=== PATIENT | male | born 1955 | race Caucasian/White ===

== ENCOUNTER 2016-12-18 14:04 | Emergency (ER) | payer BC, OTHER ==
--- NOTE | 2016-12-18 14:49 | PDOC ---
History of Present Illness <Helder Jiménez - Last Filed: 12/18/16 17:50> - General History Source: Patient, Family, Old Records Exam Limitations: No Limitations - History of Present Illness Initial Comments: 12/18/16 19:09 The patient is a 61 year old male, with a significant past medical history of anemia, diabetes, coronary artery disease s/p 17 cardiac stents, ascites and liver cirrhosis, who presents to the emergency department with a laceration to the occiput s/p a mechanical slip and fall on ice approximately an hour prior to presentation. The patient states that he did hit his head but he denies LOC, he states that he remembers all events before, during and after the fall. The patient reports a mild headache but denies any blurry vision, double vision, vision changes, numbness/tingling/weakness, dizziness, nausea, vomiting, neck pain or back pain. The patient denies shortness of breath, palpitations or chest pain. Family is at the bedside. Not on a/c. Allergies: None reported. Past Surgical History: Appendectomy, Stents x 17, Laminectomy (2011) Social History: Former smoker (quit in 2008). Denies alcohol or drug use. PCP: Dr. Landry Machado GI: Dr. Salazar Pritchett Retail Supervisor: Dr. Dario Mireles <Tonie Noonan - Last Filed: 12/18/16 19:11> - General Stated Complaint: fall Time Seen by Provider: 12/18/16 14:16 Past History - Past Medical History Anemia: Yes Asthma: No Cancer: No Cardiac Disorders: Yes (CAD, 17 STENTS IN MY HEART) CVA: No COPD: No CHF: No Dementia: No Diabetes: Yes (IDDM) Dialysis: (Kidney problems) GI Disorders: No Disorders: No HTN: No Hypercholesterolemia: No Kidney Stones: No Liver Disease: Yes (CIRRHOSIS) Suicide Attempt (Hx): No Seizures: No Thyroid Disease: No - Surgical History Abdominal Surgery: No Appendectomy: Yes Cardiac Surgery: Yes (STENTS X 17) Cholecystectomy: No Lung Surgery: No Neurologic Surgery: Yes (LAMINECTOMY 2011) Orthopedic Surgery: No - Immunization History Td Vaccination: Yes TDAP Vaccination: Yes - Psycho/Social/Smoking Cessation Hx Anxiety: No Suicidal Ideation: No Smoking Status: No Smoking History: Never smoked Have you smoked in the past 12 months: No Number of Cigarettes Smoked Daily: 0 If you are a former smoker, when did you quit?: 2008 Hx Alcohol Use: No Drug/Substance Use Hx: No Substance Use Type: None Hx Substance Use Treatment: No <TinoHelder - Last Filed: 12/18/16 17:50> <SaranTonie - Last Filed: 12/18/16 19:11> - Past Medical History Allergies/Adverse Reactions: Allergies Allergy/AdvReac Type Severity Reaction Status Date / Time No Known Drug Allergies Allergy Verified 12/18/16 15:18 Home Medications: Ambulatory Orders Esomeprazole Mag Trihydrate [Nexium] 40 mg PO DAILY #0 capsule. 01/22/12 Rifaximin [Xifaxan -] 550 mg PO BID #0 tablet 07/21/13 Allopurinol [Zyloprim -] 100 mg PO BID 08/17/14 Insulin Glargine,Hum.rec.anlog [Lantus (10mL VIAL) -] 30 units SQ HS 08/17/14 Lactulose 30 mg PO TID 08/18/14 Furosemide [Lasix -] 80 mg PO DAILY 01/30/15 Oxycodone HCl [Roxicodone] 60 mg PO QID PRN 01/30/15 Spironolactone [Aldactone] 50 mg PO DAILY 01/30/15 Atenolol [Tenormin -] 25 mg PO DAILY 10/29/15 Insulin Aspart [Novolog] 30 unit SQ AM 10/30/15 Review of Systems - Review of Systems Able to Perform ROS?: Yes Comments:: 12/18/16 19:09 CONSTITUTIONAL: No reported: Fever, Chills, Diaphoresis, Generalized Weakness, Malaise, Loss of Appetite HEENT: No reported: Rhinorrhea, Nasal Congestion, Throat Pain, Throat Swelling, Difficulty Swallowing, Mouth Swelling, Ear Pain, Eye Pain, Visual Changes CARDIOVASCULAR: No reported: Chest Pain, Syncope, Palpitations, Irregular Heart Rate, Lightheadedness, Peripheral Edema RESPIRATORY: No reported: Cough, Shortness of Breath, SOB with Exertion, Orthopnea, Wheezing , Stridor, Hemoptysis GASTROINTESTINAL: No reported: Abdominal pain, Abdominal Distension, Nausea, Vomiting, Diarrhea, Constipation, Melena, Hematochezia GENITOURINARY: No reported: Dysuria, Frequency, Urgency, Hesitancy, Flank Pain, Genital Pain MUSCULOSKELETAL: No reported: Myalgia, Arthralgia, Joint Swelling, Back pain, Neck Pain SKIN: Reported: +Laceration to Occiput No reported: Rash, Itching, Pallor HEMATOLOGIC/IMMUNOLOGIC: No reported: Easy Bleeding, Easy Bruising, Lymphadenopathy, Frequent infections ENDOCRINE: No reported: Unexplained Weight Gain, Unexplained Weight Loss, Heat Intolerance , Cold Intolerance NEUROLOGIC: Reported: +Headache No reported: Focal Weakness, Paresthesias, Vertigo, Lightheadedness, Unsteady Gait, Seizure, Mental Status Changes, Incontinence PSYCHIATRIC: No reported: Anxiety, Depression <Tonie Noonan - Last Filed: 12/18/16 19:11> *Physical Exam - Physical Exam Comments: 12/18/16 19:10 GENERAL: The patient is awake, alert, and fully oriented, Nontoxic - in no acute distress. HEAD: Normocephalic, 4cm laceration to occiput, no step offs, crepitus, no active bleeding. EYES: Pupils 4mm and symmetrically reactive extraocular movements intact, jaundiced sclera. ENT: Normal voice, moist mucous membranes. NECK: Normal range of motion, supple. LUNGS: Breath sounds equal, clear to auscultation bilaterally. No wheezes, no rhonchi, no rales. HEART: Regular rate and rhythm, normal S1 and S2 without murmur, rub or gallop. ABDOMEN: Ventral hernia, distended abdomen without tenderness, +fluid wave. EXTREMITIES: Normal range of motion, no edema. No clubbing or cyanosis. No cords, erythema, or tenderness. NEUROLOGICAL: No facial asymmetry, normal speech, moving all 4 extremities spontaneously and symmetrically. PSYCH: Normal mood, normal affect. SKIN: Warm, dry, normal turgor. BACK: No tenderness in the cervical/thoracic/lumbar region. <Tonie Noonan - Last Filed: 12/18/16 19:11> Procedures - Consent Consent obtained: Verbal - Laceration/Wound Repair Posterior Head Wound Length: 2.6 to 5.0 cm Wound Explored: clean Wound's Depth, Shape: linear, stellate Anesthesia: 1% Lidocaine w/ Epi Amount of Anesthetic (ccs): 6 Wound Debrided: minimal Wound Repaired With: Verna Number of Sutures: 6 Layer Closure: No <Tino,Heledr - Last Filed: 12/18/16 17:50> Heart Score/ECG Review - ECG Impressions Comment:: 12/18/16 16:58 Twelve-lead EKG was performed and reviewed by me. There is normal sinus rhythm with a normal rate. Rate of 66 abnormal r wave progression <Sergio Jiménezan - Last Filed: 12/18/16 17:50> ED Treatment Course - LABORATORY CBC & Chemistry Diagram: 12/18/16 15:10 12/18/16 15:10 <Helder Jiménez - Last Filed: 12/18/16 17:50> - LABORATORY CBC & Chemistry Diagram: 12/18/16 15:10 12/18/16 15:10 <Tonie Noonan - Last Filed: 12/18/16 19:11> Medical Decision Making - Medical Decision Making 12/18/16 14:51 61y M hx of liver cirhosis cb ascites, cad s/p 17 stents, dm, presents s/p slip and fall - pt recalls slipping on ice and landed on his head, endorses mild headache but dneis any n/v vision changes, neck pain, back pain, cp, palpitations. mechanical fall - will obtain ct head to r/o bleed/fx will need closure with verna will update tetnaus ekg, labs due to pts comorbidities A portion of this note was documented by scribe services under my direction. I have reviewed the details of the note, within reason, and agree with the documentation with the following case summary and management plan written by me 12/18/16 17:00 The patient's labs were reviewed CT of the patient's head and C-spine are negative for acute changes We'll close the patient's laceration with verna and anticipate discharge with primary care fu 12/18/16 17:40 laceration repaired with 6 verna basictracin applied return precautions were dicusscused including signs of infection return on 10 days for staple removal I discussed the physical exam findings, ancillary test results and final diagnoses with the patient. I answered all of the patient's questions. The patient was satisfied with the care received and felt comfortable with the discharge plan and treatment plan. The patient will call their primary care physician within 24 hours to arrange follow-up and will return to the Emergency Department with any new, persistent or worsening symptoms. <Helder Jiménez - Last Filed: 12/18/16 17:50> - Medical Decision Making 12/18/16 17:15 EXAM: CT/ HEAD CT WITHOUT CONTRAST Reviewed By: Dr. Roel Azul IMPRESSION: No CT evidence of acute intracranial pathology. Left parietal scalp hematoma. EXAM: CT/CERVICAL SPINE CT W/O CONTRAST Reviewed By: Dr. Roel Azul IMPRESSION: No fracture is seen. 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 <Tonie Noonan - Last Filed: 12/18/16 19:11> *DC/Admit/Observation/Transfer - Discharge Dispostion Admit: No <Helder Jiménez - Last Filed: 12/18/16 17:50> - Attestations Scribe Attestion: 12/18/16 15:09 Documentation prepared by Tonie Noonan, acting as medical assisting program director for Helder Jiménez MD. <Tonie Noonan - Last Filed: 12/18/16 19:11> Diagnosis at time of Disposition: Head injury Qualifiers: Encounter type: initial encounter Qualified Code(s): S09.90XA - Unspecified injury of head, initial encounter Occipital scalp laceration Qualifiers: Encounter type: initial encounter Qualified Code(s): S01.01XA - Laceration without foreign body of scalp, initial encounter - Discharge Dispostion Disposition: HOME Condition at time of disposition: Improved - Referrals Referrals: Landry Machado MD [Staff Physician] - - Patient Instructions Printed Discharge Instructions: DI for Closed Head Injury Additional Instructions: Return to the emergency department immediately with ANY new, persistent or worsening symptoms including any redness, bleeding, purulent discharge, swelling or other concerns. Keep the area clean and dry for 48 hours. Afterwards he may clean gently with soap and water. Apply bacitracin twice a day. Keep the area away from the sun for the next 9 months, please use sunscreen and wear a hat if you need to be in the sun to improve appearance of the scar. Return in 10 days for staple removal. You MUST call and follow up with your doctor tomorrow for further evaluation of your symptoms. Results were discussed with you. Please make sure your doctor reviews the results of your emergency evaluation. Print Language: MOROCCAN
[2016-12-18] MEDS ORDERED: DIPHTH,PERTUSS(ACELL),TET VAC 0.5 ML VIAL IM ONE (14:50)
[2016-12-18] MEDS ORDERED: ACETAMINOPHEN 325 MG TABLET (FP) PO ONE (14:50)
[2016-12-18 15:18] VITALS: BMI 25.8
[2016-12-18 15:25] LABS: BASOPHIL 0.7 % (0-2.0); EOSINOPHIL 2.8 % (0-4.5); MCH 26.1 pg (25.7-33.7); MCHC 32.6 g/dl (32.0-35.9); MEAN CELL VOLUME 80.3 fl (80-96); MEAN PLT VOLUME 10.9 fl (7.5-11.1); NEUTROPHILS 75.5 % (42.8-82.8); PLATELET COUNT 110 K/MM3 (134-434); RDW 17.2 % (11.9-15.9); WHITE BLOOD COUNT 6.1 K/mm3 (4.0-10.0)
[2016-12-18 15:42] LABS: INR 1.35 (0.82-1.09); PROTHROMBIN TIME (PATIENT) 14.9 SEC (9.98-11.88)
[2016-12-18 15:44] LABS: ALBUMIN 3.3 g/dl (3.4-5.0); BILIRUBIN,TOTAL 0.8 mg/dL (0.2-1.0); CREATININE 3.1 mg/dL (0.7-1.3); TOT PROT 7.1 g/dl (6.4-8.2)
[2016-12-18] MEDS ORDERED: morphine CARPU-JECT 4 MG/1 ML DISP.SYRIN IVPUSH ONE (16:59)
[2016-12-18] MEDS ORDERED: morphine CARPU-JECT 2 MG/1 ML DISP.SYRIN IVPUSH ONE (16:59)
[2016-12-18] MEDS ORDERED: morphine CARPU-JECT 4 MG/1 ML DISP.SYRIN ONE (17:01)
[2016-12-18] MEDS ORDERED: LIDOCAINE 1%/EPI 1:100000 (50 ML MULTI DOSE VIAL) ONE (17:22)
[2016-12-18 19:30] VITALS: BP 140/85; PULSE 65; TEMP 97.9
--- NOTE | 2016-12-19 17:05 | EKG ---
Test Reason : Blood Pressure : / mmHG Vent. Rate : 066 BPM Atrial Rate : 066 BPM P-R Int : 140 ms QRS Dur : 072 ms QT Int : 382 ms P-R-T Axes : 072 -13 040 degrees QTc Int : 400 ms NORMAL SINUS RHYTHM LOW VOLTAGE QRS CANNOT RULE OUT SEPTAL INFARCT (CITED ON OR BEFORE 30-JAN-2015) ABNORMAL ECG WHEN COMPARED WITH ECG OF 19-JUL-2016 00:55, SINUS RHYTHM HAS REPLACED ATRIAL FIBRILLATION VENT. RATE HAS DECREASED BY 67 BPM T WAVE VARIATION Confirmed by DONNA REGALADO MD ([id number]) on 12/19/2016 5:04:48 PM Referred By: Confirmed By:DONNA REGALADO MD
== END 2016-12-18 18:30 | disposition home or self-care (01) ==
LOC: JER 14:04
PROC: 3E033NZ Introduction of Analgesics, Hypnotics, Sedatives into Peripheral Vein, Percutaneous Approach (ICD-10-PCS; principal; 2016-12-18)
PROC: 3E0234Z Introduction of Serum, Toxoid and Vaccine into Muscle, Percutaneous Approach (ICD-10-PCS; 2016-12-18)
PROC: 0HQ0XZZ Repair Scalp Skin, External Approach (ICD-10-PCS; 2016-12-18)
DX: S01.01XA Laceration without foreign body of scalp, initial encounter (principal); W00.2XXA Other fall from one level to another due to ice and snow, initial encounter; Y93.89 Activity, other specified; Y92.414 Local residential or business street as the place of occurrence of the external cause; I25.10 Atherosclerotic heart disease of native coronary artery without angina pectoris; Z95.5 Presence of coronary angioplasty implant and graft; E11.9 Type 2 diabetes mellitus without complications; Z79.84 Long term (current) use of oral hypoglycemic drugs; D64.9 Anemia, unspecified; K74.60 Unspecified cirrhosis of liver
CPT/HCPCS: 36415; 70450-TC; 72125-TC; 80053; 85025; 85610; 93005; 93010; 99283-25

== ENCOUNTER 2016-12-28 16:22 | Emergency (ER) | payer BC, OTHER ==
[2016-12-28 16:26] VITALS: BP 130/63; PULSE 67; TEMP 97.9; BMI 25.8
--- NOTE | 2016-12-28 17:25 | PDOC ---
Suture Removal/Wound Check HPI - History of Present Illness Chief Complaint: Suture/Staple Removal(Here) Stated Complaint: [place] removal Time Seen by Provider: 12/28/16 17:20 History Source: Yes: Patient Exam Limitations: Yes: No Limitations [facility] Date of Last ED visit: 12/18/16 - Previous ED Treatment Type of procedure performed on last visit: Yes: Laceration Repair (scalp reapir with marlon) Tetanus Immunization: Yes: Up to Date Past History - Past Medical History Allergies/Adverse Reactions: Allergies No Known Drug Allergies Allergy (Verified 12/28/16 16:26) Home Medications: Ambulatory Orders Esomeprazole Mag Trihydrate [Nexium] 40 mg PO DAILY #0 capsule. 01/22/12 Rifaximin [Xifaxan -] 550 mg PO BID #0 tablet 07/21/13 Allopurinol [Zyloprim -] 100 mg PO BID 08/17/14 Insulin Glargine,Hum.rec.anlog [Lantus (10mL VIAL) -] 30 units SQ HS 08/17/14 Lactulose 30 mg PO TID 08/18/14 Furosemide [Lasix -] 80 mg PO DAILY 01/30/15 Oxycodone HCl [Roxicodone] 60 mg PO QID PRN 01/30/15 Spironolactone [Aldactone] 50 mg PO DAILY 01/30/15 Atenolol [Tenormin -] 25 mg PO DAILY 10/29/15 Insulin Aspart [Novolog] 30 unit SQ AM 10/30/15 Surgical History: Yes: Cardiac Stent, Noncontributory - Social History Smoking History: No Smoking Status: Never smoked Number of Ciarettes Per Day: 0 Alcohol Use: none Drug Use: none Suture Removal/Wound Check PE - Physical Exam Laceration/Wound Check Symptoms: reports: None Comments: 12/28/16 17:25 scalp laceration healed well with 5 marlon wound clean dry intact *Review of Systems - Review of Systems Able to Perform ROS?: Yes Constitutional: No: Symptoms Reported Procedures - Additional Procedures Progress: 12/28/16 17:27 marlon removed x5 without difficulty Medical Decision Making - Medical Decision Making 12/28/16 17:27 cc: staple removal from scalp healed well placed on 12/18/16 no headache or dizzyness *DC/Admit/Observation/Transfer Diagnosis at time of Disposition: Removal of marlon - Discharge Dispostion Disposition: HOME Condition at time of disposition: Good - Referrals Referrals: Landry Machado MD [Primary Care Provider] - - Patient Instructions Additional Instructions: you may wash hair as per normal routine any concerns please follow with your medical doctor
== END 2016-12-28 17:30 | disposition home or self-care (01) ==
LOC: JERFT 16:22
DX: Z48.02 Encounter for removal of sutures (principal)
CPT/HCPCS: 99281-25

== ENCOUNTER 2017-06-13 14:38 | Emergency (ER) | payer BC, OTHER ==
[2017-06-13 14:48] VITALS: BP 113/63; PULSE 75; TEMP 98.2; BMI 25.2
--- NOTE | 2017-06-13 15:37 | PDOC ---
History of Present Illness - General Chief Complaint: Injury Stated Complaint: FALL Time Seen by Provider: 06/13/17 15:31 History Source: Patient - History of Present Illness Occurred: reports: just prior to arrival Pain Location: reports: head Method of Injury: Yes: fall Past History - Past Medical History Allergies/Adverse Reactions: Allergies Allergy/AdvReac Type Severity Reaction Status Date / Time No Known Drug Allergies Allergy Verified 06/13/17 14:48 Home Medications: Ambulatory Orders Esomeprazole Mag Trihydrate [Nexium] 40 mg PO DAILY #0 capsule. 01/22/12 Rifaximin [Xifaxan -] 550 mg PO BID #0 tablet 07/21/13 Allopurinol [Zyloprim -] 100 mg PO BID 08/17/14 Insulin Glargine,Hum.rec.anlog [Lantus (10mL VIAL) -] 30 units SQ HS 08/17/14 Lactulose 30 mg PO TID 08/18/14 Furosemide [Lasix -] 80 mg PO DAILY 01/30/15 Oxycodone HCl [Roxicodone] 60 mg PO QID PRN 01/30/15 Spironolactone [Aldactone] 50 mg PO DAILY 01/30/15 Atenolol [Tenormin -] 25 mg PO DAILY 10/29/15 Insulin Aspart [Novolog] 30 unit SQ AM 10/30/15 Anemia: Yes Asthma: No Cancer: No Cardiac Disorders: Yes (CAD, 17 STENTS IN MY HEART) CVA: No COPD: No CHF: No Dementia: No Diabetes: Yes (IDDM) Dialysis: (Kidney problems) GI Disorders: No Disorders: No HTN: No Hypercholesterolemia: No Kidney Stones: No Liver Disease: Yes (CIRRHOSIS) Suicide Attempt (Hx): No Seizures: No Thyroid Disease: No - Surgical History Abdominal Surgery: No Appendectomy: Yes Cardiac Surgery: Yes (STENTS X 17) Cholecystectomy: No Lung Surgery: No Neurologic Surgery: Yes (LAMINECTOMY 2012, L HIP X 2.) Orthopedic Surgery: No - Immunization History Td Vaccination: Yes TDAP Vaccination: Yes - Psycho/Social/Smoking Cessation Hx Anxiety: No Suicidal Ideation: No Smoking Status: No Smoking History: Never smoked Have you smoked in the past 12 months: No Number of Cigarettes Smoked Daily: 0 If you are a former smoker, when did you quit?: 2008 Hx Alcohol Use: No Drug/Substance Use Hx: No Substance Use Type: None Hx Substance Use Treatment: No Review of Systems - Review of Systems Constitutional: No: Chills, Fever Respiratory: No: Cough, Shortness of Breath Cardiac (ROS): No: Chest Pain, Lightheadedness, Palpitations, Syncope ABD/GI: No: Nausea, Vomiting Neurological: No: Headache, Dizziness *Physical Exam - Vital Signs Last Vital Signs Temp Pulse Resp BP Pulse Ox 98.2 F 75 20 113/63 100 06/13/17 14:44 06/13/17 14:44 06/13/17 14:44 06/13/17 14:44 06/13/17 14:44 - Physical Exam General Appearance: Yes: Appropriately Dressed. No: Apparent Distress HEENT: positive: Normal Voice, Other (~4 cm linear lac to occipital scalp, bleeding controlled) Neck: positive: Supple. negative: Tender, Decreased range of motion Respiratory/Chest: positive: Lungs Clear, Normal Breath Sounds. negative: Respiratory Distress Cardiovascular: positive: Regular Rate, S1, S2 Gastrointestinal/Abdominal: positive: Soft, Other (ascites (chronic 2/2 cirrhosis)). negative: Tender Extremity: positive: Normal Inspection. negative: Tender Integumentary: positive: Dry, Warm Neurologic: positive: Fully Oriented, Alert, Normal Mood/Affect Procedures - Laceration/Wound Repair Head Wound Length: 5.0 to 7.5 cm Wound Explored: clean Wound's Depth, Shape: into muscle, linear Irrigated w/ Saline: Yes Betadine Prep: Yes Wound Repaired With: [place] (12) Sterile Dressing Applied: Yes ED Treatment Course - RADIOLOGY Radiology Studies Ordered: Category Date Time Status HEAD CT WITHOUT CONTRAST [CT] Stat CT Scan 06/13/17 15:35 Ordered Medical Decision Making - Medical Decision Making 06/13/17 15:35 Dr Su is a 61 yo M, history of cirrhosis secondary to fatty liver as per patient, diabetes, L hip repair, here with head injury status post fall. Patient reports that he uses a walker to ambulate and that while walking unassisted to the bathroom at home today, left leg gave out on him, which it has done in the past several times, causing him to fall backwards hitting back of his head. Pt denies LOC, headache, dizziness, visual changes, nausea, vomiting. Not on any blood thinners. No back/neck/extremity pain. No chest pain or dizziness prior to fall See exam Head injury s/p mechanical fall No LOC, [place], dizziness, n/v Not on blood thinners Well kalyan and stable w/ scalp lac -tetanus UTD -lac repair -CT head 06/13/17 15:52 06/13/17 15:55 06/13/17 16:55 CTH neg. Scalp lac repaired w/ 12 marlon. To return for wound check as needed 06/13/17 16:57 *DC/Admit/Observation/Transfer Diagnosis at time of Disposition: Scalp laceration Qualifiers: Encounter type: initial encounter Qualified Code(s): S01.01XA - Laceration without foreign body of scalp, initial encounter - Discharge Dispostion Disposition: HOME Condition at time of disposition: Good - Referrals Referrals: Landry Machado MD [Primary Care Provider] - - Patient Instructions Printed Discharge Instructions: DI for Closed Head Injury, DI for Laceration Repair Additional Instructions: Keep dressing in place for at least 24 hours after which one can be opened to air. You can gently cleaned wound with mild soap and water after 24 hours to prevent crusting over the suture knots. You can also apply an antibiotic ointment twice a day until sutures are removed. Return for redness, discharge or fever Sutures are removed in 7-14 days
== END 2017-06-13 17:10 | disposition home or self-care (01) ==
LOC: JER 14:38
PROC: 0HQ0XZZ Repair Scalp Skin, External Approach (ICD-10-PCS; principal; 2017-06-13)
DX: S01.01XA Laceration without foreign body of scalp, initial encounter (principal); W18.39XA Other fall on same level, initial encounter; Y93.01 Activity, walking, marching and hiking; Y92.012 Bathroom of single-family (private) house as the place of occurrence of the external cause; Y99.8 Other external cause status; R26.89 Other abnormalities of gait and mobility; Z99.89 Dependence on other enabling machines and devices; D64.9 Anemia, unspecified; I25.10 Atherosclerotic heart disease of native coronary artery without angina pectoris; Z95.5 Presence of coronary angioplasty implant and graft; E11.9 Type 2 diabetes mellitus without complications; Z79.4 Long term (current) use of insulin
CPT/HCPCS: 70450-TC; 99282-25

== ENCOUNTER 2017-12-29 18:05 | Emergency (ER) | payer BC, OTHER ==
[2017-12-29 18:10] VITALS: BP 141/68; PULSE 56; TEMP 97; BMI 22.4
--- NOTE | 2017-12-29 18:27 | PDOC ---
Attending Attestation - HPI HPI: 12/29/17 20:22 CC: Head Laceration HPI: The patient is a 61 year old male, with a significant past medical history of cirrhosis secondary to fatty liver as per patient, and diabetes, who presents to the emergency department s/p mechanical fall with, laceration to the head. As per patient he ambulates with a walker, however, he was walking without assistance to the bathroom last night when his left leg gave out and he fell. The patient reports falling backwards. The patients laceration reports active bleeding overnight. He denies any recent fevers, chills, headache or dizziness. He denies any recent nausea, vomit, diarrhea or constipation. He denies any recent chest pain or shortness of breath. He denies any recent dysuria, frequency, urgency or hematuria. Allergies: NKA Past surgical history: Cardiac stents, Left hip repair, Back surgery Social History: Former smoker (1 pack per day for more than 20 years). Denies EtOH use and recreational drug use. Primary Care Physician: Dr. Ken Su - Physicial Exam PE: 12/29/17 20:33 Vitals: Triage vital signs reviewed General Appearance: No acute distress, well nourished, well developed Head: + 3 cm laceration to the occiput. Eyes: Pupils equal reactive round, extraocular movement intact Neck: Supple; No nuchal rigidity Chest Wall: Nontender Cardiac: Regular rate and rhythm, no murmurs, no rubs, no gallops Lungs: Clear to auscultation bilateral, good air movement bilaterally Abdomen: Soft, nondistended, normal bowel sounds, nontender to palpation Genitourinary: Rectal: Exam deferred Extremities: Full range of motion to all extremities, no cyanosis, clubbing, or edema Skin: Warm and dry, no rashes or lesions, no rash, no petechiae Neuro: AOX3; Cranial Nerves 2-12 grossly intact, Strength intact to all extremities, Sensation intact to all extremities Psych: Normal mood, normal affect <Trang Guzman - Last Filed: 12/29/17 20:33> - Resident Resident Name: Cedrick Apodaca - ED Attending Attestation I have performed the following: I have examined & evaluated the patient, The case was reviewed & discussed with the resident, I agree w/resident's findings & plan, Exceptions are as noted - Medical Decision Making 12/29/17 23:17 Mechanical slip and fall. Patient with 3 cm head laceration Repaired by resident with good approximation after thorough irrigation Findings, need for follow-up and strict return instructions discussed with patient and family. <Kan Huffman - Last Filed: 12/29/17 23:17> Attestations - Attestations 12/29/17 20:22 Documentation prepared by Trang Guzman, acting as medical collections representative for Kan Huffman MD. <Trang Guzman - Last Filed: 12/29/17 20:33>
--- NOTE | 2017-12-29 18:27 | PDOC ---
History of Present Illness - General Chief Complaint: Injury Stated Complaint: FALL/INJURY Time Seen by Provider: 12/29/17 18:27 History Source: Patient Exam Limitations: No Limitations - History of Present Illness Initial Comments: 12/29/17 18:49 Dr Su is a 61 yo M, history of cirrhosis secondary to fatty liver as per patient, diabetes, L hip repair, here with head injury status post fall. Patient reports that he uses a walker to ambulate and that while walking unassisted to the bathroom at home last night 3 am , left leg gave out on him, which it has done in the past several times, causing him to fall backwards hitting back of his head. Pt denies LOC, headache, dizziness, visual changes, nausea, vomiting. he is using aspirine 81 mg po daily . No back/neck/ extremity pain. No chest pain or dizziness prior to fall pt continue to bleed over night that prompt the to bring him to ED. pmhx : Dm , cirrhosis, heart stent X 17 PSH: cardiac stents, left hip repair, back surgery Allergies: NKDA social: former smoker , 1ppd for more than 20 years, denies alcohol and drugs abuse. Physical exam: Vital Signs Period Temp Pulse Resp BP Sys/Grant Pulse Ox Last 24 Hr 97 F 56 18 141/68 99 General: thin in NAD Head: occipital laceration 3 X0.5 cm , with surround erythema Neck: supple FROM Lungs: CTA B/L Heart: RRR, NO MRG Abdomen: soft ND.NT , + BS Neuro: no fcal deficit, normal speech , Ext: +2 LE edema, + DP pulse Skin: warm and dry Psych: appropriate moodand effect A/P Head injury s/p mechanical fall No LOC, [place], dizziness, n/v Well kalyan and stable w/ scalp lac -tetanus was received 7 years ago -lac repair -CT head _ EKG 12/29/17 19:07 12/29/17 20:[address] with no intra cranial acute pathology , no fracture, there is scalp hematoma . will do marlon for the open wound and he can follow up as out patient. 12/29/17 21:08 wound was cleaned and irrigated with clean water and 4 marlon were placed . pt is hypodermically stable and ready to dc home Past History - Past Medical History Allergies/Adverse Reactions: Allergies Allergy/AdvReac Type Severity Reaction Status Date / Time No Known Drug Allergies Allergy Verified 12/29/17 18:10 Home Medications: Ambulatory Orders Esomeprazole Mag Trihydrate [Nexium] 40 mg PO DAILY #0 capsule. 01/22/12 Rifaximin [Xifaxan -] 550 mg PO BID #0 tablet 07/21/13 Allopurinol [Zyloprim -] 100 mg PO BID 08/17/14 Insulin Glargine,Hum.rec.anlog [Lantus (10mL VIAL) -] 30 units SQ HS 08/17/14 Lactulose 30 mg PO TID 08/18/14 Furosemide [Lasix -] 80 mg PO DAILY 01/30/15 Oxycodone HCl [Roxicodone] 60 mg PO QID PRN 01/30/15 Spironolactone [Aldactone] 50 mg PO DAILY 01/30/15 Atenolol [Tenormin -] 25 mg PO DAILY 10/29/15 Insulin Aspart [Novolog] 30 unit SQ AM 10/30/15 Anemia: Yes Asthma: No Cancer: No Cardiac Disorders: Yes (CAD, 17 STENTS IN MY HEART) CVA: No COPD: No CHF: No Dementia: No Diabetes: Yes (IDDM) Dialysis: (Kidney problems) GI Disorders: No Disorders: No HTN: No Hypercholesterolemia: No Kidney Stones: No Liver Disease: Yes (CIRRHOSIS) Seizures: No Thyroid Disease: No - Surgical History Abdominal Surgery: No Appendectomy: Yes Cardiac Surgery: Yes (STENTS X 17) Cholecystectomy: No Lung Surgery: No Neurologic Surgery: Yes (LAMINECTOMY 2012, L HIP X 2.) Orthopedic Surgery: No - Immunization History Td Vaccination: Yes TDAP Vaccination: Yes - Suicide/Smoking/Psychosocial Hx Smoking Status: No Smoking History: Never smoked Have you smoked in the past 12 months: No Number of Cigarettes Smoked Daily: 0 If you are a former smoker, when did you quit?: 2008 Hx Alcohol Use: No Drug/Substance Use Hx: No Substance Use Type: None Hx Substance Use Treatment: No *Physical Exam - Vital Signs Last Vital Signs Temp Pulse Resp BP Pulse Ox 97 F L 56 L 18 141/68 99 12/29/17 18:08 12/29/17 18:08 12/29/17 18:08 12/29/17 18:08 12/29/17 18:08 *DC/Admit/Observation/Transfer Diagnosis at time of Disposition: Laceration of head, Fall - Discharge Dispostion Disposition: HOME Admit: No - Referrals Referrals: Landry Machado MD [Primary Care Provider] - - Patient Instructions Printed Discharge Instructions: DI for Closed Head Injury Additional Instructions: you presented to the emergency room due to head laceration after you fell down last night . Head CT came back negative scalp laceration was cleaned and irrigated and 4 marlon were placed and covered with pacitracine and gauze you will be send home please change on wound twice daily and apply Pacitracin over the counter Please follow up after 10 days to remove the marlon Please keep the wound clean and dry. - Post Discharge Activity
== END 2017-12-29 21:39 | disposition home or self-care (01) ==
LOC: JER 18:05
PROC: 0HQ0XZZ Repair Scalp Skin, External Approach (ICD-10-PCS; principal; 2017-12-29)
DX: S01.01XA Laceration without foreign body of scalp, initial encounter (principal); W01.198A Fall on same level from slipping, tripping and stumbling with subsequent striking against other object, initial encounter; Z91.81 History of falling; Y93.89 Activity, other specified; Y92.012 Bathroom of single-family (private) house as the place of occurrence of the external cause; Y99.8 Other external cause status; E11.9 Type 2 diabetes mellitus without complications; Z79.4 Long term (current) use of insulin; Z95.5 Presence of coronary angioplasty implant and graft; K76.0 Fatty (change of) liver, not elsewhere classified; Z79.82 Long term (current) use of aspirin; Z87.891 Personal history of nicotine dependence; R26.89 Other abnormalities of gait and mobility; Z99.89 Dependence on other enabling machines and devices
CPT/HCPCS: 70450-TC; 73502-TC-LT-FY; 73502-TC-RT; 99283-25

== ENCOUNTER 2018-01-08 17:33 | Emergency (ER) | payer BC, OTHER ==
[2018-01-08 17:45] VITALS: BP 117/64; PULSE 60; TEMP 98.4; BMI 21.4
--- NOTE | 2018-01-08 17:45 | PDOC ---
Rapid Medical Evaluation Chief Complaint: Suture/Staple Removal(Here) Time Seen by Provider: 01/08/18 17:42 Medical Evaluation: Allergies Allergy/AdvReac Type Severity Reaction Status Date / Time No Known Drug Allergies Allergy Verified 12/29/17 18:10 01/08/18 17:42 I have performed a brief in-person evaluation of this patient. The patient presents with a chief complaint of: staple removal Pertinent physical exam findings: marlon L parietal scalp I have ordered the following: nothing The patient will proceed to the ED for further evaluation. Discharge Disposition - Diagnosis Removal of staple - Referrals - Patient Instructions - Post Discharge Activity
--- NOTE | 2018-01-08 18:44 | PDOC ---
Suture Removal/Wound Check HPI - History of Present Illness Chief Complaint: Suture/Staple Removal(Here) Stated Complaint: suture Time Seen by Provider: 01/08/18 17:42 History Source: Yes: Patient Exam Limitations: Yes: No Limitations Treated at: [facility] Date of Last ED visit: 12/19/16 - Previous ED Treatment Type of procedure performed on last visit: Yes: Laceration Repair Tetanus Immunization: Yes: Up to Date Antibiotics Prescribed: No Past History - Past Medical History Allergies/Adverse Reactions: Allergies Allergy/AdvReac Type Severity Reaction Status Date / Time No Known Drug Allergies Allergy Verified 01/08/18 17:45 Home Medications: Ambulatory Orders Esomeprazole Mag Trihydrate [Nexium] 40 mg PO DAILY #0 capsule. 01/22/12 Rifaximin [Xifaxan -] 550 mg PO BID #0 tablet 07/21/13 Allopurinol [Zyloprim -] 100 mg PO BID 08/17/14 Insulin Glargine,Hum.rec.anlog [Lantus (10mL VIAL) -] 30 units SQ HS 08/17/14 Lactulose 30 mg PO TID 08/18/14 Furosemide [Lasix -] 80 mg PO DAILY 01/30/15 Oxycodone HCl [Roxicodone] 60 mg PO QID PRN 01/30/15 Spironolactone [Aldactone] 50 mg PO DAILY 01/30/15 Atenolol [Tenormin -] 25 mg PO DAILY 10/29/15 Insulin Aspart [Novolog] 30 unit SQ AM 10/30/15 Anemia: Yes Asthma: No Cancer: No Cardiac Disorders: Yes (CAD, 17 STENTS IN MY HEART) CVA: No COPD: No CHF: No DVT: No Dementia: No Diabetes: Yes (IDDM) Dialysis: (Kidney problems) GI Disorders: No Disorders: No HTN: No Hypercholesterolemia: No Kidney Stones: No Liver Disease: Yes (CIRRHOSIS) Seizures: No Thyroid Disease: No - Surgical History Abdominal Surgery: No Appendectomy: Yes Cardiac Surgery: Yes (STENTS X 17) Cholecystectomy: No Lung Surgery: No Neurologic Surgery: Yes (LAMINECTOMY 2012, L HIP X 2.) Orthopedic Surgery: No - Immunization History Td Vaccination: Yes TDAP Vaccination: Yes - Suicide/Smoking/Psychosocial Hx Smoking Status: No Smoking History: Never smoked Have you smoked in the past 12 months: No Number of Cigarettes Smoked Daily: 0 If you are a former smoker, when did you quit?: 2008 Information on smoking cessation initiated: No Hx Alcohol Use: No Drug/Substance Use Hx: No Substance Use Type: None Hx Substance Use Treatment: No Suture Removal/Wound Check PE - Physical Exam Laceration/Wound Check Symptoms: reports: None Current Severity Level: None Maximum Severity Level: None Pain Localization: None *Review of Systems - Review of Systems Constitutional: No: Symptoms Reported Integumentary: No: Symptoms Reported Neurological: No: Symptoms reported Hematologic/Lymphatic: No: Symptoms Reported All Other Systems: Reviewed and Negative Medical Decision Making - Medical Decision Making 01/08/18 18:46 5 marlon removed from posterior scalp without difficulty, there is no erythema edema secondary signs of infection, no bleeding. *DC/Admit/Observation/Transfer Diagnosis at time of Disposition: Removal of staple - Discharge Dispostion Disposition: HOME Condition at time of disposition: Stable Admit: No - Referrals - Patient Instructions Additional Instructions: No Rubbing or scratching area, if any bleeding apply pressure and return to ER. 5 marlon removed without difficulty. - Post Discharge Activity
== END 2018-01-08 18:48 | disposition home or self-care (01) ==
LOC: JERFT 17:33
DX: Z48.02 Encounter for removal of sutures (principal)
CPT/HCPCS: 99281-25

== ENCOUNTER 2018-05-08 22:47 | Emergency (ER) | payer BC, OTHER ==
[2018-05-08 23:05] VITALS: BP 114/61; PULSE 61; TEMP 97.8; BMI 18.7
--- NOTE | 2018-05-09 01:10 | PDOC ---
History of Present Illness - General Chief Complaint: Laceration Stated Complaint: FALL/INJURY Time Seen by Provider: 05/09/18 00:55 - History of Present Illness Initial Comments: 05/09/18 01:11 Patient is a 61 year old male with a PMH of Cirrhosis 2/2 to fatty liver, and IDDM who presents to our ED tonight s/p mechanical fall w/abrasion to his head. Patient states he was walking via walker in the bathroom when he slipped on some water and fell backwards hitting his head. Denies LOC and was immediately ambulatory. Denies any pre fall shortness of breath, lightheadedness, palpitations. Last tetanus shot seven years previous. He denies any recent fevers, chills, headache or dizziness. He denies any recent nausea, vomit, diarrhea or constipation. He denies any recent dysuria, frequency, urgency or hematuria. NKDA Surgical: cardiac stent, L hip repair, unknown back surgery Social: former smoker (1 ppd > 20 years), denies other toxic habits PMD: Dr. Ken Su M.D. Past History - Past Medical History Allergies/Adverse Reactions: Allergies Allergy/AdvReac Type Severity Reaction Status Date / Time No Known Drug Allergies Allergy Verified 05/08/18 23:02 Home Medications: Ambulatory Orders Esomeprazole Mag Trihydrate [Nexium] 40 mg PO DAILY #0 capsule. 01/22/12 Rifaximin [Xifaxan -] 550 mg PO BID #0 tablet 07/21/13 Allopurinol [Zyloprim -] 100 mg PO BID 08/17/14 Insulin Glargine,Hum.rec.anlog [Lantus (10mL VIAL) -] 30 units SQ HS 08/17/14 Lactulose 30 mg PO TID 08/18/14 Furosemide [Lasix -] 80 mg PO DAILY 01/30/15 Oxycodone HCl [Roxicodone] 60 mg PO QID PRN 01/30/15 Spironolactone [Aldactone] 50 mg PO DAILY 01/30/15 Atenolol [Tenormin -] 25 mg PO DAILY 10/29/15 Insulin Aspart [Novolog] 30 unit SQ AM 10/30/15 Cephalexin Monohydrate [Keflex -] 500 mg PO BID #10 capsule 05/09/18 Anemia: Yes Asthma: No Cancer: No Cardiac Disorders: Yes (CAD, 17 STENTS IN MY HEART) CVA: No COPD: No CHF: No DVT: No Dementia: No Diabetes: Yes (IDDM) Dialysis: (Kidney problems) GI Disorders: No Disorders: No HTN: No Hypercholesterolemia: No Kidney Stones: No Liver Disease: Yes (CIRRHOSIS (born w/fatty liver)) Seizures: No Thyroid Disease: No - Surgical History Abdominal Surgery: No Appendectomy: Yes Cardiac Surgery: Yes (STENTS X 17) Cholecystectomy: No Lung Surgery: No Neurologic Surgery: Yes (LAMINECTOMY 2012, L HIP X 2.) Orthopedic Surgery: No - Immunization History Td Vaccination: Yes TDAP Vaccination: Yes - Suicide/Smoking/Psychosocial Hx Smoking Status: No Smoking History: Never smoked Have you smoked in the past 12 months: No Number of Cigarettes Smoked Daily: 0 If you are a former smoker, when did you quit?: 2008 Information on smoking cessation initiated: No Hx Alcohol Use: No Drug/Substance Use Hx: No Substance Use Type: None Hx Substance Use Treatment: No Review of Systems - Review of Systems Constitutional: No: Chills, Fever HEENTM: No: Blurred Vision, Double Vision Respiratory: No: Shortness of Breath Cardiac (ROS): No: Chest Pain ABD/GI: No: Constipated, Diarrhea, Nausea, Vomiting *Physical Exam - Vital Signs Last Vital Signs Temp Pulse Resp BP Pulse Ox 97.8 F 61 20 114/61 100 05/08/18 23:02 05/08/18 23:02 05/08/18 23:02 05/08/18 23:02 05/08/18 23:02 - Physical Exam General Appearance: Yes: Nourished, Thin HEENT: positive: EOMI, JOSE, Other (R lower occipital abrasion; no hematoma, no laceration) Neck: positive: Trachea midline, Supple Respiratory/Chest: positive: Lungs Clear, Normal Breath Sounds Cardiovascular: positive: Regular Rate. negative: Edema, JVD Gastrointestinal/Abdominal: positive: Normal Bowel Sounds, Soft Extremity: positive: Normal Capillary Refill, Normal Inspection Integumentary: positive: Normal Color, Dry, Warm Neurologic: positive: Fully Oriented, Alert Medical Decision Making - Medical Decision Making 05/09/18 01:26 62 year old male presents s/p mechanical fall. Neurologically intact, no C- spine or L/T/S tenderness. Minor abrasion to R occiput. Tetanus UTD 05/09/18 01:[address] negative for acute bleed. Will give Keflex prophylaxis and discharge home with return precautions. I discussed the physical exam findings, ancillary test results and final diagnoses with the patient. I answered all of the patient's questions. The patient was satisfied with the care received and felt comfortable with the discharge plan and treatment plan. The patient will return to the Emergency Department with any new, persistent or worsening symptoms. *DC/Admit/Observation/Transfer Diagnosis at time of Disposition: Fall - Discharge Dispostion Disposition: HOME Decision to Admit order: No - Prescriptions Prescriptions: Cephalexin Monohydrate [Keflex -] 500 mg PO BID #10 capsule - Referrals Referrals: Salazar Pritchett MD [Primary Care Provider] - - Patient Instructions Printed Discharge Instructions: How to Prevent Falls Additional Instructions: A prescription has been called to your pharmacy. Please complete the entire antibiotic course. Return to the Emergency Department for any new/worsening/concerning symptoms. - Post Discharge Activity
--- NOTE | 2018-05-09 01:11 | PDOC ---
Attending Attestation - HPI HPI: 05/09/18 01:17 The patient is a 62 year old male, with a significant past medical history of cirrhosis secondary to fatty liver, and diabetes, who presents to the emergency department with, He denies any recent fevers, chills, headache or dizziness. He denies any recent nausea, vomit, diarrhea or constipation. He denies any recent chest pain or shortness of breath. He denies any recent dysuria, frequency, urgency or hematuria. Allergies: NKA Past surgical history: Cardiac stents, Left hip repair, Back surgery Social History: Former smoker (1 pack per day for more than 20 years). Denies EtOH use and recreational drug use. Primary Care Physician: Dr. Ken Su <Trang Guzman - Last Filed: 05/09/18 01:17> - Resident Resident Name: Sophie Mccoy - ED Attending Attestation I have performed the following: I have examined & evaluated the patient, The case was reviewed & discussed with the resident, I agree w/resident's findings & plan, Exceptions are as noted - Physicial Exam PE: 05/09/18 19:27 *Physical Exam General Appearance: Yes: Appropriately Dressed. No: Apparent Distress, Intoxicated HEENT: positive: EOMI, JOSE, Normal ENT Inspection, Normal Voice, TMs Normal, Pharynx Normal. negative: Pale Conjunctivae, Photophobia, Scleral Icterus (R), Scleral Icterus (L) Neck: positive: Trachea midline, Normal Thyroid, Supple. negative: Tender, Rigid, Carotid bruit, Stridor, Lymphadenopathy (R), Lymphadenopathy (L), Thyromegaly Respiratory/Chest: positive: Lungs Clear, Normal Breath Sounds. negative: Chest Tender, Respiratory Distress, Accessory Muscle Use, Labored Respiration, RES, Crackles, Rales, Rhonchi, Stridor, Wheezing, Dullness Cardiovascular: positive: Regular Rhythm, Regular Rate, S1, S2. negative: Edema , JVD, Murmur, Bradycardia, Tachycardia Vascular Pulses: Dorsalis-Pedis (R): 2+, Doralis-Pedis (L): 2+ Gastrointestinal/Abdominal: positive: Normal Bowel Sounds, Flat, Soft. negative : Tender, Organomegaly, Pulsatile Mass, Increased Bowel Sounds, Decreased BS, Distended, Guarding, Rebound, Hernia, Hepatomegaly, Spleenomegaly Lymphatic: negative: Adenopathy, Tenderness Musculoskeletal: positive: Normal Inspection. negative: CVA Tenderness, Decreased Range of Motion Extremity: positive: Normal Capillary Refill, Normal Inspection, Normal Range of Motion, Pelvis Stable. negative: Tender, Pedal Edema, Swelling, Erythema Integumentary: positive: Normal Color, Dry, Warm. negative: Cyanotic, Erythema , Jaundice, Rash Neurologic: positive: dispatch associate II-XII NML intact, Fully Oriented, Alert, Normal Mood/ Affect, Motor Strength 5/5. negative: EOM Palsy, Facial Droop, Sensory Deficit - Medical Decision Making 05/09/18 19:27 Pt was treated and released <Deepak Stringer - Last Filed: 05/09/18 19:28> Attestations - Attestations 05/09/18 01:18 Documentation prepared by Trang Guzman, acting as medical anthropologist for Deepak Stringer DO. <Trang Guzman - Last Filed: 05/09/18 01:17>
[2018-05-09] MEDS ORDERED: CEPHALEXIN MONOHYDRATE 500 MG CAPSULE (UD) PO ONE (01:31)
== END 2018-05-09 01:42 | disposition home or self-care (01) ==
LOC: JER 22:47
DX: S00.91XA Abrasion of unspecified part of head, initial encounter (principal); W18.39XA Other fall on same level, initial encounter; Y93.89 Activity, other specified; Y92.9 Unspecified place or not applicable; Z95.5 Presence of coronary angioplasty implant and graft; E11.9 Type 2 diabetes mellitus without complications; K74.60 Unspecified cirrhosis of liver; K76.0 Fatty (change of) liver, not elsewhere classified; I25.10 Atherosclerotic heart disease of native coronary artery without angina pectoris
CPT/HCPCS: 70450-TC; 99284-25

== ENCOUNTER 2018-05-15 20:03 | Inpatient (IN) | payer BC, OTHER ==
--- NOTE | 2018-05-15 20:19 | PDOC ---
Rapid Medical Evaluation Chief Complaint: Weakness Time Seen by Provider: 05/15/18 20:13 Medical Evaluation: Allergies Allergy/AdvReac Type Severity Reaction Status Date / Time No Known Drug Allergies Allergy Verified 05/08/18 23:02 05/15/18 20:15 c/o weakness and poor Po intake. send by GI Dr. morley for admission. PMD: Dr. Morley Patient alert sleepy, ecchymosis to face. A; failure to thrive P: labs patient to the ER for further management of care. Discharge Disposition - Diagnosis Failure to thrive in adult - Referrals - Patient Instructions - Post Discharge Activity
[2018-05-15 20:20] VITALS: BMI 16.7
[2018-05-15 21:36] LABS: RBC 3.17 M/mm3 (4.00-5.60); RDW 19.9 % (11.9-15.9)
[2018-05-15 21:41] LABS: URINE APPEARANCE CLEAR; URINE BILIRUBIN NEGATIVE (<2.0 mg/dL); URINE COLOR YELLOW; URINE GLUCOSE (UA) 3+ (NEGATIVE); URINE KETONE NEGATIVE (NEGATIVE); URINE LEUK ESTERASE NEGATIVE (NEGATIVE); URINE NITRITE NEGATIVE (NEGATIVE); URINE PROTEIN NEGATIVE (NEGATIVE); URINE UROBILINOGEN NEGATIVE mg/dL (0.2-1.0)
[2018-05-15 21:50] LABS: HEMATOCRIT 25.5 % (35.4-49); HEMOGLOBIN 8.3 GM/dL (11.7-16.9); LYMPH % 4.3 % (8-40); MCH 26.3 pg (25.7-33.7); MCHC 32.7 g/dl (32.0-35.9); MEAN CELL VOLUME 80.5 fl (80-96); MEAN PLT VOLUME 11.6 fl (7.5-11.1); MONO % 14.7 % (3.8-10.2); NEUT % 79.9 % (42.8-82.8); WHITE BLOOD COUNT 4.2 K/mm3 (4.0-10.0)
[2018-05-15 21:51] LABS: BASO % 0.8 % (0-2.0); EOS % 0.3 % (0-4.5)
[2018-05-15 22:02] LABS: ALBUMIN 3.1 g/dl (3.4-5.0); ALK PHOS 174 U/L (45-117); ANION GAP 15 (8-16); BILIRUBIN,TOTAL 1.3 mg/dL (0.2-1.0); BLOOD UREA NITROGEN 82 mg/dL (7-18); CALCIUM 8.4 mg/dL (8.5-10.1); CHLORIDE 91 mmol/L (98-107); CO2 22 mmol/L (21-32); CREATININE 4.1 mg/dL (0.7-1.3); LIPASE 79 U/L (73-393); POTASSIUM 4.6 mmol/L (3.5-5.1); SGOT/AST 30 U/L (15-37); SGPT/ALT 21 U/L (12-78); SODIUM 128 mmol/L (136-145); TOT PROT 6.8 g/dl (6.4-8.2)
[2018-05-15 22:08] LABS: GLUCOSE,RANDOM 520 mg/dL (74-106)
[2018-05-15 22:11] LABS: PLATELET COUNT 103 K/MM3 (134-434); PLATELET ESTIMATE DECREASED
[2018-05-15] MEDS ORDERED: morphine CARPU-JECT 4 MG/1 ML DISP.SYRIN IVPUSH ONE (22:46)
--- NOTE | 2018-05-15 23:41 | PDOC ---
History of Present Illness - General Chief Complaint: Weakness Stated Complaint: PCP SENT/PAIN Time Seen by Provider: 05/15/18 20:13 History Source: Patient, Family - History of Present Illness Initial Comments: 05/15/18 23:37 "I want to go home" Pt is a 62yo M with PMH of cirrhosis 2/2 steatohepatitis, Afib, HTN, CT s/p stent (17) placement sent to ED by PCP Dr. Pritchett to be admitted to hospital for further care. When I talked to pt, he said nothing was wrong and that he wants to go home, but he does admit to decreased appetite. Pt stated he only takes atenolol for Afib. I read the note provided by Dr. Pritchett stating that the patient has been noncompliant with outpatient care, and that his condition is worsening. Liver transplant requests turned down due to patient's cardiac and renal comorbidities. Hbg was 11.5 early March. PCP: Dr. Pritchett PMH: nonalcoholic steatohepatitis with cirrhosis, DM, diabetic renal insufficiency, Afib, CAD s/p 17 stent placement, hepatic encephalopathy obstructive uropathy? PSH: stent Meds: atenolol, xanax 0.25, omperazole 40, flomax 0.4, lantus 20u, novolog, lactulose, xifaxan, Procrit Allergies: nkda Social: denies Past History - Past Medical History Allergies/Adverse Reactions: Allergies Allergy/AdvReac Type Severity Reaction Status Date / Time No Known Drug Allergies Allergy Verified 05/08/18 23:02 Home Medications: Ambulatory Orders Esomeprazole Mag Trihydrate [Nexium] 40 mg PO DAILY #0 capsule. 01/22/12 Rifaximin [Xifaxan -] 550 mg PO BID #0 tablet 07/21/13 Insulin Glargine,Hum.rec.anlog [Lantus (10mL VIAL) -] 30 units SQ BID 08/17/14 Lactulose 30 mg PO TID 08/18/14 Furosemide [Lasix -] 80 mg PO DAILY 01/30/15 Oxycodone HCl [Roxicodone] 30 mg PO QID PRN 01/30/15 Spironolactone [Aldactone] 50 mg PO DAILY 01/30/15 Atenolol [Tenormin -] 50 mg PO DAILY 10/29/15 Insulin Aspart [Novolog] 30 unit SQ BID 10/30/15 Alprazolam 2 mg PO TID 05/16/18 Cyanocobalamin Vit B-12 Inj. [Redisol] 1,000 mcg IJ WEEKLY 05/16/18 Epoetin Miguel [Procrit] 1 ml IJ WEEKLY 05/16/18 Midodrine HCl 2.5 mg PO TID 05/16/18 Mirtazapine [Remeron -] 15 mg PO HS 05/16/18 Tamsulosin HCl [Flomax] 0.4 mg PO DAILY 05/16/18 Anemia: Yes Asthma: No Cancer: No Cardiac Disorders: Yes (CAD, 17 STENTS IN MY HEART) CVA: No COPD: No CHF: No DVT: No Dementia: No Diabetes: Yes (IDDM) Dialysis: (Kidney problems) GI Disorders: No Disorders: No HTN: No Hypercholesterolemia: No Kidney Stones: No Liver Disease: Yes (CIRRHOSIS (born w/fatty liver)) Seizures: No Thyroid Disease: No - Surgical History Abdominal Surgery: No Appendectomy: Yes Cardiac Surgery: Yes (STENTS X 17) Cholecystectomy: No Lung Surgery: No Neurologic Surgery: Yes (LAMINECTOMY 2012, L HIP X 2.) Orthopedic Surgery: No - Immunization History Td Vaccination: Yes TDAP Vaccination: Yes - Suicide/Smoking/Psychosocial Hx Smoking Status: No Smoking History: Smoker current status UNK Have you smoked in the past 12 months: No Number of Cigarettes Smoked Daily: 0 If you are a former smoker, when did you quit?: 2008 Information on smoking cessation initiated: No Hx Alcohol Use: No Drug/Substance Use Hx: No Substance Use Type: None Hx Substance Use Treatment: No Review of Systems - Review of Systems Constitutional: Yes: Loss of Appetite. No: Chills, Fever HEENTM: No: Recent change in vision, Double Vision Respiratory: No: Cough, Shortness of Breath Cardiac (ROS): No: Chest Pain, Lightheadedness, Syncope ABD/GI: No: Constipated, Diarrhea, Nausea, Vomiting : No: Burning, Dysuria, Incontinence, Pain Musculoskeletal: No: Back Pain, Joint Pain, Muscle Pain, Muscle Weakness Integumentary: Yes: Bruising Neurological: No: Headache, Numbness, Paresthesia *Physical Exam - Vital Signs Last Vital Signs Temp Pulse Resp BP Pulse Ox 98.7 F 67 22 116/62 100 05/15/18 22:54 05/15/18 22:54 05/15/18 22:54 05/15/18 22:54 05/15/18 22:54 - Physical Exam Comments: 06/03/18 17:46 Pt was adamant about not being evaluated. Kept saying nothing was wrong and that he wanted to go home. General Appearance: Yes: Apparent Distress, Cachetic HEENT: positive: EOMI, JOSE, Pharynx Normal Neck: positive: Trachea midline, Supple. negative: Carotid bruit, Lymphadenopathy (R), Lymphadenopathy (L) Respiratory/Chest: positive: Lungs Clear, Normal Breath Sounds. negative: Rales , Rhonchi, Stridor, Wheezing Cardiovascular: positive: Regular Rhythm, Regular Rate, S1, S2. negative: Edema , JVD Vascular Pulses: Dorsalis-Pedis (R): 2+, Doralis-Pedis (L): 2+ Gastrointestinal/Abdominal: positive: Normal Bowel Sounds, Soft. negative: Distended, Guarding, Rebound, Tenderness Musculoskeletal: negative: CVA Tenderness Extremity: positive: Normal Capillary Refill Integumentary: positive: Normal Color, Dry, Warm, Bruising (Large [id number] bruise over L hip from previous fall) Neurologic: positive: sand conditioner machine II-XII NML intact, Fully Oriented, Alert, Motor Strength 5/5. negative: Normal Mood/Affect, Normal Response ED Treatment Course - LABORATORY CBC & Chemistry Diagram: 05/17/18 05:30 05/17/18 05:30 - ADDITIONAL ORDERS Additional order review: Laboratory Results 05/15/18 05/15/18 05/15/18 21:31 21:31 21:31 Sodium 128 L D Potassium 4.6 D Chloride 91 L D Carbon Dioxide 22 D Anion Gap 15 BUN 82 H Creatinine 4.1 H Creat Clearance w eGFR 14.86 Random Glucose 520 H* D Calcium 8.4 L Total Bilirubin 1.3 H AST 30 D ALT 21 D Alkaline Phosphatase 174 H Troponin I 4.62 H* D Total Protein 6.8 Albumin 3.1 L Total Amylase 32 Lipase 79 Urine Color Urine Appearance Urine pH Ur Specific Schwertner Urine Protein Urine Glucose (UA) Urine Ketones Urine Blood Urine Nitrite Urine Bilirubin Urine Urobilinogen Ur Leukocyte Esterase 05/15/18 21:31 Sodium Potassium Chloride Carbon Dioxide Anion Gap BUN Creatinine Creat Clearance w eGFR Random Glucose Calcium Total Bilirubin AST ALT Alkaline Phosphatase Troponin I Total Protein Albumin Total Amylase Lipase Urine Color Yellow Urine Appearance Clear Urine pH 7.0 Ur Specific Schwertner 1.009 Urine Protein Negative Urine Glucose (UA) 3+ H Urine Ketones Negative Urine Blood Negative Urine Nitrite Negative Urine Bilirubin Negative Urine Urobilinogen Negative Ur Leukocyte Esterase Negative 05/15/18 21:31 RBC 3.17 L MCV 80.5 MCHC 32.7 RDW 19.9 H MPV 11.6 H Neutrophils % 79.9 Lymphocytes % 4.3 L D Monocytes % 14.7 H Eosinophils % 0.3 D Basophils % 0.8 Medical Decision Making - Medical Decision Making 06/03/18 17:48 Pt is a 62yo M with PMH of cirrhosis 2/2 steatohepatitis, Afib, HTN, CT s/p stent (17) placement sent to ED by PCP Dr. Pritchett to be admitted to hospital for further care. Labs drawn. Pt will be admitted for further care. *DC/Admit/Observation/Transfer Diagnosis at time of Disposition: Failure to thrive in adult - Discharge Dispostion Disposition: AGAINST MEDICAL ADVICE - Referrals - Patient Instructions - Post Discharge Activity
[2018-05-15] MEDS ORDERED: LORazepam 2 MG/ML SDV VIAL ONE (23:44)
[2018-05-16 01:05] LABS: INR 1.46 (0.83-1.09); PROTHROMBIN TIME (PATIENT) 16.5 SEC (9.7-13.0)
--- NOTE | 2018-05-16 01:24 | PDOC ---
Attending Attestation - Resident Resident Name: Jessy De La Cruz - ED Attending Attestation I have performed the following: I have examined & evaluated the patient, The case was reviewed & discussed with the resident, I agree w/resident's findings & plan, Exceptions are as noted - HPI HPI: 05/16/18 01:15 The patient is a 62 year old male accompanied with his , with a past medical history of CAD s/p 17 stents, IDDM, nonalcoholic steatohepatitis c/b cirrhosis and hepatic encephalopathy (not transplant candidate due to CV disease ), CKD (baseline in 3-3.5 range), paroxysmal atrial fibrillation, appendectomy, and L hip fracture s/p repair twice who presents to the emergency department for evaluation of generalized weakness. The patient reports a 2 day history of generalized weakness w/ decrease in appetite. He denies all other symptoms of CP , SOB, lightheadedness, focal weakness or numbness, headache, abd pain, F/C, N/V /D, LE edema. Pt states there is "100% nothing wrong" and demands to be discharged home. Pt's provides most of history. States pt has had multiple falls due to weakness, and requires assistance in all ADLs including walking to bathroom. She also reports the patient has lost a significant amount of weight over the last year. As per , the patient has not been at baseline and has been confused for 2 weeks. Pt was sent by his GI doctor (Dr. Pritchett) for admission due to recent decompensation. - Physicial Exam PE: 05/16/18 01:24 GENERAL: Awake, alert, chronically ill appearing, cachectic. HEAD: +L periorbital ecchymosis EYES: PERRLA, EOMI, +scleral icterus ENT: Hearing grossly normal, nares patent, oropharynx clear without exudates. Moist mucosa LUNGS: Breath sounds equal, clear to auscultation bilaterally. No wheezes, and no crackles HEART: Regular rate and rhythm, normal S1 and S2, no murmurs, rubs or gallops ABDOMEN: +distension with prominent blood vessels, +dullness to percussion. No abd ttp, no rebound or guarding EXTREMITIES: Multiple bruises and superficial abrasions in various stages of healing. L hip with significant edema and large circumferential hematoma. COmpartments are soft. BACK: No midline spinal tenderness in cervical/thoracic/lumbar region NEUROLOGICAL: Normal speech, cranial nerves intact, 4/5 strength in all 4 extremities, normal sensation to light touch in all 4 extremities, normal cerebellar exam, gait deferred. SKIN: superficial abrasions to L thorax, R arm, L elbow, L hip - Medical Decision Making 05/16/18 02:00 62yo M with MMP including ESLD c/p encephalopathy, CAD, IDDM, CKD presents to the ED with generalized weakness. Pt very resistant to care at this time requiring multiple providers to explain to pt the importance of IV placement, lab draws, CT scans etc. Due to his lack of cooperation, despite family at bedside to assist, there were many delays in his work up. Pt was given IM ativan for sedation to obtain CT scans. Work up thus far remarkable for: -Trop 4.6 -> 4.2. EKG non ischemic. Discussed with Dr. Laureano, likely demand and lack of clearance due to CKD. He recommends ASA only due to bleeding risk from trauma. CTH negative for bleeding, baby ASA ordered. -Creatinine up to 4 from baseline 3-3.5 -Normal AG hyperglycemia to 500s -CT facial bones and C-spine reveal nasal fractures and minimally displaced C4 spinous process fracture. Pt has global weakness 4/5 strength (which states his baseline for him) and normal sensation. Pt refusing to wear c- collar. Pt aware of risk of not wearing c-collar including paralysis, further spinal injury and still continues to refuse c-collar. No NSG senior applications developer, case discussed with neuro senior applications developer Dr. Martinez, recommends considering transfer for NSG eval but he defers to Dr. Asif who patient has seen in the past. Pt refusing transfer at this time. Dr. Asif called, awaiting call back. -CTH negative -CT pelvis with large hematoma to L hip, prosthesis appears intact Case discussed with Dr. Pritchett who agrees with management, and recommends admission to hospitalist. At this point, CXR and input from Dr. Asif are pending. Pt signed out to overnight attending for further management and dispo
[2018-05-16] MEDS ORDERED: ASPIRIN COATED 81 MG TABLET.EC PO ONE (03:29)
--- NOTE | 2018-05-16 04:56 | PN ---
Teaching Attending Note Name of Resident: Edison Nieves ATTENDING PHYSICIAN STATEMENT I saw and evaluated the patient. I reviewed the resident's note and discussed the case with the resident. I agree with the resident's findings and plan as documented. SUBJECTIVE: Patient is a 62 year old man accompanied with his , with a past medical history of CAD s/p ?17 stents, insulin-treated DM, nonalcoholic steatohepatitis , cirrhosis and hepatic encephalopathy (not transplant candidate due to CV disease), CKD (baseline in 3-3.5 range), paroxysmal atrial fibrillation, appendectomy, and L hip fracture s/p repair twice who presents to the ER for evaluation of generalized weakness. The patient reports a 2 day history of generalized weakness with decrease in appetite. Patient states there is "nothing wrong" and wants to be discharged home. His provided most of the history and says that he has had multiple falls due to weakness, and requires assistance in all ADLs including walking to bathroom. She also reports the patient has lost a significant amount of weight over the last year. As per , the patient has not been at baseline and has been confused for 2 weeks. Family was asked to take him to the ER for "failure to thrive" and refusal of treatment at home. OBJECTIVE: Alert and in no acute distress. Cachectic and ill-looking Vital Signs Period Temp Pulse Resp BP Sys/Grant Pulse Ox Last 24 Hr 98 F-98.7 F 56-74 16-22 103-116/51-75 98-100 HEENT: Jaundice, left periorbital ecchymosis; no eye redness or discharge, PERRLA, EOMI. Normocephalic, atraumatic. External ears are normal and hearing is grossly intact. No nasal discharge. Neck: Supple, nontender. No palpable adenopathy or thyromegaly. No JVD Chest: Good effort. Clear to auscultation and percussion. Heart: Regular. No S3, rub or murmur Abdomen: Prominent abdominal veins; distended, soft, nontender and no HSM. No rebound or guarding. Normoactive bowel sounds. Ext: Peripheral pulses intact. No leg edema. Skin: Warm and dry. Multiple ecchymosis and bruises on chest and limbs; left hip edema and hematoma Neuro: Alert. Oriented x3. CN 2-12 grossly intact. Sensation grossly intact in all four extremities and DTR are symmetric. Current Medications Generic Name Dose Route Start Last Admin Trade Name Renardq PRN Reason Stop Dose Admin Heparin Sodium (Porcine) 5,000 unit 05/16/18 10:00 Heparin - SQ BID WIL Home Medications Medication Instructions Recorded Esomeprazole Mag Trihydrate 40 mg PO DAILY #0 capsule. 01/22/12 [Nexium] Rifaximin [Xifaxan -] 550 mg PO BID #0 tablet 07/21/13 Allopurinol [Zyloprim -] 100 mg PO BID 08/17/14 Insulin Glargine,Hum.rec.anlog 30 units SQ HS 08/17/14 [Lantus (10mL VIAL) -] Lactulose 30 mg PO TID 08/18/14 Furosemide [Lasix -] 80 mg PO DAILY 01/30/15 Oxycodone HCl [Roxicodone] 60 mg PO QID PRN 01/30/15 Spironolactone [Aldactone] 50 mg PO DAILY 01/30/15 Atenolol [Tenormin -] 25 mg PO DAILY 10/29/15 Insulin Aspart [Novolog] 30 unit SQ AM 10/30/15 Cephalexin Monohydrate [Keflex -] 500 mg PO BID #10 capsule 05/09/18 Abnormal Lab Results 05/15/18 05/15/18 05/15/18 21:31 21:31 21:31 RBC 3.17 L Hgb 8.3 L Hct 25.5 L D RDW 19.9 H Plt Count 103 L MPV 11.6 H Lymphocytes % 4.3 L D Monocytes % 14.7 H PT with INR INR Sodium 128 L D Chloride 91 L D BUN 82 H Creatinine 4.1 H Random Glucose 520 H* D Calcium 8.4 L Total Bilirubin 1.3 H Alkaline Phosphatase 174 H Ammonia Troponin I Albumin 3.1 L Urine Glucose (UA) 3+ H 05/15/18 05/16/18 05/16/18 21:31 00:30 00:30 RBC Hgb Hct RDW Plt Count MPV Lymphocytes % Monocytes % PT with INR 16.50 H INR 1.46 H Sodium Chloride BUN Creatinine Random Glucose Calcium Total Bilirubin Alkaline Phosphatase Ammonia 35.1 H Troponin I 4.62 H* D Albumin Urine Glucose (UA) 05/16/18 05/16/18 05/16/18 00:30 04:42 04:42 RBC Hgb Hct RDW Plt Count MPV Lymphocytes % Monocytes % PT with INR INR Sodium Chloride BUN Creatinine Random Glucose 533 H* Calcium Total Bilirubin Alkaline Phosphatase Ammonia Troponin I 4.23 H* 3.23 H* Albumin Urine Glucose (UA) ASSESSMENT AND PLAN: 1. Failure to thrive - Patient has multiple comorbid issues including advanced liver disease with encephalopathy, CAD, DM, CKD, weakness with frequent falls and refusal of care. Most important is the need to consult psychiatry and determine whether he has competence to refuse care. Subsequent plan of care ( SNF placement vs Palliative care vs DC to Home) will depend on whether he is competent. In the meantime, though elevated troponin is likely due to CKD and demand ischemia, we will admit to telemetry and rule out ACS. EKG shows nonspecific ST-T wave changes. Get ECHO, and consult cardiology, neurology and nephrology. Continue rifaximin and lactulose if he accepts the treatment. Head CT is negative, but CT of facial bones and C-spine reveal nasal fractures and minimally displaced C4 spinous process fracture and Pelvic CT shows large left hip hematoma with a prosthesis that appears intact. Severe anemia reflect effect of liver disease, CKD and blood loss. Low platelets likely due to liver disease. Fall precautions will be implemented. Encourage him to wear the cervical collar. 2. DM - For now, we will hold the home diabetes drugs and implement sliding scale insulin regimen. Provide comprehensive diabetes care with patient teaching and counseling about the importance of euglycemia, eye care and foot care. 3. DVT prophylaxis - Heparin 5000u sq tid. (monitor platelets daily) 4. Advance directives - Full code
[2018-05-16] MEDS ORDERED: ASPIRIN 81 MG CHEWABLE TABLETS ONE (05:21)
[2018-05-16] MEDS ORDERED: ASPIRIN 81 MG CHEWABLE TABLETS PO ONE (05:34)
[2018-05-16] MEDS ORDERED: INSULIN REGULAR HUMAN 100 UNITS/ML *VIAL IVPUSH ONE (05:36)
[2018-05-16] MEDS ORDERED: INSULIN REGULAR HUMAN 100 UNITS/ML *VIAL SQ ONE (05:40)
--- NOTE | 2018-05-16 05:48 | HP ---
CHIEF COMPLAINT: sent by PCP, failure to thrive PCP: Dr. Pritchett HISTORY OF PRESENT ILLNESS: 62 yo male with PMH cirrhosis secondary to NALD, A-fib, HTN, ID s/p stents X 17 , anemia, IDDM, noncompliant with all outpatient therapy, sent to ED by PCP for better medical management of all of his chronic issues. Pt awake and alert, refusing to speak with me, refusing to be examined by me. Per ED makes medical decisions and wants him to be admitted, though I cannot find documentation of this. Pt states he does not want any treatment and wants to be discharged. ER course was notable for: (1) H/H 8.3/25, Plt 103, Na 128, BUN/Cr 82/4.1, Gluc 520 (2) CT scans noted: hematoma L hip, C4 fracture spinous process (3) Recent Travel: none PAST MEDICAL HISTORY: As above PAST SURGICAL HISTORY: Laminectomy Left Hip Social History: Smoking: none Alcohol: none Drugs: none Family History: Allergies No Known Drug Allergies Allergy (Verified 05/08/18 23:02) HOME MEDICATIONS: Home Medications Medication Instructions Recorded Esomeprazole Mag Trihydrate 40 mg PO DAILY #0 capsule. 01/22/12 [Nexium] Rifaximin [Xifaxan -] 550 mg PO BID #0 tablet 07/21/13 Allopurinol [Zyloprim -] 100 mg PO BID 08/17/14 Insulin Glargine,Hum.rec.anlog 30 units SQ HS 08/17/14 [Lantus (10mL VIAL) -] Lactulose 30 mg PO TID 08/18/14 Furosemide [Lasix -] 80 mg PO DAILY 01/30/15 Oxycodone HCl [Roxicodone] 60 mg PO QID PRN 01/30/15 Spironolactone [Aldactone] 50 mg PO DAILY 01/30/15 Atenolol [Tenormin -] 25 mg PO DAILY 10/29/15 Insulin Aspart [Novolog] 30 unit SQ AM 10/30/15 Cephalexin Monohydrate [Keflex -] 500 mg PO BID #10 capsule 05/09/18 REVIEW OF SYSTEMS Refuses, Denies all symptoms PHYSICAL EXAMINATION Vital Signs - 24 hr 05/15/18 05/15/18 05/15/18 20:16 21:36 22:54 Temperature 98.2 F 98.7 F Pulse Rate 74 Pulse Rate [ 67 Apical] Respiratory 16 22 Rate Blood Pressure 103/51 Blood Pressure 116/62 [Right Arm] O2 Sat by Pulse 100 98 100 Oximetry (%) 05/16/18 05/16/18 03:00 05:37 Temperature 98 F 98 F Pulse Rate Pulse Rate [ 68 56 L Apical] Respiratory 16 16 Rate Blood Pressure Blood Pressure 113/75 113/60 [Right Arm] O2 Sat by Pulse 100 100 Oximetry (%) Exam limited due to pt refusal Pt alert and oriented, cachectic, in soft collar, yelling that he wants to be discharged Diffuse bruising noted including around left eye and on arms Abdomen appears concave, pt does not seem acutely fluid overloaded on inspection Christian catheter in place draining urine well Laboratory Results - last 24 hr 05/15/18 05/15/18 05/15/18 21:31 21:31 21:31 WBC 4.2 RBC 3.17 L Hgb 8.3 L Hct 25.5 L D MCV 80.5 MCH 26.3 MCHC 32.7 RDW 19.9 H Plt Count 103 L MPV 11.6 H Absolute Neuts (auto) 3.3 Neutrophils % 79.9 Lymphocytes % 4.3 L D Monocytes % 14.7 H Eosinophils % 0.3 D Basophils % 0.8 Nucleated RBC % 0 Platelet Estimate Decreased Platelet Comment No clumping noted PT with INR INR Sodium 128 L D Potassium 4.6 D Chloride 91 L D Carbon Dioxide 22 D Anion Gap 15 BUN 82 H Creatinine 4.1 H Creat Clearance w eGFR 14.86 Random Glucose 520 H* D Calcium 8.4 L Total Bilirubin 1.3 H AST 30 D ALT 21 D Alkaline Phosphatase 174 H Ammonia Creatine Kinase Troponin I Total Protein 6.8 Albumin 3.1 L Total Amylase Lipase 79 Urine Color Yellow Urine Appearance Clear Urine pH 7.0 Ur Specific [place] 1.009 Urine Protein Negative Urine Glucose (UA) 3+ H Urine Ketones Negative Urine Blood Negative Urine Nitrite Negative Urine Bilirubin Negative Urine Urobilinogen Negative Ur Leukocyte Esterase Negative 05/15/18 05/15/18 05/16/18 21:31 21:31 00:30 WBC RBC Hgb Hct MCV MCH MCHC RDW Plt Count MPV Absolute Neuts (auto) Neutrophils % Lymphocytes % Monocytes % Eosinophils % Basophils % Nucleated RBC % Platelet Estimate Platelet Comment PT with INR 16.50 H INR 1.46 H Sodium Potassium Chloride Carbon Dioxide Anion Gap BUN Creatinine Creat Clearance w eGFR Random Glucose Calcium Total Bilirubin AST ALT Alkaline Phosphatase Ammonia Creatine Kinase Troponin I 4.62 H* D Total Protein Albumin Total Amylase 32 Lipase Urine Color Urine Appearance Urine pH Ur Specific [place] Urine Protein Urine Glucose (UA) Urine Ketones Urine Blood Urine Nitrite Urine Bilirubin Urine Urobilinogen Ur Leukocyte Esterase 05/16/18 05/16/18 05/16/18 00:30 00:30 00:34 WBC RBC Hgb Hct MCV MCH MCHC RDW Plt Count MPV Absolute Neuts (auto) Neutrophils % Lymphocytes % Monocytes % Eosinophils % Basophils % Nucleated RBC % Platelet Estimate Platelet Comment PT with INR INR Sodium Potassium Chloride Carbon Dioxide Anion Gap BUN Creatinine Creat Clearance w eGFR Random Glucose Calcium Total Bilirubin AST ALT Alkaline Phosphatase Ammonia 35.1 H Creatine Kinase 106 Troponin I 4.23 H* Total Protein Albumin Total Amylase Lipase Urine Color Urine Appearance Urine pH Ur Specific [place] Urine Protein Urine Glucose (UA) Urine Ketones Urine Blood Urine Nitrite Urine Bilirubin Urine Urobilinogen Ur Leukocyte Esterase 05/16/18 05/16/18 04:42 04:42 WBC RBC Hgb Hct MCV MCH MCHC RDW Plt Count MPV Absolute Neuts (auto) Neutrophils % Lymphocytes % Monocytes % Eosinophils % Basophils % Nucleated RBC % Platelet Estimate Platelet Comment PT with INR INR Sodium Potassium Chloride Carbon Dioxide Anion Gap BUN Creatinine Creat Clearance w eGFR Random Glucose 533 H* Calcium Total Bilirubin AST ALT Alkaline Phosphatase Ammonia Creatine Kinase Troponin I 3.23 H* Total Protein Albumin Total Amylase Lipase Urine Color Urine Appearance Urine pH Ur Specific [place] Urine Protein Urine Glucose (UA) Urine Ketones Urine Blood Urine Nitrite Urine Bilirubin Urine Urobilinogen Ur Leukocyte Esterase ASSESSMENT/PLAN: 62 yo male with PMH cirrhosis secondary to NALD, A-fib, HTN, ID s/p stents X 17 , anemia, IDDM, noncompliant with all outpatient therapy, was sent to ED by Primary for failure to thrive and outpatient noncompliance, noted new troponin elevation. Rule out ACS -Trop 4.62 -> 3.23, trending down -ECG noted, no significant changes from prior in 2017 -Cardiology consulted -Telemetry ESRD refuses dialysis per PCP -BUN/Cr 82/4.1 -Renal consult ordered Cirrhosis secondary to steatohepatitis -Pt has been evaluated for liver transplant multiple times but has been denied due to other comorbidities, pt not a candidate IDDM -Glucose 520, anion gap only 15, not concerned for DKA at this time -BGM's ACHS -Insulin Sliding Scale ACHS Patient Refusal -Pt alert and oriented - apparently -Psych consult to determine pt decision making ability C4 fracture -ED discussed with Neurology and ordered consult -Pt in soft collar right now DVT Prophylaxis -Heparin 5000 units SQ BID FEN -no fluids -Na 128 (corrected 134) -Diabetic diet Disposition Telemetry Visit type - Emergency Visit Emergency Visit: Yes Care time: The patient presented to the Emergency Department on the above date and was hospitalized for further evaluation of their emergent condition. - New Patient This patient is new to me today: Yes Date on this admission: 05/16/18 - Critical Care Critical Care patient: No Hospitalist Screening - Colonoscopy Questionnaire Colonoscopy Questionnaire: Colonoscopy Questionnaire - Patient: 50 - 75 years old and never had a screening colonoscopy: Unknown History of colon or rectal polyps, or CA: Unknown History of IBD, Crohn's disease or UC: Unknown History of abdominal radiation therapy as a child: Unknown - Relative: 1 with colon or rectal CA, or polyps at age 60 or younger: Unknown Colon or rectal CA diagnosed at age 45 or younger: Unknown Multiple relatives with colon or rectal CA: Unknown - Outcome: Screening Result: Negative Screen
[2018-05-16] MEDS ORDERED: INSULIN (NOVOLOG) ASPART 100 UNITS/ML 10ML VIAL ONE (07:16)
[2018-05-16] MEDS: INSULIN SLIDING SCALE (NOVOLOG) 1 VIAL SQ SCH ×4 (07:20→21:44)
[2018-05-16 07:21] LABS: BASO % 1.3 % (0-2.0); EOS % 0.8 % (0-4.5); HEMATOCRIT 24.9 % (35.4-49); HEMOGLOBIN 8.3 GM/dL (11.7-16.9); LYMPH % 7.3 % (8-40); MCH 26.5 pg (25.7-33.7); MCHC 33.4 g/dl (32.0-35.9); MEAN CELL VOLUME 79.4 fl (80-96); MEAN PLT VOLUME 11.3 fl (7.5-11.1); MONO % 16.7 % (3.8-10.2); NEUT % 73.9 % (42.8-82.8); PLATELET COUNT 94 K/MM3 (134-434); RBC 3.13 M/mm3 (4.00-5.60); RDW 19.3 % (11.9-15.9)
[2018-05-16 07:55] LABS: ANION GAP 12 (8-16); BLOOD UREA NITROGEN 77 mg/dL (7-18); CALCIUM 8.1 mg/dL (8.5-10.1); CHLORIDE 93 mmol/L (98-107); CO2 25 mmol/L (21-32); CREATININE 3.9 mg/dL (0.7-1.3); MAGNESIUM 2.8 mg/dL (1.8-2.4); PHOSPHOROUS 4.1 mg/dL (2.5-4.9); POTASSIUM 4.1 mmol/L (3.5-5.1); SGOT/AST 28 U/L (15-37); SGPT/ALT 21 U/L (12-78); SODIUM 130 mmol/L (136-145)
[2018-05-16 07:56] LABS: ALK PHOS 178 U/L (45-117); BILIRUBIN,TOTAL 1.1 mg/dL (0.2-1.0); TOT PROT 6.5 g/dl (6.4-8.2)
[2018-05-16 08:13] LABS: GLUCOSE,RANDOM 460 mg/dL (74-106)
[2018-05-16] MEDS ORDERED: ASPIRIN 81 MG CHEWABLE TABLETS PO SCH (10:00)
--- NOTE | 2018-05-16 10:00 | EKG ---
Test Reason : Blood Pressure : / mmHG Vent. Rate : 060 BPM Atrial Rate : 060 BPM P-R Int : 140 ms QRS Dur : 092 ms QT Int : 454 ms P-R-T Axes : 069 046 043 degrees QTc Int : 454 ms NORMAL SINUS RHYTHM LOW VOLTAGE QRS CANNOT RULE OUT INFERIOR INFARCT , AGE UNDETERMINED CANNOT RULE OUT ANTEROSEPTAL INFARCT (CITED ON OR BEFORE 30-JAN-2015) ABNORMAL ECG WHEN COMPARED WITH ECG OF 18-DEC-2016 16:25, QUESTIONABLE CHANGE IN QRS AXIS INVERTED T WAVES HAVE REPLACED NONSPECIFIC T WAVE ABNORMALITY IN ANTERIOR LEADS NONSPECIFIC T WAVE ABNORMALITY, IMPROVED IN LATERAL LEADS QT HAS LENGTHENED Confirmed by REBEKAH SCHAFER, GILA ([id number]) on 05/16/2018 9:59:56 AM Referred By: Confirmed By:GILA WELCH MD
[2018-05-16] MEDS: HEPARIN NA (PORCINE) 5,000 UNITS/ML 1ML VIAL SQ SCH ×2 (10:56→21:44)
[2018-05-16] MEDS ORDERED: PT OWN MED DRAWER 7, Y5N ONE (11:02)
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
[2018-05-16] MEDS ORDERED: oxyCODONE HCL 5 MG TABLET PO ONE ×2 (13:24→21:30)
[2018-05-16 15:01] LABS: ANISOCYTOSIS 2+; MACROCYTOSIS 0; PLATELET ESTIMATE DECREASED
--- NOTE | 2018-05-16 15:03 | PN ---
Physical Exam: SUBJECTIVE: Patient is a 62 y/o male with a history of NALD, HTN, MD sxp 17 stents, anemia, and DM who presents because his PCP felt his chronic issues needed to be managed. Patient is refusing treatment and does not want to be in the hospital. Patients is insisting treatment. OBJECTIVE: Vital Signs Temperature 98.2 F 05/16/18 08:17 Pulse Rate 73 05/16/18 12:21 Respiratory Rate 16 05/16/18 12:21 Blood Pressure 106/61 05/16/18 12:21 O2 Sat by Pulse Oximetry (%) 100 05/16/18 12:21 Physical Exam refused - patient in a cervical collar CBC, BMP 05/16/18 05:55 05/16/18 05:55 Active Medications Heparin Sodium (Porcine) (Heparin -) 5,000 unit SQ BID WIL Last Admin: 05/16/18 10:56 Dose: 5,000 unit Insulin Aspart (Novolog Vial Sliding Scale -) 1 vial SQ ACHS [facility]; Protocol Last Admin: 05/16/18 11:24 Dose: Not Given Oxycodone HCl (Roxicodone -) 5 mg PO ONCE ONE Stop: 05/16/18 13:25 Last Admin: 05/16/18 13:33 Dose: 5 mg ASSESSMENT/PLAN: Patient is a 62 y/o male with a history of NALD, HTN, MD sxp 17 stents, anemia, and DM who presents with a cervical fracture, hyponatremia, and ESRD. #Cervical fracture - Cervical Spine CT: C4 horizontally oriented fracture of spinous process, C5 -C6: posterior annular buldge with peripheral calcifications - Facial bone CT: no evidence of acute facial fractures - Head CT: no evidence acute intracranial hemorrhage, no ischemic changes - Pelvis CT: possible nondisplaced fracture in left transverse process of L4 - Thoracic Lumbar CT: nondisplaced fracture at junction of T5 - f/u Dr. Asif neuro - f/u Chepuru, psych - f/u Dr. Jolly, neurosugery #ESRD - BUN/Cr: 77/3.9 - around patients baseline - F/U Dr. To- patient refusing dialysis, hold lasix #DM - SS - restarted home insulin regime #CAD - f/u Dr. Tripathi - metorprolol every other day with his kidney function #Urinary retention - f/u Dr. Su #Hyponatremia - corrected value with hyperglycemia: 136 Dispo: Visit type - Emergency Visit Emergency Visit: No - New Patient This patient is new to me today: No - Critical Care Critical Care patient: No
[2018-05-16] MEDS ORDERED: ATENOLOL 25 MG TABLET (FP) PO SCH (15:30)
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
--- NOTE | 2018-05-16 16:40 | PN ---
Teaching Attending Note Name of Resident: Josy Marlow ATTENDING PHYSICIAN STATEMENT I saw and evaluated the patient. I reviewed the resident's note and discussed the case with the resident. I agree with the resident's findings and plan as documented. SUBJECTIVE: OBJECTIVE: Vital Signs Temperature 97.6 F 05/16/18 14:37 Pulse Rate 68 05/16/18 14:37 Respiratory Rate 18 05/16/18 14:37 Blood Pressure 105/58 05/16/18 14:37 O2 Sat by Pulse Oximetry (%) 100 05/16/18 12:21 CBCD WBC 4.0 K/mm3 (4.0-10.0) 05/16/18 05:55 RBC 3.13 M/mm3 (4.00-5.60) L 05/16/18 05:55 Hgb 8.3 GM/dL (11.7-16.9) L 05/16/18 05:55 Hct 24.9 % (35.4-49) L 05/16/18 05:55 MCV 79.4 fl (80-96) L 05/16/18 05:55 MCHC 33.4 g/dl (32.0-35.9) 05/16/18 05:55 RDW 19.3 % (11.9-15.9) H 05/16/18 05:55 Plt Count 94 K/MM3 (134-434) L 05/16/18 05:55 MPV 11.3 fl (7.5-11.1) H 05/16/18 05:55 CMP Sodium 130 mmol/L (136-145) L 05/16/18 05:55 Potassium 4.1 mmol/L (3.5-5.1) 05/16/18 05:55 Chloride 93 mmol/L (98-107) L 05/16/18 05:55 Carbon Dioxide 25 mmol/L (21-32) 05/16/18 05:55 Anion Gap 12 (8-16) 05/16/18 05:55 BUN 77 mg/dL (7-18) H 05/16/18 05:55 Creatinine 3.9 mg/dL (0.7-1.3) H 05/16/18 05:55 Creat Clearance w eGFR 15.74 (>60) 05/16/18 05:55 Random Glucose 460 mg/dL (74-106) H* 05/16/18 05:55 Calcium 8.1 mg/dL (8.5-10.1) L 05/16/18 05:55 Total Bilirubin 1.1 mg/dL (0.2-1.0) H 05/16/18 05:55 AST 28 U/L (15-37) 05/16/18 05:55 ALT 21 U/L (12-78) 05/16/18 05:55 Alkaline Phosphatase 178 U/L (45-117) H 05/16/18 05:55 Total Protein 6.5 g/dl (6.4-8.2) 05/16/18 05:55 Albumin 3.0 g/dl (3.4-5.0) L 05/16/18 05:55 CARDIAC ENZYMES Creatine Kinase 107 IU/L (39-308) 05/16/18 11:05 Troponin I 4.95 ng/ml (0.00-0.05) H* D 05/16/18 11:05 Current Medications Generic Name Dose Route Start Last Admin Trade Name Renardq PRN Reason Stop Dose Admin Atenolol 50 mg 05/16/18 15:30 Tenormin - PO Q2D [facility] Furosemide 80 mg 05/17/18 10:00 Lasix - PO DAILY [facility]IL Heparin Sodium (Porcine) 5,000 unit 05/16/18 10:00 05/16/18 10:56 Heparin - SQ 5,000 unit BID [facility] Administration Insulin Aspart 1 vial 05/16/18 07:00 05/16/18 11:24 Novolog Vial Sliding Scale - SQ Not Given ACHS [facility] Protocol Insulin Aspart 30 units 05/16/18 16:30 Novolog Vial SQ BIDAC [facility] Insulin Detemir 30 units 05/16/18 22:00 Levemir Vial SQ BID@0700,2200 [facility] Mirtazapine 15 mg 05/16/18 22:00 Remeron - PO HS [facility] Pantoprazole Sodium 40 mg 05/17/18 10:00 Protonix - PO DAILY [facility] Spironolactone 50 mg 05/17/18 10:00 Aldactone - PO DAILY [facility] Tamsulosin HCl 0.4 mg 05/17/18 08:30 Flomax - PO 0830 [facility] Home Medications Medication Instructions Recorded Esomeprazole Mag Trihydrate 40 mg PO DAILY #0 capsule. 04/23/12 [Nexium] Rifaximin [Xifaxan -] 550 mg PO BID #0 tablet 07/21/13 Insulin Glargine,Hum.rec.anlog 30 units SQ BID 08/17/14 [Lantus (10mL VIAL) -] Lactulose 30 mg PO TID 08/18/14 Furosemide [Lasix -] 80 mg PO DAILY 01/30/15 Oxycodone HCl [Roxicodone] 30 mg PO QID PRN 01/30/15 Spironolactone [Aldactone] 50 mg PO DAILY 01/30/15 Atenolol [Tenormin -] 50 mg PO DAILY 10/29/15 Insulin Aspart [Novolog] 30 unit SQ BID 10/30/15 Alprazolam 2 mg PO TID 05/16/18 Cyanocobalamin Vit B-12 Inj. 1,000 mcg IJ WEEKLY 05/16/18 [Redisol] Epoetin Miguel [Procrit] 1 ml IJ WEEKLY 05/16/18 Midodrine HCl 2.5 mg PO TID 05/16/18 Mirtazapine [Remeron -] 15 mg PO HS 05/16/18 Tamsulosin HCl [Flomax] 0.4 mg PO DAILY 05/16/18 PE: per resident's note ASSESSMENT AND PLAN: Patient is a 62 y/o male with a history of NALD, HTN, [place] sxp 17 stents, anemia, and DM who presents with a cervical fracture, hyponatremia, and ESRD. # Acute Hyperglycemia : on Sliding scale with coverage , q4h, on Levemir continue # PsuedoHyponatremia corrected value with hyperglycemia: 136 #C4 Cervical fracture on neck collar in ED. #ESRD with BUN/Cr: 77/3.9 . refusing HD # Acute Urinary retention , requesting Urology consult #DM SS q4h #CAD f/u Dr. Tripathi
--- NOTE | 2018-05-16 17:18 | PN ---
Progress Note (short form) - Note Progress Note: Pt seen by me in office yesterday and hospitalization advised -- not for the first time. Initially he refused but he was taken to ER by his later in the evening. I discussed his case with the ER attending at about 1:30 a.m. today. I also spoke with Dr Balbuena this afternoon about management of his renal failure. Currently the patient has very poor oral intake. He has no appreciable ascites. He insists he is going home; psychiatry has been asked to comment on his ability to make decisions for himself. Although he knows who I am, where he is, etc., he does not appreciate the gravity of his illness nor does he appreciate the attempts of his and family to help him. I have brought in another copy of my office note from yesterday that summarizes his pre-existing problems. He now has been recognized to have sustained a new spine fracture. Dr Balbuena and I have agreed that we will hold all diuretics for now. If he does not eat we can try for an UGI series to exclude ulcer or gastric cancer; I am not sure he will cooperate with the test. I feel that endoscopy, indeed any procedure requiring sedation, would be hazardous. Orders written for daily BMP, daily weights, nutritional consult.
[2018-05-16] MEDS: INSULIN (NOVOLOG) ASPART 100 UNITS/ML 10ML VIAL SQ SCH (18:23)
--- NOTE | 2018-05-16 18:26 | CON.PSY ---
Psychiatry Consult Chief Complaint: 62 yr old male with chronic debilitating medical problems brought to Er and admitted to Telemetry. Patient apparantly refusing care and wants christian go home. On remeron 15mg po hs. - Previous Psychiatric Treatment Outpatient: None Inpatient: None - Previous Substance Abuse Treatment Outpatient: None Inpatient: None - Reason for Previous Treatment Reason for Previous Treatment: Major Depression - Current Medications Current Medications: Active Medications Atenolol (Tenormin -) 50 mg PO Q2D [facility] Heparin Sodium (Porcine) (Heparin -) 5,000 unit SQ BID [facility] Last Admin: 05/16/18 10:56 Dose: 5,000 unit Insulin Aspart (Novolog Vial Sliding Scale -) 1 vial SQ ACHS [facility]; Protocol Last Admin: 05/16/18 11:24 Dose: Not Given Insulin Aspart (Novolog Vial) 30 units SQ BIDAC [facility] Insulin Detemir (Levemir Vial) 30 units SQ BID@0700,2200 [facility] Mirtazapine (Remeron -) 15 mg PO HS [facility]IL Pantoprazole Sodium (Protonix -) 40 mg PO DAILY [facility] Tamsulosin HCl (Flomax -) 0.4 mg PO 0830 [facility] - Allergies Allergies: Allergies Allergy/AdvReac Type Severity Reaction Status Date / Time No Known Drug Allergies Allergy Verified 05/08/18 23:02 - Current Living Status Usual Living Arrangement: With Spouse - Current Mental Status Evaluation Appearance: Disheveled Attitude: Uncooperative - Affect Affect: Constrictive Appropriateness: Appropriate to Content - Mood Mood: Irritable - Speech/Language Expressive: Coherent Receptive: Age Appropriate Comprehension of Spoken Words - Psychomotor Activity Psychomotor Activity: Slowed - Thought Process Thought Process: Intact - Thought Content Hallucinations: Absent Delusions: Absent - Self Perception Self Perception: No Impairment - Cognition Attention: Alert Orientation: Time Memory, Immediate Recall: Intact Memory, Short Term: 2/3 Memory, Remote with Promptin/3 - Concentration Serial Sevens Intact: No Simple Calculations Intact: No - Abstraction Proverb Interpretation: Intact Judgement: Minimally Impaired - Insight Insight: Impaired - Impulse Control Impulse Control: Minimally Impaired - Suicidal Ideation Suicidal Ideation: No - Homicidal Ideation Homicidal Ideation: No Assessment/Plan 1) Patient has the functional capacity to make decisions at this time.
[2018-05-16] MEDS: INSULIN (LEVEMIR) 100 UNITS/ML UNITS SQ SCH (21:45)
[2018-05-16] MEDS ORDERED: MIRTAZAPINE 15 MG TABLET (FP) PO SCH (22:00)
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
[2018-05-16 23:21] LABS: CHOLESTEROL 93 mg/dL (50-200); HDL CHOLESTEROL 40 mg/dL (40-60); TRIGLYCERIDES 58 mg/dL (35-160)
[2018-05-17] MEDS ORDERED: oxyCODONE HCL 5 MG TABLET PO ONE (04:22)
[2018-05-17] MEDS: INSULIN (LEVEMIR) 100 UNITS/ML UNITS SQ SCH (06:03)
[2018-05-17] MEDS: INSULIN SLIDING SCALE (NOVOLOG) 1 VIAL SQ SCH (06:04)
[2018-05-17] MEDS: INSULIN (NOVOLOG) ASPART 100 UNITS/ML 10ML VIAL SQ SCH (06:04)
[2018-05-17 06:32] LABS: HEMATOCRIT 28.9 % (35.4-49); HEMOGLOBIN 9.6 GM/dL (11.7-16.9); MCH 26.3 pg (25.7-33.7); MCHC 33.1 g/dl (32.0-35.9); MEAN CELL VOLUME 79.6 fl (80-96); PLATELET COUNT 114 K/MM3 (134-434); RBC 3.63 M/mm3 (4.00-5.60); RDW 19.7 % (11.9-15.9); WHITE BLOOD COUNT 7.3 K/mm3 (4.0-10.0)
[2018-05-17 06:57] LABS: ANION GAP 9 (8-16); BLOOD UREA NITROGEN 72 mg/dL (7-18); CALCIUM 8.5 mg/dL (8.5-10.1); CHLORIDE 100 mmol/L (98-107); CO2 26 mmol/L (21-32); CREATININE 3.4 mg/dL (0.7-1.3); GLUCOSE,RANDOM 65 mg/dL (74-106); POTASSIUM 4.4 mmol/L (3.5-5.1); SODIUM 135 mmol/L (136-145)
[2018-05-17] MEDS ORDERED: TAMSULOSIN HCL 0.4 MG CAP.ER.24H (FP) PO SCH (08:30)
[2018-05-17] MEDS ORDERED: PANTOPRAZOLE 40 MG TABLET (FP) PO SCH (10:00)
[2018-05-17] MEDS ORDERED: SPIRONOLACTONE 25 MG TABLET (FP) PO SCH (10:00)
[2018-05-17] MEDS ORDERED: FUROSEMIDE 40 MG TABLET (FP) PO SCH (10:00)
--- NOTE | 2018-05-17 11:12 | EKG ---
Test Reason : Blood Pressure : / mmHG Vent. Rate : 065 BPM Atrial Rate : 065 BPM P-R Int : 136 ms QRS Dur : 084 ms QT Int : 442 ms P-R-T Axes : 068 019 018 degrees QTc Int : 459 ms POOR DATA QUALITY, INTERPRETATION MAY BE ADVERSELY AFFECTED NORMAL SINUS RHYTHM LOW VOLTAGE QRS CANNOT RULE OUT ANTEROSEPTAL INFARCT (CITED ON OR BEFORE 30-JAN-2015) ABNORMAL ECG WHEN COMPARED WITH ECG OF 15-MAY-2018 22:33, MINIMAL CRITERIA FOR INFERIOR INFARCT ARE NO LONGER PRESENT ST NO LONGER DEPRESSED IN LATERAL LEADS T WAVE INVERSION LESS EVIDENT IN ANTERIOR LEADS Confirmed by MARYLU CANTU MD ([id number]) on 05/17/2018 11:11:50 AM Referred By: Confirmed By:MARYLU CANTU MD
[2018-05-17] MEDS: HEPARIN NA (PORCINE) 5,000 UNITS/ML 1ML VIAL SQ SCH (11:15)
--- NOTE | 2018-05-17 11:51 | ECHO ---
Name: KAYKAY NGUYỄN Exam:Adult Echocardiogram Study Date: 05/17/2018 10:10 AM Age: 62 yrs Reason For Study: elevated TNI Height: 68 in Weight: 110 lb BSA: 1.6 m2 MMode/2D Measurements & Calculations LVLd ap4: 6.4 cm SV(MOD-sp4): 55.0 ml EDV(MOD-sp4): 88.0 ml LVLs ap4: 5.1 cm ESV(MOD-sp4): 33.0 ml Doppler Measurements & Calculations MV E max petey: 53.3 cm/sec Ao V2 max: 105.2 cm/sec MV A max petey: 84.9 cm/sec Ao max P.4 mmHg MV E/A: 0.63 MV dec time: 0.19 sec LV V1 max P.1 mmHg MR max petey: 285.0 cm/sec LV V1 max: 88.4 cm/sec MR max P.5 mmHg Med Peak E' Petey: 6.3 cm/sec Med E/e': 8.4 Lat Peak E' Petey: 9.7 cm/sec Lat E/e': 5.5 Tech Comments due to patient's size, window for Plax and Sax were technically difficult. Procedure The study was technically difficult with many images being suboptimal in quality. Left Ventricle The septum appears moderately hypokinetic. Left ventricular systolic function is mildly reduced. Ejec tion Fraction = 45-50%. The transmitral spectral Doppler flow pattern is suggestive of impaired LV relaxat ion. Regional wall motion abnormalities cannot be excluded due to limited visualization. Right Ventricle The right ventricle is normal in size and function. Mitral Valve There is moderate mitral annular calcification. There is no mitral valve stenosis. There is mild mitr al regurgitation. Tricuspid Valve The tricuspid valve is not well visualized, but is grossly normal. Aortic Valve The aortic valve opens well. No hemodynamically significant valvular aortic stenosis. Pulmonic Valve The pulmonic valve is not well seen, but is grossly normal. Great Vessels The aortic root is normal size. Pericardium/Pleura There is no pericardial effusion. Interpretation Summary The study was technically difficult with many images being suboptimal in quality. Regional wall motion abnormalities cannot be excluded due to limited visualization. The septum appears moderately hypokinetic. Left ventricular systolic function is mildly reduced. Ejection Fraction = 45-50%. The right ventricle is normal in size and function. The transmitral spectral Doppler flow pattern is suggestive of impaired LV relaxation. There is moderate mitral annular calcification. There is mild mitral regurgitation. There is no pericardial effusion. MD Car Laureano 05/17/2018 11:50 AM
[2018-05-17] MEDS ORDERED: LACTULOSE 20 GM/30 ML UDC (FOR ORAL USE ONLY) PO SCH (14:00)
--- NOTE | 2018-05-17 14:20 | PN ---
Teaching Attending Note Name of Resident: Josy Marlow ATTENDING PHYSICIAN STATEMENT I saw and evaluated the patient. I reviewed the resident's note and discussed the case with the resident. I agree with the resident's findings and plan as documented. SUBJECTIVE: Patient is comfortable, with no acute distress. Patient wants to go home, Patient wants to sign AMA. OBJECTIVE: Vital Signs Temperature 98.3 F 05/17/18 06:00 Pulse Rate 68 05/17/18 10:00 Respiratory Rate 18 05/17/18 10:00 Blood Pressure 115/59 05/17/18 06:00 O2 Sat by Pulse Oximetry (%) 100 05/16/18 21:00 CBCD WBC 7.3 K/mm3 (4.0-10.0) 05/17/18 05:30 RBC 3.63 M/mm3 (4.00-5.60) L 05/17/18 05:30 Hgb 9.6 GM/dL (11.7-16.9) L 05/17/18 05:30 Hct 28.9 % (35.4-49) L D 05/17/18 05:30 MCV 79.6 fl (80-96) L 05/17/18 05:30 MCHC 33.1 g/dl (32.0-35.9) 05/17/18 05:30 RDW 19.7 % (11.9-15.9) H 05/17/18 05:30 Plt Count 114 K/MM3 (134-434) L D 05/17/18 05:30 MPV 11.0 fl (7.5-11.1) 05/17/18 05:30 CMP Sodium 135 mmol/L (136-145) L 05/17/18 05:30 Potassium 4.4 mmol/L (3.5-5.1) 05/17/18 05:30 Chloride 100 mmol/L (98-107) 05/17/18 05:30 Carbon Dioxide 26 mmol/L (21-32) 05/17/18 05:30 Anion Gap 9 (8-16) 05/17/18 05:30 BUN 72 mg/dL (7-18) H 05/17/18 05:30 Creatinine 3.4 mg/dL (0.7-1.3) H 05/17/18 05:30 Creat Clearance w eGFR 18.44 (>60) 05/17/18 05:30 Random Glucose 65 mg/dL (74-106) L D 05/17/18 05:30 Calcium 8.5 mg/dL (8.5-10.1) 05/17/18 05:30 Total Bilirubin 1.1 mg/dL (0.2-1.0) H 05/16/18 05:55 AST 28 U/L (15-37) 05/16/18 05:55 ALT 21 U/L (12-78) 05/16/18 05:55 Alkaline Phosphatase 178 U/L (45-117) H 05/16/18 05:55 Total Protein 6.5 g/dl (6.4-8.2) 05/16/18 05:55 Albumin 3.0 g/dl (3.4-5.0) L 05/16/18 05:55 CARDIAC ENZYMES Creatine Kinase 107 IU/L (39-308) 05/16/18 11:05 Troponin I 3.93 ng/ml (0.00-0.05) H* 05/16/18 17:00 Current Medications Generic Name Dose Route Start Last Admin Trade Name Freq PRN Reason Stop Dose Admin Atenolol 50 mg 05/16/18 15:30 05/16/18 18:23 Tenormin - PO 50 mg Q2D [facility] Administration Heparin Sodium (Porcine) 5,000 unit 05/16/18 10:00 05/17/18 11:15 Heparin - SQ Not Given BID [facility] Insulin Aspart 1 vial 05/16/18 07:00 05/17/18 06:04 Novolog Vial Sliding Scale - SQ Not Given ACHS [facility] Protocol Insulin Aspart 30 units 05/16/18 16:30 05/17/18 06:04 Novolog Vial SQ Not Given BIDAC [facility] Insulin Detemir 30 units 05/16/18 22:00 05/17/18 06:03 Levemir Vial SQ Not Given BID@0700,2200 [facility] Lactulose 20 gm 05/17/18 14:00 Cephulac (Oral Use) PO TID [facility] Mirtazapine 15 mg 05/16/18 22:00 05/16/18 21:46 Remeron - PO 15 mg HS [facility] Administration Pantoprazole Sodium 40 mg 05/17/18 10:00 05/17/18 11:16 Protonix - PO 40 mg DAILY [facility] Administration Rifaximin 550 mg 05/17/18 22:00 Xifaxan - PO BID [facility] Tamsulosin HCl 0.4 mg 05/17/18 08:30 05/17/18 11:15 Flomax - PO 0.4 mg 0830 [facility] Administration Home Medications Medication Instructions Recorded Esomeprazole Mag Trihydrate 40 mg PO DAILY #0 capsule. 01/22/12 [Nexium] Rifaximin [Xifaxan -] 550 mg PO BID #0 tablet 07/21/13 Insulin Glargine,Hum.rec.anlog 30 units SQ BID 08/17/14 [Lantus (10mL VIAL) -] Lactulose 30 mg PO TID 08/18/14 Furosemide [Lasix -] 80 mg PO DAILY 01/30/15 Oxycodone HCl [Roxicodone] 30 mg PO QID PRN 01/30/15 Spironolactone [Aldactone] 50 mg PO DAILY 01/30/15 Atenolol [Tenormin -] 50 mg PO DAILY 10/29/15 Insulin Aspart [Novolog] 30 unit SQ BID 10/30/15 Alprazolam 2 mg PO TID 05/16/18 Cyanocobalamin Vit B-12 Inj. 1,000 mcg IJ WEEKLY 05/16/18 [Redisol] Epoetin Miguel [Procrit] 1 ml IJ WEEKLY 05/16/18 Midodrine HCl 2.5 mg PO TID 05/16/18 Mirtazapine [Remeron -] 15 mg PO HS 05/16/18 Tamsulosin HCl [Flomax] 0.4 mg PO DAILY 05/16/18 PE: per resident's note ASSESSMENT AND PLAN: Patient is a 62 y/o male with a history of NALD, HTN, [place] sxp 17 stents, anemia, and DM who presents with a cervical fracture, hyponatremia, and ESRD. # Acute Lethargy : improving, patient is feeling better. # Acute Hyperglycemia improved : on Sliding scale with coverage , q4h, on Levemir continue #C4 Cervical fracture on neck collar , continue to wear #ESRD , not on HD stable at this point . with BUN/Cr: 77/3.9 -->72/3.4 today # Acute Urinary retention, requesting Urology consult #CAD f/u Dr. Tripathi Patient is competent seen by psych. ,patient has capacity to make his own decision.
[2018-05-17 14:45] VITALS: BP 112/77; PULSE 77; TEMP 98.1
--- NOTE | 2018-05-17 15:17 | PN ---
Progress Note, Physician History of Present Illness: Pt seen and examined at bedside. He is much more awake and alert than he was yesterday. He expressed that he wants to go home. - Current Medication List Current Medications: Active Medications Atenolol (Tenormin -) 50 mg PO Q2D [facility] Last Admin: 05/16/18 18:23 Dose: 50 mg Heparin Sodium (Porcine) (Heparin -) 5,000 unit SQ BID [facility] Last Admin: 05/17/18 11:15 Dose: Not Given Insulin Aspart (Novolog Vial Sliding Scale -) 1 vial SQ ACHS [facility]; Protocol Last Admin: 05/17/18 06:04 Dose: Not Given Insulin Aspart (Novolog Vial) 30 units SQ BIDAC [facility] Last Admin: 05/17/18 06:04 Dose: Not Given Insulin Detemir (Levemir Vial) 30 units SQ BID@0700,2200 [facility] Last Admin: 05/17/18 06:03 Dose: Not Given Lactulose (Cephulac (Oral Use)) 20 gm PO TID [facility] Mirtazapine (Remeron -) 15 mg PO HS [facility] Last Admin: 05/16/18 21:46 Dose: 15 mg Pantoprazole Sodium (Protonix -) 40 mg PO DAILY [facility] Last Admin: 05/17/18 11:16 Dose: 40 mg Rifaximin (Xifaxan -) 550 mg PO BID [facility] Tamsulosin HCl (Flomax -) 0.4 mg PO 0830 [facility] Last Admin: 05/17/18 11:15 Dose: 0.4 mg - Objective Vital Signs: Vital Signs Temperature 98.1 F 05/17/18 14:42 Pulse Rate 77 05/17/18 14:42 Respiratory Rate 18 05/17/18 14:42 Blood Pressure 112/77 05/17/18 14:42 O2 Sat by Pulse Oximetry (%) 100 05/16/18 21:00 Constitutional: Yes: Anxious Eyes: Yes: Conjunctiva Clear HENT: Yes: Atraumatic Cardiovascular: Yes: S1, S2 Respiratory: Yes: CTA Bilaterally Gastrointestinal: Yes: Soft Genitourinary: Yes: Christian Present Musculoskeletal: Yes: WNL Edema: Yes Edema: LLE: Trace, RLE: Trace Neurological: Yes: Oriented Psychiatric: Yes: Oriented, Agitated Labs: CBC, BMP 05/17/18 05:30 05/17/18 05:30 INR, PTT INR 1.46 (0.83-1.09) H 05/16/18 00:30 Problem List - Problems (1) Failure to thrive in adult Code(s): R62.7 - ADULT FAILURE TO THRIVE (2) CAD (coronary artery disease) Code(s): I25.10 - ATHSCL HEART DISEASE OF [place] CORONARY ARTERY W/O ANG PCTRS (3) CKD (chronic kidney disease) Code(s): N18.9 - CHRONIC KIDNEY DISEASE, UNSPECIFIED Qualifiers: Chronic kidney disease stage: unspecified stage Qualified Code(s): N18.9 - Chronic kidney disease, unspecified (4) Cirrhosis of liver Code(s): K74.60 - UNSPECIFIED CIRRHOSIS OF LIVER Qualifiers: Assessment/Plan Current Medications Generic Name Dose Route Start Last Admin Trade Name Freq PRN Reason Stop Dose Admin Atenolol 50 mg 05/16/18 15:30 05/16/18 18:23 Tenormin - PO 50 mg Q2D [facility] Administration Heparin Sodium (Porcine) 5,000 unit 05/16/18 10:00 05/17/18 11:15 Heparin - SQ Not Given BID [facility] Insulin Aspart 1 vial 05/16/18 07:00 05/17/18 06:04 Novolog Vial Sliding Scale - SQ Not Given ACHS [facility] Protocol Insulin Aspart 30 units 05/16/18 16:30 05/17/18 06:04 Novolog Vial SQ Not Given BIDAC [facility] Insulin Detemir 30 units 05/16/18 22:00 05/17/18 06:03 Levemir Vial SQ Not Given BID@0700,2200 [facility] Lactulose 20 gm 05/17/18 14:00 Cephulac (Oral Use) PO TID [facility] Mirtazapine 15 mg 05/16/18 22:00 05/16/18 21:46 Remeron - PO 15 mg HS [facility] Administration Pantoprazole Sodium 40 mg 05/17/18 10:00 05/17/18 11:16 Protonix - PO 40 mg DAILY [facility] Administration Rifaximin 550 mg 05/17/18 22:00 Xifaxan - PO BID [facility] Tamsulosin HCl 0.4 mg 05/17/18 08:30 05/17/18 11:15 Flomax - PO 0.4 mg 0830 [facility] Administration Impression 1. CKD 2. nstemi 3. DM 4. liver cirrhosis 5. ascites 6. pain med dependence 7. bph 8. change in mental status/confusion 9. failure to thrive 10. non-compliance Plan - volume status is improving - no indication for HD at this point - pt is making urine - will need to restart diuretic and monitor volume status - spoke to family at length about plan - pt wants to go home - will also need urology follow up - encourage PO intake - cardio eval for elevated troponins - will follow Dr Balbuena
--- NOTE | 2018-05-17 16:28 | DS ---
Physical Exam: SUBJECTIVE: Patient is a 62 y/o male with a history of NALD, HTN, HI sxp 17 stents, anemia, and DM who presents because his PCP felt his chronic issues needed to be managed. Patient is continuing to refuse treatment and states he wants to sign out AMA. OBJECTIVE: Vital Signs Temperature 98.1 F 05/17/18 14:42 Pulse Rate 77 05/17/18 14:42 Respiratory Rate 18 05/17/18 14:42 Blood Pressure 112/77 05/17/18 14:42 O2 Sat by Pulse Oximetry (%) 100 05/16/18 21:00 PHYSICAL EXAM Physical Exam refused - patient in a cervical collar LABS CBC, BMP 05/17/18 05:30 05/17/18 05:30 HOSPITAL COURSE: Date of Admission:05/16/18 Patient is a 62 y/o male with a history of NALD, HTN, HI sxp 17 stents, anemia, and DM who presents because his PCP felt his chronic issues needed to be managed. Since admission patient has denied every treatment and states he wants to go home. Patient has imaging done that showed : - Cervical Spine CT: C4 horizontally oriented fracture of spinous process, C5 -C6: posterior annular buldge with peripheral calcifications - Facial bone CT: no evidence of acute facial fractures - Head CT: no evidence acute intracranial hemorrhage, no ischemic changes - Pelvis CT: possible nondisplaced fracture in left transverse process of L4 - Thoracic Lumbar CT: nondisplaced fracture at junction of T5 For the fractures Neurology was consulted. Dr. Asif noted to continue lyrica and nicotine patch and to follow up with neurosurgery. Patient presented with increased BUN and Cr with a history of ESRD. Nephrology, Dr. Lynn wanted to proceed with HD but patient refused. Discussed at length need for hemodialysis to maintain kidney function but patient refused and states he understands the risk. Patients lasix held. Patient reported depression and with familys instance for patient to stay in the hospital psychiatry, Dr. Bass, evaluated patient and found that he has capacity to make his own decisions. Patients primary care physician Dr. Pritchett came to the hospital and discussed patients need to stay in the hospital. Patient continue to refuse treatment. It was explained to him that failure to treat his ESRD will lead to worsening kidney function, coma and possibly . Patient expressed understanding but insistence to leave. Patient left AMA. Date of Discharge: 05/17/18 Minutes to complete discharge: 45 Discharge Summary Reason For Visit: HEPATIC CIRRHOSIS;FAILURE TO THRIVE IN ADULT;HEPAT - Instructions Referrals: Salazar Pritchett MD [Primary Care Provider] - Disposition: AGAINST MEDICAL ADVICE - Home Medications Comprehensive Discharge Medication List: Ambulatory Orders Esomeprazole Mag Trihydrate [Nexium] 40 mg PO DAILY #0 capsule. 01/22/12 Rifaximin [Xifaxan -] 550 mg PO BID #0 tablet 07/21/13 Insulin Glargine,Hum.rec.anlog [Lantus (10mL VIAL) -] 30 units SQ BID 08/17/14 Lactulose 30 mg PO TID 08/18/14 Furosemide [Lasix -] 80 mg PO DAILY 01/30/15 Oxycodone HCl [Roxicodone] 30 mg PO QID PRN 01/30/15 Spironolactone [Aldactone] 50 mg PO DAILY 01/30/15 Atenolol [Tenormin -] 50 mg PO DAILY 10/29/15 Insulin Aspart [Novolog] 30 unit SQ BID 10/30/15 Alprazolam 2 mg PO TID 05/16/18 Cyanocobalamin Vit B-12 Inj. [Redisol] 1,000 mcg IJ WEEKLY 05/16/18 Epoetin Miguel [Procrit] 1 ml IJ WEEKLY 05/16/18 Midodrine HCl 2.5 mg PO TID 05/16/18 Mirtazapine [Remeron -] 15 mg PO HS 05/16/18 Tamsulosin HCl [Flomax] 0.4 mg PO DAILY 05/16/18 This patient is new to me today: No Emergency Visit: No Critical Care patient: No - Discharge Referral Referred to [facility] No
[2018-05-17] MEDS ORDERED: RIFAXIMIN 550 MG TABLET (UD) PO SCH (22:00)
[2018-05-18 06:06] LABS: SERUM IRON SATURATION 14 % (15-55); TOTAL IRON BINDING CAPACITY 239 ug/dL (250-450); UIBC 205 ug/dL (111-343)
== END 2018-05-17 15:43 | disposition left against medical advice (07) | DRG 640 ==
LOC: JER 20:03 → JERBED 05-16 05:34 → J4W 05-16 14:45
PROVIDERS: ADMIT Internal Medicine; ATTEND Internal Medicine
PROC: 0T9B70Z Drainage of Bladder with Drainage Device, Via Natural or Artificial Opening (ICD-10-PCS; principal; 2018-05-16)
DX: R62.7 Adult failure to thrive (principal); N18.6 End stage renal disease; S12.301A Unspecified nondisplaced fracture of fourth cervical vertebra, initial encounter for closed fracture; R64 Cachexia; Z68.1 Body mass index [BMI] 19.9 or less, adult; I12.0 Hypertensive chronic kidney disease with stage 5 chronic kidney disease or end stage renal disease; F11.20 Opioid dependence, uncomplicated; E87.1 Hypo-osmolality and hyponatremia; D62 Acute posthemorrhagic anemia; I24.8 Other forms of acute ischemic heart disease; R33.9 Retention of urine, unspecified; Z91.19 Patient's noncompliance with other medical treatment and regimen; M48.061 Spinal stenosis, lumbar region without neurogenic claudication; I48.0 Paroxysmal atrial fibrillation; M51.16 Intervertebral disc disorders with radiculopathy, lumbar region; E11.65 Type 2 diabetes mellitus with hyperglycemia; N40.1 Benign prostatic hyperplasia with lower urinary tract symptoms; R33.8 Other retention of urine; S02.2XXA Fracture of nasal bones, initial encounter for closed fracture; E11.22 Type 2 diabetes mellitus with diabetic chronic kidney disease; R29.6 Repeated falls; Z53.29 Procedure and treatment not carried out because of patient's decision for other reasons; D63.1 Anemia in chronic kidney disease; D63.8 Anemia in other chronic diseases classified elsewhere; I25.2 Old myocardial infarction; Z95.5 Presence of coronary angioplasty implant and graft; K74.60 Unspecified cirrhosis of liver; K75.81 Nonalcoholic steatohepatitis (NASH); Z79.4 Long term (current) use of insulin; Z87.891 Personal history of nicotine dependence; K74.69 Other cirrhosis of liver; Z96.642 Presence of left artificial hip joint; S50.312A Abrasion of left elbow, initial encounter; S70.212A Abrasion, left hip, initial encounter; S20.312A Abrasion of left front wall of thorax, initial encounter; S40.811A Abrasion of right upper arm, initial encounter; W01.0XXA Fall on same level from slipping, tripping and stumbling without subsequent striking against object, initial encounter; Z91.81 History of falling; Y92.018 Other place in single-family (private) house as the place of occurrence of the external cause; Y99.8 Other external cause status
CPT/HCPCS: 36415; 70450-TC; 70486-TC; 71045-TC-FY; 72125-TC; 72128-TC; 72192-TC; 80048; 80053; 80061; 81003; 82140; 82150; 82550; 82947; 82962; 83540; 83550; 83690; 83721; 83735; 83880; 84100; 84484; 85025; 85027; 85610; 85730; 93005; 93010; 93306-TC; 97116-GP; 97161-GP; 99285-25; J1644

== ENCOUNTER 2018-10-20 14:24 | Inpatient (IN) | payer BC, OTHER ==
--- NOTE | 2018-10-20 16:02 | PDOC ---
History of Present Illness - General Chief Complaint: Pain Stated Complaint: CT SCAN History Source: Patient Exam Limitations: No Limitations - History of Present Illness Initial Comments: 10/20/18 15:56 62 yo M with a hx of cirrhosis (fatty liver, dx 10 years ago), CAD s/p stents ( 17 total; last one 10 years ago), CKD, DM, and previous paracentesis drains ( last one 2 days ago; 5.5 Liters drained and given albumin) presents to the emergency department with abdominal pain with distension. Per the patient, this is the most distended his abdomen has been. He was sent in by his lamp inspector Dr. Pritchett to r/o SBO. He states his last BM was 4 days ago. He denies fever, chills, altered mental status, visual changes, FND, dysuria, and hematuria. He had nausea and vomiting episode here in the department x1 non- bloody with yellow involvement. Past History - Past Medical History Allergies/Adverse Reactions: Allergies Allergy/AdvReac Type Severity Reaction Status Date / Time No Known Drug Allergies Allergy Verified 10/20/18 14:34 Home Medications: Ambulatory Orders Esomeprazole Mag Trihydrate [Nexium] 40 mg PO DAILY #0 capsule. 01/22/12 Rifaximin [Xifaxan -] 550 mg PO BID #0 tablet 07/21/13 Insulin Glargine,Hum.rec.anlog [Lantus (10mL VIAL) -] 20 units SQ HS 08/17/14 Lactulose 30 mg PO TID 08/18/14 Oxycodone HCl [Roxicodone] 30 mg PO QID PRN 01/30/15 Spironolactone [Aldactone] 50 mg PO BID 01/30/15 Atenolol [Tenormin -] 50 mg PO DAILY PRN MDD 100 mg 10/29/15 Insulin Aspart [Novolog] 20 unit SQ BID PRN 10/30/15 Mirtazapine [Remeron -] 15 mg PO HS 05/16/18 Tamsulosin HCl [Flomax] 0.4 mg PO BID 05/16/18 Epoetin Miguel [Procrit] 20,000 unit IV WEEKLY 10/20/18 Anemia: Yes Asthma: No Cancer: No Cardiac Disorders: Yes (CAD, 17 STENTS IN MY HEART) CVA: No COPD: No CHF: No DVT: No Dementia: No Diabetes: Yes (IDDM) Dialysis: (Kidney problems) GI Disorders: No Disorders: No HTN: No Hypercholesterolemia: No Kidney Stones: No Liver Disease: Yes (CIRRHOSIS (born w/fatty liver)) Seizures: No Thyroid Disease: No - Surgical History Abdominal Surgery: No Appendectomy: Yes Cardiac Surgery: Yes (STENTS X 17) Cholecystectomy: No Lung Surgery: No Neurologic Surgery: Yes (LAMINECTOMY 2012, L HIP X 2.) Orthopedic Surgery: No - Immunization History Td Vaccination: Yes TDAP Vaccination: Yes - Suicide/Smoking/Psychosocial Hx Smoking Status: No Smoking History: Never smoked Have you smoked in the past 12 months: No Number of Cigarettes Smoked Daily: 0 If you are a former smoker, when did you quit?: 2008 Hx Alcohol Use: No Drug/Substance Use Hx: No Substance Use Type: None Hx Substance Use Treatment: No Review of Systems - Review of Systems Able to Perform ROS?: Yes Is the patient limited Spanish proficient: No Constitutional: Yes: Malaise, Weakness. No: Chills, Diaphoresis, Fever HEENTM: No: Eye Pain, Recent change in vision, Ear Pain, Nose Pain, Throat Pain , Mouth Pain Respiratory: Yes: Shortness of Breath. No: Cough, SOB with Exertion, Hemoptysis Cardiac (ROS): No: Chest Pain, Lightheadedness, Palpitations, Syncope, Chest Tightness ABD/GI: Yes: Abdominal Distended, Constipated, Nausea, Poor Appetite, Poor Fluid Intake, Vomiting. No: Diarrhea, Rectal Bleeding, Tarry Stools : No: Burning, Dysuria, Hematuria, Urgency Musculoskeletal: Yes: Back Pain, Joint Pain. No: Neck Pain Integumentary: No: Erythema, Flushing, Lesions, Lumps, Pruritus, Rash Neurological: No: Headache, Numbness, Tingling, Tremors, Ataxia, Dizziness Psychiatric: No: Change in Appetite Endocrine: No: Unexplained Weight Gain Hematologic/Lymphatic: No: Anemia *Physical Exam - Vital Signs Last Vital Signs Temp Pulse Resp BP Pulse Ox 97.9 F 86 18 155/76 100 10/20/18 14:30 10/20/18 14:30 10/20/18 14:30 10/20/18 14:30 10/20/18 14:30 - Physical Exam General Appearance: Yes: Nourished, Appropriately Dressed, Cachetic. No: Apparent Distress, Alcohol on Breath, Intoxicated HEENT: positive: EOMI, JOSE, Normal Voice, Symmetrical, Pharynx Normal, Scleral Icterus (R), Scleral Icterus (L), Hearing Grossly Normal. negative: Normal ENT Inspection, Pale Conjunctivae, Muffled/Hoarse voice, Pharyngeal Erythema, Tonsillar Exudate, Tonsillar Erythema, Nasal Congestion, Rhinorrhea, Sinus Tenderness, Excessive drooling Neck: positive: Trachea midline. negative: Tender, Lymphadenopathy (R), Lymphadenopathy (L), Tender lateral, Tender midline Respiratory/Chest: positive: Lungs Clear, Normal Breath Sounds. negative: Chest Tender, Respiratory Distress, Accessory Muscle Use, Paradoxal Breathing, Crackles, Rales, Rhonchi, Stridor, Wheezing, Hyperresonant Cardiovascular: positive: Regular Rhythm, Regular Rate, S1, S2. negative: Systolic Murmur Gastrointestinal/Abdominal: positive: Tender (diffusely tender with point of maximal tenderness in the suprapubic area. ), Organomegaly, Increased Bowel Sounds, Distended, Spleenomegaly. negative: Rebound Lymphatic: negative: Adenopathy Musculoskeletal: positive: Normal Inspection. negative: CVA Tenderness, Vertebral Tenderness Extremity: positive: Normal Capillary Refill, Normal Inspection, Normal Range of Motion. negative: Tender, Swelling, Calf Tenderness Integumentary: positive: Dry, Warm, Jaundice. negative: Clammy, Diaphoresis, Moist, Hives, Petechiae, Swelling, Ecchymosis, Bruising Neurologic: positive: resident intern II-XII NML intact, Fully Oriented, Alert, Normal Mood/ Affect, Normal Response, Motor Strength 5/5. negative: EOM Palsy, Facial Droop , Sensory Deficit Moderate Sedation - Procedure Monitoring Vital Signs: Procedure Monitoring Vital Signs Temperature 97.9 F 10/20/18 14:30 Pulse Rate 86 10/20/18 14:30 Respiratory Rate 18 10/20/18 14:30 Blood Pressure 155/76 10/20/18 14:30 O2 Sat by Pulse Oximetry (%) 100 10/20/18 14:30 Heart Score/ECG Review - ECG Intrepretation Comment:: ventricular rate is 82 bpm, AZ is 144 ms, QTc is 474 ms, QRS is 94 ms. Normal sinus rhythm without ST elevation or depression. old infarcts seen in aterosepatal leads. ED Treatment Course - LABORATORY CBC & Chemistry Diagram: 10/20/18 16:15 10/21/18 08:15 Medical Decision Making - Medical Decision Making 62 yo M with a hx of cirrhosis (fatty liver, dx 10 years ago), CAD s/p stents ( 17 total; last one 10 years ago), CKD, DM, and previous paracentesis drains ( last one 2 days ago; 5.5 Liters drained and given albumin) presents to the emergency department with abdominal pain with distension. Initial vitals: Initial Vital Signs Temp Pulse Resp BP Pulse Ox 97.9 F 86 18 155/76 100 10/20/18 14:30 10/20/18 14:30 10/20/18 14:30 10/20/18 14:30 10/20/18 14:30 Work up: SBO vs colitis vs ischemic colitis vs urinary obstruction post renal vs ascites vs SBP Laboratory Tests 10/20/18 10/20/18 10/20/18 16:15 16:15 16:15 WBC 7.7 RBC 4.26 Hgb 10.7 L Hct 32.8 L MCV 77.1 L MCH 25.0 L MCHC 32.5 RDW 18.5 H Plt Count 120 L MPV 10.6 Absolute Neuts (auto) 6.7 Neutrophils % 87.4 H Lymphocytes % 1.4 L D Monocytes % 10.9 H Eosinophils % 0.0 D Basophils % 0.3 Nucleated RBC % 0 PT with INR 16.60 H INR 1.40 H PTT (Actin FS) 43.6 H Sodium 122 L Potassium 4.6 Chloride 85 L Carbon Dioxide 22 Anion Gap 15 BUN 61 H Creatinine 4.2 H Creat Clearance w eGFR 14.45 Random Glucose 218 H Lactic Acid Calcium 8.1 L Total Bilirubin 1.3 H AST 22 ALT 13 Alkaline Phosphatase 139 H Ammonia Creatine Kinase 86 Troponin I < 0.02 B-Natriuretic Peptide 3268.0 H Total Protein 7.0 Albumin 3.2 L Lipase 140 Blood Type Antibody Screen 10/20/18 10/20/18 10/20/18 16:15 16:15 16:15 WBC RBC Hgb Hct MCV MCH MCHC RDW Plt Count MPV Absolute Neuts (auto) Neutrophils % Lymphocytes % Monocytes % Eosinophils % Basophils % Nucleated RBC % PT with INR INR PTT (Actin FS) Sodium Potassium Chloride Carbon Dioxide Anion Gap BUN Creatinine Creat Clearance w eGFR Random Glucose Lactic Acid 1.9 Calcium Total Bilirubin AST ALT Alkaline Phosphatase Ammonia 25.14 Creatine Kinase Troponin I B-Natriuretic Peptide Total Protein Albumin Lipase Blood Type O POSITIVE Antibody Screen Negative labs had derangements that were consistent with his previous except for hte following: hyponatremia, worsening creatinine. patient has positive bnp, but negative trop. no WBC elevation. negative lactic acid. patient's abdomen pelvis CT showed urinary bladder overdistension with bilateral mild hydronephriosis with an enlarged prostate. has colonic distension with a large amount of stool. Spoke to Dr. Pritchett the patient's lamp inspector who did the paracentesis 2 days prior to presentation. stated that he will admit the patient. patient was given 4 mg of morphine, 0.5 mg of dilaudid, 1 mg of dilaudid and then 5 hours after that another 1 mg of dilaudid for pain control (patient takes 30 mg of oxy every 4-6 hours at home but could not tolerate PO). A phelps was ordered to relieve the obstruction. Dispo: Admit *DC/Admit/Observation/Transfer Diagnosis at time of Disposition: Hyponatremia CKD (chronic kidney disease) Qualifiers: Chronic kidney disease stage: stage 3 (moderate) Qualified Code(s): N18.3 - Chronic kidney disease, stage 3 (moderate) Ascites Qualifiers: Ascites type: other type Qualified Code(s): R18.8 - Other ascites - Discharge Dispostion Disposition: HOME - Referrals - Patient Instructions - Post Discharge Activity
[2018-10-20] MEDS ORDERED: morphine CARPU-JECT 4 MG/1 ML DISP.SYRIN IVPUSH ONE (16:06)
[2018-10-20] MEDS ORDERED: ONDANSETRON 4 MG/2 ML VIAL IVPUSH ONE (16:06)
[2018-10-20] MEDS ORDERED: morphine SULFATE 4 MG/ML VIAL ONE (16:22)
[2018-10-20] MEDS ORDERED: ONDANSETRON 4 MG/2 ML VIAL ONE (16:22)
[2018-10-20 16:46] LABS: BASO % 0.3 % (0-2.0); HEMATOCRIT 32.8 % (35.4-49); HEMOGLOBIN 10.7 GM/dL (11.7-16.9); LYMPH % 1.4 % (8-40); MCHC 32.5 g/dl (32.0-35.9); MEAN CELL VOLUME 77.1 fl (80-96); MEAN PLT VOLUME 10.6 fl (7.5-11.1); MONO % 10.9 % (3.8-10.2); NEUT % 87.4 % (42.8-82.8); PLATELET COUNT 120 K/MM3 (134-434); RBC 4.26 M/mm3 (4.00-5.60); RDW 18.5 % (11.9-15.9); WHITE BLOOD COUNT 7.7 K/mm3 (4.0-10.0)
[2018-10-20] MEDS ORDERED: HYDROmorphone HCL CARPU-JECT 2 MG/1 ML DISP.SYRIN IVPUSH ONE ×3 (16:57→22:45)
[2018-10-20 16:59] LABS: INR 1.4 (0.83-1.09); PROTHROMBIN TIME (PATIENT) 16.6 SEC (9.7-13.0)
[2018-10-20 17:01] LABS: ACTIVATED PTT 43.6 SECONDS (25.2-36.5)
[2018-10-20] MEDS ORDERED: HYDROmorphone HCl 2 MG/ML VIAL ONE ×3 (17:11→22:55)
[2018-10-20 17:12] LABS: ALBUMIN 3.2 g/dl (3.4-5.0); ALK PHOS 139 U/L (45-117); ANION GAP 15 MMOL/L (8-16); BILIRUBIN,TOTAL 1.3 mg/dL (0.2-1); BLOOD UREA NITROGEN 61 mg/dL (7-18); CALCIUM 8.1 mg/dL (8.5-10.1); CHLORIDE 85 mmol/L (98-107); CO2 22 mmol/L (21-32); CREATININE 4.2 mg/dL (0.55-1.3); GLUCOSE,RANDOM 218 mg/dL (74-106); LIPASE 140 U/L (73-393); POTASSIUM 4.6 mmol/L (3.5-5.1); SGOT/AST 22 U/L (15-37); SGPT/ALT 13 U/L (13-61); SODIUM 122 mmol/L (136-145)
--- NOTE | 2018-10-20 18:59 | PDOC ---
Attending Attestation - Resident Resident Name: AniketKalen - ED Attending Attestation I have performed the following: I have examined & evaluated the patient, The case was reviewed & discussed with the resident, I agree w/resident's findings & plan, Exceptions are as noted - HPI HPI: 10/20/18 18:58 62-year-old male with a history of liver cirrhosis 10 years, presents with complaint of bowel movement 4 days and abdominal discomfort. He denies fever or chills or active vomiting - Physicial Exam PE: 10/20/18 18:58 62-year-old male with complaint of abdominal pain. Head normocephalic/atraumatic. Neck supple Lungs no crackles, no wheezing CVS regular rate and rhythm S1, S2 Abdomen + ascites Extremities minimal pedal edema Neuro alert and conversant. Skin warm and dry. Psych appropriate - Medical Decision Making 10/20/18 19:00 Past medical history liver cirrhosis, coronary artery disease with multiple stents, chronic kidney disease, cardiomegaly, last paracentesis was 2 days ago at [facility]. At that time and they removed 5.5 L and was given albumin. He was referred to the hospital for admission by Dr. Salazar Pritchett agronomy technician. He will be admitted to [facility]. Dr. Pritchett referred him to have imaging studies to rule out small bowel obstruction 10/20/18 19:05 stable vital signs normotensive,afebrile cr =4.3 and in reviewing his labs prior he has been in this range last year, chronic anemia ,negative trop IMP liver cirrhosis,ascites Dr Pritchett admitted pt to med/surg 10/21/18 02:29
[2018-10-20 19:13] LABS: URINE APPEARANCE CLEAR; URINE BILIRUBIN NEGATIVE (<2.0 mg/dL); URINE COLOR LTYELLOW; URINE GLUCOSE (UA) 1+ (NEGATIVE); URINE KETONE NEGATIVE (NEGATIVE); URINE LEUK ESTERASE NEGATIVE (NEGATIVE); URINE NITRITE NEGATIVE (NEGATIVE); URINE PROTEIN NEGATIVE (NEGATIVE); URINE UROBILINOGEN NEGATIVE mg/dL (0.2-1.0)
[2018-10-20] MEDS ORDERED: MINERAL OIL ENEMA 133 ML ENEMA PR ONE (19:18)
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
[2018-10-20] MEDS ORDERED: MIRTAZAPINE 15 MG TABLET (FP) PO SCH (22:00)
[2018-10-20] MEDS ORDERED: LACTULOSE 20 GM/30 ML UDC (FOR ORAL USE ONLY) ONE (22:30)
[2018-10-20] MEDS ORDERED: MIRTAZAPINE 15 MG TABLET (FP) ONE (22:30)
[2018-10-20] MEDS ORDERED: SPIRONOLACTONE 25 MG TABLET (FP) ONE (22:30)
[2018-10-20] MEDS: LACTULOSE 20 GM/30 ML UDC (FOR ORAL USE ONLY) PO SCH (22:41)
[2018-10-20] MEDS: SPIRONOLACTONE 25 MG TABLET (FP) PO SCH (22:41)
[2018-10-20] MEDS ORDERED: INSULIN REGULAR HUMAN 100 UNITS/ML *VIAL ONE (22:43)
[2018-10-20] MEDS: INSULIN SLIDING SCALE (NOVOLOG) 1 VIAL SQ SCH (22:45)
[2018-10-20] MEDS: RIFAXIMIN 550 MG TABLET (UD) PO SCH (23:01)
[2018-10-21 01:19] LABS: URINE APPEARANCE CLEAR; URINE BILIRUBIN NEGATIVE (<2.0 mg/dL); URINE COLOR LTYELLOW; URINE GLUCOSE (UA) 1+ (NEGATIVE); URINE KETONE NEGATIVE (NEGATIVE); URINE LEUK ESTERASE NEGATIVE (NEGATIVE); URINE NITRITE NEGATIVE (NEGATIVE); URINE PROTEIN NEGATIVE (NEGATIVE); URINE UROBILINOGEN NEGATIVE mg/dL (0.2-1.0)
[2018-10-21 02:23] VITALS: BMI 22.2
[2018-10-21] MEDS ORDERED: morphine SULFATE 4 MG/ML VIAL IVPUSH ONE (03:41)
[2018-10-21] MEDS ORDERED: HYDROmorphone HCl 2 MG/ML VIAL IVPUSH ONE (03:53)
[2018-10-21] MEDS: LACTULOSE 20 GM/30 ML UDC (FOR ORAL USE ONLY) PO SCH ×2 (06:07→14:14)
[2018-10-21] MEDS: INSULIN SLIDING SCALE (NOVOLOG) 1 VIAL SQ SCH ×2 (06:09→11:23)
--- NOTE | 2018-10-21 07:51 | PN ---
Progress Note (short form) - Note Progress Note: Pt had enema in ER last night without results. He remains distended. On exam now he is still distended but without signs of peritonitis. Dullness to percussion is preserved over the liver and spleen. Rectal exam: no fecal impaction,no stool in rectum. Will try SSE. With his ascites he is not a candidate for diverting colostomy. I have explained to the patient that he cannot receive any narcotics until after he has a bowel movement. He last had a colonoscopy about 7 years ago at [facility]. If the SSE does not produce results I could consider a gastrograffin enema to exclude a left colon obstructing tumor. I do not know,however, whether he would be able to tolerate the procedure. Problem List - Problems (1) Diabetes 1.5, managed as type 2 Code(s): E13.9 - OTHER SPECIFIED DIABETES MELLITUS WITHOUT COMPLICATIONS (2) Ascites Code(s): R18.8 - OTHER ASCITES Qualifiers: Ascites type: other type Qualified Code(s): R18.8 - Other ascites (3) Constipation Code(s): K59.00 - CONSTIPATION, UNSPECIFIED (4) Benign prostatic hyperplasia Code(s): N40.0 - BENIGN PROSTATIC HYPERPLASIA WITHOUT LOWER URINRY TRACT SYMP (5) Bladder outflow obstruction Code(s): N32.0 - BLADDER-NECK OBSTRUCTION (6) Anemia Code(s): D64.9 - ANEMIA, UNSPECIFIED Qualifiers: Anemia type: other cause Other causes of anemia: chronic disease, kidney Qualified Code(s): N18.9 - Chronic kidney disease, unspecified (7) Atrial fibrillation Code(s): I48.91 - UNSPECIFIED ATRIAL FIBRILLATION Qualifiers: Atrial fibrillation type: paroxysmal Qualified Code(s): I48.0 - Paroxysmal atrial fibrillation (8) CAD (coronary artery disease) Code(s): I25.10 - ATHSCL HEART DISEASE OF [place] CORONARY ARTERY W/O ANG PCTRS (9) CKD (chronic kidney disease) Code(s): N18.9 - CHRONIC KIDNEY DISEASE, UNSPECIFIED Qualifiers: Chronic kidney disease stage: unspecified stage Qualified Code(s): N18.9 - Chronic kidney disease, unspecified (10) Chronic pain with drug dependence Code(s): G89.29 - OTHER CHRONIC PAIN; F19.20 - OTHER PSYCHOACTIVE SUBSTANCE DEPENDENCE, UNCOMPLICATED (11) Cirrhosis of liver Code(s): K74.60 - UNSPECIFIED CIRRHOSIS OF LIVER Qualifiers: (12) Failure to thrive in adult Code(s): R62.7 - ADULT FAILURE TO THRIVE (13) H/O heart artery stent Code(s): Z95.5 - PRESENCE OF CORONARY ANGIOPLASTY IMPLANT AND GRAFT (14) Hepatic encephalopathy syndrome Code(s): K72.90 - HEPATIC FAILURE, UNSPECIFIED WITHOUT COMA (15) Hip fracture requiring operative repair Code(s): S72.009A - FRACTURE OF UNSP PART OF NECK OF UNSP FEMUR, INIT (16) Lumbar and sacral spondylarthritis Code(s): M48.9 - SPONDYLOPATHY, UNSPECIFIED (17) Paroxysmal A-fib Code(s): I48.0 - PAROXYSMAL ATRIAL FIBRILLATION (18) Weakness Code(s): R53.1 - WEAKNESS
[2018-10-21] MEDS ORDERED: TAMSULOSIN HCL 0.4 MG CAP PO SCH (08:30)
[2018-10-21 08:59] LABS: ANION GAP 11 MMOL/L (8-16); BLOOD UREA NITROGEN 64 mg/dL (7-18); CALCIUM 8.1 mg/dL (8.5-10.1); CHLORIDE 88 mmol/L (98-107); CO2 27 mmol/L (21-32); GLUCOSE,RANDOM 144 mg/dL (74-106); POTASSIUM 4.6 mmol/L (3.5-5.1); SODIUM 126 mmol/L (136-145)
[2018-10-21] MEDS: RIFAXIMIN 550 MG TABLET (UD) PO SCH (09:44)
[2018-10-21] MEDS: SPIRONOLACTONE 25 MG TABLET (FP) PO SCH (09:45)
[2018-10-21] MEDS ORDERED: Methylnaltrexone Bromide 12 MG/0.6 ML KIT SQ SCH (10:00)
[2018-10-21] MEDS ORDERED: ASPIRIN COATED 81 MG TABLET.EC PO SCH (10:00)
[2018-10-21] MEDS ORDERED: PT OWN MED DRAWER 7, Y5N ONE (10:16)
--- NOTE | 2018-10-21 12:08 | EKG ---
Test Reason : Blood Pressure : / mmHG Vent. Rate : 082 BPM Atrial Rate : 082 BPM P-R Int : 144 ms QRS Dur : 094 ms QT Int : 406 ms P-R-T Axes : 056 000 026 degrees QTc Int : 474 ms NORMAL SINUS RHYTHM INFERIOR INFARCT , AGE UNDETERMINED ANTEROSEPTAL INFARCT (CITED ON OR BEFORE 30-JAN-2015) ABNORMAL ECG WHEN COMPARED WITH ECG OF 16-MAY-2018 13:40, T WAVE VARIATION Confirmed by DONNA REGALADO MD ([id number]) on 10/21/2018 12:08:41 PM Referred By: Confirmed By:DONNA REGALADO MD
--- NOTE | 2018-10-21 12:15 | PN ---
Progress Note (short form) - Note Progress Note: GI NOte: Just had a very large BM and feels some relief. It occurred within 15- 20 minutes of receiving Relistor Abd: distended but not tense, BS are diminished, nontender Impression: Resolving narcotic induced fecal impaction Continue : Relistor
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
--- NOTE | 2018-10-21 15:23 | DS ---
Physical Examination Vital Signs: Vital Signs Temperature 98.6 F 10/21/18 09:42 Pulse Rate 79 10/21/18 09:42 Respiratory Rate 20 10/21/18 09:42 Blood Pressure 131/69 10/21/18 09:42 O2 Sat by Pulse Oximetry (%) 98 10/21/18 09:00 Labs: CBC, BMP 10/20/18 16:15 10/21/18 08:15 Discharge Summary Reason For Visit: ABDOMINAL DISTENSION,HYPONATREMIS, Current Active Problems Ascites (Acute) Benign prostatic hyperplasia (Acute) Bladder outflow obstruction (Acute) CKD (chronic kidney disease) (Acute) Chronic combined systolic and diastolic heart failure, NYHA class 1 (Acute) Constipation (Acute) Diabetes 1.5, managed as type 2 (Acute) Hyponatremia (Acute) Procedures: Principal: Christian catheter for urinary retention. Several enemas without result. Relistor 6 mg SC with copious evacuation. Hospital Course: Pt much improved after Relistor; pain resolved. - Instructions Diet, Activity, Other Instructions: To follow up tomorrow with Dr Pritchett. Referrals: Salazar Pritchett MD [Primary Care Provider] - - Home Medications Comprehensive Discharge Medication List: Ambulatory Orders Esomeprazole Mag Trihydrate [Nexium] 40 mg PO DAILY #0 capsule. 01/22/12 Rifaximin [Xifaxan -] 550 mg PO BID #0 tablet 07/21/13 Insulin Glargine,Hum.rec.anlog [Lantus (10mL VIAL) -] 20 units SQ HS 08/17/14 Lactulose 30 mg PO TID 08/18/14 Oxycodone HCl [Roxicodone] 30 mg PO QID PRN 01/30/15 Spironolactone [Aldactone] 50 mg PO BID 01/30/15 Atenolol [Tenormin -] 50 mg PO DAILY PRN MDD 100 mg 10/29/15 Insulin Aspart [Novolog] 20 unit SQ BID PRN 10/30/15 Mirtazapine [Remeron -] 15 mg PO HS 05/16/18 Tamsulosin HCl [Flomax] 0.4 mg PO BID 05/16/18 Epoetin Miguel [Procrit] 20,000 unit IV WEEKLY 10/20/18
[2018-10-21 15:33] VITALS: BP 135/75; PULSE 86; TEMP 97.6
[2018-10-22] MEDS ORDERED: Methylnaltrexone Bromide 12 MG/0.6 ML KIT SQ SCH (10:00)
== END 2018-10-21 17:00 | disposition home or self-care (01) | DRG 392 ==
LOC: JER 14:24 → JERBED 18:26 → J8W 23:17
PROVIDERS: ADMIT Internal Medicine Gastroenterology; ATTEND Internal Medicine Gastroenterology
DX: K59.00 Constipation, unspecified (principal); E87.1 Hypo-osmolality and hyponatremia; R18.8 Other ascites; I50.42 Chronic combined systolic (congestive) and diastolic (congestive) heart failure; F11.20 Opioid dependence, uncomplicated; R64 Cachexia; K74.60 Unspecified cirrhosis of liver; I48.0 Paroxysmal atrial fibrillation; N40.1 Benign prostatic hyperplasia with lower urinary tract symptoms; R33.9 Retention of urine, unspecified; I25.10 Atherosclerotic heart disease of native coronary artery without angina pectoris; Z98.61 Coronary angioplasty status; M54.9 Dorsalgia, unspecified; N18.3 Chronic kidney disease, stage 3 (moderate); K76.0 Fatty (change of) liver, not elsewhere classified; K21.9 Gastro-esophageal reflux disease without esophagitis; Z68.22 Body mass index [BMI] 22.0-22.9, adult; D63.1 Anemia in chronic kidney disease; N32.0 Bladder-neck obstruction
CPT/HCPCS: 36415; 74018-TC-FY; 74176-TC; 80048; 80053; 81003; 82140; 82550; 82962; 83605; 83690; 83880; 84484; 85025; 85610; 85730; 86850; 86900; 86901; 87086; 93005; 93010; 99285-25

== ENCOUNTER 2018-10-24 14:33 | Inpatient (IN) | payer BC, OTHER ==
--- NOTE | 2018-10-24 14:35 | PDOC ---
Attending Attestation - HPI HPI: 10/24/18 15:44 The patient is a 61 year old male, with a significant past medical history of ESRD, cirrhosis with advanced sarcopenia, ascites and intermittent encephalopathy, afib, NALD, hypertension, anemia, diabetes, CAD, and SC (s/p stenting x17), who presents to the emergency department in s/p seizure (no hx of seizures) in respiratory distress. As per EMS, they were called by and he was in respiratory distress, unresponsive, and urinated on himself. Patient was given 50 of Rocuronium and 20 of Etomidate then intubated in the field and given Versed. His blood glucose level was 215 in the field and a nitro-patch was placed on his left shoulder. While in the ER, patient has decreased breath sounds on the right and blood pressure was 145/88. As per patients , he has been altered since yesterday. As per Dr. Pritchett, the patient had a thoracentesis procedure done 2 days ago Allergies: NKA Past surgical history: cardiac stent x17, L hip repair, unknown back surgery Social History: Former smoker (1 ppd > 20 years) GI: Dr. Pritchett <Trang Guzman - Last Filed: 10/24/18 15:44> - Resident Resident Name: Hernandez Santo - ED Attending Attestation I have performed the following: I have examined & evaluated the patient, The case was reviewed & discussed with the resident, I agree w/resident's findings & plan, Exceptions are as noted - Physicial Exam PE: GENERAL: Unresponsive, intubated. +Jaundice. HEAD: No signs of trauma EYES: PERRLA, EOMI, sclera anicteric, conjunctiva clear ENT: Auricles normal inspection, hearing grossly normal, nares patent, oropharynx clear without exudates. Moist mucosa NECK: Normal ROM, supple, no lymphadenopathy, JVD, or masses LUNGS: Breath sounds equal, clear to auscultation bilaterally. No wheezes, and no crackles HEART: Regular rate and rhythm, normal S1 and S2, no murmurs, rubs or gallops ABDOMEN: Soft, distended +fluid wave, normoactive bowel sounds. No guarding, no rebound. No masses EXTREMITIES: Normal range of motion, no edema. No clubbing or cyanosis. No cords, erythema, or tenderness NEUROLOGICAL: Limited by unresponsive state. SKIN: Warm, Dry, normal turgor, no rashes or lesions noted. - Medical Decision Making Pt found unresponsive by family, noted to be altered and intermittently lethargic yesterday. Pt with history of cirrhosis. Found to have elevated ammonia, hyponatremia. D/w Dr. Pritchett, admitted to ICU. <Samina Rodriguez - Last Filed: 10/28/18 08:43> Attestations - Attestations 10/24/18 15:44 Documentation prepared by Trang Guzman, acting as biomedical field service engineer for Samina Rodriguez MD. <Trang Guzman - Last Filed: 10/24/18 15:44>
[2018-10-24 14:52] LABS: BASO % 0.2 % (0-2.0); EOS % 1.2 % (0-4.5); HEMATOCRIT 35.8 % (35.4-49); HEMOGLOBIN 11.7 GM/dL (11.7-16.9); LYMPH % 5.7 % (8-40); MCH 24.7 pg (25.7-33.7); MCHC 32.6 g/dl (32.0-35.9); MEAN CELL VOLUME 75.9 fl (80-96); MEAN PLT VOLUME 10.7 fl (7.5-11.1); MONO % 13.5 % (3.8-10.2); NEUT % 79.4 % (42.8-82.8); PLATELET COUNT 158 K/MM3 (134-434); RBC 4.72 M/mm3 (4.00-5.60); RDW 18.9 % (11.9-15.9); WHITE BLOOD COUNT 7.4 K/mm3 (4.0-10.0)
[2018-10-24] MEDS ORDERED: PROPOFOL 1,000,000 MCG/100 ML VIAL ONE (15:15)
--- NOTE | 2018-10-24 15:15 | PDOC ---
History of Present Illness - General Chief Complaint: Seizure Stated Complaint: resp distress Time Seen by Provider: 10/24/18 14:34 History Source: Patient Exam Limitations: No Limitations - History of Present Illness Initial Comments: 10/24/18 15:19 61 year old man with history of BORJAS - cirrhosis, ascites and intermittent encephalopathy, DM, preogressive renal insufficiency (baseline Cr 3.3), ASHD with multiple cardiac stents, pAfib, prior hip fractures requires walker for ambulation, anemia of chronic kidney disease, BPH who presents with two days of confusion, occasional lethargy and shaking and with a witnessed seizure at 1300 just prior to arrival. The patient was witnessed by who saw him shaking Per EMS patient with respiratory distress en route to the ED requiring intubation with 50 rocuronium and versed and 20 etomidate. nitro patch on L shoulder BGM 215 in field Past History - Past Medical History Allergies/Adverse Reactions: Allergies Allergy/AdvReac Type Severity Reaction Status Date / Time No Known Allergies Allergy Verified 10/24/18 14:51 Cardiac Disorders: Yes (17 cardiac stents) COPD: No CHF: No HTN: Yes Hypercholesterolemia: Yes Liver Disease: Yes (cirrhosis) - Suicide/Smoking/Psychosocial Hx Smoking History: Never smoked Have you smoked in the past 12 months: No Information on smoking cessation initiated: No Hx Alcohol Use: No Drug/Substance Use Hx: No *Physical Exam - Vital Signs Last Vital Signs Temp Pulse Resp BP Pulse Ox 89 16 165/91 100 10/24/18 14:33 10/24/18 14:33 10/24/18 14:33 10/24/18 14:33 - Physical Exam Comments: 10/24/18 16:02 GENERAL: lethargic, intubated, sedated HEAD: No signs of trauma, normocephalic, atraumatic EYES: dilated pupils sluggishly reactive to light, occasional rightward gaze preference, sclera anicteric, conjunctiva clear ENT: intubated NECK: supple, no lymphadenopathy LUNGS: CTAB, decrease breath sounds on the R side HEART: Regular rate and rhythm, normal S1 and S2, no murmurs, rubs or gallops, peripheral pulses normal and equal bilaterally. ABDOMEN: Soft, nontender, normoactive bowel sounds. No guarding, no rebound. No masses, distended with fluid wave appearance EXTREMITIES : Normal inspection, Normal range of motion, no edema. No clubbing or cyanosis. NEUROLOGICAL: intubated, sedated SKIN: Warm, Dry, normal turgor, no rashes or lesions noted Moderate Sedation - Procedure Monitoring Vital Signs: Procedure Monitoring Vital Signs Temperature Pulse Rate 89 10/24/18 14:33 Respiratory Rate 16 10/24/18 14:33 Blood Pressure 165/91 10/24/18 14:33 O2 Sat by Pulse Oximetry (%) 100 10/24/18 14:33 ED Treatment Course - LABORATORY CBC & Chemistry Diagram: 10/24/18 14:39 10/24/18 14:39 Medical Decision Making - Medical Decision Making 10/24/18 15:44 ED Course: r/o intracranial bleed vs mass vs electrolyte abnormality vs elevated ammonia vs sepsis of unclear source vs hypoglycemia cbc, cmp, head ct, cxr, ua, ucx, ammonia, ptt, pt/inr Per EMS patient with respiratory distress en route to the ED requiring intubation with rocuronium and versed and etomidate. Tube checked upon arrival, noted decreased R sided breath BP, HR and O2 stable - bp 145/88 bedside ECHO w/o effusion or dyskinesis bilateral lung sliding observed BGM 215 in field 10/24/18 15:54 Rectal temp 95.5F, ashley hugger cbc w/o leukocytosis cmp pending head ct: no mass lesions. no intracranial bleed cxr: w/o pleural effusion or ptx, ET tube above coryna, increased patchiness along hilum biltareally, no blunting of costophrenic angles, pending final read ekg: normal sinus rhythm HR 75, no interval abnormalities, narrow QRS, ST and T wave segments and morphology normal. pending ABG Unclear as to etiology behind new onset seizure Attending called PCP who reports concern over electrolyte derangement / ammonia levels. labwork: corrected Ca 8.6, Na 126, ammonia at [address] Dr. Pritchett PCP at bedside recommends lactulose 200 Q4H and slow rate for NS at 42ml/hr Patient admitted to medicine and ICU team for further workup and evaluation Discussed with ICU residents about patient history and workup. Case discussed with admitted internal medicine team. *DC/Admit/Observation/Transfer Diagnosis at time of Disposition: Seizure - Discharge Dispostion Decision to Admit order: Yes - Referrals - Patient Instructions - Post Discharge Activity
[2018-10-24] MEDS: PROPOFOL 1,000,000 MCG/100 ML VIAL IVPB SCH (15:30)
[2018-10-24 15:50] LABS: ALBUMIN 3.1 g/dl (3.4-5.0); ALK PHOS 141 U/L (45-117); ANION GAP 12 MMOL/L (8-16); BILIRUBIN,TOTAL 1.1 mg/dL (0.2-1); BLOOD UREA NITROGEN 71 mg/dL (7-18); CALCIUM 7.9 mg/dL (8.5-10.1); CHLORIDE 91 mmol/L (98-107); CO2 23 mmol/L (21-32); GLUCOSE,RANDOM 204 mg/dL (74-106); POTASSIUM 4.6 mmol/L (3.5-5.1); SGOT/AST 23 U/L (15-37); SGPT/ALT 13 U/L (13-61); SODIUM 126 mmol/L (136-145); TOT PROT 6.8 g/dl (6.4-8.2)
--- NOTE | 2018-10-24 16:20 | EKG ---
Test Reason : Blood Pressure : / mmHG Vent. Rate : 075 BPM Atrial Rate : 075 BPM P-R Int : 134 ms QRS Dur : 096 ms QT Int : 436 ms P-R-T Axes : 069 029 042 degrees QTc Int : 486 ms NORMAL SINUS RHYTHM LOW VOLTAGE QRS SEPTAL INFARCT , AGE UNDETERMINED ABNORMAL ECG NO PREVIOUS ECGS AVAILABLE Confirmed by REBEKAH SCHAFER, GILA ([id number]) on 10/24/2018 4:20:30 PM Referred By: Confirmed By:GILA WELCH MD
[2018-10-24 16:27] LABS: URINE APPEARANCE CLEAR; URINE BILIRUBIN NEGATIVE (<2.0 mg/dL); URINE COLOR LTYELLOW; URINE GLUCOSE (UA) 1+ (NEGATIVE); URINE KETONE NEGATIVE (NEGATIVE); URINE LEUK ESTERASE NEGATIVE (NEGATIVE); URINE NITRITE NEGATIVE (NEGATIVE); URINE PROTEIN NEGATIVE (NEGATIVE); URINE UROBILINOGEN NEGATIVE mg/dL (0.2-1.0)
[2018-10-24] MEDS ORDERED: SODIUM CHLORIDE 1,000 ML IV SCH ×3 (16:30→16:45)
[2018-10-24] MEDS ORDERED: LACTULOSE 20 GM/30 ML UDC (FOR ORAL USE ONLY) PO SCH (16:30)
[2018-10-24 16:39] LABS: INR 1.33 (0.83-1.09); PROTHROMBIN TIME (PATIENT) 15.7 SEC (9.7-13.0)
[2018-10-24] MEDS ORDERED: LACTULOSE 20 GM/30 ML UDC (FOR RECTAL USE ONLY) PR SCH ×2 (16:45→20:00)
--- NOTE | 2018-10-24 16:54 | PN ---
Progress Note (short form) - Note Progress Note: Pt seen by me in ER, case discussed with ER staff. In brief I believe his current problem is stage 4 hepatic encephalopathy. The cause for his worsening is not clear; he does not appear to be infected. His ammonia level is high. He is poorly responsive now but he was also given propofol to sedate him further than he already was. In reviewing the history of the last 24 hours with the patient's I do not think he had a seizure or an arrest. He was tremulous yesterday and unarousable this a.m., typical of worsening encephalopathy. To begin lactulose enemas with the intent of extubating the patient as soon as he appears more alert. The sodium level of 126 is actually higher than it was on Sunday when he was fully alert.
[2018-10-24] MEDS ORDERED: LACTULOSE 20 GM/30 ML UDC (FOR ORAL USE ONLY) ONE (16:57)
[2018-10-24] MEDS ORDERED: LACTULOSE 20 GM/30 ML UDC (FOR ORAL USE ONLY) PO ONE (17:20)
--- NOTE | 2018-10-24 18:53 | CONSULT ---
Consultation: REQUESTING PROVIDER: CONSULT REQUEST: We have been asked to medically evaluate this patient for Admission to ICU. HISTORY OF PRESENT ILLNESS: 62 y/o M with PMHx of BORJAS-cirrhosis with advanced sarcopenia, ascites and intermittent encephalopathy, DM with progressive renal insufficiency (usual creatinine has been about 3.3), ASHD with multiple cardiac stents, PAF, anemia of chronic kidney disease, BPH presents after being unarousable. Patient was recently discharged from [facility] on 10/21/18 for Narcotic induced fecal impaction. Patient was intubated and sedated for my interview, thus the HPI was provided by the at bedside. Since d/c, patient has had increasing confusion. Prior evening he was conversational with his family however this AM, patient became more and more lethargic and gasped for air multiple times. According to his , patient began to shake all extremities when she attempted to wake him at 13: 00. Additionally she noticed he had lost bladder control. At this time she called for EMS; Patient was intubated at the scene, BG was 215. Patient has been intubated in the past; the last of which was 2 years ago. denies any recents fevers, chills, chest pain, SOB. REVIEW OF SYSTEMS: Unable to obtain as patient was intubated and sedated PHYSICAL EXAMINATION Vital Signs - 24 hr 10/24/18 10/24/18 10/24/18 14:33 15:05 15:30 Temperature 95.5 F L Pulse Rate 89 Pulse Rate [ 72 67 Apical] Respiratory 16 24 H 16 Rate Blood Pressure 165/91 Blood Pressure 120/76 116/74 [Left Arm] O2 Sat by Pulse 100 100 100 Oximetry (%) 10/24/18 10/24/18 10/24/18 15:41 16:25 16:41 Temperature Pulse Rate 65 Pulse Rate [ 66 Apical] Respiratory 16 20 18 Rate Blood Pressure Blood Pressure 109/68 [Left Arm] O2 Sat by Pulse 100 100 100 Oximetry (%) 10/24/18 10/24/18 17:13 17:23 Temperature 97.0 F L Pulse Rate Pulse Rate [ 67 Apical] Respiratory 18 Rate Blood Pressure Blood Pressure 131/73 [Left Arm] O2 Sat by Pulse 100 Oximetry (%) GENERAL: Intubated and Sedated HEAD: NCAT EYES: Pupils sluggish, reactive EARS, NOSE, THROAT: Dry mucous membranes. NECK: Supple LUNGS: Mechanically ventilated, Diminished breath sounds HEART: RRR, S1 and S2 ABDOMEN: Soft, nontender, Distended, + bowel sounds LOWER EXTREMITIES: 2+ pulses, No peripheral edema NEUROLOGICAL: Sedated SKIN: Warm, dry, B/L Lateral hip chronic discoloration Laboratory Results - last 24 hr 10/24/18 10/24/18 10/24/18 14:39 14:39 14:39 WBC 7.4 RBC 4.72 Hgb 11.7 Hct 35.8 MCV 75.9 L MCH 24.7 L MCHC 32.6 RDW 18.9 H Plt Count 158 MPV 10.7 Absolute Neuts (auto) 5.8 Neutrophils % 79.4 Lymphocytes % 5.7 L Monocytes % 13.5 H Eosinophils % 1.2 Basophils % 0.2 Nucleated RBC % 0 PT with INR INR Sodium 126 L Potassium 4.6 Chloride 91 L Carbon Dioxide 23 Anion Gap 12 BUN 71 H Creatinine 4.0 H Creat Clearance w eGFR 15.34 Random Glucose 204 H Lactic Acid Calcium 7.9 L Total Bilirubin 1.1 H AST 23 ALT 13 Alkaline Phosphatase 141 H Ammonia Creatine Kinase 60 Troponin I < 0.02 Total Protein 6.8 Albumin 3.1 L TSH 2.02 Urine Color Urine Appearance Urine pH Ur Specific [place] Urine Protein Urine Glucose (UA) Urine Ketones Urine Blood Urine Nitrite Urine Bilirubin Urine Urobilinogen Ur Leukocyte Esterase Urine WBC (Auto) Urine RBC (Auto) Blood Type O POSITIVE Antibody Screen Negative 10/24/18 10/24/18 10/24/18 14:39 15:33 15:57 WBC RBC Hgb Hct MCV MCH MCHC RDW Plt Count MPV Absolute Neuts (auto) Neutrophils % Lymphocytes % Monocytes % Eosinophils % Basophils % Nucleated RBC % PT with INR INR Sodium Potassium Chloride Carbon Dioxide Anion Gap BUN Creatinine Creat Clearance w eGFR Random Glucose Lactic Acid 1.8 Calcium Total Bilirubin AST ALT Alkaline Phosphatase Ammonia 85.90 H Creatine Kinase Troponin I Total Protein Albumin TSH Urine Color Ltyellow Urine Appearance Clear Urine pH 8.0 Ur Specific [place] 1.010 Urine Protein Negative Urine Glucose (UA) 1+ H Urine Ketones Negative Urine Blood 1+ H Urine Nitrite Negative Urine Bilirubin Negative Urine Urobilinogen Negative Ur Leukocyte Esterase Negative Urine WBC (Auto) 1 Urine RBC (Auto) 7 Blood Type Antibody Screen 10/24/18 16:10 WBC RBC Hgb Hct MCV MCH MCHC RDW Plt Count MPV Absolute Neuts (auto) Neutrophils % Lymphocytes % Monocytes % Eosinophils % Basophils % Nucleated RBC % PT with INR 15.70 H INR 1.33 H Sodium Potassium Chloride Carbon Dioxide Anion Gap BUN Creatinine Creat Clearance w eGFR Random Glucose Lactic Acid Calcium Total Bilirubin AST ALT Alkaline Phosphatase Ammonia Creatine Kinase Troponin I Total Protein Albumin TSH Urine Color Urine Appearance Urine pH Ur Specific [place] Urine Protein Urine Glucose (UA) Urine Ketones Urine Blood Urine Nitrite Urine Bilirubin Urine Urobilinogen Ur Leukocyte Esterase Urine WBC (Auto) Urine RBC (Auto) Blood Type Antibody Screen Active Medications Chlorhexidine Gluconate (Hibiclens For Decolonization -) 1 applic TP HS WIL Propofol (Diprivan -) 1,000,000 mcg in 100 mls @ 1.796 mls/hr IVPB TITR WIL; Protocol Last Admin: 10/24/18 15:30 Dose: 5 mcg/kg/min, 1.796 mls/hr Sodium Chloride (Normal Saline -) 1,000 mls @ 42 mls/hr IV ASDIR WIL Last Admin: 10/24/18 17:00 Dose: 42 mls/hr Lactulose (Cephulac (Rectal Use)) 200 gm NC Q4H WIL Mupirocin (Bactroban Ointment (For Decolonization) -) 1 applic NS BID WIL Stop: 10/29/18 21:59 ASSESSMENT/PLAN: 62 y/o M with PMHx of BORJAS-cirrhosis with advanced sarcopenia, ascites and intermittent encephalopathy, DM with progressive renal insufficiency (usual creatinine has been about 3.3), ASHD with multiple cardiac stents, PAF, anemia of chronic kidney disease, BPH #Neuro Encephalopathy -Possibly Hepatic in nature VS Hyponatremia -Head CT: No mass lesion, gross acute infarct, or intracranial hemorrhage -Intubated and Sedated -Continue Propfol Drip -Keppra Seizure prophylaxis #Cardio Hx of ASHD with multiple cardiac stents Hx of PAF -Trop < 0.02 -Currently Maintaining MAP >65 off pressors -Hold home dose Atenolol, Spironolactone #Pulmonary -Currently Intubated; Vent Settings 400/14/100%/5+ #GI Elevated TBili, Alk Phos Hx of BORJAS-cirrhosis with advanced sarcopenia Hx of Ascites -GI (Dr. Pritchett) Consulted -Continue Lactulose -Keep NPO -IV Protonix 40 Daily -Recheck TBili, Alkphos. Will defer further management to GI #Renal Hyponatremia Hypochloremia Hx of Renal Insufficiency (usual creatinine has been about 3.3) Hx of BPH -Will correct Na Slowly, not more that 10 in 24 hours -Continue NS @ 42 mls/hr -Continue home dose Tamsulosin #Endocrine Hx of DM -BGMs ISS Q6H starting at midnight #ID -Afebrile, Without elevated WBC, No Lactic acidosis -No active source of infection, continue to monitor #FEN -NS @ 42 mls/hr -Hyponatremia, Hypochloremia -NPO #PPx DVT: SCDs GI: IV Protonix 40 Daily Dispo: We will continue to follow the patient. Thank you for this consultative opportunity. Visit type - Emergency Visit Emergency Visit: Yes ED Registration Date: 10/24/18 Care time: The patient presented to the Emergency Department on the above date and was hospitalized for further evaluation of their emergent condition. - New Patient This patient is new to me today: Yes Date on this admission: 10/24/18 - Critical Care Critical Care patient: Yes Total Critical Care Time (in minutes): 50 Critical Care Statement: The care of this patient involved high complexity decision making to prevent further life threatening deterioration of the patient 's condition and/or to evaluate & treat vital organ system(s) failure or risk of failure.
[2018-10-24] MEDS ORDERED: levETIRAcetam 500 MG/5 ML INJECTION VIAL IVPB ONE (20:00)
[2018-10-24] MEDS ORDERED: PT OWN MED DRAWER 7, Y5N ONE (20:51)
[2018-10-24] MEDS: LACTULOSE 10 GM/15 ML BULK BOTTLE RC SCH (22:08)
[2018-10-24] MEDS: CHLORHEXIDINE GLUCONATE 4% CLEANSER FOR DECOLONIZATION TP SCH (22:09)
[2018-10-24] MEDS: MUPIROCIN 2% TOPICAL OINTMENT FOR DECOLONIZATION NS SCH (22:09)
[2018-10-24 23:32] LABS: ANION GAP 11 MMOL/L (8-16); BLOOD UREA NITROGEN 73 mg/dL (7-18); CALCIUM 7.6 mg/dL (8.5-10.1); CHLORIDE 96 mmol/L (98-107); CO2 23 mmol/L (21-32); GLUCOSE,RANDOM 217 mg/dL (74-106); POTASSIUM 4.5 mmol/L (3.5-5.1); SODIUM 130 mmol/L (136-145)
[2018-10-24 23:36] LABS: URINE APPEARANCE CLEAR; URINE BILIRUBIN NEGATIVE (<2.0 mg/dL); URINE COLOR LTYELLOW; URINE GLUCOSE (UA) 1+ (NEGATIVE); URINE KETONE NEGATIVE (NEGATIVE); URINE LEUK ESTERASE 1+ (NEGATIVE); URINE NITRITE NEGATIVE (NEGATIVE); URINE PROTEIN NEGATIVE (NEGATIVE); URINE UROBILINOGEN NEGATIVE mg/dL (0.2-1.0)
[2018-10-24 23:47] LABS: EPI CELLS RARE /HPF (FEW); URINE BACTERIA FEW /hpf (NONE SEEN); URINE HYALINE CAST 1 /lpf; URINE MUCUS RARE
[2018-10-25 01:15] LABS: ANION GAP 11 MMOL/L (8-16); BLOOD UREA NITROGEN 70 mg/dL (7-18); CALCIUM 7.2 mg/dL (8.5-10.1); CHLORIDE 99 mmol/L (98-107); CO2 22 mmol/L (21-32); CREATININE 3.7 mg/dL (0.55-1.3); GLUCOSE,RANDOM 196 mg/dL (74-106); POTASSIUM 4.3 mmol/L (3.5-5.1); SODIUM 132 mmol/L (136-145)
[2018-10-25] MEDS: LACTULOSE 10 GM/15 ML BULK BOTTLE RC SCH ×3 (02:43→12:29)
[2018-10-25 05:09] LABS: ANION GAP 11 MMOL/L (8-16); BLOOD UREA NITROGEN 75 mg/dL (7-18); CALCIUM 7.7 mg/dL (8.5-10.1); CHLORIDE 96 mmol/L (98-107); CO2 23 mmol/L (21-32); CREATININE 3.8 mg/dL (0.55-1.3); GLUCOSE,RANDOM 196 mg/dL (74-106); POTASSIUM 4.6 mmol/L (3.5-5.1); SODIUM 130 mmol/L (136-145)
[2018-10-25 06:26] LABS: BASO % 0.1 % (0-2.0); EOS % 0.4 % (0-4.5); HEMATOCRIT 34.2 % (35.4-49); HEMOGLOBIN 11.3 GM/dL (11.7-16.9); LYMPH % 3.5 % (8-40); MCH 25.1 pg (25.7-33.7); MCHC 33.1 g/dl (32.0-35.9); MEAN CELL VOLUME 75.9 fl (80-96); MEAN PLT VOLUME 10.3 fl (7.5-11.1); MONO % 13.4 % (3.8-10.2); NEUT % 82.6 % (42.8-82.8); PLATELET COUNT 185 K/MM3 (134-434); RDW 18.7 % (11.9-15.9); WHITE BLOOD COUNT 16.4 K/mm3 (4.0-10.0)
[2018-10-25 07:18] LABS: ALK PHOS 139 U/L (45-117); ANION GAP 12 MMOL/L (8-16); BILIRUBIN,TOTAL 1.2 mg/dL (0.2-1); BLOOD UREA NITROGEN 73 mg/dL (7-18); CHLORIDE 95 mmol/L (98-107); CO2 22 mmol/L (21-32); GLUCOSE,RANDOM 203 mg/dL (74-106); MAGNESIUM 3.8 mg/dL (1.8-2.4); POTASSIUM 4.5 mmol/L (3.5-5.1); SGOT/AST 19 U/L (15-37); SGPT/ALT 14 U/L (13-61); SODIUM 129 mmol/L (136-145); TOT PROT 6.8 g/dl (6.4-8.2)
[2018-10-25 07:36] LABS: INR 1.67 (0.83-1.09); PROTHROMBIN TIME (PATIENT) 19.8 SEC (9.7-13.0)
--- NOTE | 2018-10-25 07:41 | PN ---
Progress Note (short form) - Note Progress Note: Pt remains intubated, unresponsive but he is on a propofol drip. WBC elevated today -- was normal on admission. Na improved, creatinine stable. Case d/w Dr Thompson - recommend stopping propofol, give him a chance to wake up. Also recommend repeat CXR and coverage for possible aspiration.
--- NOTE | 2018-10-25 08:54 | HP ---
Admitting History and Physical - Past Medical History Cardiovascular: Yes: AFIB, CAD, HTN, Hyperlipdemia Pulmonary: Yes: COPD Gastrointestinal: Yes: Ascites, Other (cirrhosis) Renal/: Yes: Renal Inusuff Endocrine: Yes: Diabetes Mellitus - Smoking History Smoking history: Never smoked Have you smoked in the past 12 months: No - Alcohol/Substance Use Hx Alcohol Use: No Home Medications - Allergies Allergies/Adverse Reactions: Allergies Allergy/AdvReac Type Severity Reaction Status Date / Time No Known Allergies Allergy Verified 10/24/18 14:51 Review of Systems - Review of Systems Constitutional: reports: Lethargy, Weakness Physical Examination Vital Signs: Vital Signs Temperature 98.4 F 10/25/18 06:00 Pulse Rate 71 10/25/18 08:00 Respiratory Rate 23 H 10/25/18 08:09 Blood Pressure 129/64 10/25/18 08:00 O2 Sat by Pulse Oximetry (%) 100 10/24/18 22:00 Cardiovascular: Yes: Murmur, S1, S2 Respiratory: Yes: Mechanically Ventilated Gastrointestinal: Yes: Normal Bowel Sounds, Soft Edema: No Neurological: Yes: Other (sedated) Labs: CBC, BMP 10/25/18 05:15 10/25/18 05:15 Problem List - Problems (1) Metabolic encephalopathy Assessment/Plan: -Possibly Hepatic in nature VS Hyponatremia -Head CT: No mass lesion, gross acute infarct, or intracranial hemorrhage -Intubated and Sedated -Continue Propfol Drip -Keppra Seizure prophylaxis -Lactulose Laboratory Tests 10/25/18 05:15 Ammonia 79.19 H Code(s): G93.41 - METABOLIC ENCEPHALOPATHY (2) Cirrhosis Assessment/Plan: Elevated TBili, Alk Phos Hx of Ascites -GI (Dr. Pritchett) input noted -Continue Lactulose -Keep NPO -IV Protonix 40 Daily Code(s): K74.60 - UNSPECIFIED CIRRHOSIS OF LIVER (3) Respiratory failure Assessment/Plan: Vent settings per pulm Code(s): J96.90 - RESPIRATORY FAILURE, UNSP, UNSP W HYPOXIA OR HYPERCAPNIA (4) CAD (coronary artery disease) Assessment/Plan: Hx multiple cardiac stents Hx of PAF -Trop < 0.02 -Currently Maintaining MAP >65 off pressors -Hold home dose Atenolol, Spironolactone Code(s): I25.10 - ATHSCL HEART DISEASE OF [place] CORONARY ARTERY W/O ANG PCTRS (5) Hyponatremia Assessment/Plan: a Hx of Renal Insufficiency (usual creatinine has been about 3.3) -Will correct Na Slowly, not more that 10 in 24 hours -Continue NS @ 42 mls/hr -Continue home dose Tamsulosin Code(s): E87.1 - HYPO-OSMOLALITY AND HYPONATREMIA (6) Leukocytosis Assessment/Plan: Iv abx id consult cultures Code(s): D72.829 - ELEVATED WHITE BLOOD CELL COUNT, UNSPECIFIED
[2018-10-25] MEDS ORDERED: AMPICILLIN NA/SULBACTAM NA 3 GM in SODIUM CHLORIDE 100 ML IVPB SCH (09:00)
[2018-10-25] MEDS ORDERED: PIPERACILLIN/TAZOB 2.25 GM 2.25 GM in DEXTROSE 5%-WATER - 50 ML IVPB SCH (10:00)
[2018-10-25] MEDS ORDERED: PIPERACILLIN/TAZOBACTAM 2.25 GM VIAL IVPB ONE (10:34)
[2018-10-25] MEDS ORDERED: DEXTROSE 5%-WATER - 50 ML IVPB ONE (10:34)
[2018-10-25] MEDS: MUPIROCIN 2% TOPICAL OINTMENT FOR DECOLONIZATION NS SCH ×2 (11:00→21:49)
[2018-10-25] MEDS: PANTOPRAZOLE SODIUM 40 MG VIAL IVPUSH SCH (11:00)
[2018-10-25 11:21] LABS: ANION GAP 12 MMOL/L (8-16); BLOOD UREA NITROGEN 71 mg/dL (7-18); CALCIUM 7.9 mg/dL (8.5-10.1); CHLORIDE 97 mmol/L (98-107); CO2 23 mmol/L (21-32); CREATININE 3.9 mg/dL (0.55-1.3); GLUCOSE,RANDOM 209 mg/dL (74-106); POTASSIUM 4.5 mmol/L (3.5-5.1); SODIUM 131 mmol/L (136-145)
[2018-10-25] MEDS: LACTULOSE 20 GM/30 ML UDC (FOR ORAL USE ONLY) GT SCH ×4 (12:35→23:45)
[2018-10-25] MEDS: RIFAXIMIN 550 MG TABLET (UD) PO SCH ×2 (12:36→21:48)
--- NOTE | 2018-10-25 12:57 | PN ---
Teaching Attending Note Name of Resident: Namita Thompson ATTENDING PHYSICIAN STATEMENT I saw and evaluated the patient. I reviewed the resident's note and discussed the case with the resident. I agree with the resident's findings and plan as documented. SUBJECTIVE: Patient seen and examined in the ICU. Remains intubated and sedated on propofol. No pressors. AC Mode of vent, 50% FiO2. CXR: No acute process noted Intake & Output 10/22/18 10/23/18 10/24/18 10/25/18 23:59 23:59 23:59 23:59 Intake Total 319 306.6 Output Total 300 Balance 19 306.6 Weight 134 lb 4.8 oz 134 lb Last Vital Signs Temp Pulse Resp BP Pulse Ox 98.6 F 80 12 118/65 100 10/25/18 10:00 10/25/18 12:00 10/25/18 12:00 10/25/18 12:00 10/25/18 09:00 Active Medications Chlorhexidine Gluconate (Hibiclens For Decolonization -) 1 applic TP HS COUNTS INCLUDE 234 BEDS AT THE [facility] Last Admin: 10/24/18 22:09 Dose: 1 applic Propofol (Diprivan -) 1,000,000 mcg in 100 mls @ 1.796 mls/hr IVPB TITR WIL; Protocol Last Titration: 10/25/18 09:00 Dose: 0 mcg/kg/min, 0 mls/hr Ceftriaxone Sodium 2 gm/ (Dextrose) 100 mls @ 100 mls/hr IVPB DAILY WIL; Protocol Lactulose (Cephulac (Oral Use)) 20 gm GT Q4H WIL Last Admin: 10/25/18 12:35 Dose: 20 gm Mupirocin (Bactroban Ointment (For Decolonization) -) 1 applic NS BID WIL Stop: 10/29/18 21:59 Last Admin: 10/25/18 11:00 Dose: 1 applic Pantoprazole Sodium (Protonix Iv) 40 mg IVPUSH DAILY COUNTS INCLUDE 234 BEDS AT THE [facility] Last Admin: 10/25/18 11:00 Dose: 40 mg Rifaximin (Xifaxan -) 550 mg PO BID COUNTS INCLUDE 234 BEDS AT THE [facility] Last Admin: 10/25/18 12:36 Dose: 550 mg GENERAL: Intubated and Sedated HEAD: NCAT EYES: Pupils sluggish but reactive EARS, NOSE, THROAT: Dry mucous membranes. NECK: Supple LUNGS: Mechanically ventilated, Diminished breath sounds HEART: RRR, S1 and S2 ABDOMEN: Soft, (+) ascites, Distended, + bowel sounds LOWER EXTREMITIES: 2+ pulses, No peripheral edema NEUROLOGICAL: Sedated SKIN: Warm, dry, B/L Lateral hip chronic discoloration Laboratory Results - last 24 hr 10/24/18 10/24/18 10/24/18 14:39 14:39 14:39 WBC 7.4 RBC 4.72 Hgb 11.7 Hct 35.8 MCV 75.9 L MCH 24.7 L MCHC 32.6 RDW 18.9 H Plt Count 158 MPV 10.7 Absolute Neuts (auto) 5.8 Neutrophils % 79.4 Lymphocytes % 5.7 L Monocytes % 13.5 H Eosinophils % 1.2 Basophils % 0.2 Nucleated RBC % 0 PT with INR INR Sodium 126 L Potassium 4.6 Chloride 91 L Carbon Dioxide 23 Anion Gap 12 BUN 71 H Creatinine 4.0 H Creat Clearance w eGFR 15.34 POC Glucometer Random Glucose 204 H Lactic Acid Calcium 7.9 L Magnesium Total Bilirubin 1.1 H AST 23 ALT 13 Alkaline Phosphatase 141 H Ammonia Creatine Kinase 60 Troponin I < 0.02 B-Natriuretic Peptide Total Protein 6.8 Albumin 3.1 L TSH 2.02 Urine Color Urine Appearance Urine pH Ur Specific [place] Urine Protein Urine Glucose (UA) Urine Ketones Urine Blood Urine Nitrite Urine Bilirubin Urine Urobilinogen Ur Leukocyte Esterase Urine WBC (Auto) Urine RBC (Auto) Ur Epithelial Cells Urine Bacteria Hyaline Casts Urine Mucus Ur Random Sodium Urine Creatinine Blood Type O POSITIVE Antibody Screen Negative 10/24/18 10/24/18 10/24/18 14:39 15:33 15:57 WBC RBC Hgb Hct MCV MCH MCHC RDW Plt Count MPV Absolute Neuts (auto) Neutrophils % Lymphocytes % Monocytes % Eosinophils % Basophils % Nucleated RBC % PT with INR INR Sodium Potassium Chloride Carbon Dioxide Anion Gap BUN Creatinine Creat Clearance w eGFR POC Glucometer Random Glucose Lactic Acid 1.8 Calcium Magnesium Total Bilirubin AST ALT Alkaline Phosphatase Ammonia 85.90 H Creatine Kinase Troponin I B-Natriuretic Peptide Total Protein Albumin TSH Urine Color Ltyellow Urine Appearance Clear Urine pH 8.0 Ur Specific [place] 1.010 Urine Protein Negative Urine Glucose (UA) 1+ H Urine Ketones Negative Urine Blood 1+ H Urine Nitrite Negative Urine Bilirubin Negative Urine Urobilinogen Negative Ur Leukocyte Esterase Negative Urine WBC (Auto) 1 Urine RBC (Auto) 7 Ur Epithelial Cells Urine Bacteria Hyaline Casts Urine Mucus Ur Random Sodium Urine Creatinine Blood Type Antibody Screen 10/24/18 10/24/18 10/24/18 16:10 16:45 18:15 WBC RBC Hgb Hct MCV MCH MCHC RDW Plt Count MPV Absolute Neuts (auto) Neutrophils % Lymphocytes % Monocytes % Eosinophils % Basophils % Nucleated RBC % PT with INR 15.70 H INR 1.33 H Sodium Potassium Chloride Carbon Dioxide Anion Gap BUN Creatinine Creat Clearance w eGFR POC Glucometer Random Glucose Lactic Acid Calcium Magnesium Total Bilirubin AST ALT Alkaline Phosphatase Ammonia Creatine Kinase 46 Troponin I 0.03 B-Natriuretic Peptide Total Protein Albumin TSH Urine Color Urine Appearance Urine pH Ur Specific [place] Urine Protein Urine Glucose (UA) Urine Ketones Urine Blood Urine Nitrite Urine Bilirubin Urine Urobilinogen Ur Leukocyte Esterase Urine WBC (Auto) Urine RBC (Auto) Ur Epithelial Cells Urine Bacteria Hyaline Casts Urine Mucus Ur Random Sodium Urine Creatinine Blood Type O POSITIVE Antibody Screen 10/24/18 10/24/18 10/24/18 21:00 21:00 21:00 WBC RBC Hgb Hct MCV MCH MCHC RDW Plt Count MPV Absolute Neuts (auto) Neutrophils % Lymphocytes % Monocytes % Eosinophils % Basophils % Nucleated RBC % PT with INR INR Sodium 130 L Potassium 4.5 Chloride 96 L Carbon Dioxide 23 Anion Gap 11 BUN 73 H Creatinine 4.0 H Creat Clearance w eGFR 15.29 POC Glucometer Random Glucose 217 H Lactic Acid 1.5 Calcium 7.6 L Magnesium Total Bilirubin AST ALT Alkaline Phosphatase Ammonia Creatine Kinase Troponin I B-Natriuretic Peptide 6732.8 H Total Protein Albumin TSH Urine Color Urine Appearance Urine pH Ur Specific [place] Urine Protein Urine Glucose (UA) Urine Ketones Urine Blood Urine Nitrite Urine Bilirubin Urine Urobilinogen Ur Leukocyte Esterase Urine WBC (Auto) Urine RBC (Auto) Ur Epithelial Cells Urine Bacteria Hyaline Casts Urine Mucus Ur Random Sodium Urine Creatinine Blood Type Antibody Screen 10/24/18 10/24/18 10/24/18 23:30 23:30 23:30 WBC RBC Hgb Hct MCV MCH MCHC RDW Plt Count MPV Absolute Neuts (auto) Neutrophils % Lymphocytes % Monocytes % Eosinophils % Basophils % Nucleated RBC % PT with INR INR Sodium Potassium Chloride Carbon Dioxide Anion Gap BUN Creatinine Creat Clearance w eGFR POC Glucometer Random Glucose Lactic Acid Calcium Magnesium Total Bilirubin AST ALT Alkaline Phosphatase Ammonia Creatine Kinase Troponin I B-Natriuretic Peptide Total Protein Albumin TSH Urine Color Ltyellow Urine Appearance Clear Urine pH 7.0 Ur Specific [place] 1.012 Urine Protein 40 H Negative Urine Glucose (UA) 1+ H Urine Ketones Negative Urine Blood 2+ H Urine Nitrite Negative Urine Bilirubin Negative Urine Urobilinogen Negative Ur Leukocyte Esterase 1+ H Urine WBC (Auto) 17 Urine RBC (Auto) 46 Ur Epithelial Cells Rare Urine Bacteria Few Hyaline Casts 1 Urine Mucus Rare Ur Random Sodium 53 Urine Creatinine 50.0 Blood Type Antibody Screen 10/25/18 10/25/18 10/25/18 00:30 03:50 05:15 WBC 16.4 H RBC 4.50 Hgb 11.3 L Hct 34.2 L MCV 75.9 L MCH 25.1 L MCHC 33.1 RDW 18.7 H Plt Count 185 MPV 10.3 Absolute Neuts (auto) 13.6 H Neutrophils % 82.6 Lymphocytes % 3.5 L D Monocytes % 13.4 H Eosinophils % 0.4 Basophils % 0.1 Nucleated RBC % 0 PT with INR INR Sodium 132 L 130 L Potassium 4.3 4.6 Chloride 99 96 L Carbon Dioxide 22 23 Anion Gap 11 11 BUN 70 H 75 H Creatinine 3.7 H 3.8 H Creat Clearance w eGFR 16.73 16.22 POC Glucometer Random Glucose 196 H 196 H Lactic Acid Calcium 7.2 L 7.7 L Magnesium Total Bilirubin AST ALT Alkaline Phosphatase Ammonia Creatine Kinase Troponin I B-Natriuretic Peptide Total Protein Albumin TSH Urine Color Urine Appearance Urine pH Ur Specific [place] Urine Protein Urine Glucose (UA) Urine Ketones Urine Blood Urine Nitrite Urine Bilirubin Urine Urobilinogen Ur Leukocyte Esterase Urine WBC (Auto) Urine RBC (Auto) Ur Epithelial Cells Urine Bacteria Hyaline Casts Urine Mucus Ur Random Sodium Urine Creatinine Blood Type Antibody Screen 10/25/18 10/25/18 10/25/18 05:15 05:15 05:49 WBC RBC Hgb Hct MCV MCH MCHC RDW Plt Count MPV Absolute Neuts (auto) Neutrophils % Lymphocytes % Monocytes % Eosinophils % Basophils % Nucleated RBC % PT with INR INR Sodium 129 L Potassium 4.5 Chloride 95 L Carbon Dioxide 22 Anion Gap 12 BUN 73 H Creatinine 4.0 H Creat Clearance w eGFR 15.29 POC Glucometer [id number] Random Glucose 203 H Lactic Acid Calcium 8.0 L Magnesium 3.8 H Total Bilirubin 1.2 H AST 19 ALT 14 Alkaline Phosphatase 139 H Ammonia 79.19 H Creatine Kinase 50 Troponin I 0.02 B-Natriuretic Peptide Total Protein 6.8 Albumin 3.0 L TSH Urine Color Urine Appearance Urine pH Ur Specific [place] Urine Protein Urine Glucose (UA) Urine Ketones Urine Blood Urine Nitrite Urine Bilirubin Urine Urobilinogen Ur Leukocyte Esterase Urine WBC (Auto) Urine RBC (Auto) Ur Epithelial Cells Urine Bacteria Hyaline Casts Urine Mucus Ur Random Sodium Urine Creatinine Blood Type Antibody Screen 10/25/18 10/25/18 06:40 10:40 WBC RBC Hgb Hct MCV MCH MCHC RDW Plt Count MPV Absolute Neuts (auto) Neutrophils % Lymphocytes % Monocytes % Eosinophils % Basophils % Nucleated RBC % PT with INR 19.80 H INR 1.67 H Sodium 131 L Potassium 4.5 Chloride 97 L Carbon Dioxide 23 Anion Gap 12 BUN 71 H Creatinine 3.9 H Creat Clearance w eGFR 15.74 POC Glucometer Random Glucose 209 H Lactic Acid Calcium 7.9 L Magnesium Total Bilirubin AST ALT Alkaline Phosphatase Ammonia Creatine Kinase Troponin I B-Natriuretic Peptide Total Protein Albumin TSH Urine Color Urine Appearance Urine pH Ur Specific [place] Urine Protein Urine Glucose (UA) Urine Ketones Urine Blood Urine Nitrite Urine Bilirubin Urine Urobilinogen Ur Leukocyte Esterase Urine WBC (Auto) Urine RBC (Auto) Ur Epithelial Cells Urine Bacteria Hyaline Casts Urine Mucus Ur Random Sodium Urine Creatinine Blood Type Antibody Screen ASSESSMENT/PLAN: Acute Respiratory Failure Known history of BORJAS Cirrhosis Ascites Suspected hepatic encephalopathy DM Acute on CKD ASHD History of multiple cardiac stents PAFib Anemia of chronic kidney disease BPH No clear evidence of aspiration on CXR Lactulose Wean sedation to assess mental status SBTs as mental status improves Empiric ABX Reed-cultures Follow labs Keppra Start Beta Kathrine PPI ID consult Renal consult Strict monitoring of I & O - Critical Care Critical Care patient: Yes Total Critical Care Time (in minutes): 40 Critical Care Statement: The care of this patient involved high complexity decision making to prevent further life threatening deterioration of the patient 's condition and/or to evaluate & treat vital organ system(s) failure or risk of failure. Dr Dominguez
[2018-10-25 13:08] LABS: ANION GAP 10 MMOL/L (8-16); BLOOD UREA NITROGEN 73 mg/dL (7-18); CHLORIDE 97 mmol/L (98-107); CO2 23 mmol/L (21-32); CREATININE 3.9 mg/dL (0.55-1.3); GLUCOSE,RANDOM 234 mg/dL (74-106); POTASSIUM 4.4 mmol/L (3.5-5.1); SODIUM 130 mmol/L (136-145)
[2018-10-25] MEDS: METOPROLOL TARTRATE 25 MG TABLET (FP) PO SCH ×2 (13:13→21:49)
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
--- NOTE | 2018-10-25 13:20 | PN ---
Physical Exam: SUBJECTIVE: Patient seen and examined this morning. No acute overnight events. Remains sedated and intubated. OBJECTIVE: Vital Signs Period Temp Pulse Resp BP Sys/Grant Pulse Ox Last 24 Hr 95.5 F-99.1 F 62-89 12-24 102-165/52-91 100-100 GENERAL: Intubated and Sedated HEAD: NCAT EYES: Pupils sluggish, reactive EARS, NOSE, THROAT: Dry mucous membranes. NECK: Supple LUNGS: Mechanically ventilated, Diminished breath sounds HEART: RRR, S1 and S2 ABDOMEN: Soft, nontender, Distended, + bowel sounds LOWER EXTREMITIES: 2+ pulses, No peripheral edema NEUROLOGICAL: Sedated SKIN: Warm, dry, B/L Lateral hip chronic discoloration Laboratory Results - last 24 hr 10/25/18 10/25/18 10/25/18 00:30 03:50 05:15 WBC 16.4 H RBC 4.50 Hgb 11.3 L Hct 34.2 L MCV 75.9 L MCH 25.1 L MCHC 33.1 RDW 18.7 H Plt Count 185 MPV 10.3 Absolute Neuts (auto) 13.6 H Neutrophils % 82.6 Lymphocytes % 3.5 L D Monocytes % 13.4 H Eosinophils % 0.4 Basophils % 0.1 Nucleated RBC % 0 PT with INR INR Sodium 132 L 130 L Potassium 4.3 4.6 Chloride 99 96 L Carbon Dioxide 22 23 Anion Gap 11 11 BUN 70 H 75 H Creatinine 3.7 H 3.8 H Creat Clearance w eGFR 16.73 16.22 POC Glucometer Random Glucose 196 H 196 H Lactic Acid Calcium 7.2 L 7.7 L Magnesium Total Bilirubin AST ALT Alkaline Phosphatase Ammonia Creatine Kinase Troponin I B-Natriuretic Peptide Total Protein Albumin TSH Urine Color Urine Appearance Urine pH Ur Specific [place] Urine Protein Urine Glucose (UA) Urine Ketones Urine Blood Urine Nitrite Urine Bilirubin Urine Urobilinogen Ur Leukocyte Esterase Urine WBC (Auto) Urine RBC (Auto) Ur Epithelial Cells Urine Bacteria Hyaline Casts Urine Mucus Ur Random Sodium Urine Creatinine Blood Type Antibody Screen 10/25/18 10/25/18 10/25/18 05:15 05:15 05:49 WBC RBC Hgb Hct MCV MCH MCHC RDW Plt Count MPV Absolute Neuts (auto) Neutrophils % Lymphocytes % Monocytes % Eosinophils % Basophils % Nucleated RBC % PT with INR INR Sodium 129 L Potassium 4.5 Chloride 95 L Carbon Dioxide 22 Anion Gap 12 BUN 73 H Creatinine 4.0 H Creat Clearance w eGFR 15.29 POC Glucometer [phone] Random Glucose 203 H Lactic Acid Calcium 8.0 L Magnesium 3.8 H Total Bilirubin 1.2 H AST 19 ALT 14 Alkaline Phosphatase 139 H Ammonia 79.19 H Creatine Kinase 50 Troponin I 0.02 B-Natriuretic Peptide Total Protein 6.8 Albumin 3.0 L TSH Urine Color Urine Appearance Urine pH Ur Specific [place] Urine Protein Urine Glucose (UA) Urine Ketones Urine Blood Urine Nitrite Urine Bilirubin Urine Urobilinogen Ur Leukocyte Esterase Urine WBC (Auto) Urine RBC (Auto) Ur Epithelial Cells Urine Bacteria Hyaline Casts Urine Mucus Ur Random Sodium Urine Creatinine Blood Type Antibody Screen 10/25/18 10/25/18 06:40 10:40 WBC RBC Hgb Hct MCV MCH MCHC RDW Plt Count MPV Absolute Neuts (auto) Neutrophils % Lymphocytes % Monocytes % Eosinophils % Basophils % Nucleated RBC % PT with INR 19.80 H INR 1.67 H Sodium 131 L Potassium 4.5 Chloride 97 L Carbon Dioxide 23 Anion Gap 12 BUN 71 H Creatinine 3.9 H Creat Clearance w eGFR 15.74 POC Glucometer Random Glucose 209 H Lactic Acid Calcium 7.9 L Magnesium Total Bilirubin AST ALT Alkaline Phosphatase Ammonia Creatine Kinase Troponin I B-Natriuretic Peptide Total Protein Albumin TSH Urine Color Urine Appearance Urine pH Ur Specific [place] Urine Protein Urine Glucose (UA) Urine Ketones Urine Blood Urine Nitrite Urine Bilirubin Urine Urobilinogen Ur Leukocyte Esterase Urine WBC (Auto) Urine RBC (Auto) Ur Epithelial Cells Urine Bacteria Hyaline Casts Urine Mucus Ur Random Sodium Urine Creatinine Blood Type Antibody Screen Active Medications Chlorhexidine Gluconate (Hibiclens For Decolonization -) 1 applic TP HS [facility] Last Admin: 10/24/18 22:09 Dose: 1 applic Propofol (Diprivan -) 1,000,000 mcg in 100 mls @ 1.796 mls/hr IVPB TITR [facility]; Protocol Last Titration: 10/25/18 09:00 Dose: 0 mcg/kg/min, 0 mls/hr Ceftriaxone Sodium 2 gm/ (Dextrose) 100 mls @ 100 mls/hr IVPB DAILY [facility]; Protocol Lactulose (Cephulac (Oral Use)) 20 gm GT Q4H [facility] Last Admin: 10/25/18 12:35 Dose: 20 gm Metoprolol Tartrate (Lopressor -) 25 mg PO BID [facility] Mupirocin (Bactroban Ointment (For Decolonization) -) 1 applic NS BID [facility] Stop: 10/29/18 21:59 Last Admin: 10/25/18 11:00 Dose: 1 applic Pantoprazole Sodium (Protonix Iv) 40 mg IVPUSH DAILY [facility] Last Admin: 10/25/18 11:00 Dose: 40 mg Rifaximin (Xifaxan -) 550 mg PO BID [facility] Last Admin: 10/25/18 12:36 Dose: 550 mg ASSESSMENT/PLAN: 62 y/o M with PMHx of BORJAS-cirrhosis with advanced sarcopenia, ascites and intermittent encephalopathy, DM with progressive renal insufficiency (usual creatinine has been about 3.3), ASHD with multiple cardiac stents, PAF, anemia of chronic kidney disease, BPH #Neuro Encephalopathy -Possibly Hepatic in nature VS Hyponatremia -Head CT: No mass lesion, gross acute infarct, or intracranial hemorrhage -Intubated and Sedated -Propfol Drip d/c'ed; Wean sedation to assess mental status -Keppra Seizure prophylaxis x 1 given in ED -Neurology (Dr. Velasco) consulted #Cardio Hx of ASHD with multiple cardiac stents Hx of PAF -Trop < 0.02 -Currently Maintaining MAP >65 off pressors -Hold home dose Atenolol, Spironolactone -Started Metoprolol Tartrate 25mg PO BID #Pulmonary Acute Respiratory Failure -Currently Intubated; Vent Settings 400/14/60%/5+ -CXR does not reveal an acute process #GI Elevated TBili, Alk Phos Hx of BORJAS-cirrhosis with advanced sarcopenia Hx of Ascites -GI (Dr. Pritchett) Consulted -Continue Lactulose -Keep NPO -IV Protonix 40 Daily -Recheck TBili, Alkphos. Will defer further management to GI -Ammonia improved; Recheck Q12H -Start Rifaximin 550 mg PO BID #Renal Hyponatremia Hypochloremia Hx of Renal Insufficiency (usual creatinine has been about 3.3) Hx of BPH -Will correct Na Slowly, not more that 10 in 24 hours -Continue NS @ 42 mls/hr -Continue home dose Tamsulosin -Nephrology (Dr. Balbuena) consulted #Endocrine Hx of DM -BGMs ISS Q6H starting at midnight #ID Leukocytosis -Suspect SBP -Leukocytosis this AM however Afebrile -Given 1 dose Zosyn this AM -Start ceftriaxone 2gm Daily -Blood and Urine Cx pending -ID (Dr. Armendariz) Consulted #FEN -NS @ 42 mls/hr -Hyponatremia, Hypochloremia -NPO #PPx DVT: SCDs GI: IV Protonix 40 Daily Dispo: We will continue to follow the patient. Thank you for this consultative opportunity. Visit type - Emergency Visit Emergency Visit: Yes ED Registration Date: 10/24/18 Care time: The patient presented to the Emergency Department on the above date and was hospitalized for further evaluation of their emergent condition. - New Patient This patient is new to me today: No - Critical Care Critical Care patient: Yes Total Critical Care Time (in minutes): 40 Critical Care Statement: The care of this patient involved high complexity decision making to prevent further life threatening deterioration of the patient 's condition and/or to evaluate & treat vital organ system(s) failure or risk of failure.
--- NOTE | 2018-10-25 14:13 | PN ---
Teaching Attending Note Name of Resident: Iraida Vazquez (Nephrology) ATTENDING PHYSICIAN STATEMENT I saw and evaluated the patient. I reviewed the resident's note and discussed the case with the resident. I agree with the resident's findings and plan as documented. Renal Pt is a 62 year old male with pmhx of CKD, liver cirrhosis, a-fib, htn, anemia, DM and CAD who presents with a seizure and dyspnea. He was intubated for airway production. I was called to evaluate him for elevated creatinine. He is in the ICU and is intubated. pmhx ckd liver cirrhosis afib family hx non contrib ros intubated nkda Current Medications Generic Name Dose Route Start Last Admin Trade Name Freq PRN Reason Stop Dose Admin Chlorhexidine Gluconate 1 applic 10/24/18 22:00 10/24/18 22:09 Hibiclens For Decolonization - TP 1 applic HS [facility] Administration Propofol 1,000,000 mcg in 100 mls @ 1.796 mls/hr 10/24/18 14:45 10/25/18 09: 00 Diprivan - IVPB 0 mcg/kg/min TITR [facility] 0 mls/hr Titration Protocol 5 MCG/KG/MIN Ceftriaxone Sodium 2 gm/ 100 mls @ 100 mls/hr 10/25/18 18:00 Dextrose IVPB DAILY [facility] Protocol Lactulose 20 gm 10/25/18 11:15 10/25/18 12:35 Cephulac (Oral Use) GT 20 gm Q4H [facility] Administration Metoprolol Tartrate 25 mg 10/25/18 13:00 10/25/18 13:13 Lopressor - PO 25 mg BID [facility] Administration Mupirocin 1 applic 10/24/18 22:00 10/25/18 11:00 Bactroban Ointment (For Decolonization) - NS 10/29/18 21:59 1 applic BID [facility] Administration Pantoprazole Sodium 40 mg 10/25/18 10:00 10/25/18 11:00 Protonix Iv IVPUSH 40 mg DAILY [facility] Administration Rifaximin 550 mg 10/25/18 11:30 10/25/18 12:36 Xifaxan - PO 550 mg BID [facility] Administration Laboratory Tests 10/24/18 10/25/18 10/25/18 23:30 05:15 05:15 WBC 16.4 H Hgb 11.3 L Sodium Potassium Creatinine 4.0 H Urine Protein Negative Urine Blood 2+ H 10/25/18 12:00 WBC Hgb Sodium 130 L Potassium 4.4 Creatinine 3.9 H Urine Protein Urine Blood Last Vital Signs Temp Pulse Resp BP Pulse Ox 98.6 F 80 20 118/65 100 10/25/18 10:00 10/25/18 12:00 10/25/18 12:00 10/25/18 12:00 10/25/18 09:00 cardio s1s2 tachy pulm vent sounds gi soft ext neg edema neuro lethargy Impression 1. CKD 2. nstemi 3. DM 4. liver cirrhosis 5. ascites 6. pain med dependence 7. bph 8. change in mental status/confusion 9. failure to thrive 10. non-compliance 11. resp failure requiring intubation 12. seizure Plan - cont to monitor renal function - pt did not want any HD therapy - avoid nephrotoxins - discussed with ICU team - discussed with family
[2018-10-25] MEDS: PROPOFOL 1,000,000 MCG/100 ML VIAL IVPB SCH ×2 (15:43→18:00)
--- NOTE | 2018-10-25 17:26 | PN ---
Progress Note (short form) - Note Progress Note: ID CONSULT DICTATED LEUKOCYTOSIS R/O SEPSIS RESP FAILURE R/O ASP PNEUMONIA ALTERED MENTAL STATUS CIRRHOSIS CKD DM AWAIT C/S SUCTIONED SPUTUM C/S VENTILATORY SUPPORT EMPIRIC CEFTRIAXONE F/U CXR CRITICAL CARE TIME 35MIN
--- NOTE | 2018-10-25 17:51 | CONSULT ---
Consult - text type - Consultation Consultation Note: NEUROLOGY CONSULTATION is greatly appreciated: Events reviewed and discussed with RN and Dr. Armendariz. This 62 yo man with multiple medical conditions incl DM, HTN, ASHD, S/P Stents and AFib is known to have end-stage alcoholic cirrhosis with waxing and waning hepatic encephalopathy. 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 Few days of worsening confusion. 3 days ago was ambulating with walker, feeding himself and was conversational. Yesterday had possible seizure < 5 mins with tongue biting and incontinence as described by family. Brought to ER. Neuroimaging not found. Given propofol until 9 AM today. Now off. Intubated. On Ceftriaxone Ammonia level = 90mg% No seizure activity noted by ICU staff. MO: Intubated. Lethargic. Shallow spontaneous respiration. Neck supple. Kernig's neg. No response to name. Follows no commands PE5mm RRLA. Full roving EOM's. No response to visual threat. Moves R > L (?) Semipurposeful mov'ts to pain (R>L). Brisk reflexes except AJ's. B?L Babinskis IMP: Severe, B/L cerebral dysfunction. Minor asymmetry may be present (R cerebral accentuation) but this is not obvious. Current status is c/w severe hepatic encephalopathy. My only concern is question of sudden deterioration prompting admission. SUGGEST: Continue lactulose and antibiotics. CT of head (C-) as soon as stable. R/O CVA. Observe off seizure meds at this time. Thank you very much, Crescencio Velasco MD
--- NOTE | 2018-10-25 18:16 | CONS ---
DATE OF CONSULTATION: DATE OF DICTATION: 10/25/2018 INFECTIOUS DISEASE CONSULTATION HISTORY OF PRESENT ILLNESS: The patient is a 62-year-old male with multiple medical problems evaluated for possible pneumonia. He has a history of cirrhosis with ascites and hepatic encephalopathy. The patient apparently had a new onset seizure at home. According to the notes, he had been having altered mental status over the past 1-2 days. There was a question about whether he had been overmedicated with opiate analgesics secondary to chronic hip pain. However, according to the notes, family member states he had been off opiates for a week. His family members noted him to be in respiratory distress, he became unresponsive. There was some witnessed seizure activity as well as urinary incontinence. EMS was called. He was intubated in the field. Patient was evaluated in the emergency room where he was noted to be hypotensive and hypothermic. He was admitted to the intensive care unit. At the present time he is intubated on the ventilator. He is on sedation. His course has now been complicated by elevated white blood cell count to 16.4. No reports of recent febrile illness or any ill contacts, no reports of recent respiratory tract illness, gastrointestinal illness, or urinary tract infection. PAST MEDICAL HISTORY: Positive for chronic kidney disease, history of cirrhosis secondary to BORJAS with ascites and history of hepatic encephalopathy. Past medical history also includes atrial fibrillation, hypertension, diabetes, coronary artery disease, myocardial infarction, BPH. PAST SURGICAL HISTORY: Status post hip fractures. ALLERGIES: No known allergies. MEDICATION: Ceftriaxone. Chlorhexidine, lactulose, Keppra, metoprolol, Protonix, propofol, Xifaxan. SOCIAL HISTORY: Lives at home with family members. Former smoker. SYSTEMS REVIEW: Neurologic: As per HPI. Cardiac: Negative for chest pain or palpitations. Respiratory: Status post respiratory failure. Gastrointestinal: Positive for advanced cirrhosis. Genitourinary: Chronic kidney disease. LABORATORY DATA: White count 16.4, 82 neutrophils, 3 lymphocytes, 13 monocytes. Hematocrit 34.2, platelet count 185. Urinalysis 17 white cells, total bilirubin 1.2, alkaline phosphatase 139, AST 19, ALT 14, BUN 72, creatinine 3.9. Blood and urine cultures are pending. Chest x-ray negative for acute infiltrate. PHYSICAL EXAMINATION: General: On exam, he is sedated on the ventilator. He appears chronically ill. Vital signs: Temperature 99.2, blood pressure 106/72, pulse 84 regular, respirations 14 per minute. HEENT: Sclerae anicteric. Patient is orally intubated. Cardiovascular: Heart sounds S1, S2. Lungs: Air entry bilaterally. Abdomen: Slightly distended. Soft, nontender. Extremities: Negative for edema. IMPRESSION: 1. Leukocytosis, rule out sepsis. 2. Respiratory failure. 3. Altered mental status rule out seizure versus metabolic encephalopathy. 4. Cirrhosis. 5. Chronic kidney disease. 6. Diabetes mellitus. Await culture results. Follow up chest x-ray. Continue ventilatory and hemodynamic support. Empiric antibiotic coverage for possible aspiration pneumonia in the setting of seizure and respiratory failure with ceftriaxone. Obtain suction sputum for C and S. Prognosis is guarded. Critical care time spent 35 minutes. MARYLU ALBERTO M.D. [id number]
[2018-10-25] MEDS ORDERED: DEXTROSE 5%-WATER 100 ML IVPB ONE (18:38)
[2018-10-25] MEDS: CEFTRIAXONE 2 GM in DEXTROSE 5%-WATER 100 ML IVPB SCH (18:44)
[2018-10-25] MEDS: CHLORHEXIDINE GLUCONATE 4% CLEANSER FOR DECOLONIZATION TP SCH (21:49)
[2018-10-26] MEDS: LACTULOSE 20 GM/30 ML UDC (FOR ORAL USE ONLY) GT SCH ×4 (03:05→21:33)
[2018-10-26 05:57] LABS: BASO % 0.1 % (0-2.0); HEMATOCRIT 33.7 % (35.4-49); LYMPH % 3.2 % (8-40); MCH 25.4 pg (25.7-33.7); MCHC 32.7 g/dl (32.0-35.9); MEAN CELL VOLUME 77.6 fl (80-96); MEAN PLT VOLUME 10.9 fl (7.5-11.1); NEUT % 84.7 % (42.8-82.8); PLATELET COUNT 172 K/MM3 (134-434); RBC 4.35 M/mm3 (4.00-5.60); RDW 18.7 % (11.9-15.9); WHITE BLOOD COUNT 14.7 K/mm3 (4.0-10.0)
[2018-10-26 06:45] LABS: ALBUMIN 2.5 g/dl (3.4-5.0); ALK PHOS 120 U/L (45-117); ANION GAP 12 MMOL/L (8-16); BILIRUBIN,TOTAL 0.9 mg/dL (0.2-1); BLOOD UREA NITROGEN 70 mg/dL (7-18); CHLORIDE 99 mmol/L (98-107); CO2 20 mmol/L (21-32); CREATININE 3.9 mg/dL (0.55-1.3); GLUCOSE,RANDOM 259 mg/dL (74-106); MAGNESIUM 3.9 mg/dL (1.8-2.4); PHOSPHOROUS 4.7 mg/dL (2.5-4.9); POTASSIUM 4.2 mmol/L (3.5-5.1); SGOT/AST 20 U/L (15-37); SGPT/ALT 13 U/L (13-61); SODIUM 131 mmol/L (136-145); TOT PROT 6.3 g/dl (6.4-8.2)
--- NOTE | 2018-10-26 07:39 | PN ---
Progress Note (short form) - Note Progress Note: Pt remains intubated but he follows commands appropriately. WBC down slightly. Abdomen soft. Electrolytes stable. Case d/w Dr Thompson -- to attempt extubation today, then begin diet this evening.
--- NOTE | 2018-10-26 08:12 | PN ---
Progress Note (short form) - Note Progress Note: PULM/CCM Pt Seen & Examined in the ICU. Intubated & sedated on the Vent. Active Medications Chlorhexidine Gluconate (Hibiclens For Decolonization -) 1 applic TP HS [facility] Last Admin: 10/25/18 21:49 Dose: 1 applic Propofol (Diprivan -) 1,000,000 mcg in 100 mls @ 1.796 mls/hr IVPB TITR WIL; Protocol Last Admin: 10/25/18 18:00 Dose: 5 mcg/kg/min, 1.796 mls/hr Ceftriaxone Sodium 2 gm/ (Dextrose) 100 mls @ 100 mls/hr IVPB DAILY [facility]; Protocol Last Admin: 10/26/18 10:34 Dose: 100 mls/hr Lactulose (Cephulac (Oral Use)) 20 gm GT BID [facility] Last Admin: 10/26/18 10:38 Dose: 20 gm Metoprolol Tartrate (Lopressor -) 25 mg PO BID [facility] Last Admin: 10/26/18 10:36 Dose: 25 mg Mupirocin (Bactroban Ointment (For Decolonization) -) 1 applic NS BID [facility] Stop: 10/29/18 21:59 Last Admin: 10/26/18 11:51 Dose: 1 applic Pantoprazole Sodium (Protonix Iv) 40 mg IVPUSH DAILY [facility] Last Admin: 10/26/18 10:35 Dose: 40 mg Rifaximin (Xifaxan -) 550 mg PO BID [facility] Last Admin: 10/26/18 10:36 Dose: 550 mg Vital Signs Period Temp Pulse Resp BP Sys/Grant Pulse Ox Last 24 Hr 98.9 F-100.2 F 68-122 14-29 86-131/56-80 100-100 Intake & Output 10/23/18 10/24/18 10/25/18 10/26/18 23:59 23:59 23:59 23:59 Intake Total 319 1053.2 112.6 Output Total 300 800 625 Balance 19 253.2 -512.4 Weight 60.917 kg 60.781 kg 60.895 kg GEN: Cachectic, chronically ill 62 y/o man intubated sedated on the Vent HEENT: Temporal wasting, PEERL, icteric, dry MMM PULM: CTAB CV: nml S1 S2, RR, unable to appreciate any G/M/R ABD: Soft, (+) ascites, Distended, + bowel sounds EXT: + Pulses, WWPX4, no edema, notice B/L Lateral hip chronic discoloration CBC, BMP 10/26/18 05:30 10/26/18 05:30 Hepatic Panel Total Bilirubin 0.9 mg/dL (0.2-1) 10/26/18 05:30 AST 20 U/L (15-37) 10/26/18 05:30 ALT 13 U/L (13-61) 10/26/18 05:30 Alkaline Phosphatase 120 U/L (45-117) H 10/26/18 05:30 Albumin 2.5 g/dl (3.4-5.0) L 10/26/18 05:30 ASSESS: Resolved Acute Respiratory Failure Known history of BORJAS Cirrhosis Ascites Suspected hepatic encephalopathy DM Acute on CKD ASHD History of multiple cardiac stents PAFib Anemia of chronic kidney disease BPH No clear evidence of aspiration on CXR PLAN: -D/c Sedation -Wake up & extubate -Lactulose -Rifax -F/u Reed-cultures -Empiric ABX -Trend NH4 -Cont Keppra -BB -PPI -Strict monitoring of I & O -cont to monitor renal function -avoid nephrotoxins -DVT ppx -GI ppx -D/c --> Med Surg DGL, ACNP-BC [facility] ICU PULM/CCM [id number]
[2018-10-26] MEDS ORDERED: DEXTROSE 5%-WATER 100 ML IVPB ONE (10:30)
[2018-10-26] MEDS: CEFTRIAXONE 2 GM in DEXTROSE 5%-WATER 100 ML IVPB SCH (10:34)
[2018-10-26] MEDS: PANTOPRAZOLE SODIUM 40 MG VIAL IVPUSH SCH (10:35)
[2018-10-26] MEDS: METOPROLOL TARTRATE 25 MG TABLET (FP) PO SCH ×3 (10:36→22:04)
[2018-10-26] MEDS: RIFAXIMIN 550 MG TABLET (UD) PO SCH ×2 (10:36→21:33)
[2018-10-26] MEDS: MUPIROCIN 2% TOPICAL OINTMENT FOR DECOLONIZATION NS SCH ×2 (11:51→21:34)
[2018-10-26] MEDS ORDERED: PT OWN MED DRAWER 7, Y5N ONE (12:19)
--- NOTE | 2018-10-26 12:56 | PN ---
Progress Note (short form) - Note Progress Note: RENAL Pt is awake and alert wants his oxygen to be reduced was extubated today Last Vital Signs Temp Pulse Resp BP Pulse Ox 99 F 118 H 21 H 107/80 100 10/26/18 12:00 10/26/18 12:00 10/26/18 12:00 10/26/18 12:00 10/26/18 09:30 lungs bilat air entry cvs tachycardic s1s2 abd soft ext no edema neuro a+ox3 CBC, BMP 10/26/18 05:30 10/26/18 05:30 Current Medications Generic Name Dose Route Start Last Admin Trade Name Freq PRN Reason Stop Dose Admin Chlorhexidine Gluconate 1 applic 10/24/18 22:00 10/25/18 21:49 Hibiclens For Decolonization - TP 1 applic HS [facility]IL Administration Propofol 1,000,000 mcg in 100 mls @ 1.796 mls/hr 10/24/18 14:45 10/25/18 18: 00 Diprivan - IVPB 5 mcg/kg/min TITR WIL 1.796 mls/hr Administration Protocol 5 MCG/KG/MIN Ceftriaxone Sodium 2 gm/ 100 mls @ 100 mls/hr 10/25/18 18:00 10/26/18 10:34 Dextrose IVPB 100 mls/hr DAILY [facility]IL Administration Protocol Lactulose 20 gm 10/26/18 10:00 10/26/18 10:38 Cephulac (Oral Use) GT 20 gm BID WIL Administration Metoprolol Tartrate 25 mg 10/25/18 13:00 10/26/18 10:36 Lopressor - PO 25 mg BID [facility]IL Administration Mupirocin 1 applic 10/24/18 22:00 10/26/18 11:51 Bactroban Ointment (For Decolonization) - NS 10/29/18 21:59 1 applic BID [facility]IL Administration Pantoprazole Sodium 40 mg 10/25/18 10:00 10/26/18 10:35 Protonix Iv IVPUSH 40 mg DAILY [facility] Administration Rifaximin 550 mg 10/25/18 11:30 10/26/18 10:36 Xifaxan - PO 550 mg BID [facility]IL Administration Impression 1. CKD 2. nstemi 3. DM 4. liver cirrhosis 5. ascites 6. pain med dependence 7. bph 8. change in mental status/confusion 9. failure to thrive 10. non-compliance 11. resp failure requiring intubation- now extubated 12. seizure Plan - cont to monitor renal function - pt did not want any HD therapy - avoid nephrotoxins -pt clearly not on propofol even though its on list MV
[2018-10-26] MEDS: INSULIN SLIDING SCALE (NOVOLOG) 1 VIAL SQ SCH ×2 (16:30→22:12)
[2018-10-26] MEDS ORDERED: ACETAMINOPHEN 1000 MG/100 ML VIAL (NON FORMULARY) IVPB STA (20:57)
[2018-10-26] MEDS: CHLORHEXIDINE GLUCONATE 4% CLEANSER FOR DECOLONIZATION TP SCH (21:33)
--- NOTE | 2018-10-26 21:42 | PN ---
Progress Note, Physician History of Present Illness: previous notes and events reviewed extubated today awake and alert wbc trending down - Current Medication List Current Medications: Active Medications Chlorhexidine Gluconate (Hibiclens For Decolonization -) 1 applic TP HS [facility] Last Admin: 10/26/18 21:33 Dose: 1 applic Ceftriaxone Sodium 2 gm/ (Dextrose) 100 mls @ 100 mls/hr IVPB DAILY [facility]; Protocol Last Admin: 10/26/18 10:34 Dose: 100 mls/hr Insulin Aspart (Novolog Vial Sliding Scale -) 1 vial SQ ACHS [facility]; Protocol Last Admin: 10/26/18 16:30 Dose: 4 units Lactulose (Cephulac (Oral Use)) 20 gm GT BID [facility] Last Admin: 10/26/18 21:33 Dose: 20 gm Metoprolol Tartrate (Lopressor -) 25 mg PO BID [facility] Last Admin: 10/26/18 21:33 Dose: 25 mg Mupirocin (Bactroban Ointment (For Decolonization) -) 1 applic NS BID [facility] Stop: 10/29/18 21:59 Last Admin: 10/26/18 21:34 Dose: 1 applic Pantoprazole Sodium (Protonix Iv) 40 mg IVPUSH DAILY [facility] Last Admin: 10/26/18 10:35 Dose: 40 mg Rifaximin (Xifaxan -) 550 mg PO BID [facility] Last Admin: 10/26/18 21:33 Dose: 550 mg - Objective Vital Signs: Vital Signs Temperature 98.1 F 10/26/18 20:00 Pulse Rate 70 10/26/18 20:00 Respiratory Rate 16 10/26/18 20:00 Blood Pressure 112/55 L 10/26/18 20:00 O2 Sat by Pulse Oximetry (%) 99 10/26/18 16:48 Constitutional: Yes: Mild Distress Eyes: Yes: Conjunctiva Clear Cardiovascular: Yes: Regular Rate and Rhythm Respiratory: Yes: CTA Bilaterally, On Venti-Mask Gastrointestinal: Yes: Normal Bowel Sounds, Soft Genitourinary: Yes: Christian Present Musculoskeletal: Yes: Muscle Weakness Extremities: Yes: WNL Edema: No Neurological: Yes: Alert, Oriented Psychiatric: Yes: Alert Labs: CBC, BMP 10/26/18 05:30 10/26/18 05:30 INR, PTT INR 1.67 (0.83-1.09) H 10/25/18 06:40 <Jeimy Carroll - Last Filed: 10/26/18 21:36> - Current Medication List Current Medications: Active Medications Chlorhexidine Gluconate (Hibiclens For Decolonization -) 1 applic TP HS [facility] Last Admin: 10/26/18 21:33 Dose: 1 applic Ceftriaxone Sodium 2 gm/ (Dextrose) 100 mls @ 100 mls/hr IVPB DAILY [facility]; Protocol Last Admin: 10/26/18 10:34 Dose: 100 mls/hr Insulin Aspart (Novolog Vial Sliding Scale -) 1 vial SQ ACHS [facility]; Protocol Last Admin: 10/27/18 06:29 Dose: Not Given Lactulose (Cephulac (Oral Use)) 20 gm GT BID [facility] Last Admin: 10/26/18 21:33 Dose: 20 gm Metoprolol Tartrate (Lopressor -) 25 mg PO BID [facility] Last Admin: 10/26/18 22:04 Dose: Not Given Mupirocin (Bactroban Ointment (For Decolonization) -) 1 applic NS BID [facility] Stop: 10/29/18 21:59 Last Admin: 10/26/18 21:34 Dose: 1 applic Pantoprazole Sodium (Protonix Iv) 40 mg IVPUSH DAILY [facility] Last Admin: 10/26/18 10:35 Dose: 40 mg Rifaximin (Xifaxan -) 550 mg PO BID [facility] Last Admin: 10/26/18 21:33 Dose: 550 mg - Objective Vital Signs: Vital Signs Temperature 97.9 F 10/27/18 06:00 Pulse Rate 58 L 10/27/18 08:00 Respiratory Rate 12 10/27/18 08:00 Blood Pressure 112/54 L 10/27/18 08:00 O2 Sat by Pulse Oximetry (%) 99 10/26/18 21:00 Labs: CBC, BMP 10/27/18 05:30 10/27/18 05:30 INR, PTT INR 1.67 (0.83-1.09) H 10/25/18 06:40 <Pollo Ball - Last Filed: 10/27/18 09:34> Problem List - Problems (1) Cirrhosis Code(s): K74.60 - UNSPECIFIED CIRRHOSIS OF LIVER (2) Hyponatremia Code(s): E87.1 - HYPO-OSMOLALITY AND HYPONATREMIA (3) Leukocytosis Code(s): D72.829 - ELEVATED WHITE BLOOD CELL COUNT, UNSPECIFIED (4) Metabolic encephalopathy Code(s): G93.41 - METABOLIC ENCEPHALOPATHY (5) Respiratory failure Code(s): J96.90 - RESPIRATORY FAILURE, UNSP, UNSP W HYPOXIA OR HYPERCAPNIA <Jeimy Carroll - Last Filed: 10/26/18 21:36> Assessment/Plan -current Na 131 -will cont to monitor -GI on board -cont lactulose -ammonia 37.43, will cont to monitor and trend -pantoprazole IV -cont IV ceftriaxone -WBC showing down trend, will cont to monitor -ID on board -BC neg <Jeimy Carroll - Last Filed: 10/26/18 21:36> PATIENT SEEN AND EXAMINED AND I AGREE WITH THE ABOVE NOTE <Pollo Ball - Last Filed: 10/27/18 09:34>
[2018-10-27 03:33] VITALS: BMI 21.6
[2018-10-27 05:48] LABS: HEMATOCRIT 29.8 % (35.4-49); HEMOGLOBIN 9.9 GM/dL (11.7-16.9); MCH 25.3 pg (25.7-33.7); MCHC 33.3 g/dl (32.0-35.9); MEAN PLT VOLUME 10.6 fl (7.5-11.1); PLATELET COUNT 163 K/MM3 (134-434); RBC 3.92 M/mm3 (4.00-5.60); RDW 18.7 % (11.9-15.9); WHITE BLOOD COUNT 11.2 K/mm3 (4.0-10.0)
[2018-10-27] MEDS: INSULIN SLIDING SCALE (NOVOLOG) 1 VIAL SQ SCH ×3 (06:29→17:54)
[2018-10-27 06:46] LABS: ALBUMIN 2.4 g/dl (3.4-5.0); ALK PHOS 109 U/L (45-117); ANION GAP 12 MMOL/L (8-16); BLOOD UREA NITROGEN 75 mg/dL (7-18); CALCIUM 8.1 mg/dL (8.5-10.1); CHLORIDE 101 mmol/L (98-107); CO2 21 mmol/L (21-32); GLUCOSE,RANDOM 147 mg/dL (74-106); POTASSIUM 3.8 mmol/L (3.5-5.1); SGOT/AST 15 U/L (15-37); SGPT/ALT 11 U/L (13-61); SODIUM 135 mmol/L (136-145); TOT PROT 5.7 g/dl (6.4-8.2)
[2018-10-27] MEDS ORDERED: DEXTROSE 5%-WATER 100 ML IVPB ONE (08:36)
[2018-10-27] MEDS: MUPIROCIN 2% TOPICAL OINTMENT FOR DECOLONIZATION NS SCH (09:45)
[2018-10-27] MEDS: LACTULOSE 20 GM/30 ML UDC (FOR ORAL USE ONLY) GT SCH (09:45)
[2018-10-27] MEDS: CEFTRIAXONE 2 GM in DEXTROSE 5%-WATER 100 ML IVPB SCH (09:45)
[2018-10-27] MEDS: METOPROLOL TARTRATE 25 MG TABLET (FP) PO SCH ×2 (09:45→22:11)
[2018-10-27] MEDS: PANTOPRAZOLE SODIUM 40 MG VIAL IVPUSH SCH (09:45)
[2018-10-27] MEDS: RIFAXIMIN 550 MG TABLET (UD) PO SCH ×2 (09:45→22:10)
[2018-10-27] MEDS: LACTULOSE 20 GM/30 ML UDC (FOR ORAL USE ONLY) PO SCH ×2 (09:55→22:10)
[2018-10-27] MEDS: PANTOPRAZOLE 20 MG TABLET (FP) PO SCH (09:55)
--- NOTE | 2018-10-27 10:04 | PN ---
Progress Note (short form) - Note Progress Note: Pt seen at bedside, case discussed with NYASIA De La Cruz. Today is alert, extubated, denies abdominal pain. Passing flatus by his report. Tolerating diet. Wants to get out of bed. Abdomen soft, nontender. Chest clear. WBC trending down. Blood cultures negative to date. Will transfer to floor and ask for PT evaluation as well as whatever VNS services can be arranged for him after discharge to help with general conditioning. D/C Christian catheter. OOB to chair with assistance.
--- NOTE | 2018-10-27 10:06 | PN ---
Progress Note (short form) - Note Progress Note: PULM/CCM Pt Seen & Examined in the ICU. Remains extubated. Lethargic but @ baseline a/p @ bedside. Active Medications Chlorhexidine Gluconate (Hibiclens For Decolonization -) 1 applic TP HS [facility] Last Admin: 10/26/18 21:33 Dose: 1 applic Ceftriaxone Sodium 2 gm/ (Dextrose) 100 mls @ 100 mls/hr IVPB DAILY [facility]; Protocol Last Admin: 10/27/18 09:45 Dose: 100 mls/hr Insulin Aspart (Novolog Vial Sliding Scale -) 1 vial SQ ACHS [facility]; Protocol Last Admin: 10/27/18 06:29 Dose: Not Given Lactulose (Cephulac (Oral Use)) 20 gm PO BID [facility] Last Admin: 10/27/18 09:55 Dose: 20 gm Metoprolol Tartrate (Lopressor -) 25 mg PO BID [facility] Last Admin: 10/27/18 09:45 Dose: 25 mg Mupirocin (Bactroban Ointment (For Decolonization) -) 1 applic NS BID [facility] Stop: 10/29/18 21:59 Last Admin: 10/27/18 09:45 Dose: 1 applic Pantoprazole Sodium (Protonix -) 20 mg PO DAILY [facility] Last Admin: 10/27/18 09:55 Dose: Not Given Rifaximin (Xifaxan -) 550 mg PO BID [facility] Last Admin: 10/27/18 09:45 Dose: 550 mg Vital Signs Period Temp Pulse Resp BP Sys/Grant Pulse Ox Last 24 Hr 97.9 F-99 F 58-118 12-21 72-113/43-80 99-100 Intake & Output 10/24/18 10/25/18 10/26/18 10/27/18 23:59 23:59 23:59 23:59 Intake Total 319 1053.2 362.6 50 Output Total 300 800 725 200 Balance 19 253.2 -362.4 -150 Weight 60.917 kg 60.781 kg 60.781 kg 59.557 kg CBC, BMP 10/27/18 05:30 10/27/18 05:30 Microbiology 10/25/18 00:30 Blood - Peripheral Venous Blood Culture - Preliminary NO GROWTH OBTAINED AFTER 48 HOURS, INCUBATION TO CONTINUE FOR 3 DAYS. 10/25/18 00:30 Blood - Peripheral Venous Blood Culture - Preliminary NO GROWTH OBTAINED AFTER 48 HOURS, INCUBATION TO CONTINUE FOR 3 DAYS. 10/24/18 15:57 Urine - Urine - Catheterized Urine Culture - Final NO GROWTH OBTAINED ASSESS: Resolved Acute Respiratory Failure Known history of BORJAS Cirrhosis Ascites Suspected hepatic encephalopathy DM Acute on CKD ASHD History of multiple cardiac stents PAFib Anemia of chronic kidney disease BPH No clear evidence of aspiration on CXR PLAN: -Lactulose -Rifax -F/u Reed-cultures -Finish Empiric ABX -Trend NH4 -Cont Keppra -BB -PPI -I's & O's -cont to monitor renal function -avoid nephrotoxins (Pt refuses HD) -DVT ppx -GI ppx -PT/OT -D/c --> Med Surg immediately DGL, ACNP-BC [facility] ICU PULM/CCM [id number] Critical Care Total Critical Care Time (in minutes): 38 Critical Care Statement: The care of this patient involved high complexity decision making to prevent further life threatening deterioration of the patient 's condition and/or to evaluate & treat vital organ system(s) failure or risk of failure.
--- NOTE | 2018-10-27 10:28 | PN ---
Progress Note (short form) - Note Progress Note: RENAL Pt is awake and alert no complaints Last Vital Signs Temp Pulse Resp BP Pulse Ox 97.9 F 58 L 12 112/54 L 99 10/27/18 06:00 10/27/18 08:00 10/27/18 08:00 10/27/18 08:00 10/26/18 21:00 lungs bilat air entry cvs tachycardic s1s2 abd soft ext no edema neuro a+ox3 CBC, BMP 10/27/18 05:30 10/27/18 05:30 Current Medications Generic Name Dose Route Start Last Admin Trade Name [place] PRN Reason Stop Dose Admin Chlorhexidine Gluconate 1 applic 10/24/18 22:00 10/26/18 21:33 Hibiclens For Decolonization - TP 1 applic HS [facility]IL Administration Ceftriaxone Sodium 2 gm/ 100 mls @ 100 mls/hr 10/25/18 18:00 10/27/18 09:45 Dextrose IVPB 100 mls/hr DAILY [facility] Administration Protocol Insulin Aspart 1 vial 10/26/18 22:00 10/27/18 06:29 Novolog Vial Sliding Scale - SQ Not Given ACHS [facility]IL Protocol Lactulose 20 gm 10/27/18 09:47 10/27/18 09:55 Cephulac (Oral Use) PO 20 gm BID [facility]IL Administration Metoprolol Tartrate 25 mg 10/25/18 13:00 10/27/18 09:45 Lopressor - PO 25 mg BID [facility]IL Administration Mupirocin 1 applic 10/24/18 22:00 10/27/18 09:45 Bactroban Ointment (For Decolonization) - NS 10/29/18 21:59 1 applic BID WIL Administration Pantoprazole Sodium 20 mg 10/27/18 10:00 10/27/18 09:55 Protonix - PO Not Given DAILY WIL Rifaximin 550 mg 10/25/18 11:30 10/27/18 09:45 Xifaxan - PO 550 mg BID WIL Administration Impression 1. CKD 2. nstemi 3. DM 4. liver cirrhosis 5. ascites 6. pain med dependence 7. bph 8. change in mental status/confusion 9. failure to thrive 10. non-compliance 11. resp failure requiring intubation- now extubated 12. seizure Plan appears to be doing well overall does not want hd MV
--- NOTE | 2018-10-27 20:31 | PN ---
Progress Note, Physician Chief Complaint: AWAKE ALERT EXTUBATED ON ROOM AIR EVENTS AND NOTES REVIEWED - Current Medication List Current Medications: Active Medications Chlorhexidine Gluconate (Hibiclens For Decolonization -) 1 applic TP HS [facility] Ceftriaxone Sodium 2 gm/ (Dextrose) 100 mls @ 100 mls/hr IVPB DAILY [facility]; Protocol Insulin Aspart (Novolog Vial Sliding Scale -) 1 vial SQ ACHS [facility]; Protocol Lactulose (Cephulac (Oral Use)) 20 gm PO BID [facility] Last Admin: 10/27/18 09:55 Dose: 20 gm Metoprolol Tartrate (Lopressor -) 25 mg PO BID [facility] Pantoprazole Sodium (Protonix -) 20 mg PO DAILY [facility] Last Admin: 10/27/18 09:55 Dose: Not Given Rifaximin (Xifaxan -) 550 mg PO BID [facility] - Objective Vital Signs: Vital Signs Temperature 97.9 F 10/27/18 06:00 Pulse Rate 67 10/27/18 16:00 Respiratory Rate 16 10/27/18 16:00 Blood Pressure 95/57 L 10/27/18 16:00 O2 Sat by Pulse Oximetry (%) 99 10/27/18 10:00 Constitutional: Yes: Mild Distress Eyes: Yes: WNL HENT: Yes: WNL Neck: Yes: WNL Cardiovascular: Yes: Regular Rate and Rhythm Respiratory: Yes: CTA Bilaterally Gastrointestinal: Yes: Soft, Distention Genitourinary: Yes: Other Musculoskeletal: Yes: Muscle Weakness Extremities: Yes: Other Edema: Yes Edema: LLE: Trace, RLE: Trace Integumentary: Yes: WNL Wound/Incision: Yes: Clean/Dry Neurological: Yes: Pre-Existing Deficit ...Motor Strength: LLE, RLE Psychiatric: Yes: WNL Labs: CBC, BMP 10/27/18 05:30 10/27/18 05:30 INR, PTT INR 1.67 (0.83-1.09) H 10/25/18 06:40 Problem List - Problems (1) CAD (coronary artery disease) Code(s): I25.10 - ATHSCL HEART DISEASE OF [place] CORONARY ARTERY W/O ANG PCTRS (2) Cirrhosis Code(s): K74.60 - UNSPECIFIED CIRRHOSIS OF LIVER (3) Hyponatremia Code(s): E87.1 - HYPO-OSMOLALITY AND HYPONATREMIA (4) Leukocytosis Code(s): D72.829 - ELEVATED WHITE BLOOD CELL COUNT, UNSPECIFIED (5) Metabolic encephalopathy Code(s): G93.41 - METABOLIC ENCEPHALOPATHY (6) Respiratory failure Code(s): J96.90 - RESPIRATORY FAILURE, UNSP, UNSP W HYPOXIA OR HYPERCAPNIA (7) Acute blood loss anemia Code(s): D62 - ACUTE POSTHEMORRHAGIC ANEMIA (8) Ascites controlled with medication Code(s): R18.8 - OTHER ASCITES (9) Atrial fibrillation Code(s): I48.91 - UNSPECIFIED ATRIAL FIBRILLATION Qualifiers: Atrial fibrillation type: paroxysmal Qualified Code(s): I48.0 - Paroxysmal atrial fibrillation (10) Benign essential hypertension Code(s): I10 - ESSENTIAL (PRIMARY) HYPERTENSION (11) Cirrhosis of liver Code(s): K74.60 - UNSPECIFIED CIRRHOSIS OF LIVER Qualifiers: Hepatic cirrhosis type: other cirrhosis Qualified Code(s): K74.69 - Other cirrhosis of liver (12) Diabetes 1.5, managed as type 2 Code(s): E13.9 - OTHER SPECIFIED DIABETES MELLITUS WITHOUT COMPLICATIONS Assessment/Plan EXTUBATED ON ROOM AIR ABX PER ID NEBS OOB TO CHAIR PT EVAL DVT PROPHYLAXIS MAY NEED SNF CHECL ELECTROLYTES AND REPLETE HYPONATREMIA RESOLVING
[2018-10-27] MEDS: CHLORHEXIDINE GLUCONATE 4% CLEANSER FOR DECOLONIZATION TP SCH (22:11)
[2018-10-28] MEDS: INSULIN SLIDING SCALE (NOVOLOG) 1 VIAL SQ SCH ×5 (06:49→21:21)
[2018-10-28 09:22] LABS: BASO % 0.5 % (0-2.0); EOS % 1.3 % (0-4.5); HEMATOCRIT 34.1 % (35.4-49); HEMOGLOBIN 11.1 GM/dL (11.7-16.9); LYMPH % 5.1 % (8-40); MCH 25.4 pg (25.7-33.7); MCHC 32.7 g/dl (32.0-35.9); MEAN CELL VOLUME 77.6 fl (80-96); MEAN PLT VOLUME 10.2 fl (7.5-11.1); MONO % 10.1 % (3.8-10.2); PLATELET COUNT 172 K/MM3 (134-434); RBC 4.39 M/mm3 (4.00-5.60); RDW 18.9 % (11.9-15.9); WHITE BLOOD COUNT 8.8 K/mm3 (4.0-10.0)
[2018-10-28] MEDS ORDERED: PT OWN MED DRAWER 7, Y5N ONE (09:23)
[2018-10-28] MEDS ORDERED: DEXTROSE 5%-WATER 100 ML IVPB ONE (09:23)
[2018-10-28] MEDS: CEFTRIAXONE 2 GM in DEXTROSE 5%-WATER 100 ML IVPB SCH (09:33)
[2018-10-28] MEDS: LACTULOSE 20 GM/30 ML UDC (FOR ORAL USE ONLY) PO SCH ×2 (09:33→21:21)
[2018-10-28] MEDS: METOPROLOL TARTRATE 25 MG TABLET (FP) PO SCH ×2 (09:33→21:21)
[2018-10-28] MEDS: RIFAXIMIN 550 MG TABLET (UD) PO SCH ×2 (09:34→21:21)
[2018-10-28] MEDS: PANTOPRAZOLE 20 MG TABLET (FP) PO SCH (09:34)
[2018-10-28 09:41] LABS: ALBUMIN 2.7 g/dl (3.4-5.0); ALK PHOS 210 U/L (45-117); ANION GAP 12 MMOL/L (8-16); BILIRUBIN,TOTAL 0.9 mg/dL (0.2-1); BLOOD UREA NITROGEN 81 mg/dL (7-18); CALCIUM 8.3 mg/dL (8.5-10.1); CHLORIDE 102 mmol/L (98-107); CO2 21 mmol/L (21-32); CREATININE 3.9 mg/dL (0.55-1.3); GLUCOSE,RANDOM 206 mg/dL (74-106); MAGNESIUM 3.6 mg/dL (1.8-2.4); POTASSIUM 4.7 mmol/L (3.5-5.1); SGOT/AST 42 U/L (15-37); SGPT/ALT 20 U/L (13-61); SODIUM 134 mmol/L (136-145); TOT PROT 6.4 g/dl (6.4-8.2)
--- NOTE | 2018-10-28 11:15 | PN ---
Teaching Attending Note Name of Resident: Namita Thompson ATTENDING PHYSICIAN STATEMENT I saw and evaluated the patient. I reviewed the resident's note and discussed the case with the resident. I agree with the resident's findings and plan as documented. SUBJECTIVE: Patient seen and examined in the ICU. Remains extubated. Awake and alert. No pressors. Some dry cough. Denies CP or SOB. Intake & Output 10/25/18 10/26/18 10/27/18 10/28/18 23:59 23:59 23:59 23:59 Intake Total 1053.2 362.6 330 240 Output Total 689 597 7315 700 Balance 253.2 -362.4 -1220 -460 Weight 134 lb 134 lb 131 lb 4.8 oz Last Vital Signs Temp Pulse Resp BP Pulse Ox 98.6 F 60 14 115/50 L 99 10/28/18 02:00 10/28/18 02:00 10/28/18 02:00 10/28/18 02:00 10/27/18 21:00 Active Medications Chlorhexidine Gluconate (Hibiclens For Decolonization -) 1 applic TP HS [facility] Last Admin: 10/27/18 22:11 Dose: 1 applic Ceftriaxone Sodium 2 gm/ (Dextrose) 100 mls @ 100 mls/hr IVPB DAILY [facility]; Protocol Last Admin: 10/28/18 09:33 Dose: 100 mls/hr Insulin Aspart (Novolog Vial Sliding Scale -) 1 vial SQ ACHS [facility]; Protocol Last Admin: 10/28/18 06:50 Dose: 2 units Lactulose (Cephulac (Oral Use)) 20 gm PO BID [facility] Last Admin: 10/28/18 09:33 Dose: 20 gm Metoprolol Tartrate (Lopressor -) 25 mg PO BID [facility] Last Admin: 10/28/18 09:33 Dose: 25 mg Pantoprazole Sodium (Protonix -) 20 mg PO DAILY [facility] Last Admin: 10/28/18 09:34 Dose: 20 mg Rifaximin (Xifaxan -) 550 mg PO BID [facility] Last Admin: 10/28/18 09:34 Dose: 550 mg GENERAL: Extubated, awake and alert HEAD: NCAT EYES: (-) Pallor EARS, NOSE, THROAT: Dry mucous membranes. NECK: Supple LUNGS: Mechanically ventilated, Diminished breath sounds HEART: RRR, S1 and S2 ABDOMEN: Soft, (+) ascites, slightly distended, + bowel sounds LOWER EXTREMITIES: 2+ pulses, No peripheral edema NEUROLOGICAL: Sedated SKIN: Warm, dry, B/L Lateral hip chronic discoloration Laboratory Results - last 24 hr 10/27/18 10/27/18 10/27/18 11:53 17:34 18:25 WBC RBC Hgb Hct MCV MCH MCHC RDW Plt Count MPV Absolute Neuts (auto) Neutrophils % Lymphocytes % Monocytes % Eosinophils % Basophils % Nucleated RBC % Sodium Potassium Chloride Carbon Dioxide Anion Gap BUN Creatinine Creat Clearance w eGFR POC Glucometer [id number] Random Glucose Calcium Phosphorus Magnesium Total Bilirubin AST ALT Alkaline Phosphatase Ammonia < 10.00 L Total Protein Albumin 10/28/18 10/28/18 10/28/18 08:30 08:30 08:30 WBC 8.8 RBC 4.39 Hgb 11.1 L Hct 34.1 L MCV 77.6 L MCH 25.4 L MCHC 32.7 RDW 18.9 H Plt Count 172 MPV 10.2 Absolute Neuts (auto) 7.3 Neutrophils % 83.0 H Lymphocytes % 5.1 L D Monocytes % 10.1 Eosinophils % 1.3 D Basophils % 0.5 D Nucleated RBC % 0 Sodium 134 L Potassium 4.7 Chloride 102 Carbon Dioxide 21 Anion Gap 12 BUN 81 H Creatinine 3.9 H Creat Clearance w eGFR 15.74 POC Glucometer Random Glucose 206 H Calcium 8.3 L Phosphorus 4.0 Magnesium 3.6 H Total Bilirubin 0.9 AST 42 H ALT 20 Alkaline Phosphatase 210 H Ammonia 10.82 L Total Protein 6.4 Albumin 2.7 L ASSESSMENT/PLAN: Acute Respiratory Failure Known history of BORJAS Cirrhosis Ascites Suspected hepatic encephalopathy DM Acute on CKD ASHD History of multiple cardiac stents PAFib Anemia of chronic kidney disease BPH No clear evidence of aspiration on CXR Lactulose O2 as needed Empiric ABX: D/W ID for possibility of D/C Brittany PPI Monitoring of I & O Floor Dr Dominguez
--- NOTE | 2018-10-28 11:45 | PN ---
Progress Note, Physician Chief Complaint: Acute Respiratory Failure Known history of BORJAS Cirrhosis Ascites Suspected hepatic encephalopathy DM Acute on CKD ASHD History of multiple cardiac stents PAFib Anemia of chronic kidney disease BPH - Current Medication List Current Medications: Active Medications Chlorhexidine Gluconate (Hibiclens For Decolonization -) 1 applic TP HS [facility] Last Admin: 10/27/18 22:11 Dose: 1 applic Ceftriaxone Sodium 2 gm/ (Dextrose) 100 mls @ 100 mls/hr IVPB DAILY [facility]; Protocol Last Admin: 10/28/18 09:33 Dose: 100 mls/hr Insulin Aspart (Novolog Vial Sliding Scale -) 1 vial SQ ACHS [facility]; Protocol Last Admin: 10/28/18 11:28 Dose: 8 units Lactulose (Cephulac (Oral Use)) 20 gm PO BID [facility] Last Admin: 10/28/18 09:33 Dose: 20 gm Metoprolol Tartrate (Lopressor -) 25 mg PO BID [facility] Last Admin: 10/28/18 09:33 Dose: 25 mg Pantoprazole Sodium (Protonix -) 20 mg PO DAILY [facility] Last Admin: 10/28/18 09:34 Dose: 20 mg Rifaximin (Xifaxan -) 550 mg PO BID [facility] Last Admin: 10/28/18 09:34 Dose: 550 mg - Objective Vital Signs: Vital Signs Temperature 98.6 F 10/28/18 02:00 Pulse Rate 60 10/28/18 02:00 Respiratory Rate 14 10/28/18 09:00 Blood Pressure 115/50 L 10/28/18 02:00 O2 Sat by Pulse Oximetry (%) 99 10/28/18 09:00 Labs: CBC, BMP 10/28/18 08:30 10/28/18 08:30 INR, PTT INR 1.67 (0.83-1.09) H 10/25/18 06:40
--- NOTE | 2018-10-28 14:31 | PN ---
Physical Exam: SUBJECTIVE: Patient seen and examined this morning. No acute overnight events. Extubated over the weekend. Patient seems motivated and excited to ambulated with PT. Denies any fevers, chills, chest pain, SOB, nausea, vomiting, diarrhea , constipation. OBJECTIVE: Vital Signs Period Temp Pulse Resp BP Sys/Grant Pulse Ox Last 24 Hr 98.6 F 60-67 14-16 84-115/45-57 99-99 GENERAL: A&Ox3, NAD HEAD: NCAT EYES: PERRL, EOMI EARS, NOSE, THROAT: Moist mucous membranes. NECK: Supple LUNGS: Diminished breath sounds at the bases, no wheezes, no crackles HEART: RRR, S1 and S2, No murmurs ABDOMEN: Soft, nontender, Distended, + bowel sounds EXTREMITIES: 2+ pulses, No peripheral edema NEUROLOGICAL: Cranial nerves II through XII grossly intact. Normal speech. SKIN: Warm, dry, B/L Lateral hip chronic discoloration Laboratory Results - last 24 hr 10/27/18 10/27/18 10/28/18 17:34 18:25 08:30 WBC 8.8 RBC 4.39 Hgb 11.1 L Hct 34.1 L MCV 77.6 L MCH 25.4 L MCHC 32.7 RDW 18.9 H Plt Count 172 MPV 10.2 Absolute Neuts (auto) 7.3 Neutrophils % 83.0 H Lymphocytes % 5.1 L D Monocytes % 10.1 Eosinophils % 1.3 D Basophils % 0.5 D Nucleated RBC % 0 Sodium Potassium Chloride Carbon Dioxide Anion Gap BUN Creatinine Creat Clearance w eGFR POC Glucometer [phone] Random Glucose Calcium Phosphorus Magnesium Total Bilirubin AST ALT Alkaline Phosphatase Ammonia < 10.00 L Total Protein Albumin 10/28/18 10/28/18 10/28/18 08:30 08:30 11:25 WBC RBC Hgb Hct MCV MCH MCHC RDW Plt Count MPV Absolute Neuts (auto) Neutrophils % Lymphocytes % Monocytes % Eosinophils % Basophils % Nucleated RBC % Sodium 134 L Potassium 4.7 Chloride 102 Carbon Dioxide 21 Anion Gap 12 BUN 81 H Creatinine 3.9 H Creat Clearance w eGFR 15.74 POC Glucometer [phone] Random Glucose 206 H Calcium 8.3 L Phosphorus 4.0 Magnesium 3.6 H Total Bilirubin 0.9 AST 42 H ALT 20 Alkaline Phosphatase 210 H Ammonia 10.82 L Total Protein 6.4 Albumin 2.7 L Microbiology 10/25/18 19:15 Sputum - Endotrachea Suction/Ventilator Gram Stain - Final 10/25/18 19:15 Sputum - Endotrachea Suction/Ventilator Sputum Culture - Final Escherichia Coli 10/25/18 00:30 Blood - Peripheral Venous Blood Culture - Preliminary NO GROWTH OBTAINED AFTER 72 HOURS, INCUBATION TO CONTINUE FOR 2 DAYS. 10/25/18 00:30 Blood - Peripheral Venous Blood Culture - Preliminary NO GROWTH OBTAINED AFTER 72 HOURS, INCUBATION TO CONTINUE FOR 2 DAYS. 10/24/18 15:57 Urine - Urine - Catheterized Urine Culture - Final NO GROWTH OBTAINED Active Medications Chlorhexidine Gluconate (Hibiclens For Decolonization -) 1 applic TP HS [facility] Last Admin: 10/27/18 22:11 Dose: 1 applic Ceftriaxone Sodium 2 gm/ (Dextrose) 100 mls @ 100 mls/hr IVPB DAILY [facility]; Protocol Last Admin: 10/28/18 09:33 Dose: 100 mls/hr Insulin Aspart (Novolog Vial Sliding Scale -) 1 vial SQ ACHS [facility]; Protocol Last Admin: 10/28/18 11:28 Dose: 8 units Lactulose (Cephulac (Oral Use)) 20 gm PO BID [facility] Last Admin: 10/28/18 09:33 Dose: 20 gm Metoprolol Tartrate (Lopressor -) 25 mg PO BID [facility] Last Admin: 10/28/18 09:33 Dose: 25 mg Pantoprazole Sodium (Protonix -) 20 mg PO DAILY [facility] Last Admin: 10/28/18 09:34 Dose: 20 mg Rifaximin (Xifaxan -) 550 mg PO BID [facility] Last Admin: 10/28/18 09:34 Dose: 550 mg ASSESSMENT/PLAN: 62 y/o M with PMHx of BORJAS-cirrhosis with advanced sarcopenia, ascites and intermittent encephalopathy, DM with progressive renal insufficiency (usual creatinine has been about 3.3), ASHD with multiple cardiac stents, PAF, anemia of chronic kidney disease, BPH #Neuro Encephalopathy -Possibly Hepatic in nature VS Hyponatremia -Head CT: No mass lesion, gross acute infarct, or intracranial hemorrhage -Extubated; Alert and Awake this AM -Keppra Seizure prophylaxis x 1 given in ED -Neurology (Dr. Velasco) consulted #Cardio Hx of ASHD with multiple cardiac stents Hx of PAF -Trop < 0.02 -Currently Maintaining MAP >65 off pressors -Hold home dose Atenolol, Spironolactone -Continue Metoprolol Tartrate 25mg PO BID #Pulmonary Acute Respiratory Failure -Tolerating Room Air -CXR does not reveal an acute process #GI Elevated TBili, Alk Phos, Resolved Hx of BORJAS-cirrhosis with advanced sarcopenia Hx of Ascites -GI (Dr. Pritchett) Consulted -Continue Lactulose, Rifaximin -Soft diet -IV Protonix 40 Daily -Ammonia resolved #Renal Hyponatremia Hypochloremia Hx of Renal Insufficiency (usual creatinine has been about 3.3) Hx of BPH -Continue home dose Tamsulosin -Nephrology (Dr. Balbuena) consulted #Endocrine Hx of DM -BGMs ISS Q6H starting at midnight #ID Leukocytosis -Suspect SBP -Leukocytosis however Afebrile -Given Zosyn x1; Continue ceftriaxone 2gm Daily for 7 day course -Blood and Urine Cx noted above -ID (Dr. Armendariz) Consulted #FEN -PO Fluids -Hyponatremia, Replete lytes PRN -Soft diet #PPx DVT: SCDs GI: IV Protonix 40 Daily Dispo: Transfer to Med-Surg Visit type - Emergency Visit Emergency Visit: Yes ED Registration Date: 10/24/18 Care time: The patient presented to the Emergency Department on the above date and was hospitalized for further evaluation of their emergent condition. - New Patient This patient is new to me today: No - Critical Care Critical Care patient: Yes Total Critical Care Time (in minutes): 40 Critical Care Statement: The care of this patient involved high complexity decision making to prevent further life threatening deterioration of the patient 's condition and/or to evaluate & treat vital organ system(s) failure or risk of failure.
--- NOTE | 2018-10-28 14:42 | PN ---
Progress Note, Physician History of Present Illness: Pt seen and examined at bedside. He is awake and alert. He is now extubated. - Current Medication List Current Medications: Active Medications Chlorhexidine Gluconate (Hibiclens For Decolonization -) 1 applic TP HS [facility] Last Admin: 10/27/18 22:11 Dose: 1 applic Ceftriaxone Sodium 2 gm/ (Dextrose) 100 mls @ 100 mls/hr IVPB DAILY [facility]; Protocol Last Admin: 10/28/18 09:33 Dose: 100 mls/hr Insulin Aspart (Novolog Vial Sliding Scale -) 1 vial SQ ACHS [facility]; Protocol Last Admin: 10/28/18 11:28 Dose: 8 units Lactulose (Cephulac (Oral Use)) 20 gm PO BID [facility] Last Admin: 10/28/18 09:33 Dose: 20 gm Metoprolol Tartrate (Lopressor -) 25 mg PO BID [facility] Last Admin: 10/28/18 09:33 Dose: 25 mg Pantoprazole Sodium (Protonix -) 20 mg PO DAILY [facility] Last Admin: 10/28/18 09:34 Dose: 20 mg Rifaximin (Xifaxan -) 550 mg PO BID [facility] Last Admin: 10/28/18 09:34 Dose: 550 mg - Objective Vital Signs: Vital Signs Temperature 98.6 F 10/28/18 02:00 Pulse Rate 60 10/28/18 02:00 Respiratory Rate 14 10/28/18 09:00 Blood Pressure 115/50 L 10/28/18 02:00 O2 Sat by Pulse Oximetry (%) 99 10/28/18 10:00 Constitutional: Yes: Calm Eyes: Yes: Conjunctiva Clear HENT: Yes: Atraumatic Neck: Yes: Supple Cardiovascular: Yes: S1, S2 Respiratory: Yes: On Nasal O2 Gastrointestinal: Yes: Ascites Genitourinary: Yes: WNL Edema: Yes Edema: LLE: Trace, RLE: Trace Neurological: Yes: Oriented Psychiatric: Yes: Oriented Labs: CBC, BMP 10/28/18 08:30 10/28/18 08:30 INR, PTT INR 1.67 (0.83-1.09) H 10/25/18 06:40 Problem List - Problems (1) CAD (coronary artery disease) Code(s): I25.10 - ATHSCL HEART DISEASE OF [place] CORONARY ARTERY W/O ANG PCTRS (2) Cirrhosis Code(s): K74.60 - UNSPECIFIED CIRRHOSIS OF LIVER (3) CKD (chronic kidney disease) Code(s): N18.9 - CHRONIC KIDNEY DISEASE, UNSPECIFIED Qualifiers: Chronic kidney disease stage: stage 3 (moderate) Qualified Code(s): N18.3 - Chronic kidney disease, stage 3 (moderate) Assessment/Plan Current Medications Generic Name Dose Route Start Last Admin Trade Name Freq PRN Reason Stop Dose Admin Chlorhexidine Gluconate 1 applic 10/27/18 22:00 10/27/18 22:11 Hibiclens For Decolonization - TP 1 applic HS [facility] Administration Ceftriaxone Sodium 2 gm/ 100 mls @ 100 mls/hr 10/28/18 10:00 10/28/18 09:33 Dextrose IVPB 100 mls/hr DAILY [facility] Administration Protocol Insulin Aspart 1 vial 10/27/18 22:00 10/28/18 11:28 Novolog Vial Sliding Scale - SQ 8 units ACHS [facility] Administration Protocol Lactulose 20 gm 10/27/18 09:47 10/28/18 09:33 Cephulac (Oral Use) PO 20 gm BID [facility] Administration Metoprolol Tartrate 25 mg 10/27/18 22:00 10/28/18 09:33 Lopressor - PO 25 mg BID [facility] Administration Pantoprazole Sodium 20 mg 10/27/18 10:00 10/28/18 09:34 Protonix - PO 20 mg DAILY [facility] Administration Rifaximin 550 mg 10/27/18 22:00 10/28/18 09:34 Xifaxan - PO 550 mg BID [facility] Administration Impression 1. CKD 2. nstemi 3. DM 4. liver cirrhosis 5. ascites 6. pain med dependence 7. bph 8. change in mental status/confusion 9. failure to thrive 10. non-compliance 11. resp failure requiring intubation 12. seizure Plan - renal function stable - pt extubated - avoid nephrotoxins - rest per medical team - gi follow up
--- NOTE | 2018-10-28 20:09 | PN ---
Progress Note (short form) - Note Progress Note: Pt remains awake, oriented, wants to leave unit (understandably). WBC down, creatinine 3.9. Ambulated with walker today. PT note appreciated. Suggest changing antibiotic to p.o. tomorrow; possible discharge Sunday.
[2018-10-28] MEDS: CHLORHEXIDINE GLUCONATE 4% CLEANSER FOR DECOLONIZATION TP SCH (21:22)
[2018-10-29] MEDS ORDERED: TAMSULOSIN HCL 0.4 MG CAP PO ONE (03:44)
[2018-10-29] MEDS: INSULIN SLIDING SCALE (NOVOLOG) 1 VIAL SQ SCH ×4 (06:06→22:29)
[2018-10-29 06:58] LABS: ALBUMIN 2.5 g/dl (3.4-5.0); ALK PHOS 184 U/L (45-117); ANION GAP 10 MMOL/L (8-16); BILIRUBIN,TOTAL 0.8 mg/dL (0.2-1); BLOOD UREA NITROGEN 78 mg/dL (7-18); CALCIUM 7.8 mg/dL (8.5-10.1); CHLORIDE 101 mmol/L (98-107); CO2 22 mmol/L (21-32); CREATININE 3.7 mg/dL (0.55-1.3); GLUCOSE,RANDOM 184 mg/dL (74-106); MAGNESIUM 3.4 mg/dL (1.8-2.4); PHOSPHOROUS 3.9 mg/dL (2.5-4.9); POTASSIUM 4.1 mmol/L (3.5-5.1); SGOT/AST 26 U/L (15-37); SGPT/ALT 17 U/L (13-61); SODIUM 134 mmol/L (136-145); TOT PROT 5.8 g/dl (6.4-8.2)
[2018-10-29] MEDS ORDERED: DEXTROSE 5%-WATER 100 ML IVPB ONE (08:30)
[2018-10-29] MEDS: LACTULOSE 20 GM/30 ML UDC (FOR ORAL USE ONLY) PO SCH ×2 (09:32→22:26)
[2018-10-29] MEDS: RIFAXIMIN 550 MG TABLET (UD) PO SCH ×2 (09:32→22:26)
[2018-10-29] MEDS: METOPROLOL TARTRATE 25 MG TABLET (FP) PO SCH ×2 (09:32→22:27)
[2018-10-29] MEDS: PANTOPRAZOLE 20 MG TABLET (FP) PO SCH (09:32)
--- NOTE | 2018-10-29 09:35 | PN ---
Progress Note, Physician - Current Medication List Current Medications: Active Medications Chlorhexidine Gluconate (Hibiclens For Decolonization -) 1 applic TP HS [facility] Last Admin: 10/28/18 21:22 Dose: 1 applic Ceftriaxone Sodium 2 gm/ (Dextrose) 100 mls @ 100 mls/hr IVPB DAILY [facility]; Protocol Last Admin: 10/28/18 09:33 Dose: 100 mls/hr Insulin Aspart (Novolog Vial Sliding Scale -) 1 vial SQ ACHS [facility]; Protocol Last Admin: 10/29/18 06:06 Dose: 4 units Lactulose (Cephulac (Oral Use)) 20 gm PO BID [facility] Last Admin: 10/29/18 09:32 Dose: 20 gm Metoprolol Tartrate (Lopressor -) 25 mg PO BID [facility] Last Admin: 10/29/18 09:32 Dose: 25 mg Mirtazapine (Remeron -) 15 mg PO HS [facility] Pantoprazole Sodium (Protonix -) 20 mg PO DAILY [facility] Last Admin: 10/29/18 09:32 Dose: 20 mg Pantoprazole Sodium (Protonix -) 40 mg PO DAILY [facility] Last Admin: 10/29/18 09:32 Dose: 40 mg Rifaximin (Xifaxan -) 550 mg PO BID [facility] Last Admin: 10/29/18 09:32 Dose: 550 mg Tamsulosin HCl (Flomax -) 0.4 mg PO BID [facility] - Objective Vital Signs: Vital Signs Temperature 98.7 F 10/29/18 06:00 Pulse Rate 67 10/29/18 08:00 Respiratory Rate 16 10/29/18 08:00 Blood Pressure 93/65 10/29/18 08:00 O2 Sat by Pulse Oximetry (%) 100 10/28/18 21:00 Cardiovascular: Yes: S1, S2 Respiratory: Yes: Regular, CTA Bilaterally Gastrointestinal: Yes: Normal Bowel Sounds, Soft, Ascites, Distention (less) Labs: CBC, BMP 10/29/18 05:15 INR, PTT INR 1.67 (0.83-1.09) H 10/25/18 06:40 Problem List - Problems (1) Metabolic encephalopathy Assessment/Plan: -due to hepatic encephalopathy -Head CT: No mass lesion, gross acute infarct, or intracranial hemorrhage -Lactulose and xifaxin Code(s): G93.41 - METABOLIC ENCEPHALOPATHY (2) Cirrhosis Assessment/Plan: -GI (Dr. Pritchett) input noted -Continue Lactulose -tolerating diet -Protonix 20 Daily Code(s): K74.60 - UNSPECIFIED CIRRHOSIS OF LIVER (3) Respiratory failure Assessment/Plan: extubated--doing well on RA Code(s): J96.90 - RESPIRATORY FAILURE, UNSP, UNSP W HYPOXIA OR HYPERCAPNIA (4) CAD (coronary artery disease) Assessment/Plan: Hx multiple cardiac stents Hx of PAF -Trop < 0.02 -Currently Maintaining MAP >65 off pressors -Hold home dose Atenolol, Spironolactone Code(s): I25.10 - ATHSCL HEART DISEASE OF [place] CORONARY ARTERY W/O ANG PCTRS (5) Hyponatremia Assessment/Plan: Stable Code(s): E87.1 - HYPO-OSMOLALITY AND HYPONATREMIA (6) Leukocytosis Assessment/Plan: Iv abx for one more day id consult nted cultures Microbiology 10/25/18 00:30 Blood - Peripheral Venous Blood Culture - Preliminary NO GROWTH OBTAINED AFTER 96 HOURS, INCUBATION TO CONTINUE FOR 1 DAYS. 10/25/18 00:30 Blood - Peripheral Venous Blood Culture - Preliminary NO GROWTH OBTAINED AFTER 96 HOURS, INCUBATION TO CONTINUE FOR 1 DAYS. 10/25/18 19:15 Sputum - Endotrachea Suction/Ventilator Gram Stain - Final 10/25/18 19:15 Sputum - Endotrachea Suction/Ventilator Sputum Culture - Final Escherichia Coli 10/24/18 15:57 Urine - Urine - Catheterized Urine Culture - Final NO GROWTH OBTAINED Code(s): D72.829 - ELEVATED WHITE BLOOD CELL COUNT, UNSPECIFIED
[2018-10-29] MEDS ORDERED: PANTOPRAZOLE 40 MG TABLET (FP) PO SCH (10:00)
[2018-10-29] MEDS ORDERED: TAMSULOSIN HCL 0.4 MG CAP PO SCH (10:00)
[2018-10-29] MEDS ORDERED: PATIENT'S OWN MEDICATION (NON-FORMULARY) (Spironolactone [Aldactone] 50 MG) PO SCH (10:00)
--- NOTE | 2018-10-29 11:26 | PN ---
Physical Exam: SUBJECTIVE: Patient seen and examined this morning. No acute overnight events. No new complaints. Continues to ambulate with PT. OBJECTIVE: Vital Signs Period Temp Pulse Resp BP Sys/Grant Pulse Ox Last 24 Hr 98.4 F-98.8 F 58-68 11-18 93-127/51-67 99-100 GENERAL: A&Ox3, NAD HEAD: NCAT EYES: PERRL, EOMI EARS, NOSE, THROAT: Moist mucous membranes NECK: Supple LUNGS: Diminished breath sounds at the bases, no wheezes, no crackles HEART: RRR, S1 and S2, No murmurs ABDOMEN: Soft, nontender, Distended, + bowel sounds EXTREMITIES: 2+ pulses, No peripheral edema NEUROLOGICAL: Cranial nerves II through XII grossly intact. Normal speech. SKIN: Warm, dry, B/L Lateral hip chronic discoloration Laboratory Results - last 24 hr 10/28/18 10/29/18 10/29/18 21:17 05:15 05:57 Sodium 134 L Potassium 4.1 Chloride 101 Carbon Dioxide 22 Anion Gap 10 BUN 78 H Creatinine 3.7 H Creat Clearance w eGFR 16.73 POC Glucometer 241.14866 216.79311 Random Glucose 184 H Hemoglobin A1c % Calcium 7.8 L Phosphorus 3.9 Magnesium 3.4 H Total Bilirubin 0.8 AST 26 ALT 17 Alkaline Phosphatase 184 H Total Protein 5.8 L Albumin 2.5 L Microbiology 10/25/18 00:30 Blood - Peripheral Venous Blood Culture - Preliminary NO GROWTH OBTAINED AFTER 96 HOURS, INCUBATION TO CONTINUE FOR 1 DAYS. 10/25/18 00:30 Blood - Peripheral Venous Blood Culture - Preliminary NO GROWTH OBTAINED AFTER 96 HOURS, INCUBATION TO CONTINUE FOR 1 DAYS. 10/25/18 19:15 Sputum - Endotrachea Suction/Ventilator Gram Stain - Final 10/25/18 19:15 Sputum - Endotrachea Suction/Ventilator Sputum Culture - Final Escherichia Coli 10/24/18 15:57 Urine - Urine - Catheterized Urine Culture - Final NO GROWTH OBTAINED Active Medications Chlorhexidine Gluconate (Hibiclens For Decolonization -) 1 applic TP HS [facility] Last Admin: 10/28/18 21:22 Dose: 1 applic Ceftriaxone Sodium 2 gm/ (Dextrose) 100 mls @ 100 mls/hr IVPB DAILY [facility]; Protocol Last Admin: 10/28/18 09:33 Dose: 100 mls/hr Insulin Aspart (Novolog Vial Sliding Scale -) 1 vial SQ ACHS [facility]; Protocol Last Admin: 10/29/18 06:06 Dose: 4 units Lactulose (Cephulac (Oral Use)) 20 gm PO BID [facility] Last Admin: 10/29/18 09:32 Dose: 20 gm Metoprolol Tartrate (Lopressor -) 25 mg PO BID [facility] Last Admin: 10/29/18 09:32 Dose: 25 mg Mirtazapine (Remeron -) 15 mg PO HS [facility] Pantoprazole Sodium (Protonix -) 20 mg PO DAILY [facility] Last Admin: 10/29/18 09:32 Dose: 20 mg Rifaximin (Xifaxan -) 550 mg PO BID [facility] Last Admin: 10/29/18 09:32 Dose: 550 mg Tamsulosin HCl (Flomax -) 0.4 mg PO BID [facility] ASSESSMENT/PLAN: 62 y/o M with PMHx of BORJAS-cirrhosis with advanced sarcopenia, ascites and intermittent encephalopathy, DM with progressive renal insufficiency (usual creatinine has been about 3.3), ASHD with multiple cardiac stents, PAF, anemia of chronic kidney disease, BPH #Neuro Encephalopathy -Likely Hepatic in nature -Head CT: No mass lesion, gross acute infarct, or intracranial hemorrhage -Extubated -Neurology (Dr. Velasco) consulted #Cardio Hx of ASHD with multiple cardiac stents Hx of PAF -Trop < 0.02 -Currently Maintaining MAP >65 off pressors -Hold home dose Atenolol, Spironolactone -Continue Metoprolol Tartrate 25mg PO BID #Pulmonary Acute Respiratory Failure -Extubated, Tolerating Room Air -CXR does not reveal an acute process #GI Elevated TBili, Alk Phos, Resolved Hx of BORJAS-cirrhosis with advanced sarcopenia Hx of Ascites -GI (Dr. Pritchett) Consulted -Continue Lactulose, Rifaximin -Soft diet -IV Protonix 20 Daily -Ammonia resolved #Renal Hyponatremia, Chronic Hypochloremia Hx of Renal Insufficiency (usual creatinine has been about 3.3) Hx of BPH -Continue home dose Tamsulosin -Nephrology (Dr. Balbuena) consulted #Endocrine Hx of DM -A1c 7.1 -BGMs ISS Q6H -Will consider starting a long acting agent if BG remains elevated #ID Leukocytosis -Suspect SBP -Leukocytosis however Afebrile -Given Zosyn x1; Continue ceftriaxone 2gm Daily for 7 day course, Switch to PO Today -Blood and Urine Cx noted above -ID (Dr. Armendariz) Consulted #FEN -PO Fluids -Hyponatremia, Replete lytes PRN -Soft diet #PPx DVT: SCDs GI: IV Protonix 40 Daily Dispo: Transfer to [facility]-Surg Visit type - Emergency Visit Emergency Visit: Yes ED Registration Date: 10/24/18 Care time: The patient presented to the Emergency Department on the above date and was hospitalized for further evaluation of their emergent condition. - New Patient This patient is new to me today: No - Critical Care Critical Care patient: Yes Total Critical Care Time (in minutes): 37 Critical Care Statement: The care of this patient involved high complexity decision making to prevent further life threatening deterioration of the patient 's condition and/or to evaluate & treat vital organ system(s) failure or risk of failure.
--- NOTE | 2018-10-29 11:30 | PN ---
Teaching Attending Note Name of Resident: Namita Thompson ATTENDING PHYSICIAN STATEMENT I saw and evaluated the patient. I reviewed the resident's note and discussed the case with the resident. I agree with the resident's findings and plan as documented. SUBJECTIVE: Patient seen and examined in the ICU. Awake and alert. No pressors. Some dry cough. Denies CP or SOB. Intake & Output 10/26/18 10/27/18 10/28/18 10/29/18 23:59 23:59 23:59 23:59 Intake Total 362.6 330 490 120 Output Total 725 1550 1000 575 Balance -362.4 -1220 -510 -455 Weight 134 lb 131 lb 4.8 oz Last Vital Signs Temp Pulse Resp BP Pulse Ox 98.6 F 69 16 100/53 L 100 10/29/18 10:00 10/29/18 10:00 10/29/18 10:00 10/29/18 10:00 10/29/18 09:00 Active Medications Chlorhexidine Gluconate (Hibiclens For Decolonization -) 1 applic TP HS [facility] Last Admin: 10/28/18 21:22 Dose: 1 applic Ceftriaxone Sodium 2 gm/ (Dextrose) 100 mls @ 100 mls/hr IVPB DAILY [facility]; Protocol Last Admin: 10/28/18 09:33 Dose: 100 mls/hr Insulin Aspart (Novolog Vial Sliding Scale -) 1 vial SQ ACHS [facility]; Protocol Last Admin: 10/29/18 06:06 Dose: 4 units Lactulose (Cephulac (Oral Use)) 20 gm PO BID [facility] Last Admin: 10/29/18 09:32 Dose: 20 gm Metoprolol Tartrate (Lopressor -) 25 mg PO BID [facility] Last Admin: 10/29/18 09:32 Dose: 25 mg Mirtazapine (Remeron -) 15 mg PO HS [facility] Pantoprazole Sodium (Protonix -) 20 mg PO DAILY [facility] Last Admin: 10/29/18 09:32 Dose: 20 mg Rifaximin (Xifaxan -) 550 mg PO BID [facility] Last Admin: 10/29/18 09:32 Dose: 550 mg Tamsulosin HCl (Flomax -) 0.4 mg PO BID [facility] GENERAL: awake and alert HEAD: NCAT EYES: (-) Pallor EARS, NOSE, THROAT: Dry mucous membranes. NECK: Supple LUNGS: Diminished breath sounds at the bases HEART: RRR, S1 and S2 ABDOMEN: Soft, (+) ascites, slightly distended, + bowel sounds LOWER EXTREMITIES: 2+ pulses, No peripheral edema NEUROLOGICAL: Sedated SKIN: Warm, dry, B/L Lateral hip chronic discoloration Laboratory Results - last 24 hr 10/28/18 10/28/18 10/28/18 05:30 11:25 16:07 Sodium Potassium Chloride Carbon Dioxide Anion Gap BUN Creatinine Creat Clearance w eGFR POC Glucometer 343.49696 303.88032 Random Glucose Hemoglobin A1c % 7.1 H Calcium Phosphorus Magnesium Total Bilirubin AST ALT Alkaline Phosphatase Total Protein Albumin 10/28/18 10/29/18 10/29/18 21:17 05:15 05:57 Sodium 134 L Potassium 4.1 Chloride 101 Carbon Dioxide 22 Anion Gap 10 BUN 78 H Creatinine 3.7 H Creat Clearance w eGFR 16.73 POC Glucometer 241.85538 216.31274 Random Glucose 184 H Hemoglobin A1c % Calcium 7.8 L Phosphorus 3.9 Magnesium 3.4 H Total Bilirubin 0.8 AST 26 ALT 17 Alkaline Phosphatase 184 H Total Protein 5.8 L Albumin 2.5 L ASSESSMENT/PLAN: Acute Respiratory Failure Known history of BORJAS Cirrhosis Ascites Suspected hepatic encephalopathy DM Acute on CKD ASHD History of multiple cardiac stents PAFib Anemia of chronic kidney disease BPH No clear evidence of aspiration on CXR Lactulose O2 as needed Empiric ABX: D/W ID for possibility of D/C Keolegariora PPI Floor Dr Dominguez
[2018-10-29] MEDS: CEFTRIAXONE 2 GM in DEXTROSE 5%-WATER 100 ML IVPB SCH (11:41)
[2018-10-29 11:56] LABS: EOS % 1.1 % (0-4.5); HEMATOCRIT 29.5 % (35.4-49); HEMOGLOBIN 9.6 GM/dL (11.7-16.9); LYMPH % 7.7 % (8-40); MCH 24.9 pg (25.7-33.7); MCHC 32.4 g/dl (32.0-35.9); MEAN CELL VOLUME 76.9 fl (80-96); MEAN PLT VOLUME 10.9 fl (7.5-11.1); MONO % 18.2 % (3.8-10.2); PLATELET COUNT 144 K/MM3 (134-434); RBC 3.83 M/mm3 (4.00-5.60); RDW 18.8 % (11.9-15.9); WHITE BLOOD COUNT 6.5 K/mm3 (4.0-10.0)
--- NOTE | 2018-10-29 12:37 | PN ---
Progress Note, Physician History of Present Illness: Pt seen and examined at bedside. He is awake and appears comfortable. - Current Medication List Current Medications: Active Medications Chlorhexidine Gluconate (Hibiclens For Decolonization -) 1 applic TP HS [facility] Last Admin: 10/28/18 21:22 Dose: 1 applic Ceftriaxone Sodium 2 gm/ (Dextrose) 100 mls @ 100 mls/hr IVPB DAILY [facility]; Protocol Last Admin: 10/29/18 11:41 Dose: Not Given Insulin Aspart (Novolog Vial Sliding Scale -) 1 vial SQ ACHS [facility]; Protocol Last Admin: 10/29/18 11:40 Dose: 6 units Lactulose (Cephulac (Oral Use)) 20 gm PO BID [facility] Last Admin: 10/29/18 09:32 Dose: 20 gm Metoprolol Tartrate (Lopressor -) 25 mg PO BID [facility] Last Admin: 10/29/18 09:32 Dose: 25 mg Mirtazapine (Remeron -) 15 mg PO [facility] Pantoprazole Sodium (Protonix -) 20 mg PO DAILY [facility] Last Admin: 10/29/18 09:32 Dose: 20 mg Rifaximin (Xifaxan -) 550 mg PO BID [facility] Last Admin: 10/29/18 09:32 Dose: 550 mg Tamsulosin HCl (Flomax -) 0.4 mg PO BID [facility] - Objective Vital Signs: Vital Signs Temperature 98.6 F 10/29/18 10:00 Pulse Rate 69 10/29/18 10:00 Respiratory Rate 16 10/29/18 10:00 Blood Pressure 100/53 L 10/29/18 10:00 O2 Sat by Pulse Oximetry (%) 100 10/29/18 09:00 Constitutional: Yes: Calm Eyes: Yes: Conjunctiva Clear HENT: Yes: Atraumatic Cardiovascular: Yes: S1, S2 Respiratory: Yes: CTA Bilaterally Gastrointestinal: Yes: Soft Genitourinary: Yes: WNL Musculoskeletal: Yes: WNL Edema: No Neurological: Yes: Oriented Psychiatric: Yes: Oriented Labs: CBC, BMP 10/29/18 05:15 10/29/18 05:15 INR, PTT INR 1.67 (0.83-1.09) H 10/25/18 06:40 Problem List - Problems (1) CAD (coronary artery disease) Code(s): I25.10 - ATHSCL HEART DISEASE OF [place] CORONARY ARTERY W/O ANG PCTRS (2) Cirrhosis Code(s): K74.60 - UNSPECIFIED CIRRHOSIS OF LIVER (3) CKD (chronic kidney disease) Code(s): N18.9 - CHRONIC KIDNEY DISEASE, UNSPECIFIED Qualifiers: Chronic kidney disease stage: stage 3 (moderate) Qualified Code(s): N18.3 - Chronic kidney disease, stage 3 (moderate) Assessment/Plan Current Medications Generic Name Dose Route Start Last Admin Trade Name Pavan PRN Reason Stop Dose Admin Chlorhexidine Gluconate 1 applic 10/27/18 22:00 10/28/18 21:22 Hibiclens For Decolonization - TP 1 applic HS [facility] Administration Ceftriaxone Sodium 2 gm/ 100 mls @ 100 mls/hr 10/28/18 10:00 10/29/18 11:41 Dextrose IVPB Not Given DAILY [facility] Protocol Insulin Aspart 1 vial 10/27/18 22:00 10/29/18 11:40 Novolog Vial Sliding Scale - SQ 6 units ACHS [facility] Administration Protocol Lactulose 20 gm 10/27/18 09:47 10/29/18 09:32 Cephulac (Oral Use) PO 20 gm BID [facility] Administration Metoprolol Tartrate 25 mg 10/27/18 22:00 10/29/18 09:32 Lopressor - PO 25 mg BID [facility] Administration Mirtazapine 15 mg 10/29/18 22:00 Remeron - PO HS [facility] Pantoprazole Sodium 20 mg 10/27/18 10:00 10/29/18 09:32 Protonix - PO 20 mg DAILY [facility] Administration Rifaximin 550 mg 10/27/18 22:00 10/29/18 09:32 Xifaxan - PO 550 mg BID [facility] Administration Tamsulosin HCl 0.4 mg 10/29/18 22:00 Flomax - PO BID [facility] Impression 1. CKD 2. hx nstemi 3. DM 4. liver cirrhosis 5. ascites 6. pain med dependence 7. bph 8. change in mental status/confusion 9. failure to thrive 10. non-compliance 11. resp failure requiring intubation 12. seizure Plan - avoid nephrotoxins - renal function is at baseline - monitor pulse ox - mental status is improved - gi follow up
[2018-10-29] MEDS ORDERED: oxyCODONE HCL 5 MG TABLET PO PRN (14:30)
[2018-10-29] MEDS ORDERED: FUROSEMIDE 40 MG TABLET (FP) PO ONE (14:50)
--- NOTE | 2018-10-29 15:23 | PN ---
Progress Note (short form) - Note Progress Note: clinically much improved alert no complaints ambulated with walker day #5 rocephin- refused antibiotics today- no iv access Vital Signs Period Temp Pulse Resp BP Sys/Grant Pulse Ox Last 24 Hr 98.2 F-98.8 F 58-84 11-17 93-131/52-70 99-100 cor-rrr lungs decreased bs at bases abd soft, +flluid, NT ext trace pretibial edema CBC, BMP 10/29/18 05:15 10/29/18 05:15 Microbiology 10/25/18 00:30 Blood - Peripheral Venous Blood Culture - Preliminary NO GROWTH OBTAINED AFTER 96 HOURS, INCUBATION TO CONTINUE FOR 1 DAYS. 10/25/18 00:30 Blood - Peripheral Venous Blood Culture - Preliminary NO GROWTH OBTAINED AFTER 96 HOURS, INCUBATION TO CONTINUE FOR 1 DAYS. 10/25/18 19:15 Sputum - Endotrachea Suction/Ventilator Gram Stain - Final 10/25/18 19:15 Sputum - Endotrachea Suction/Ventilator Sputum Culture - Final Escherichia Coli 10/24/18 15:57 Urine - Urine - Catheterized Urine Culture - Final NO GROWTH OBTAINED Current Medications Chlorhexidine Gluconate (Hibiclens For Decolonization -) 1 applic TP HS [facility] Last Admin: 10/28/18 21:22 Dose: 1 applic Ceftriaxone Sodium 2 gm/ (Dextrose) 100 mls @ 100 mls/hr IVPB DAILY [facility]; Protocol Last Admin: 10/29/18 11:41 Dose: Not Given Insulin Aspart (Novolog Vial Sliding Scale -) 1 vial SQ ACHS [facility]; Protocol Last Admin: 10/29/18 11:40 Dose: 6 units Lactulose (Cephulac (Oral Use)) 20 gm PO BID [facility] Last Admin: 10/29/18 09:32 Dose: 20 gm Metoprolol Tartrate (Lopressor -) 25 mg PO BID [facility] Last Admin: 10/29/18 09:32 Dose: 25 mg Mirtazapine (Remeron -) 15 mg PO HS [facility] Oxycodone HCl (Roxicodone -) 10 mg PO Q6H PRN PRN Reason: PAIN LEVEL 6-10 Pantoprazole Sodium (Protonix -) 20 mg PO DAILY [facility] Last Admin: 10/29/18 09:32 Dose: 20 mg Rifaximin (Xifaxan -) 550 mg PO BID [facility] Last Admin: 10/29/18 09:32 Dose: 550 mg Tamsulosin HCl (Flomax -) 0.4 mg PO BID [facility] a/p hepatic encephalopathy- improved liver cirrhosis respiratory failure resolved- extrbated 10/26 leukocytosis resolved CKD suggest switch to po keflex 250 bid for 3 days please call back if needed
[2018-10-29] MEDS ORDERED: PT OWN MED DRAWER 7, Y5N ONE (18:46)
--- NOTE | 2018-10-29 19:37 | PN ---
Progress Note (short form) - Note Progress Note: Pt awake, alert, has been ambulating with walker. WBC down. Creatinine down slightly. Sonogram results noted. Pt has had ascites for more than 5 years. It has generally been managed with spironolactone 50 mg bid and furosemide 80 mg intermittently. Would suggest discharge tomorrow if home care help can be arranged.
[2018-10-29] MEDS ORDERED: ACETAMINOPHEN 325 MG TABLET (FP) PO PRN ×2 (19:41→19:42)
[2018-10-29] MEDS ORDERED: MIRTAZAPINE 15 MG TABLET (FP) PO SCH (22:00)
--- NOTE | 2018-10-29 22:11 | PN ---
Progress Note (short form) - Note Progress Note: NEUROLOGY PROGRESS: Events reviewed, Pt examined. Ascitic abdomen Much more awake, alert. O x Joanne's. October 1998. Trump Still tremulous with Asterixis. No drift. Depressed LE reflexes. IMP: Non-focal exam Moderate, residual, Hepatic encephalopathy- much improved. SUGGEST: Continue lactulose, low-protein diet, surveillance for GI bleed. Thank you very much, Crescencio Velasco MD
[2018-10-29] MEDS: CEPHALEXIN MONOHYDRATE 250 MG CAPSULE (FP) PO SCH (22:26)
[2018-10-29] MEDS: TAMSULOSIN HCL 0.4 MG CAP PO SCH (22:27)
[2018-10-29] MEDS: CHLORHEXIDINE GLUCONATE 4% CLEANSER FOR DECOLONIZATION TP SCH (22:28)
[2018-10-30] MEDS ORDERED: INSULIN SLIDING SCALE (NOVOLOG) 1 VIAL SQ SCH (07:00)
[2018-10-30 08:10] LABS: ALBUMIN 2.7 g/dl (3.4-5.0); ALK PHOS 168 U/L (45-117); ANION GAP 12 MMOL/L (8-16); BILIRUBIN,TOTAL 1.2 mg/dL (0.2-1); BLOOD UREA NITROGEN 83 mg/dL (7-18); CALCIUM 8.1 mg/dL (8.5-10.1); CHLORIDE 101 mmol/L (98-107); CO2 21 mmol/L (21-32); CREATININE 3.9 mg/dL (0.55-1.3); GLUCOSE,RANDOM 196 mg/dL (74-106); MAGNESIUM 3.5 mg/dL (1.8-2.4); PHOSPHOROUS 4.5 mg/dL (2.5-4.9); POTASSIUM 4.2 mmol/L (3.5-5.1); SGOT/AST 24 U/L (15-37); SGPT/ALT 15 U/L (13-61); SODIUM 134 mmol/L (136-145); TOT PROT 6.4 g/dl (6.4-8.2)
[2018-10-30 08:20] LABS: BASO % 0.5 % (0-2.0); EOS % 0.6 % (0-4.5); HEMATOCRIT 32.6 % (35.4-49); HEMOGLOBIN 10.7 GM/dL (11.7-16.9); MCH 25.1 pg (25.7-33.7); MCHC 32.7 g/dl (32.0-35.9); MEAN CELL VOLUME 76.9 fl (80-96); MEAN PLT VOLUME 10.5 fl (7.5-11.1); MONO % 15.7 % (3.8-10.2); NEUT % 77.2 % (42.8-82.8); PLATELET COUNT 141 K/MM3 (134-434); RBC 4.24 M/mm3 (4.00-5.60); RDW 19.1 % (11.9-15.9); WHITE BLOOD COUNT 6.7 K/mm3 (4.0-10.0)
[2018-10-30] MEDS ORDERED: PT OWN MED DRAWER 7, Y5N ONE (09:03)
[2018-10-30] MEDS: TAMSULOSIN HCL 0.4 MG CAP PO SCH (09:05)
[2018-10-30] MEDS: CEPHALEXIN MONOHYDRATE 250 MG CAPSULE (FP) PO SCH (09:05)
[2018-10-30 09:26] VITALS: BP 129/69; PULSE 119; TEMP 97.5
[2018-10-30] MEDS ORDERED: PANTOPRAZOLE 20 MG TABLET (FP) PO SCH (10:00)
[2018-10-30] MEDS ORDERED: METOPROLOL TARTRATE 25 MG TABLET (FP) PO SCH (10:00)
[2018-10-30] MEDS ORDERED: LACTULOSE 20 GM/30 ML UDC (FOR ORAL USE ONLY) PO SCH (10:00)
[2018-10-30] MEDS ORDERED: RIFAXIMIN 550 MG TABLET (UD) PO SCH (10:00)
--- NOTE | 2018-10-30 14:45 | DS ---
Physical Examination Vital Signs: Vital Signs Temperature 97.5 F L 10/30/18 10:00 Pulse Rate 119 H 10/30/18 10:00 Respiratory Rate 20 10/30/18 10:00 Blood Pressure 129/69 10/30/18 10:00 O2 Sat by Pulse Oximetry (%) 100 10/30/18 09:00 Cardiovascular: Yes: S1, S2 Respiratory: Yes: Regular, CTA Bilaterally Gastrointestinal: Yes: Normal Bowel Sounds, Soft Labs: CBC, BMP 10/30/18 06:30 10/30/18 06:30 Discharge Summary Reason For Visit: SEIZURRE, HYPERAMMONEMIA Hospital Course: Problem List - Problems (1) Metabolic encephalopathy Assessment/Plan: -due to hepatic encephalopathy -Head CT: No mass lesion, gross acute infarct, or intracranial hemorrhage -Lactulose and xifaxin Code(s): G93.41 - METABOLIC ENCEPHALOPATHY (2) Cirrhosis Assessment/Plan: -GI (Dr. Pritchett) input noted -Continue Lactulose -tolerating diet -Protonix 20 Daily Code(s): K74.60 - UNSPECIFIED CIRRHOSIS OF LIVER (3) Respiratory failure Assessment/Plan: extubated--doing well on RA Code(s): J96.90 - RESPIRATORY FAILURE, UNSP, UNSP W HYPOXIA OR HYPERCAPNIA (4) CAD (coronary artery disease) Assessment/Plan: Hx multiple cardiac stents Hx of PAF -Trop < 0.02 -Currently Maintaining MAP >65 off pressors -Hold home dose Atenolol, Spironolactone Code(s): I25.10 - ATHSCL HEART DISEASE OF [place] CORONARY ARTERY W/O ANG PCTRS (5) Hyponatremia Assessment/Plan: Stable Code(s): E87.1 - HYPO-OSMOLALITY AND HYPONATREMIA (6) Leukocytosis Assessment/Plan: Iv abx TO PO id consult noted cultures Microbiology 10/25/18 00:30 Blood - Peripheral Venous Blood Culture - Preliminary NO GROWTH OBTAINED AFTER 96 HOURS, INCUBATION TO CONTINUE FOR 1 DAYS. 10/25/18 00:30 Blood - Peripheral Venous Blood Culture - Preliminary NO GROWTH OBTAINED AFTER 96 HOURS, INCUBATION TO CONTINUE FOR 1 DAYS. 10/25/18 19:15 Sputum - Endotrachea Suction/Ventilator Gram Stain - Final 10/25/18 19:15 Sputum - Endotrachea Suction/Ventilator Sputum Culture - Final Escherichia Coli 10/24/18 15:57 Urine - Urine - Catheterized Urine Culture - Final NO GROWTH OBTAINED Code(s): D72.829 - ELEVATED WHITE BLOOD CELL COUNT, UNSPECIFIED - Instructions Referrals: Pollo Ball MD [Staff Physician] - Salazar Pritchett MD [Primary Care Provider] - 1 Week Disposition: [facility]/HOME HEALTH CARE - Home Medications Comprehensive Discharge Medication List: Ambulatory Orders Esomeprazole Mag Trihydrate [Nexium] 40 mg PO DAILY #0 capsule. 01/22/12 Rifaximin [Xifaxan -] 550 mg PO BID #0 tablet 07/21/13 Insulin Glargine,Hum.rec.anlog [Lantus (10mL VIAL) -] 20 units SQ HS 08/17/14 Lactulose 30 mg PO TID 08/18/14 Oxycodone HCl [Roxicodone] 30 mg PO QID PRN 01/30/15 Spironolactone [Aldactone] 50 mg PO BID 01/30/15 Insulin Aspart [Novolog Flexpen] 20 unit SQ BID PRN 10/30/15 Mirtazapine [Remeron -] 15 mg PO HS 05/16/18 Tamsulosin HCl [Flomax] 0.4 mg PO BID 05/16/18 Epoetin Miguel [Procrit] 20,000 unit IV WEEKLY 10/20/18 Cephalexin Monohydrate [Keflex -] 250 mg PO BID #6 capsule 10/30/18 Metoprolol Tartrate [Lopressor -] 25 mg PO BID #60 tablet 10/30/18
== END 2018-10-30 10:12 | disposition home health service (06) | DRG 441 ==
LOC: JER 14:33 → MERGE 16:48 → JERBED 16:48 → EDBD 16:48 → JICU 18:41 → J5S 10-29 20:48
PROVIDERS: ADMIT Family Medicine; ATTEND Family Medicine
PROC: 5A1945Z Respiratory Ventilation, 24-96 Consecutive Hours (ICD-10-PCS; principal; 2018-10-24)
DX: K72.90 Hepatic failure, unspecified without coma (principal); N18.6 End stage renal disease; J96.00 Acute respiratory failure, unspecified whether with hypoxia or hypercapnia; K76.7 Hepatorenal syndrome; G93.41 Metabolic encephalopathy; E87.1 Hypo-osmolality and hyponatremia; R18.8 Other ascites; I12.0 Hypertensive chronic kidney disease with stage 5 chronic kidney disease or end stage renal disease; R64 Cachexia; E11.22 Type 2 diabetes mellitus with diabetic chronic kidney disease; K75.81 Nonalcoholic steatohepatitis (NASH); K74.60 Unspecified cirrhosis of liver; R56.9 Unspecified convulsions; M62.84 Sarcopenia; I48.0 Paroxysmal atrial fibrillation; D63.1 Anemia in chronic kidney disease; E87.8 Other disorders of electrolyte and fluid balance, not elsewhere classified; I25.10 Atherosclerotic heart disease of native coronary artery without angina pectoris; I25.2 Old myocardial infarction; Z95.5 Presence of coronary angioplasty implant and graft; Z87.891 Personal history of nicotine dependence; N40.0 Benign prostatic hyperplasia without lower urinary tract symptoms; D72.829 Elevated white blood cell count, unspecified; R62.7 Adult failure to thrive; Z68.21 Body mass index [BMI] 21.0-21.9, adult; Z91.14 Patient's other noncompliance with medication regimen
CPT/HCPCS: 36415; 70450-TC; 71045-TC-FY; 76700-TC; 80048; 80053; 81003; 81015; 82140; 82550; 82570; 82962; 83036; 83605; 83735; 83880; 84100; 84156; 84300; 84443; 84484; 85025; 85027; 85610; 86850; 86900; 86901; 87040; 87070; 87086; 87186; 87205; 93005; 93010; 94002; 97116-GP; 97162-GP; 99285-25; J0131; J7030

== ENCOUNTER 2019-02-19 12:00 | Inpatient (IN) | payer BC, OTHER ==
--- NOTE | 2019-02-19 12:11 | PDOC ---
Rapid Medical Evaluation Time Seen by Provider: 02/19/19 12:09 Medical Evaluation: Allergies Allergy/AdvReac Type Severity Reaction Status Date / Time No Known Drug Allergies Allergy Verified 10/20/18 14:34 02/19/19 12:11 I have performed a brief in-person evaluation of this patient. The patient presents with a chief complaint of: "bp is very low," also reports neck pain s/p fall on sunday "legs gave up on him", seen at [facility] hx of cirrhosis, ascites, hyponatremia, diabetes, HLD, afib, encephalopathy, hip sx PCP is Dr. Salazar Pritchett Pertinent physical exam findings: distended abdomen, jaundice, lethargic, hypotensive - 71/34, bradycardic I have ordered the following: ekg, labs, imaging The patient will proceed to the ED for further evaluation.
[2019-02-19] MEDS ORDERED: CALCIUM GLUCONATE 10% - 1,000 MG/10 ML VIAL ONE ×3 (12:44→13:12)
[2019-02-19] MEDS ORDERED: GlUCAGON HUMAN RECOMBINANT 1 MG/VIAL ONE ×2 (12:49→13:07)
[2019-02-19] MEDS ORDERED: ALBUTEROL SO4 0.083% IH SOL 2.5 MG/3 ML VIAL.NEB. NEB ONE ×3 (12:50→20:48)
[2019-02-19] MEDS ORDERED: ONDANSETRON 4 MG/2 ML VIAL ONE (13:00)
[2019-02-19 13:07] LABS: BASO % 0.5 % (0-2.0); HEMATOCRIT 32.6 % (35.4-49); LYMPH % 5.8 % (8-40); MCH 24.5 pg (25.7-33.7); MCHC 30.8 g/dl (32.0-35.9); MEAN CELL VOLUME 79.6 fl (80-96); MEAN PLT VOLUME 13.1 fl (7.5-11.1); MONO % 15.8 % (3.8-10.2); NEUT % 77.9 % (42.8-82.8); PLATELET COUNT 188 K/MM3 (134-434); RBC 4.09 M/mm3 (4.00-5.60); RDW 23.8 % (11.9-15.9); WHITE BLOOD COUNT 10.1 K/mm3 (4.0-10.0)
[2019-02-19] MEDS ORDERED: GlUCAGON HUMAN RECOMBINANT 1 MG/VIAL IVPUSH ONE ×2 (13:09→13:53)
[2019-02-19] MEDS ORDERED: GLUCAGON IVPUSH SCH ×3 (13:15→13:30)
[2019-02-19] MEDS ORDERED: SODIUM CHLORIDE IVPUSH SCH ×3 (13:15→13:30)
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
[2019-02-19] MEDS ORDERED: DOPAMINE 400 MG/D5W - 400,000 MCG/250 ML INFUS.BAG IVPB ONE (13:33)
[2019-02-19] MEDS ORDERED: SODIUM BICARBONATE 8.4% 50 MEQ/50 ML DISP.SYRIN IVPUSH ONE ×3 (13:52→23:31)
[2019-02-19] MEDS ORDERED: CALCIUM GLUCONATE 10% - 1,000 MG/10 ML VIAL IVPUSH ONE (13:52)
[2019-02-19] MEDS ORDERED: ONDANSETRON 4 MG/2 ML VIAL IVPUSH ONE (13:53)
[2019-02-19] MEDS: DOPAMINE HCL 400,000 MCG in SODIUM CHLORIDE 240 ML IV SCH (13:56)
[2019-02-19 13:58] LABS: INR 1.61 (0.83-1.09); PROTHROMBIN TIME (PATIENT) 19.1 SEC (9.7-13.0)
--- NOTE | 2019-02-19 14:05 | CONSULT ---
Consult Consult Specialty:: ICU Referred by:: Dr Maurice Reason for Consultation:: Bradycardia secondary to BB and Calcium channel paty overdose. 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 Patient woke up this morning with palpitations and noted an elevated HR up to 140s then took 50mg of atenol x3 without relief. He then took cardizem (which he takes as needed) x 3 then started to feel faint and dizzy,with last medication dose 8.30am. His blood pressure at home was non recordable then they came to the ED. In the ED, patient was bradycardic to 25, with EKG showing junctional bradycardia, Twave inversions v1-v4, Q waves v4-v6. Patient reported high potassium at his doctors-6.2 (spironolactone on home med list), and pending CMP levels was given albuterol nebs-0.083%, Calcium gluconate x 3, dopamine drip, atropine-0.4, glucagon x4, 500mls NS, zofran. Patient was hypotensive and could not receive lasix. Nephrology was contacted by ED and patient declined dialysis again, but a potassium binder was ordered. Cardiology was consulted by ED- Dr Mireles and he did not recommend the patient for transvenous pacing at this time. Patient will be monitored in ICU for bradycardia and hyperkalemia. 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 pain meds (dependence/tolerance for sure)) Musculoskeletal: Yes: Chronic low back pain, Other (failed left hip ORIF with chronic pain) Endocrine: Yes: Diabetes Mellitus Dermatology: Yes: Other (chronic brawny LE edema, venous insufficiency, left thigh heating blanket burn) Additional Medical History: Chronic opiate use - Past Surgical History Past Surgical History: Yes: Appendectomy, Joint Replacement, Stent, Colonoscopy , Upper Endoscopy - Alcohol/Substance Use Hx Alcohol Use: No History of Substance Use: reports: None - Smoking History Smoking history: Never smoked Have you smoked in the past 12 months: No Aproximately how many cigarettes per day: 0 If you are a former smoker, when did you quit?: 2008 - Social History Usual Living Arrangement: With Spouse ADL: Independent 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 01/22/12 Insulin Glargine,Hum.rec.anlog [Lantus (10mL VIAL) -] 20 units SQ HS 08/17/14 Lactulose 30 mg PO TID 08/18/14 Oxycodone HCl [Roxicodone] 30 mg PO QID PRN 01/30/15 Spironolactone [Aldactone] 50 mg PO BID 01/30/15 Insulin Aspart [Novolog Flexpen] 20 unit SQ BID PRN 10/30/15 Tamsulosin HCl [Flomax] 0.4 mg PO BID 05/16/18 Epoetin Miguel [Procrit] 20,000 unit IV WEEKLY 10/20/18 Aspirin [ASA -] 81 mg PO DAILY 02/19/19 Atenolol [Tenormin -] 50 mg PO DAILY 02/19/19 Diltiazem [Cardizem -] 50 mg PO PRN 02/19/19 Family Disease History - Family Disease History Family Disease History: Diabetes: Father, Mother ( 72 of [place]), Brother, Sister, Heart Disease: Father, Mother, Other: Father, Son (healthy), Daughter ( healthy) Physical Exam Vital Signs: Vital Signs Temperature 97 F L 02/19/19 12:13 Pulse Rate 26 L 02/19/19 12:13 Respiratory Rate 16 02/19/19 12:13 Blood Pressure 71/34 L 02/19/19 12:13 O2 Sat by Pulse Oximetry (%) 100 02/19/19 12:13 Constitutional: Yes: Cachectic, Other (somnolenmt but arousable) Eyes: Yes: Conjunctiva Clear, EOM Intact HENT: Yes: Atraumatic. No: Epistaxis Neck: Yes: Supple Cardiovascular: Yes: Bradycardia, S1, S2 Respiratory: Yes: CTA Bilaterally Gastrointestinal: Yes: Hypoactive Bowel Sounds. No: Tenderness ...Rectal Exam: Yes: Deferred Extremities: Yes: Other (pressure ulcers, bilateral heels) Edema: No Neurological: Yes: Alert (intermittent somnolence but arousable), Oriented, Lethargy, Paresthesia (B/L lower extremities). No: Facial Droop Labs: CBC, BMP 02/19/19 12:47 Assessment/Plan CBCD WBC 10.1 K/mm3 (4.0-10.0) H 02/19/19 12:47 RBC 4.09 M/mm3 (4.00-5.60) 02/19/19 12:47 Hgb 10.0 GM/dL (11.7-16.9) L 02/19/19 12:47 Hct 32.6 % (35.4-49) L 02/19/19 12:47 MCV 79.6 fl (80-96) L 02/19/19 12:47 MCHC 30.8 g/dl (32.0-35.9) L 02/19/19 12:47 RDW 23.8 % (11.9-15.9) H 02/19/19 12:47 Plt Count 188 K/MM3 (134-434) D 02/19/19 12:47 MPV 13.1 fl (7.5-11.1) H D 02/19/19 12:47 CMP Sodium 131 mmol/L (136-145) L 02/19/19 12:47 Potassium 6.9 mmol/L (3.5-5.1) H* 02/19/19 12:47 Chloride 106 mmol/L (98-107) 02/19/19 12:47 Carbon Dioxide 11 mmol/L (21-32) L 02/19/19 12:47 Anion Gap 14 MMOL/L (8-16) 02/19/19 12:47 BUN 81 mg/dL (7-18) H 02/19/19 12:47 Creatinine 4.1 mg/dL (0.55-1.3) H 02/19/19 12:47 Random Glucose 128 mg/dL (74-106) H 02/19/19 12:47 Calcium 8.6 mg/dL (8.5-10.1) 02/19/19 12:47 Total Bilirubin 1.8 mg/dL (0.2-1) H 02/19/19 12:47 AST 22 U/L (15-37) 02/19/19 12:47 ALT 17 U/L (13-61) 02/19/19 12:47 Alkaline Phosphatase 170 U/L (45-117) H 02/19/19 12:47 Total Protein 7.2 g/dl (6.4-8.2) 02/19/19 12:47 Albumin 2.9 g/dl (3.4-5.0) L 02/19/19 12:47 CARDIAC ENZYMES Creatine Kinase 66 U/L (26-308) 02/19/19 12:47 Troponin I 0.08 ng/ml (0.00-0.05) H 02/19/19 12:47 Ambulatory Orders Esomeprazole Mag Trihydrate [Nexium] 40 mg PO DAILY #0 capsule. 01/22/12 Insulin Glargine,Hum.rec.anlog [Lantus (10mL VIAL) -] 20 units SQ HS 08/17/14 Lactulose 30 mg PO TID 08/18/14 Oxycodone HCl [Roxicodone] 30 mg PO QID PRN 01/30/15 Spironolactone [Aldactone] 50 mg PO BID 01/30/15 Insulin Aspart [Novolog Flexpen] 20 unit SQ BID PRN 10/30/15 Tamsulosin HCl [Flomax] 0.4 mg PO BID 05/16/18 Epoetin Miguel [Procrit] 20,000 unit IV WEEKLY 10/20/18 Aspirin [ASA -] 81 mg PO DAILY 02/19/19 Atenolol [Tenormin -] 50 mg PO DAILY 02/19/19 Diltiazem [Cardizem -] 50 mg PO PRN 02/19/19 Current Medications Glucagon 5 mg/ Sodium Chloride 50 mls @ 12.33 mls/hr IVPUSH ASDIR WIL Last Admin: 02/19/19 13:52 Dose: 12.33 mls/hr Dopamine HCl 400,000 mcg/ (Sodium Chloride) 250 mls @ 4.62 mls/hr IV TITR WIL; Protocol Last Admin: 02/19/19 13:56 Dose: 5 mcg/kg/min, 11.56 mls/hr Sodium Zirconium Cyclosilicate (Lokelma) 10 gm PO DAILY WIL Assessment/Plan: 62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 Cardio: Acute bradycardia following Afib with RVR and likely drug overdose on atenolol and cardizem Pt with Diastolic HF- gentle hydration if needed CAD s/p 17 cardiac stents (last 10 years ago) Received albuterol nebs-0.083%, Calcium gluconate x 3, dopamine drip, atropine- 0.4, glucagon x4, 500mls NS, zofran in ED Received K binder -Lokelma Repeat cmp, Hold off iv pushes, kayexalate or lasix due to comorbid liver and kidney disease May receive IV NS 60mls/hr if not tolerating PO- D/W Dr Pritchett Pt completed iv glucan Continue dobutamine drip- may titrate as needed Hold atenolol and cardizem Cardiac monitoring ASA Pulm: Pt sating fine on room air No need for supplement oxygen at this time Continue to monitor Neuro: Pt with hx of intermittent encephalopathy Pt somnolent but arousable Per PCP Dr Pritchett- Pt recently started on lyrica, could be contributing to his mental status Pt able to protect his airway On chronic opiods at home, requesting pain meds Monitor GI: Non alcoholic cirrhosis On transplant list Recent ascitic tap by Dr Pritchett at [facility] Last week drained 3.5L No evidence of infection at this time Abdoment soft, non tender WBC elevated, monitor No ivf pushes, gentle hydration if needed Per Dr Pritchett- pt may have a diet Stop spironolactone Endocrine: Insulin dependent DM On Lantus 20U sq hs Novolog 20u bid ISS ACHS BGM ACHS Renal: TO on CKD Could be in setting of hypotension Cont dobutamine drip, iv fluid as needed Pt with hepatorenal syndrome type 2 Baseline Cr- around 3.5 per PCP On transplant list Recent ascitic fluid tap Pt refusing dialysis Follows Dr Balbuena Hyperkalemia- potassium binder given, NaHCo3, Ca gluconate Repeat EKG Albuterol nebs as needed FEN No fluid boluses Monitor K Q4H EKG Renal Diet PPx Heparin sq protonix Dispo: ICU Visit type - Emergency Visit Emergency Visit: Yes ED Registration Date: 02/19/19 Care time: The patient presented to the Emergency Department on the above date and was hospitalized for further evaluation of their emergent condition. - New Patient This patient is new to me today: Yes Date on this admission: 02/19/19 - Critical Care Critical Care patient: Yes Total Critical Care Time (in minutes): 40 Critical Care Statement: The care of this patient involved high complexity decision making to prevent further life threatening deterioration of the patient 's condition and/or to evaluate & treat vital organ system(s) failure or risk of failure.
[2019-02-19] MEDS ORDERED: ATROPINE SO4 0.4 MG/1 ML VIAL IVPUSH ONE (14:12)
[2019-02-19 14:13] LABS: CREATININE 4.1 mg/dL (0.55-1.3)
[2019-02-19 14:15] LABS: POTASSIUM 6.9 mmol/L (3.5-5.1)
[2019-02-19 14:18] LABS: ALBUMIN 2.9 g/dl (3.4-5.0); BILIRUBIN,TOTAL 1.8 mg/dL (0.2-1); CALCIUM 8.6 mg/dL (8.5-10.1); TOT PROT 7.2 g/dl (6.4-8.2)
[2019-02-19 14:19] LABS: ANISOCYTOSIS 1+; MACROCYTOSIS 0; OVALOCYTE 1+; PLATELET ESTIMATE NORMAL; TARGET CELLS 1+; TEAR DROP CELLS 1+
[2019-02-19] MEDS ORDERED: ALBUTEROL SO4 0.5 % INH SOLN 2.5 MG/0.5 ML VIAL.NEB. NEB ONE (14:34)
[2019-02-19] MEDS ORDERED: CALCIUM GLUCONATE 10% - 1,000 MG/10 ML VIAL IVPB ONE ×2 (14:35→19:59)
--- NOTE | 2019-02-19 14:58 | PDOC ---
Documentation entered by Annelise Mcpherson SCRIBE, acting as scribe for Destin Maurice MD. eDstin Maurice MD: This documentation has been prepared by the Ky graff Adrianna, SCRIBE, under my direction and personally reviewed by me in its entirety. I confirm that the documentation accurately reflects all work, treatment, procedures, and medical decision making performed by me. History of Present Illness - General Chief Complaint: Pain Stated Complaint: BILAT LEG PAIN Time Seen by Provider: 02/19/19 12:09 - History of Present Illness Initial Comments: The patient is a 63 year old male, with a significant PMH of liver cirrhosis, hepatic encephalopathy, ASHD, diastolic CHF, CAD, COPD, CRI, HI, DM, left hip fracture (s/p failed surgical repair), paroxysmal Afib, HLD, portal HTN, who presents for beta paty and calcium channel paty overdose. 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 He then became dizzy and weak, with a heart rate of 25. He presented with junctional bradycardia and a rhythm of 25 while in the ED. Patient notes his potassium was found to be elevated yesterday at 6.2, and denied dialysis. Allergies: NKA Past surgical history: Appendectomy, Joint Replacement, 17 stents, Colonoscopy, Upper Endoscopy, laminectomy Social history: No reported PCP: Dr. Pritchett 02/19/19 14:08 Past History - Past Medical History Allergies/Adverse Reactions: Allergies Allergy/AdvReac Type Severity Reaction Status Date / Time No Known Drug Allergies Allergy Verified 02/19/19 12:12 Home Medications: Ambulatory Orders Esomeprazole Mag Trihydrate [Nexium] 40 mg PO DAILY #0 capsule. 01/22/12 Insulin Glargine,Hum.rec.anlog [Lantus (10mL VIAL) -] 20 units SQ HS 08/17/14 Lactulose 30 mg PO TID 08/18/14 Oxycodone HCl [Roxicodone] 30 mg PO QID PRN 01/30/15 Spironolactone [Aldactone] 50 mg PO BID 01/30/15 Insulin Aspart [Novolog Flexpen] 20 unit SQ BID PRN 10/30/15 Tamsulosin HCl [Flomax] 0.4 mg PO BID 05/16/18 Epoetin Miguel [Procrit] 20,000 unit IV WEEKLY 10/20/18 Aspirin [ASA -] 81 mg PO DAILY 02/19/19 Atenolol [Tenormin -] 50 mg PO DAILY 02/19/19 Diltiazem [Cardizem -] 50 mg PO PRN 02/19/19 Anemia: No Asthma: No Cancer: No Cardiac Disorders: Yes (17 cardiac stents) CVA: No COPD: No CHF: No DVT: No Dementia: No Diabetes: Yes (IDDM) Dialysis: (Kidney problems) GI Disorders: No Disorders: No HTN: Yes Hypercholesterolemia: Yes Kidney Stones: No Liver Disease: Yes (cirrhosis) Seizures: No Thyroid Disease: No Other medical history: neck Fracture - Surgical History Abdominal Surgery: No Appendectomy: Yes Cardiac Surgery: (, stents x17) Cholecystectomy: No Lung Surgery: No Neurologic Surgery: Yes (LAMINECTOMY 2012, L HIP X 2.) Orthopedic Surgery: No - Immunization History Td Vaccination: Yes TDAP Vaccination: Yes - Suicide/Smoking/Psychosocial Hx Smoking Status: No Smoking History: Never smoked Have you smoked in the past 12 months: No Number of Cigarettes Smoked Daily: 0 If you are a former smoker, when did you quit?: 2008 Information on smoking cessation initiated: No Hx Alcohol Use: No Drug/Substance Use Hx: No Substance Use Type: None Hx Substance Use Treatment: No Review of Systems - Review of Systems Comments:: CONSTITUTIONAL: +Generalized weakness. No fever, no chills. EYES: No visual changes ENT: No ear pain, no sore throat CARDIOVASCULAR: +Palpitations. No chest pain RESPIRATORY: No cough, no SOB GI: No abdominal pain, no nausea, no vomiting, no constipation, no diarrhea GENITOURINARY: No dysuria, no frequency, no hematuria MUSKULOSKELETAL: No back pain, no joint pain, no myalgias SKIN: No rash NEURO: +Dizzy. No headache 02/19/19 14:10 *Physical Exam - Vital Signs Last Vital Signs Temp Pulse Resp BP Pulse Ox 97 F L 26 L 16 71/34 L 100 02/19/19 12:13 02/19/19 12:13 02/19/19 12:13 02/19/19 12:13 02/19/19 12:13 - Physical Exam Comments: 02/19/19 16:02 Patient is lethargic but arousable, follows commands, bradycardic and hypotensive EXAMINATION CONSTITUTIONAL: Frail appearing, lethargic but arousable HEAD: Normocephalic; atraumatic EYES: PERRL; EOM intact ENMT: External appears normal; mm-dry NECK: Supple; non-tender; no cervical lymphadenopathy CARD: Bradycardic, regular RESP: Normal chest excursion with respiration; breath sounds clear and equal bilaterally; no wheezes, rhonchi, or rales ABD: Soft, distended; non-tender; no palpable organomegaly, no palpable hernias EXT: Bilateral +3 pitting edema; hypopigmented lower extremities consistent with chronic venous stasis dermatitis; non-tender to palpation; distal pulses intact SKIN: Warm, dry, no rash NEURO: No focal neurological deficiencies. Heart Score/ECG Review - QRS Comment:: Low voltage 02/19/19 13:45 - ECG Impressions Normal ECG: No Comment:: Junctional bradycardia. Cannot rule out Anteroseptal infarct, age undetermined. 02/19/19 13:47 ED Treatment Course - LABORATORY CBC & Chemistry Diagram: 02/19/19 12:47 02/19/19 12:47 - ADDITIONAL ORDERS Additional order review: 02/19/19 12:47 RBC 4.09 MCV 79.6 L MCHC 30.8 L RDW 23.8 H MPV 13.1 H D Neutrophils % 77.9 Lymphocytes % 5.8 L Monocytes % 15.8 H Eosinophils % 0.0 D Basophils % 0.5 - RADIOLOGY Radiology Studies Ordered: Category Date Time Status CHEST X-RAY PORTABLE* [RAD] Stat Radiology 02/19/19 14:12 Ordered Radiograph Interpretation: EXAM#: TYPE/EXAM: RESULT: [id number] RAD/CHEST X-RAY PORTABLE* HISTORY PROVIDED: Bradycardia. IMPRESSION: No acute pathology. Reported By: Reji Shin MD 02/19/19 16:12 02/19/19 16:35 - Medications Given in the ED: ED Medications Discontinued Medications Generic Name Dose Route Start Last Admin Trade Name Freq PRN Reason Stop Dose Admin Albuterol Sulfate 3 amp 02/19/19 13:51 02/19/19 12:53 Ventolin 0.083% Nebulizer Soln - NEB 02/19/19 13:52 3 amp ONCE ONE Administration Albuterol Sulfate 1 amp 02/19/19 14:34 02/19/19 14:51 Ventolin 0.5% - NEB 02/19/19 14:35 1 amp ONCE ONE Administration Atropine Sulfate 0.4 mg 02/19/19 14:12 02/19/19 12:54 Atropine Injection - IVPUSH 02/19/19 14:13 0.4 mg ONCE ONE Administration Calcium Gluconate 2,000 mg 02/19/19 13:52 02/19/19 12:50 Calcium Gluconate 10% - IVPUSH 02/19/19 13:53 2,000 mg ONCE ONE Administration Calcium Gluconate 1,000 mg 02/19/19 14:35 02/19/19 14:51 Calcium Gluconate 10% - IVPB 02/19/19 14:36 1,000 mg ONCE ONE Administration Glucagon 4 mg 02/19/19 13:09 02/19/19 12:55 Glucagon - IVPUSH 02/19/19 13:10 4 mg ONCE ONE Administration Glucagon 4 mg 02/19/19 13:53 02/19/19 13:13 Glucagon - IVPUSH 02/19/19 13:54 4 mg ONCE ONE Administration Ondansetron HCl 4 mg 02/19/19 13:53 02/19/19 13:00 Zofran Injection IVPUSH 02/19/19 13:54 4 mg ONCE ONE Administration Sodium Bicarbonate 50 meq 02/19/19 13:52 02/19/19 12:45 Sodium Bicarbonate 8.4% - IVPUSH 02/19/19 13:53 50 meq ONCE ONE Administration - Additional Consults Time Called: 13:15 (spoke with Dr. Mireles concerning patient's care) Consult/PCP: Dr. Mireles Time Called: 13:56 (paged Dr. Pritchett's call service, pending call back) Consult/PCP: 14:50- spoke with Dr. Pritchett concerning patient's care, will be admitted Medical Decision Making - Critical Care Time Total Critical Care Time (minutes): 60 Critical Care Statement: The care of this patient involved high complexity decision making to prevent further life threatening deterioration of the patient 's condition and/or to evaluate & treat vital organ system(s) failure or risk of failure. - Medical Decision Making 02/19/19 16:06 Patient is a 63-year-old male with multiple comorbidities who presents with symptomatic bradycardia with a heart rate of 25, EKG revealing junctional bradycardia and associated hypotension. Differential diagnoses includes hyperkalemia versus beta paty overdose versus calcium channel paty overdose versus combination of all previously mentioned. Patient received in rapid succession 3 A of calcium gluconate, 1 amp of sodium bicarbonate, atropine -0.4 mg, albuterol MDI, normal saline-500 mL, as well as glucagon-4 mg IV 2 followed by a glucagon drip. Patient also was started on a dopamine drip. 02/19/19 16:08 After the initial administration of calcium gluconate, sodium bicarbonate and singular dose of glucagon, patient's heart rate increased from 25 to 35-40 but remained junctional bradycardia as per repeat EKG. Blood pressure improved to 75 systolic to 90/95 systolic. Patient's mental status is also improved. Dr. Cori fabian of cardiology was informed and agreed with the plan of care. Bedside echo was obtained (results are pending). Patient's potassium is also noted to be 6.[address] Balbuena of renal was consulted. Patient again refused dialysis (sees patient has refused dialysis on numerous occasions in the past). *DC/Admit/Observation/Transfer Diagnosis at time of Disposition: Junctional bradycardia, Hyperkalemia, Hypotension - Discharge Dispostion Condition at time of disposition: Guarded Decision to Admit order: Yes - Referrals - Patient Instructions - Post Discharge Activity
--- NOTE | 2019-02-19 15:23 | EKG ---
Test Reason : Blood Pressure : / mmHG Vent. Rate : 025 BPM Atrial Rate : 026 BPM P-R Int : 000 ms QRS Dur : 090 ms QT Int : 646 ms P-R-T Axes : 000 080 098 degrees QTc Int : 416 ms JUNCTIONAL BRADYCARDIA LOW VOLTAGE QRS CANNOT RULE OUT ANTEROSEPTAL INFARCT (CITED ON OR BEFORE 30-JAN-2015) ABNORMAL ECG WHEN COMPARED WITH ECG OF 20-OCT-2018 19:25, JUNCTIONAL RHYTHM HAS REPLACED SINUS RHYTHM VENT. RATE HAS DECREASED BY 57 BPM CRITERIA FOR INFERIOR INFARCT ARE NO LONGER PRESENT SERIAL CHANGES OF ANTEROSEPTAL INFARCT PRESENT Confirmed by VERNON SCHAFER, FELECIA ([id number]) on 02/19/2019 3:23:38 PM Referred By: Confirmed By:FELECIA UJNIOR MD
--- NOTE | 2019-02-19 15:23 | EKG ---
Test Reason : Blood Pressure : / mmHG Vent. Rate : 039 BPM Atrial Rate : 038 BPM P-R Int : 000 ms QRS Dur : 088 ms QT Int : 570 ms P-R-T Axes : 000 051 109 degrees QTc Int : 458 ms JUNCTIONAL BRADYCARDIA LOW VOLTAGE QRS CANNOT RULE OUT ANTEROSEPTAL INFARCT (CITED ON OR BEFORE 30-JAN-2015) T WAVE ABNORMALITY, CONSIDER LATERAL ISCHEMIA ABNORMAL ECG WHEN COMPARED WITH ECG OF 19-FEB-2019 12:18, VENT. RATE HAS INCREASED BY 14 BPM Confirmed by VERNON SCHAFER, FELECIA ([id number]) on 02/19/2019 3:23:26 PM Referred By: Confirmed By:FELECIA JUNIOR MD
--- NOTE | 2019-02-19 15:31 | PN ---
Teaching Attending Note Name of Resident: Iraida Vazquez ATTENDING PHYSICIAN STATEMENT I saw and evaluated the patient. I reviewed the resident's note and discussed the case with the resident. I agree with the resident's findings and plan as documented. SUBJECTIVE: Pt seen and examined in the ER. 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 Found to be bradycardic with junctional rhythm with rate in 20s. Takes atenolol at home as well as cardizem as needed. Found to be hyperkalemic to 6.9, treated medically in the ER. Takes spironolactone at home. Pt had refused HD consideration in the past. OBJECTIVE: Vital Signs Period Temp Pulse Resp BP Sys/Grant Pulse Ox Last 24 Hr 97 F 26-63 16-18 71-103/34-67 97-100 Intake & Output 02/16/19 02/17/19 02/18/19 02/19/19 23:59 23:59 23:59 23:59 Weight 61.689 kg Gen: lethargic but arousable Heart: bradycardic, regular Lung: decreased breath sounds at the bases Abd: softly distended, +ascites Ext: no edema CBC, BMP 02/19/19 12:47 02/19/19 12:47 Active Medications Glucagon 5 mg/ Sodium Chloride 50 mls @ 12.33 mls/hr IVPUSH ASDIR WIL Last Admin: 02/19/19 13:52 Dose: 12.33 mls/hr Dopamine HCl 400,000 mcg/ (Sodium Chloride) 250 mls @ 4.62 mls/hr IV TITR WIL; Protocol Last Admin: 02/19/19 13:56 Dose: 5 mcg/kg/min, 11.56 mls/hr Sodium Zirconium Cyclosilicate (Lokelma) 10 gm PO DAILY WIL ASSESSMENT AND PLAN: Symptomatic Bradycardia Hyperkalemia Metabolic Acidosis Suspect overmedication with beta paty and carizem CKD Liver Cirrhosis Paroxysmal Atrial Fibrillation CAD +Troponins likely Demand Ischemia - dopamine gtt started - hold all AV erma agents - continue medical treatment of hyperkalemia - monitor K q4h until improvement - check ABG - renal eval - continue discussion regarding dialysis - aspiration precautions - echocardiogram - trend cardiac enzymes - check CXR - IVF boluses as needed - ICU monitoring critical care time spent in reviewing chart, evaluating patient and formulating plan 35 min
[2019-02-19] MEDS: SODIUM ZIRCONIUM CYCLOSILICATE (LOKELMA) 5 GM PACKET PO SCH (15:48)
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
--- NOTE | 2019-02-19 16:30 | ECHO ---
Name: KAYKAY NGUYỄN Exam:Adult Echocardiogram Study Date: 02/19/2019 01:52 PM Age: 63 yrs Reason For Study: LVEF Height: 66 in Weight: 136 lb BSA: 1.7 m2 MMode/2D Measurements & Calculations IVSd: 0.76 cm Ao root diam: 2.6 cm LVIDd: 5.2 cm LA dimension: 4.6 cm LVIDs: 3.6 cm LVPWd: 0.78 cm EDV(Teich): 129.0 ml LVOT diam: 2.0 cm ESV(Teich): 53.2 ml Doppler Measurements & Calculations MV E max petey: 111.3 cm/sec Ao V2 max: 152.9 cm/sec MV A max petey: 28.5 cm/sec Ao max P.4 mmHg MV E/A: 3.9 Ao V2 mean: 111.7 cm/sec MV dec time: 0.31 sec Ao mean P.5 mmHg Ao V2 VTI: 38.9 cm SUN(I,D): 1.6 cm2 SUN(V,D): 1.6 cm2 LV V1 max P.6 mmHg MR max petey: 316.4 cm/sec LV V1 mean P.2 mmHg MR max P.5 mmHg LV V1 max: 80.8 cm/sec LV V1 mean: 50.9 cm/sec LV V1 VTI: 20.1 cm SV(LVOT): 60.6 ml TR max petey: 214.0 cm/sec TR max P.4 mmHg Med Peak E' Petey: 9.2 cm/sec Med E/e': 12.1 Lat Peak E' Petey: 9.0 cm/sec Lat E/e': 12.4 Procedure A two-dimensional transthoracic echocardiogram with color flow and Doppler was performed. Left Ventricle The left ventricular size, thickness and function are normal. The left ventricular ejection fraction is normal. The left ventricular wall motion is normal. Right Ventricle The right ventricle is normal in size and function. Atria The left atrium is moderately dilated. The right atrium is mild to moderately dilated. Mitral Valve There is mild mitral valve thickening. There is no mitral valve stenosis. There is moderate mitral regurgitation. Tricuspid Valve There is mild to moderate tricuspid valve thickening. No significant tricuspid stenosis. There is mod erate tricuspid regurgitation. Right ventricular systolic pressure is normal. Aortic Valve The aortic valve is trileaflet. There is mild aortic valve thickening. There is mild aortic sclerosis .;. No hemodynamically significant valvular aortic stenosis. No aortic regurgitation is present. Pulmonic Valve The pulmonic valve is not well visualized. Great Vessels The aortic root is normal size. Pericardium/Pleura There is no pericardial effusion. Interpretation Summary The left ventricular size, thickness and function are normal The left ventricular ejection fraction is normal. The left ventricular wall motion is normal. The right atrium is mild to moderately dilated. The left atrium is moderately dilated. There is moderate mitral regurgitation. There is moderate tricuspid regurgitation. Right ventricular systolic pressure is normal. MD Dario Mireles 02/19/2019 04:29 PM
--- NOTE | 2019-02-19 17:11 | PN ---
Progress Note (short form) - Note Progress Note: Pt well known to me, see my notes from yesterday and today sending him to ER. Pt examined at bedside. Initially asleep, easily aroused, alert, oriented x 3. Wants to go home; was persuaded that he is too ill. Both heel ulcers inspected, both look better than they were last week. Abdomen not tender. Of concern: 1) increased encephalopathy 2) elevated WBC compared to yesterday 3) increasing serum K. Pt has been cultured, no obvious source of infection now. Elevated serum K has been treated with binding agent. CBC, CMP ordered for a.m. Case discussed with ICU resident.
[2019-02-19] MEDS ORDERED: PATIENT'S OWN MEDICATION (NON-FORMULARY) (Oxycodone Hcl [Roxicodone] 30 MG) PO PRN ×2 (18:22→18:44)
[2019-02-19 19:30] LABS: MAGNESIUM 2.7 mg/dL (1.8-2.4); PHOSPHOROUS 5.6 mg/dL (2.5-4.9)
[2019-02-19 19:33] LABS: POTASSIUM 7.1 mmol/L (3.5-5.1)
[2019-02-19] MEDS ORDERED: SODIUM POLYSTYRENE SULFONATE 15 GM/60 ML BOTTLE PO ONE (19:58)
[2019-02-19] MEDS ORDERED: DEXTROSE 50%-WATER - 25 GM/50 ML VIAL IVPUSH ONE (20:02)
[2019-02-19] MEDS ORDERED: INSULIN REGULAR HUMAN 100 UNITS/ML *VIAL IVPUSH ONE (20:03)
[2019-02-19 20:09] LABS: BILIRUBIN,TOTAL 2.1 mg/dL (0.2-1); CALCIUM 9.1 mg/dL (8.5-10.1); CREATININE 4.3 mg/dL (0.55-1.3); TOT PROT 7.2 g/dl (6.4-8.2)
[2019-02-19] MEDS ORDERED: PT OWN MED DRAWER 7, Y5N ONE (20:32)
[2019-02-19] MEDS ORDERED: SODIUM BICARBONATE 8.4% 50 MEQ/50 ML VIAL ONE (20:57)
[2019-02-19] MEDS ORDERED: SODIUM BICARBONATE 8.4% 50 MEQ/50 ML VIAL IVPUSH ONE (21:00)
[2019-02-19] MEDS: oxyCODONE HCL 5 MG TABLET PO PRN (21:11)
[2019-02-19] MEDS: TAMSULOSIN HCL 0.4 MG CAP PO SCH (21:16)
[2019-02-19] MEDS: PANTOPRAZOLE 40 MG TABLET (FP) PO SCH (21:16)
[2019-02-19] MEDS ORDERED: DEXTROSE 50%-WATER - 25 GM/50 ML VIAL ONE (21:27)
[2019-02-20] MEDS: oxyCODONE HCL 5 MG TABLET PO PRN ×2 (00:05→23:31)
[2019-02-20] MEDS ORDERED: FUROSEMIDE 40 MG/4 ML INJECTABLE VIAL IVPUSH ONE (00:26)
[2019-02-20] MEDS ORDERED: SODIUM CHLORIDE 500 ML IV STA (00:26)
[2019-02-20 00:43] LABS: ALBUMIN 2.8 g/dl (3.4-5.0); BILIRUBIN,TOTAL 1.3 mg/dL (0.2-1); CALCIUM 8.8 mg/dL (8.5-10.1); CREATININE 4.2 mg/dL (0.55-1.3); TOT PROT 6.8 g/dl (6.4-8.2)
[2019-02-20 00:48] LABS: POTASSIUM 6.2 mmol/L (3.5-5.1)
[2019-02-20] MEDS: DIGOXIN 0.5 MG/2 ML AMPUL IVPUSH SCH ×2 (00:50→19:00)
[2019-02-20] MEDS ORDERED: ALBUTEROL SO4 0.083% IH SOL 2.5 MG/3 ML VIAL.NEB. NEB ONE ×2 (01:19→08:55)
[2019-02-20] MEDS ORDERED: INSULIN REGULAR HUMAN 100 UNITS/ML *VIAL IVPUSH ONE ×2 (01:20→22:53)
[2019-02-20] MEDS ORDERED: DEXTROSE 50%-WATER - 25 GM/50 ML VIAL IVPUSH ONE ×2 (01:20→23:15)
[2019-02-20] MEDS: INSULIN SLIDING SCALE (NOVOLOG) 1 VIAL SQ SCH ×6 (01:22→22:04)
[2019-02-20] MEDS ORDERED: SODIUM BICARBONATE 8.4% 50 MEQ/50 ML VIAL ONE (01:57)
[2019-02-20] MEDS ORDERED: DEXTROSE 50%-WATER 25 GM/50 ML DISP.SYRIN ONE (01:57)
[2019-02-20 06:55] LABS: BASO % 0.3 % (0-2.0); HEMATOCRIT 35.8 % (35.4-49); HEMOGLOBIN 11.7 GM/dL (11.7-16.9); LYMPH % 5.9 % (8-40); MCH 24.8 pg (25.7-33.7); MCHC 32.6 g/dl (32.0-35.9); MEAN CELL VOLUME 76.2 fl (80-96); MEAN PLT VOLUME 10.4 fl (7.5-11.1); MONO % 13.6 % (3.8-10.2); NEUT % 80.2 % (42.8-82.8); PLATELET COUNT 78 K/MM3 (134-434); RDW 22.8 % (11.9-15.9); WHITE BLOOD COUNT 10.6 K/mm3 (4.0-10.0)
--- NOTE | 2019-02-20 08:25 | PN ---
Physical Exam: SUBJECTIVE: Patient seen and examined at bedside. Refusing therapies overnight, including phelps. Patient unable to produce urine overnight. Was hyperkalemic and was given D50 with 10u insulin, albuterol, calcium gluconate, 2 doses of bicarb and Kayaxelate. Patient vomited kayaxelate. Nephrology recommended 500mL fluid with Lasix IV. Patient states he was able to urinate this AM. Denies any complaints. OBJECTIVE: Vital Signs Period Temp Pulse Resp BP Sys/Grant Pulse Ox Last 24 Hr 97 F-97.9 F 26-91 11-18 71-134/34-70 94-100 GENERAL: The patient is awake, alert, and fully oriented, in no acute distress. EYES: PERRL, extraocular movements intact, sclera anicteric, conjunctiva clear. No ptosis. LUNGS: Decreased at bases, no wheezes, no crackles, no accessory muscle use. HEART: Regular rate and rhythm, S1, S2 without murmur, rub or gallop. ABDOMEN: Soft, distended, normoactive bowel sounds, no guarding, no rebound, no masses. EXTREMITIES: 2+ pulses, warm, well-perfused, no edema. NEUROLOGICAL: Cranial nerves II through XII grossly intact. Normal speech, gait not observed. PSYCH: Normal mood, normal affect. SKIN: Warm, dry, normal turgor, no rashes or lesions noted. Laboratory Results - last 24 hr 02/19/19 02/19/19 02/19/19 12:47 12:47 12:47 WBC 10.1 H RBC 4.09 Hgb 10.0 L Hct 32.6 L MCV 79.6 L MCH 24.5 L MCHC 30.8 L RDW 23.8 H Plt Count 188 D MPV 13.1 H D Absolute Neuts (auto) 7.9 Neutrophils % 77.9 Lymphocytes % 5.8 L Monocytes % 15.8 H Eosinophils % 0.0 D Basophils % 0.5 Nucleated RBC % 0 Hypochromia 0 Platelet Estimate Normal Polychromasia 1+ Poikilocytosis 3+ Anisocytosis 1+ Microcytosis 1+ Macrocytosis 0 Target Cells 1+ Tear Drop Cells 1+ Ovalocytes 1+ Schistocytes 1+ PT with INR 19.10 H INR 1.61 H Sodium 131 L Potassium 6.9 H* Chloride 106 Carbon Dioxide 11 L Anion Gap 14 BUN 81 H Creatinine 4.1 H Est GFR (CKD-EPI)AfAm 16.79 Est GFR (CKD-EPI)NonAf 14.48 POC Glucometer Random Glucose 128 H Calcium 8.6 Phosphorus Magnesium Total Bilirubin 1.8 H AST 22 ALT 17 Alkaline Phosphatase 170 H Creatine Kinase 66 Troponin I 0.08 H Total Protein 7.2 Albumin 2.9 L Lipase 46 L 02/19/19 02/19/19 02/20/19 13:50 17:30 00:00 WBC RBC Hgb Hct MCV MCH MCHC RDW Plt Count MPV Absolute Neuts (auto) Neutrophils % Lymphocytes % Monocytes % Eosinophils % Basophils % Nucleated RBC % Hypochromia Platelet Estimate Polychromasia Poikilocytosis Anisocytosis Microcytosis Macrocytosis Target Cells Tear Drop Cells Ovalocytes Schistocytes PT with INR INR Sodium 132 L 135 L Potassium 7.1 H* 6.2 H* Chloride 104 105 Carbon Dioxide 13 L 16 L Anion Gap 15 13 BUN 83 H 91 H Creatinine 4.3 H 4.2 H Est GFR (CKD-EPI)AfAm 15.85 16.30 Est GFR (CKD-EPI)NonAf 13.67 14.07 POC Glucometer 133 Random Glucose 172 H 256 H Calcium 9.1 8.8 Phosphorus 5.6 H Magnesium 2.7 H Total Bilirubin 2.1 H 1.3 H AST 202 H 488 H ALT 68 H 161 H Alkaline Phosphatase 174 H 165 H Creatine Kinase Troponin I 0.06 H Total Protein 7.2 6.8 Albumin 3.0 L 2.8 L Lipase 02/20/19 02/20/19 05:30 06:10 WBC 10.6 H RBC 4.70 Hgb 11.7 Hct 35.8 MCV 76.2 L MCH 24.8 L MCHC 32.6 RDW 22.8 H Plt Count MPV 10.4 D Absolute Neuts (auto) 8.5 H Neutrophils % 80.2 Lymphocytes % 5.9 L Monocytes % 13.6 H Eosinophils % 0.0 Basophils % 0.3 Nucleated RBC % 0 Hypochromia Platelet Estimate Polychromasia Poikilocytosis Anisocytosis Microcytosis Macrocytosis Target Cells Tear Drop Cells Ovalocytes Schistocytes PT with INR INR Sodium Potassium Chloride Carbon Dioxide Anion Gap BUN Creatinine Est GFR (CKD-EPI)AfAm Est GFR (CKD-EPI)NonAf POC Glucometer 210 Random Glucose Calcium Phosphorus Magnesium Total Bilirubin AST ALT Alkaline Phosphatase Creatine Kinase Troponin I Total Protein Albumin Lipase Active Medications Generic Name Dose Route Start Last Admin Trade Name Pavan PRN Reason Stop Dose Admin Aspirin 81 mg 02/20/19 10:00 Asa - PO DAILY WIL Dopamine HCl 400,000 mcg/ 250 mls @ 4.62 mls/hr 02/19/19 13:45 02/19/19 15:37 Sodium Chloride IV 10 mcg/kg/min TITR WIL 23.13 mls/hr Titration Protocol 2 MCG/KG/MIN Insulin Aspart 1 vial 02/19/19 22:00 02/20/19 06:41 Novolog Vial Sliding Scale - SQ Not Given ACHS WIL Protocol Oxycodone HCl 30 mg 02/19/19 20:22 02/20/19 00:05 Roxicodone - PO 30 mg Q6H PRN Administration PAIN LEVEL 7 - 10 Pantoprazole Sodium 40 mg 02/19/19 19:00 02/19/19 21:16 Protonix - PO 40 mg DAILY WIL Administration Sodium Zirconium Cyclosilicate 10 gm 02/19/19 10:00 02/19/19 15:48 Lokelma PO 10 gm DAILY WIL Administration Tamsulosin HCl 0.4 mg 02/19/19 22:00 02/19/19 21:16 Flomax - PO 0.4 mg BID WIL Administration ASSESSMENT/PLAN: 62yo M with PMH of PAF, DM, BORJAS-cirrhosis on transplant list, with advanced sarcopenia, ascites (recent ascitic tap in [facility] on Sunday last week with 4L drained) and intermittent encephalopathy, Renal insufficiency (Cr-3.9 baseline, refused dialysis), CAD s/p 17 cardiac stents (last 10 years ago), Anemia, DHF, BPH admitted to ICU for bradycardia and hyperkalemia. CARDIO/VASC -Acute bradycardia following Afib with RVR; likely overdose of atenolol and/ or Cardizem -History of Diastolic HF, CAD s/p stents x17 -Given glucogon pushes and gtt, dopamine gtt -HR normalizing, on dopamine gtt -Troponinemia likely 2/2 demand -May receive IV NS 60mls/hr if not tolerating PO- D/W Dr Pritchett -Continue dopamine gtt- may titrate as needed -Hold atenolol and cardizem -Cardiac monitoring -ASA daily -Cardiology consulting -Calcium gluconate for hyperK NEURO -History of intermittent encephalopathy -Alert and oriented, has capacity -Will monitor GI -History of BORJAS, on transplant list -Ascitic tap last week with 3.5L drained [facility] -LFTs increasing since admission likely 2/2 shock liver -Will trend -DC hepatotoxic agents ENDO -H/o IDDM -Lantus 20U QHS, Novolog 20u BID -Insulin SS -BGMs -Hyperkalemia treated with D50/insulin, albuterol, kayaxelate, lasix, calcium gluconate -Will trend RENAL -H/o CKD, Hepatorenal syndrome -Cr at baseline, could be elevated due to hypoperfusion -K still elevated; kayaxelate -Cont dopamine drip, iv fluid as needed -Pt refusing dialysis -Renal (Dr. Balbuena) consulting FEN -No fluid boluses -Renal diet -K Q4H PPx -Heparin sq -Protonix Dispo: Will continue to monitor in ICU Visit type - Emergency Visit Emergency Visit: Yes ED Registration Date: 02/19/19 Care time: The patient presented to the Emergency Department on the above date and was hospitalized for further evaluation of their emergent condition. - New Patient This patient is new to me today: Yes Date on this admission: 02/20/19 - Critical Care Critical Care patient: Yes Total Critical Care Time (in minutes): 35 Critical Care Statement: The care of this patient involved high complexity decision making to prevent further life threatening deterioration of the patient 's condition and/or to evaluate & treat vital organ system(s) failure or risk of failure.
[2019-02-20 08:47] LABS: ALBUMIN 2.8 g/dl (3.4-5.0); BILIRUBIN,TOTAL 1.1 mg/dL (0.2-1); CALCIUM 8.8 mg/dL (8.5-10.1); CREATININE 4.3 mg/dL (0.55-1.3); MAGNESIUM 2.6 mg/dL (1.8-2.4); POTASSIUM 5.6 mmol/L (3.5-5.1); TOT PROT 6.9 g/dl (6.4-8.2)
[2019-02-20] MEDS ORDERED: SODIUM POLYSTYRENE SULFONATE 15 GM/60 ML BOTTLE PO ONE ×2 (08:53→22:22)
--- NOTE | 2019-02-20 09:47 | PN ---
Progress Note, Physician Chief Complaint: Pt A&Ox3; no chest pain, dyuspnea, dizziness, palpitations. Insists he wants to go home "today". 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 Patient woke up this morning with palpitations and noted an elevated HR up to 140s then took 50mg of atenol x3 without relief. He then took cardizem (which he takes as needed) x 3 then started to feel faint and dizzy, last dose 8.30am. His blood pressure at home was non recordable then they came to the ED. In the ED, patient was bradycardic to 25, with EKG showing junctional bradycardia, Twave inversions v1-v4, Q waves v4-v6. Patient reported he normally has a high potassium (spironolactone on home med list), and pending CMP levels was given albuterol nebs-0.083%, Calcium gluconate x 3, dopamine drip , atropine-0.4, glucagon x4, 500mls NS, zofran. Patient was hypotensive and could not receive lasix. Nephrology was contacted by ED and patient declined dialysis again, but a potassium binder was ordered. Cardiology was consulted by ED- Dr Mireles and he did not recommend the patient for transvenous pacing at this time. Patient will be monitored in ICU for bradycardia and hyperkalemia. PMH alcoholic crirhossis -ESLD awaiting transplant at [facility]. Hsp ASHD as per HPI - 17 PCI's CHF diastolic CRI DM Left hip fracture s/p failed surgery repair January 2015 paroxysmal A. Fib Portal Hypertension - Current Medication List Current Medications: Active Medications Aspirin (Asa -) 81 mg PO DAILY WIL Dopamine HCl 400,000 mcg/ (Sodium Chloride) 250 mls @ 4.62 mls/hr IV TITR [facility]; Protocol Last Titration: 02/19/19 15:37 Dose: 10 mcg/kg/min, 23.13 mls/hr Insulin Aspart (Novolog Vial Sliding Scale -) 1 vial SQ ACHS [facility]; Protocol Last Admin: 02/20/19 06:41 Dose: Not Given Oxycodone HCl (Roxicodone -) 30 mg PO Q6H PRN PRN Reason: PAIN LEVEL 7 - 10 Last Admin: 02/20/19 00:05 Dose: 30 mg Pantoprazole Sodium (Protonix -) 40 mg PO DAILY [facility] Last Admin: 02/19/19 21:16 Dose: 40 mg Sodium Zirconium Cyclosilicate (Lokelma) 10 gm PO DAILY [facility] Last Admin: 02/19/19 15:48 Dose: 10 gm Tamsulosin HCl (Flomax -) 0.4 mg PO BID [facility] Last Admin: 02/19/19 21:16 Dose: 0.4 mg - Objective Vital Signs: Vital Signs Temperature 97.8 F 02/20/19 06:00 Pulse Rate 69 02/20/19 07:00 Respiratory Rate 15 02/20/19 07:00 Blood Pressure 128/72 02/20/19 07:00 O2 Sat by Pulse Oximetry (%) 94 L 02/19/19 21:00 Constitutional: Yes: Anxious, Ashen, Thin Eyes: Yes: WNL HENT: Yes: WNL Labs: CBC, BMP 02/20/19 05:30 02/20/19 05:30 INR, PTT INR 1.61 (0.83-1.09) H 02/19/19 12:47 Problem List - Problems (1) ESRD (end stage renal disease) Code(s): N18.6 - END STAGE RENAL DISEASE (2) Hyperkalemia Code(s): E87.5 - HYPERKALEMIA (3) Hypotension Code(s): I95.9 - HYPOTENSION, UNSPECIFIED (4) Junctional bradycardia Assessment/Plan: Pt took "3 atenolols and 3 diltiazems" yesterday when he noticed he was in AF with RVR. Received glocagon; on IV dopamine. Now in NSR, HR80 bpm. K+ which was >7, is now 5.6 after glucose, calcium, Kayexalate. Plan to taper off dopamine. F/u electrolytes this afternoon. 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 Avoid dehydration. Pt refuses dialysis. Addendum: pt went into AF again this afternoon, with HR into the 130s bpm. Dopamine was decreased to 5 ucg, but pt became profoundly hypotensive when dopamine was decreased further. Will load with digoxin, then give maintenance dosing strength and intervals based on renal/hepatic dysfunction. Code(s): R00.1 - BRADYCARDIA, UNSPECIFIED (5) Anemia Code(s): D64.9 - ANEMIA, UNSPECIFIED Qualifiers: Anemia type: other cause Other causes of anemia: chronic disease, kidney (6) Ascites Code(s): R18.8 - OTHER ASCITES Qualifiers: Ascites type: other type Qualified Code(s): R18.8 - Other ascites (7) Atrial fibrillation Code(s): I48.91 - UNSPECIFIED ATRIAL FIBRILLATION Qualifiers: Atrial fibrillation type: paroxysmal Qualified Code(s): I48.0 - Paroxysmal atrial fibrillation (8) Cirrhosis of liver Assessment/Plan: As discussed with Dr. Pritchett, pt with likely "shock liver". Worsening LFTs; rising INR portends poor prognosis. Code(s): K74.60 - UNSPECIFIED CIRRHOSIS OF LIVER Qualifiers: Hepatic cirrhosis type: other cirrhosis Qualified Code(s): K74.69 - Other cirrhosis of liver (9) GERD (gastroesophageal reflux disease) Code(s): K21.9 - GASTRO-ESOPHAGEAL REFLUX DISEASE WITHOUT ESOPHAGITIS Qualifiers: Esophagitis presence: without esophagitis Qualified Code(s): K21.9 - Gastro -esophageal reflux disease without esophagitis (10) H/O heart artery stent Assessment/Plan: Hx.mutliple cooronary stents. Atypical chest pain this admission; TNI 0.04 x 2; EKG : AF, no acute STT changes. Code(s): Z95.5 - PRESENCE OF CORONARY ANGIOPLASTY IMPLANT AND GRAFT (11) Paroxysmal A-fib Assessment/Plan: see under Junctional bradycardia" Code(s): I48.0 - PAROXYSMAL ATRIAL FIBRILLATION (12) Weakness Code(s): R53.1 - WEAKNESS
[2019-02-20] MEDS ORDERED: ASPIRIN 81 MG CHEWABLE TABLETS PO SCH (10:00)
[2019-02-20] MEDS: TAMSULOSIN HCL 0.4 MG CAP PO SCH ×2 (10:23→22:04)
[2019-02-20] MEDS: PANTOPRAZOLE 40 MG TABLET (FP) PO SCH (10:23)
[2019-02-20] MEDS ORDERED: PT OWN MED DRAWER 7, Y5N ONE ×4 (10:29→13:03)
[2019-02-20] MEDS: SODIUM ZIRCONIUM CYCLOSILICATE (LOKELMA) 5 GM PACKET PO SCH (10:30)
--- NOTE | 2019-02-20 11:10 | PN ---
Progress Note (short form) - Note Progress Note: Pt's AST, ALT rising and INR was almost 2 yesterday. Bilirubin has been stable. I strongly suspect he has ischemic liver injury from the combination of low blood pressure and cardiac failure. I am concerned that his INR may be rising further. Reviewed with Dr Tripathi who agrees with temporarily holding his low dose aspirin until the liver condition stabilizes. Repeat INR ordered for today.
--- NOTE | 2019-02-20 11:17 | PN ---
Teaching Attending Note Name of Resident: Jessy De La Cruz ATTENDING PHYSICIAN STATEMENT I saw and evaluated the patient. I reviewed the resident's note and discussed the case with the resident. I agree with the resident's findings and plan as documented. SUBJECTIVE: Patient seen and examined in the ICU. Awake and alert. Remains on 10mcq Dopamine for hemodynamic support. Bradycardia has improved. Denies CP or SOB. Improving K+ level to 5.6. Intake & Output 02/17/19 02/18/19 02/19/19 02/20/19 23:59 23:59 23:59 23:59 Intake Total 663.3 1077.4 Output Total 0 250 Balance 663.3 827.4 Weight 133 lb 9.602 oz 145 lb 1.027 oz Last Vital Signs Temp Pulse Resp BP Pulse Ox 97.4 F L 79 13 119/93 94 L 02/20/19 08:00 02/20/19 10:00 02/20/19 10:00 02/20/19 10:00 02/20/19 09:00 Active Medications Dopamine HCl 400,000 mcg/ (Sodium Chloride) 250 mls @ 4.62 mls/hr IV TITR [facility]; Protocol Last Titration: 02/19/19 15:37 Dose: 10 mcg/kg/min, 23.13 mls/hr Insulin Aspart (Novolog Vial Sliding Scale -) 1 vial SQ ACHS [facility]; Protocol Last Admin: 02/20/19 06:41 Dose: Not Given Oxycodone HCl (Roxicodone -) 30 mg PO Q6H PRN PRN Reason: PAIN LEVEL 7 - 10 Last Admin: 02/20/19 00:05 Dose: 30 mg Pantoprazole Sodium (Protonix -) 40 mg PO DAILY [facility] Last Admin: 02/20/19 10:23 Dose: 40 mg Sodium Zirconium Cyclosilicate (Lokelma) 10 gm PO DAILY [facility] Last Admin: 02/19/19 15:48 Dose: 10 gm Tamsulosin HCl (Flomax -) 0.4 mg PO BID [facility] Last Admin: 02/20/19 10:23 Dose: 0.4 mg Gen: Awake and alert, NAD Heart: bradycardic, regular Lung: decreased breath sounds at the bases Abd: softly distended, +ascites Ext: no edema CHIEF CREDIT OFFICER: Non-focal Laboratory Results - last 24 hr 0502/19/19 02/19/19 12:47 12:47 12:47 WBC 10.1 H RBC 4.09 Hgb 10.0 L Hct 32.6 L MCV 79.6 L MCH 24.5 L MCHC 30.8 L RDW 23.8 H Plt Count 188 D MPV 13.1 H D Absolute Neuts (auto) 7.9 Neutrophils % 77.9 Lymphocytes % 5.8 L Monocytes % 15.8 H Eosinophils % 0.0 D Basophils % 0.5 Nucleated RBC % 0 Hypochromia 0 Platelet Estimate Normal Polychromasia 1+ Poikilocytosis 3+ Anisocytosis 1+ Microcytosis 1+ Macrocytosis 0 Target Cells 1+ Tear Drop Cells 1+ Ovalocytes 1+ Schistocytes 1+ PT with INR 19.10 H INR 1.61 H Sodium 131 L Potassium 6.9 H* Chloride 106 Carbon Dioxide 11 L Anion Gap 14 BUN 81 H Creatinine 4.1 H Est GFR (CKD-EPI)AfAm 16.79 Est GFR (CKD-EPI)NonAf 14.48 POC Glucometer Random Glucose 128 H Calcium 8.6 Phosphorus Magnesium Total Bilirubin 1.8 H AST 22 ALT 17 Alkaline Phosphatase 170 H Creatine Kinase 66 Troponin I 0.08 H Total Protein 7.2 Albumin 2.9 L Lipase 46 L 02/19/19 02/19/19 02/20/19 13:50 17:30 00:00 WBC RBC Hgb Hct MCV MCH MCHC RDW Plt Count MPV Absolute Neuts (auto) Neutrophils % Lymphocytes % Monocytes % Eosinophils % Basophils % Nucleated RBC % Hypochromia Platelet Estimate Polychromasia Poikilocytosis Anisocytosis Microcytosis Macrocytosis Target Cells Tear Drop Cells Ovalocytes Schistocytes PT with INR INR Sodium 132 L 135 L Potassium 7.1 H* 6.2 H* Chloride 104 105 Carbon Dioxide 13 L 16 L Anion Gap 15 13 BUN 83 H 91 H Creatinine 4.3 H 4.2 H Est GFR (CKD-EPI)AfAm 15.85 16.30 Est GFR (CKD-EPI)NonAf 13.67 14.07 POC Glucometer 133 Random Glucose 172 H 256 H Calcium 9.1 8.8 Phosphorus 5.6 H Magnesium 2.7 H Total Bilirubin 2.1 H 1.3 H AST 202 H 488 H ALT 68 H 161 H Alkaline Phosphatase 174 H 165 H Creatine Kinase Troponin I 0.06 H Total Protein 7.2 6.8 Albumin 3.0 L 2.8 L Lipase 02/20/19 02/20/19 02/20/19 05:30 05:30 06:10 WBC 10.6 H RBC 4.70 Hgb 11.7 Hct 35.8 MCV 76.2 L MCH 24.8 L MCHC 32.6 RDW 22.8 H Plt Count MPV 10.4 D Absolute Neuts (auto) 8.5 H Neutrophils % 80.2 Lymphocytes % 5.9 L Monocytes % 13.6 H Eosinophils % 0.0 Basophils % 0.3 Nucleated RBC % 0 Hypochromia Platelet Estimate Polychromasia Poikilocytosis Anisocytosis Microcytosis Macrocytosis Target Cells Tear Drop Cells Ovalocytes Schistocytes PT with INR INR Sodium 134 L Potassium 5.6 H Chloride 104 Carbon Dioxide 18 L Anion Gap 12 BUN 85 H Creatinine 4.3 H Est GFR (CKD-EPI)AfAm 15.85 Est GFR (CKD-EPI)NonAf 13.67 POC Glucometer 210 Random Glucose 226 H Calcium 8.8 Phosphorus Magnesium 2.6 H Total Bilirubin 1.1 H AST 1153 H ALT 342 H Alkaline Phosphatase 179 H Creatine Kinase Troponin I Total Protein 6.9 Albumin 2.8 L Lipase ASSESSMENT AND PLAN: Symptomatic Bradycardia Hyperkalemia Metabolic Acidosis Suspect overmedication with beta paty and carizem CKD Liver Cirrhosis Paroxysmal Atrial Fibrillation CAD +Troponins likely Demand Ischemia Transaminitis likely due to hypotension & hypoperfusion - Wean Dopamine drip - hold all AV erma agents - continue medical treatment of hyperkalemia - Renal eval - Aspiration precautions - Follow LFTs - ICU monitoring while on pressors Dr Dominguez Critical care time spent in reviewing chart, evaluating patient and formulating plan 36 min
[2019-02-20] MEDS ORDERED: DOPAMINE 400 MG/D5W - 400,000 MCG/250 ML INFUS.BAG IVPB ONE ×2 (11:41)
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
[2019-02-20 12:41] LABS: INR 2.12 (0.83-1.09); PROTHROMBIN TIME (PATIENT) 25.2 SEC (9.7-13.0)
[2019-02-20 13:08] LABS: CALCIUM 8.8 mg/dL (8.5-10.1); CREATININE 4.1 mg/dL (0.55-1.3); POTASSIUM 5.9 mmol/L (3.5-5.1)
--- NOTE | 2019-02-20 13:10 | EKG ---
Test Reason : Blood Pressure : / mmHG Vent. Rate : 095 BPM Atrial Rate : 277 BPM P-R Int : 000 ms QRS Dur : 086 ms QT Int : 360 ms P-R-T Axes : 000 -17 044 degrees QTc Int : 452 ms ATRIAL FIBRILLATION INFERIOR INFARCT , AGE UNDETERMINED ANTERIOR INFARCT (CITED ON OR BEFORE 30-JAN-2015) ABNORMAL ECG WHEN COMPARED WITH ECG OF 19-FEB-2019 21:51, ATRIAL FIBRILLATION HAS REPLACED SINUS RHYTHM VENT. RATE HAS INCREASED BY 35 BPM INFERIOR INFARCT IS NOW PRESENT Confirmed by GILA WELCH MD ([id number]) on 02/20/2019 1:09:58 PM Referred By: JASWINDER CHRISTOPHER DR Confirmed By:GILA WELCH MD
--- NOTE | 2019-02-20 13:12 | EKG ---
Test Reason : Blood Pressure : / mmHG Vent. Rate : 060 BPM Atrial Rate : 060 BPM P-R Int : 144 ms QRS Dur : 092 ms QT Int : 482 ms P-R-T Axes : -04 - 071 degrees QTc Int : 482 ms NORMAL SINUS RHYTHM LOW VOLTAGE QRS CANNOT RULE OUT ANTEROSEPTAL INFARCT (CITED ON OR BEFORE 30-JAN-2015) ABNORMAL ECG WHEN COMPARED WITH ECG OF 19-FEB-2019 15:11, NO SIGNIFICANT CHANGE WAS FOUND Confirmed by GILA WELCH MD ([id number]) on 02/20/2019 1:11:41 PM Referred By: Confirmed By:GILA WELCH MD
--- NOTE | 2019-02-20 13:14 | EKG ---
Test Reason : Blood Pressure : / mmHG Vent. Rate : 069 BPM Atrial Rate : 069 BPM P-R Int : 186 ms QRS Dur : 098 ms QT Int : 456 ms P-R-T Axes : 025 -01 074 degrees QTc Int : 488 ms NORMAL SINUS RHYTHM LOW VOLTAGE QRS CANNOT RULE OUT ANTEROSEPTAL INFARCT (CITED ON OR BEFORE 30-JAN-2015) ABNORMAL ECG WHEN COMPARED WITH ECG OF 19-FEB-2019 12:55, SINUS RHYTHM HAS REPLACED JUNCTIONAL RHYTHM VENT. RATE HAS INCREASED BY 30 BPM SERIAL CHANGES OF ANTEROSEPTAL INFARCT PRESENT Confirmed by GILA WELCH MD ([id number]) on 02/20/2019 1:14:33 PM Referred By: Confirmed By:GILA WELCH MD
--- NOTE | 2019-02-20 13:36 | PN ---
Progress Note, Physician Chief Complaint: patient seen and examined in icu HR in afib in 107-114 dopaminie 5g for BP support - Current Medication List Current Medications: Active Medications Dopamine HCl 400,000 mcg/ (Sodium Chloride) 250 mls @ 4.62 mls/hr IV TITR [facility]; Protocol Last Titration: 02/19/19 15:37 Dose: 10 mcg/kg/min, 23.13 mls/hr Insulin Aspart (Novolog Vial Sliding Scale -) 1 vial SQ ACHS [facility]; Protocol Last Admin: 02/20/19 12:10 Dose: 8 units Oxycodone HCl (Roxicodone -) 30 mg PO Q6H PRN PRN Reason: PAIN LEVEL 7 - 10 Last Admin: 02/20/19 00:05 Dose: 30 mg Pantoprazole Sodium (Protonix -) 40 mg PO DAILY [facility] Last Admin: 02/20/19 10:23 Dose: 40 mg Sodium Zirconium Cyclosilicate (Lokelma) 10 gm PO DAILY [facility] Last Admin: 02/19/19 15:48 Dose: 10 gm Tamsulosin HCl (Flomax -) 0.4 mg PO BID [facility] Last Admin: 02/20/19 10:23 Dose: 0.4 mg - Objective Vital Signs: Vital Signs Temperature 97.4 F L 02/20/19 08:00 Pulse Rate 79 02/20/19 10:00 Respiratory Rate 13 02/20/19 10:00 Blood Pressure 119/93 02/20/19 10:00 O2 Sat by Pulse Oximetry (%) 94 L 02/20/19 09:00 Constitutional: Yes: Calm Cardiovascular: Yes: Tachycardia, Pulse Irregular, S1, S2 Respiratory: Yes: CTA Bilaterally Gastrointestinal: Yes: Normal Bowel Sounds, Soft Edema: No Neurological: Yes: Alert, Oriented Labs: CBC, BMP 02/20/19 05:30 02/20/19 11:50 INR, PTT INR 2.12 (0.83-1.09) H 02/20/19 11:50 Problem List - Problems (1) Hypotension Assessment/Plan: icu monitoring BP is improving will taper off dopamine and monitor BP Code(s): I95.9 - HYPOTENSION, UNSPECIFIED (2) Junctional bradycardia Assessment/Plan: all AV erma agents stoped recieved glucagon Code(s): R00.1 - BRADYCARDIA, UNSPECIFIED (3) Hyperkalemia Assessment/Plan: refusing HD renal on board no aldactone monitor potassium- kayexalate Code(s): E87.5 - HYPERKALEMIA (4) Elevated LFTs Assessment/Plan: gi FU noted maybe secondary to low BP liver sono hold aspirin given increasing INR Code(s): R94.5 - ABNORMAL RESULTS OF LIVER FUNCTION STUDIES Assessment/Plan icu monitoring
[2019-02-20] MEDS: DOPAMINE HCL 400,000 MCG in SODIUM CHLORIDE 240 ML IV SCH (14:00)
[2019-02-20 14:07] VITALS: BMI 23.3
[2019-02-20] MEDS ORDERED: SODIUM CHLORIDE 250 ML IV STA ×2 (18:11→22:52)
--- NOTE | 2019-02-20 18:51 | PN ---
Progress Note (short form) - Note Progress Note: Pt now in rapid AF. Case d/w Dr Tripathi; to begin digoxin. INR has risen today, which is disturbing. Pt is alert, abd somewhat distended - - says he is constipated. Will order senna ii tabs po tonight. Monitor lfts, INR, CBC, CMP. If heart rate can be stabilized then one hopes that dopamine can be discontinued. If creatinine rises further would consider infusion of albumin. Will defer to Dr Balbuena. I have made it clear to the patient that I do not believe he will be ready for discharge tomorrow.
[2019-02-20 21:31] LABS: CALCIUM 8.5 mg/dL (8.5-10.1); CREATININE 4.3 mg/dL (0.55-1.3)
[2019-02-20] MEDS: SODIUM POLYSTYRENE SULFONATE 15 GM/60 ML BOTTLE PO SCH (22:01)
[2019-02-20] MEDS ORDERED: DEXTROSE 50%-WATER 25 GM/50 ML DISP.SYRIN IVPUSH ONE (22:52)
[2019-02-20] MEDS: SILVER SULFADIAZINE 1% TOP CREAM 50 GM JAR TP SCH (23:00)
[2019-02-20] MEDS ORDERED: DEXTROSE 50%-WATER - 25 GM/50 ML VIAL ONE (23:20)
[2019-02-21 01:19] LABS: CALCIUM 8.2 mg/dL (8.5-10.1); CREATININE 4.3 mg/dL (0.55-1.3); POTASSIUM 4.4 mmol/L (3.5-5.1)
[2019-02-21] MEDS: INSULIN SLIDING SCALE (NOVOLOG) 1 VIAL SQ SCH ×4 (06:18→22:27)
[2019-02-21] MEDS: DIGOXIN 0.5 MG/2 ML AMPUL IVPUSH SCH ×2 (06:18→13:45)
[2019-02-21 06:24] LABS: BASO % 0.1 % (0-2.0); EOS % 0.1 % (0-4.5); HEMATOCRIT 31.5 % (35.4-49); HEMOGLOBIN 10.2 GM/dL (11.7-16.9); LYMPH % 4.5 % (8-40); MCH 24.6 pg (25.7-33.7); MCHC 32.2 g/dl (32.0-35.9); MEAN CELL VOLUME 76.3 fl (80-96); MEAN PLT VOLUME 10.4 fl (7.5-11.1); MONO % 20.7 % (3.8-10.2); NEUT % 74.6 % (42.8-82.8); PLATELET COUNT 63 K/MM3 (134-434); RBC 4.13 M/mm3 (4.00-5.60)
[2019-02-21 06:33] LABS: INR 2.29 (0.83-1.09); PROTHROMBIN TIME (PATIENT) 27.3 SEC (9.7-13.0)
[2019-02-21 07:05] LABS: ALBUMIN 2.2 g/dl (3.4-5.0); CREATININE 4.1 mg/dL (0.55-1.3); MAGNESIUM 2.4 mg/dL (1.8-2.4); PHOSPHOROUS 4.8 mg/dL (2.5-4.9); POTASSIUM 4.5 mmol/L (3.5-5.1); TOT PROT 5.4 g/dl (6.4-8.2)
--- NOTE | 2019-02-21 07:44 | PN ---
Physical Exam: SUBJECTIVE: Patient seen and examined at bedside. Patient went into Afib with RVR, cardiology recommended digoxin to be given. Patient was given D50 and insulin to correct potassium. He is currently complaining of pain in the R forearm. Has been urinating and having bowel movements. Off of dopamine gtt. Denies other complaints. OBJECTIVE: Vital Signs Period Temp Pulse Resp BP Sys/Grant Pulse Ox Last 24 Hr 97.4 F-98.6 F 74-135 12-21 80-134/51-93 94-94 GENERAL: The patient is awake, alert, and fully oriented, in no acute distress. EYES: PERRL, extraocular movements intact, sclera anicteric, conjunctiva clear. No ptosis. LUNGS: Breath sounds equal, clear to auscultation bilaterally, no wheezes, no crackles, no accessory muscle use. HEART: tachycardia, S1, S2 without murmur, rub or gallop. ABDOMEN: Soft, nontender, distended, normoactive bowel sounds, no guarding, no rebound, no hepatosplenomegaly, no masses. EXTREMITIES: 2+ pulses, warm, well-perfused, 1+ edema in lower extremities. NEUROLOGICAL: Cranial nerves II through XII grossly intact. Normal speech, gait not observed. PSYCH: Normal mood, normal affect. Laboratory Results - last 24 hr 02/20/19 02/20/19 02/20/19 05:30 05:30 11:50 WBC RBC Hgb Hct MCV MCH MCHC RDW Plt Count 78 L D MPV Absolute Neuts (auto) Neutrophils % Lymphocytes % Monocytes % Eosinophils % Basophils % Nucleated RBC % Platelet Comment No clumping noted PT with INR 25.20 H INR 2.12 H Sodium 134 L Potassium 5.6 H Chloride 104 Carbon Dioxide 18 L Anion Gap 12 BUN 85 H Creatinine 4.3 H Est GFR (CKD-EPI)AfAm 15.85 Est GFR (CKD-EPI)NonAf 13.67 POC Glucometer Random Glucose 226 H Calcium 8.8 Phosphorus Magnesium 2.6 H Total Bilirubin 1.1 H AST 1153 H ALT 342 H Alkaline Phosphatase 179 H Troponin I Total Protein 6.9 Albumin 2.8 L 02/20/19 02/20/19 02/20/19 11:50 11:50 17:49 WBC RBC Hgb Hct MCV MCH MCHC RDW Plt Count MPV Absolute Neuts (auto) Neutrophils % Lymphocytes % Monocytes % Eosinophils % Basophils % Nucleated RBC % Platelet Comment PT with INR INR Sodium 134 L Potassium 5.9 H Chloride 104 Carbon Dioxide 18 L Anion Gap 12 BUN 91 H Creatinine 4.1 H Est GFR (CKD-EPI)AfAm 16.79 Est GFR (CKD-EPI)NonAf 14.48 POC Glucometer 331 246 Random Glucose 324 H* Calcium 8.8 Phosphorus Magnesium Total Bilirubin AST ALT Alkaline Phosphatase Troponin I Total Protein Albumin 02/20/19 02/20/19 02/20/19 20:30 20:30 21:59 WBC RBC Hgb Hct MCV MCH MCHC RDW Plt Count MPV Absolute Neuts (auto) Neutrophils % Lymphocytes % Monocytes % Eosinophils % Basophils % Nucleated RBC % Platelet Comment PT with INR INR Sodium 139 Potassium 6.0 H Chloride 108 H Carbon Dioxide 20 L Anion Gap 11 BUN 90 H Creatinine 4.3 H Est GFR (CKD-EPI)AfAm 15.85 Est GFR (CKD-EPI)NonAf 13.67 POC Glucometer 181 Random Glucose 177 H Calcium 8.5 Phosphorus Magnesium Total Bilirubin AST ALT Alkaline Phosphatase Troponin I 0.05 Total Protein Albumin 02/21/19 02/21/19 02/21/19 00:01 00:01 05:30 WBC 8.0 RBC 4.13 Hgb 10.2 L Hct 31.5 L MCV 76.3 L MCH 24.6 L MCHC 32.2 RDW 23.0 H Plt Count 63 L MPV 10.4 Absolute Neuts (auto) 6.0 Neutrophils % 74.6 Lymphocytes % 4.5 L D Monocytes % 20.7 H Eosinophils % 0.1 D Basophils % 0.1 Nucleated RBC % 0 Platelet Comment PT with INR INR Sodium 140 Potassium 4.4 Chloride 109 H Carbon Dioxide 18 L Anion Gap 13 BUN 87 H Creatinine 4.3 H Est GFR (CKD-EPI)AfAm 15.85 Est GFR (CKD-EPI)NonAf 13.67 POC Glucometer Random Glucose 150 H Calcium 8.2 L Phosphorus Magnesium Total Bilirubin AST ALT Alkaline Phosphatase Troponin I 0.04 Cancelled Total Protein Albumin 02/21/19 02/21/19 02/21/19 05:30 05:30 06:17 WBC RBC Hgb Hct MCV MCH MCHC RDW Plt Count MPV Absolute Neuts (auto) Neutrophils % Lymphocytes % Monocytes % Eosinophils % Basophils % Nucleated RBC % Platelet Comment PT with INR 27.30 H INR 2.29 H Sodium 139 Potassium 4.5 Chloride 108 H Carbon Dioxide 18 L Anion Gap 13 BUN 89 H Creatinine 4.1 H Est GFR (CKD-EPI)AfAm 16.79 Est GFR (CKD-EPI)NonAf 14.48 POC Glucometer 138 Random Glucose 145 H Calcium 8.0 L Phosphorus 4.8 Magnesium 2.4 Total Bilirubin 1.0 AST 572 H ALT 347 H Alkaline Phosphatase 183 H Troponin I 0.04 Total Protein 5.4 L Albumin 2.2 L Active Medications Generic Name Dose Route Start Last Admin Trade Name Freq PRN Reason Stop Dose Admin Digoxin 0.25 mg 02/20/19 18:45 02/21/19 06:18 Lanoxin Injection - IVPUSH 02/21/19 12:46 0.25 mg Q6H WIL Administration Dopamine HCl 400,000 mcg/ 250 mls @ 4.62 mls/hr 02/19/19 13:45 02/20/19 14:00 Sodium Chloride IV 5 mcg/kg/min TITR WIL 11.56 mls/hr Administration Protocol 2 MCG/KG/MIN Insulin Aspart 1 vial 02/19/19 22:00 02/21/19 06:18 Novolog Vial Sliding Scale - SQ Not Given ACHS WIL Protocol Oxycodone HCl 30 mg 02/19/19 20:22 02/20/19 23:31 Roxicodone - PO 30 mg Q6H PRN Administration PAIN LEVEL 7 - 10 Pantoprazole Sodium 40 mg 02/19/19 19:00 02/20/19 10:23 Protonix - PO 40 mg DAILY WIL Administration Silver Sulfadiazine 1 applic 02/20/19 23:00 02/20/19 23:00 Silvadene - TP 1 applic BID WIL Administration Sodium Polystyrene Sulfonate 30 gm 02/20/19 22:00 02/20/19 22:01 Kayexalate - PO Not Given BID WIL Sodium Zirconium Cyclosilicate 10 gm 02/19/19 10:00 02/20/19 10:30 Lokelma PO 10 gm DAILY WIL Administration Tamsulosin HCl 0.4 mg 02/19/19 22:00 02/20/19 22:04 Flomax - PO 0.4 mg BID WIL Administration ASSESSMENT/PLAN: 62yo M with PMH of PAF, DM, BORJAS-cirrhosis on transplant list, with advanced sarcopenia, ascites (recent ascitic tap in [facility] on Sunday last week with 4L drained) and intermittent encephalopathy, Renal insufficiency (Cr-3.9 baseline, refused dialysis), CAD s/p 17 cardiac stents (last 10 years ago), Anemia, DHF, BPH admitted to ICU for bradycardia and hyperkalemia. CARDIO/VASC -Acute bradycardia following Afib with RVR; likely overdose of atenolol and/ or Cardizem -History of Diastolic HF, CAD s/p stents x17 -Given glucogon pushes and gtt, dopamine gtt -Troponinemia likely 2/2 demand; trending down -Afib RVR; given digoxin 0.125mg IV x4 doses, will resume atenolol -Off of dopamine gtt -Resume atenolol -MAP >65 -Cardiac monitoring -ASA daily -Cardiology consulting NEURO -History of intermittent encephalopathy; likely 2/2 uremia and/or hepatic encephalopathy -Resume home dose of lactulose -Alert and oriented, has capacity -Will monitor GI -History of BORJAS, on transplant list -Ascitic tap last week with 3.5L drained at [facility] -LFTs increasing since admission likely 2/2 shock liver; trending down -US: cirrhotic liver with ascites -Resume lactulose -Will trend -May receive IV NS 60mls/hr if not tolerating PO- D/W Dr Pritchett HEME/ONC -Elevated INR, continues to rise likely 2/2 cirrhosis -Fall precautions -Vitamin K po -Hgb stable; will monitor ENDO -H/o IDDM -Lantus 20U QHS, Novolog 20u BID -Insulin SS -BGMs RENAL -H/o CKD, Hepatorenal syndrome -Cr at baseline, could be elevated due to hypoperfusion -Pt refusing dialysis -Renal (Dr. Balbuena) consulting FEN -Renal diet -Monitor lytes PPx -Heparin sq -Protonix Dispo: Stable for transfer to tele Visit type - Emergency Visit Emergency Visit: Yes ED Registration Date: 02/19/19 Care time: The patient presented to the Emergency Department on the above date and was hospitalized for further evaluation of their emergent condition. - New Patient This patient is new to me today: No - Critical Care Critical Care patient: Yes Total Critical Care Time (in minutes): 35 Critical Care Statement: The care of this patient involved high complexity decision making to prevent further life threatening deterioration of the patient 's condition and/or to evaluate & treat vital organ system(s) failure or risk of failure.
[2019-02-21] MEDS: oxyCODONE HCL 5 MG TABLET PO PRN (08:39)
[2019-02-21 10:14] LABS: ANISOCYTOSIS 2+; MACROCYTOSIS 0; OVALOCYTE 1+; PLATELET ESTIMATE DECREASED; TARGET CELLS 1+
[2019-02-21] MEDS: PANTOPRAZOLE 40 MG TABLET (FP) PO SCH (10:35)
[2019-02-21] MEDS: SILVER SULFADIAZINE 1% TOP CREAM 50 GM JAR TP SCH ×2 (10:35→22:18)
[2019-02-21] MEDS: SODIUM POLYSTYRENE SULFONATE 15 GM/60 ML BOTTLE PO SCH (10:35)
[2019-02-21] MEDS: TAMSULOSIN HCL 0.4 MG CAP PO SCH ×2 (10:35→22:18)
[2019-02-21] MEDS: SODIUM ZIRCONIUM CYCLOSILICATE (LOKELMA) 5 GM PACKET PO SCH (10:38)
[2019-02-21] MEDS ORDERED: ATENOLOL 50 MG TABLET (FP) PO SCH (11:00)
--- NOTE | 2019-02-21 11:30 | PN ---
Progress Note, Physician Chief Complaint: patient seen and examined awake wants to go home explained to him that he is not safe and not medically ready for dc home dopamin drip stopped BP holding in low 100 systolic range INR noted in 2 range vitamin K ordered - Current Medication List Current Medications: Active Medications Atenolol (Tenormin -) 50 mg PO DAILY [facility] Digoxin (Lanoxin Injection -) 0.25 mg IVPUSH Q6H [facility] Stop: 02/21/19 12:46 Last Admin: 02/21/19 06:18 Dose: 0.25 mg Dopamine HCl 400,000 mcg/ (Sodium Chloride) 250 mls @ 4.62 mls/hr IV TITR [facility]; Protocol Last Admin: 02/20/19 14:00 Dose: 5 mcg/kg/min, 11.56 mls/hr Insulin Aspart (Novolog Vial Sliding Scale -) 1 vial SQ ACHS [facility]; Protocol Last Admin: 02/21/19 06:18 Dose: Not Given Lactulose (Cephulac (Oral Use)) 0.03 gm PO TID [facility] Pantoprazole Sodium (Protonix -) 40 mg PO DAILY [facility] Last Admin: 02/21/19 10:35 Dose: 40 mg Phytonadione (Mephyton -) 5 mg PO ONCE ONE Stop: 02/21/19 11:18 Silver Sulfadiazine (Silvadene -) 1 applic TP BID [facility] Last Admin: 02/21/19 10:35 Dose: 1 applic Sodium Polystyrene Sulfonate (Kayexalate -) 30 gm PO BID [facility] Last Admin: 02/21/19 10:35 Dose: Not Given Sodium Zirconium Cyclosilicate (Lokelma) 10 gm PO DAILY [facility] Last Admin: 02/21/19 10:38 Dose: 10 gm Tamsulosin HCl (Flomax -) 0.4 mg PO BID [facility] Last Admin: 02/21/19 10:35 Dose: 0.4 mg - Objective Vital Signs: Vital Signs Temperature 97.8 F 02/21/19 02:00 Pulse Rate 114 H 02/21/19 08:00 Respiratory Rate 02/21/19 08:00 Blood Pressure 93/76 02/21/19 08:00 O2 Sat by Pulse Oximetry (%) 94 L 02/20/19 20:51 Constitutional: Yes: Calm, Thin Cardiovascular: Yes: Regular Rate and Rhythm, Tachycardia, S1, S2 Respiratory: Yes: CTA Bilaterally Gastrointestinal: Yes: Soft, Distention, Hernia Musculoskeletal: Yes: Other (hand tremors) Neurological: Yes: Alert, Oriented Labs: CBC, BMP 02/21/19 05:30 02/21/19 05:30 INR, PTT INR 2.29 (0.83-1.09) H 02/21/19 05:30 Problem List - Problems (1) Hypotension Assessment/Plan: dopamine taper off monitor tele floor Code(s): I95.9 - HYPOTENSION, UNSPECIFIED (2) Junctional bradycardia Assessment/Plan: all AV erma agents stoped recieved glucagon Code(s): R00.1 - BRADYCARDIA, UNSPECIFIED (3) Hyperkalemia Assessment/Plan: refusing HD renal on board no aldactone monitor potassium- kayexalate now potassium in 4.5 Code(s): E87.5 - HYPERKALEMIA (4) Elevated LFTs Assessment/Plan: alcoholic cirrhosis gi on board lactulose vitamin K for inc INR sonogram done shows echogenic liver coarse texture nodular suggestive of cirrhosis free fluid in all 4 abdominal quadrants -ascites Code(s): R94.5 - ABNORMAL RESULTS OF LIVER FUNCTION STUDIES (5) Afib Assessment/Plan: loaded with digoxin yesterday afternoon Code(s): I48.91 - UNSPECIFIED ATRIAL FIBRILLATION
--- NOTE | 2019-02-21 11:37 | PN ---
Teaching Attending Note Name of Resident: Jessy De La Cruz ATTENDING PHYSICIAN STATEMENT I saw and evaluated the patient. I reviewed the resident's note and discussed the case with the resident. I agree with the resident's findings and plan as documented. SUBJECTIVE: Patient seen and examined in the ICU. Awake and alert. Currently off Dopamine for hemodynamic support. Intermittent AFib with RVR noted. Denies CP or SOB. Appears slightly confused this AM of events overnight (received opiates a few hours ago). Intake & Output 02/18/19 02/19/19 02/20/19 02/21/19 23:59 23:59 23:59 23:59 Intake Total 663.3 1077.4 Output Total 0 750 Balance 663.3 327.4 Weight 133 lb 9.602 oz 145 lb Last Vital Signs Temp Pulse Resp BP Pulse Ox 97.6 F 113 H 12 90/58 L 96 02/21/19 09:00 02/21/19 10:00 02/21/19 10:00 02/21/19 10:00 02/21/19 09:00 Active Medications Atenolol (Tenormin -) 50 mg PO DAILY [facility] Digoxin (Lanoxin Injection -) 0.25 mg IVPUSH Q6H WIL Stop: 02/21/19 12:46 Last Admin: 02/21/19 06:18 Dose: 0.25 mg Dopamine HCl 400,000 mcg/ (Sodium Chloride) 250 mls @ 4.62 mls/hr IV TITR [facility]; Protocol Last Admin: 02/20/19 14:00 Dose: 5 mcg/kg/min, 11.56 mls/hr Insulin Aspart (Novolog Vial Sliding Scale -) 1 vial SQ ACHS [facility]; Protocol Last Admin: 02/21/19 06:18 Dose: Not Given Lactulose (Cephulac (Oral Use)) 0.03 gm PO TID [facility]IL Pantoprazole Sodium (Protonix -) 40 mg PO DAILY [facility] Last Admin: 02/21/19 10:35 Dose: 40 mg Phytonadione (Mephyton -) 5 mg PO ONCE ONE Stop: 02/21/19 11:18 Silver Sulfadiazine (Silvadene -) 1 applic TP BID [facility]IL Last Admin: 02/21/19 10:35 Dose: 1 applic Sodium Polystyrene Sulfonate (Kayexalate -) 30 gm PO BID [facility]IL Last Admin: 02/21/19 10:35 Dose: Not Given Sodium Zirconium Cyclosilicate (Lokelma) 10 gm PO DAILY [facility] Last Admin: 02/21/19 10:38 Dose: 10 gm Tamsulosin HCl (Flomax -) 0.4 mg PO BID [facility] Last Admin: 02/21/19 10:35 Dose: 0.4 mg Gen: Awake and alert, NAD Heart: bradycardic, regular Lung: decreased breath sounds at the bases Abd: softly distended, +ascites Ext: no edema INSTALLMENT DEALER: Non-focal Laboratory Results - last 24 hr 02/20/19 02/20/19 02/20/19 05:30 11:50 11:50 WBC RBC Hgb Hct MCV MCH MCHC RDW Plt Count 78 L D MPV Absolute Neuts (auto) Neutrophils % Neutrophils % (Manual) Band Neutrophils % Lymphocytes % Lymphocytes % (Manual) Monocytes % Monocytes % (Manual) Eosinophils % Eosinophils % (Manual) Basophils % Basophils % (Manual) Myelocytes % (Man) Promyelocytes % (Man) Blast Cells % (Manual) Nucleated RBC % Metamyelocytes Hypochromia Platelet Estimate Platelet Comment No clumping noted Polychromasia Poikilocytosis Anisocytosis Microcytosis Macrocytosis Spherocytes Target Cells Ovalocytes Meme Cells Schistocytes PT with INR 25.20 H INR 2.12 H Sodium 134 L Potassium 5.9 H Chloride 104 Carbon Dioxide 18 L Anion Gap 12 BUN 91 H Creatinine 4.1 H Est GFR (CKD-EPI)AfAm 16.79 Est GFR (CKD-EPI)NonAf 14.48 POC Glucometer Random Glucose 324 H* Calcium 8.8 Phosphorus Magnesium Total Bilirubin AST ALT Alkaline Phosphatase Troponin I Total Protein Albumin 02/20/19 02/20/19 02/20/19 11:50 17:49 20:30 WBC RBC Hgb Hct MCV MCH MCHC RDW Plt Count MPV Absolute Neuts (auto) Neutrophils % Neutrophils % (Manual) Band Neutrophils % Lymphocytes % Lymphocytes % (Manual) Monocytes % Monocytes % (Manual) Eosinophils % Eosinophils % (Manual) Basophils % Basophils % (Manual) Myelocytes % (Man) Promyelocytes % (Man) Blast Cells % (Manual) Nucleated RBC % Metamyelocytes Hypochromia Platelet Estimate Platelet Comment Polychromasia Poikilocytosis Anisocytosis Microcytosis Macrocytosis Spherocytes Target Cells Ovalocytes [place] Cells Schistocytes PT with INR INR Sodium 139 Potassium 6.0 H Chloride 108 H Carbon Dioxide 20 L Anion Gap 11 BUN 90 H Creatinine 4.3 H Est GFR (CKD-EPI)AfAm 15.85 Est GFR (CKD-EPI)NonAf 13.67 POC Glucometer 331 246 Random Glucose 177 H Calcium 8.5 Phosphorus Magnesium Total Bilirubin AST ALT Alkaline Phosphatase Troponin I Total Protein Albumin 02/20/19 02/20/19 02/21/19 20:30 21:59 00:01 WBC RBC Hgb Hct MCV MCH MCHC RDW Plt Count MPV Absolute Neuts (auto) Neutrophils % Neutrophils % (Manual) Band Neutrophils % Lymphocytes % Lymphocytes % (Manual) Monocytes % Monocytes % (Manual) Eosinophils % Eosinophils % (Manual) Basophils % Basophils % (Manual) Myelocytes % (Man) Promyelocytes % (Man) Blast Cells % (Manual) Nucleated RBC % Metamyelocytes Hypochromia Platelet Estimate Platelet Comment Polychromasia Poikilocytosis Anisocytosis Microcytosis Macrocytosis Spherocytes Target Cells Ovalocytes Meme Cells Schistocytes PT with INR INR Sodium 140 Potassium 4.4 Chloride 109 H Carbon Dioxide 18 L Anion Gap 13 BUN 87 H Creatinine 4.3 H Est GFR (CKD-EPI)AfAm 15.85 Est GFR (CKD-EPI)NonAf 13.67 POC Glucometer 181 Random Glucose 150 H Calcium 8.2 L Phosphorus Magnesium Total Bilirubin AST ALT Alkaline Phosphatase Troponin I 0.05 0.04 Total Protein Albumin 02/21/19 02/21/19 02/21/19 00:01 05:30 05:30 WBC 8.0 RBC 4.13 Hgb 10.2 L Hct 31.5 L MCV 76.3 L MCH 24.6 L MCHC 32.2 RDW 23.0 H Plt Count 63 L MPV 10.4 Absolute Neuts (auto) 6.0 Neutrophils % 74.6 Neutrophils % (Manual) 85.9 H Band Neutrophils % 1.0 Lymphocytes % 4.5 L D Lymphocytes % (Manual) 3.0 L D Monocytes % 20.7 H Monocytes % (Manual) 9 Eosinophils % 0.1 D Eosinophils % (Manual) 0.0 D Basophils % 0.1 Basophils % (Manual) 1.0 Myelocytes % (Man) 0 D Promyelocytes % (Man) 0 Blast Cells % (Manual) 0 Nucleated RBC % 0 Metamyelocytes 0 Hypochromia 0 Platelet Estimate Decreased Platelet Comment Present Polychromasia 1+ Poikilocytosis 2+ Anisocytosis 2+ Microcytosis 1+ Macrocytosis 0 Spherocytes 1+ Target Cells 1+ Ovalocytes 1+ [place] Cells 1+ Schistocytes 1+ PT with INR INR Sodium 139 Potassium 4.5 Chloride 108 H Carbon Dioxide 18 L Anion Gap 13 BUN 89 H Creatinine 4.1 H Est GFR (CKD-EPI)AfAm 16.79 Est GFR (CKD-EPI)NonAf 14.48 POC Glucometer Random Glucose 145 H Calcium 8.0 L Phosphorus 4.8 Magnesium 2.4 Total Bilirubin 1.0 AST 572 H ALT 347 H Alkaline Phosphatase 183 H Troponin I Cancelled 0.04 Total Protein 5.4 L Albumin 2.2 L 02/21/19 02/21/19 05:30 06:17 WBC RBC Hgb Hct MCV MCH MCHC RDW Plt Count MPV Absolute Neuts (auto) Neutrophils % Neutrophils % (Manual) Band Neutrophils % Lymphocytes % Lymphocytes % (Manual) Monocytes % Monocytes % (Manual) Eosinophils % Eosinophils % (Manual) Basophils % Basophils % (Manual) Myelocytes % (Man) Promyelocytes % (Man) Blast Cells % (Manual) Nucleated RBC % Metamyelocytes Hypochromia Platelet Estimate Platelet Comment Polychromasia Poikilocytosis Anisocytosis Microcytosis Macrocytosis Spherocytes Target Cells Ovalocytes Meme Cells Schistocytes PT with INR 27.30 H INR 2.29 H Sodium Potassium Chloride Carbon Dioxide Anion Gap BUN Creatinine Est GFR (CKD-EPI)AfAm Est GFR (CKD-EPI)NonAf POC Glucometer 138 Random Glucose Calcium Phosphorus Magnesium Total Bilirubin AST ALT Alkaline Phosphatase Troponin I Total Protein Albumin ASSESSMENT AND PLAN: Symptomatic Bradycardia Hyperkalemia Metabolic Acidosis Suspect overmedication with beta paty and carizem CKD Liver Cirrhosis Atrial Fibrillation with RVR CAD +Troponins likely Demand Ischemia Transaminitis likely due to hypotension & hypoperfusion - To discuss with Cardiology restarting rate control medications - Follow K+ level - Renal evaluation noted - Aspiration precautions - Follow LFTs: restart home meds - Cardiac Telemetry monitoring Dr Dominguez
[2019-02-21] MEDS ORDERED: PHYTONADIONE 5 MG TABLET PO ONE (12:30)
--- NOTE | 2019-02-21 13:19 | PN ---
Progress Note, Physician History of Present Illness: Pt seen and examined at bedside. He is asking to go home. He denies shortness of breath. - Current Medication List Current Medications: Active Medications Atenolol (Tenormin -) 50 mg PO DAILY [facility] Dopamine HCl 400,000 mcg/ (Sodium Chloride) 250 mls @ 4.62 mls/hr IV TITR [facility]; Protocol Last Admin: 02/20/19 14:00 Dose: 5 mcg/kg/min, 11.56 mls/hr Insulin Aspart (Novolog Vial Sliding Scale -) 1 vial SQ ACHS [facility]; Protocol Last Admin: 02/21/19 11:57 Dose: Not Given Lactulose (Cephulac (Oral Use)) 0.03 gm PO TID [facility] Pantoprazole Sodium (Protonix -) 40 mg PO DAILY [facility] Last Admin: 02/21/19 10:35 Dose: 40 mg Silver Sulfadiazine (Silvadene -) 1 applic TP BID [facility] Last Admin: 02/21/19 10:35 Dose: 1 applic Sodium Polystyrene Sulfonate (Kayexalate -) 30 gm PO BID [facility] Last Admin: 02/21/19 10:35 Dose: Not Given Sodium Zirconium Cyclosilicate (Lokelma) 10 gm PO DAILY [facility] Last Admin: 02/21/19 10:38 Dose: 10 gm Tamsulosin HCl (Flomax -) 0.4 mg PO BID [facility] Last Admin: 02/21/19 10:35 Dose: 0.4 mg - Objective Vital Signs: Vital Signs Temperature 97.6 F 02/21/19 09:00 Pulse Rate 113 H 02/21/19 10:00 Respiratory Rate 12 02/21/19 10:00 Blood Pressure 90/58 L 02/21/19 10:00 O2 Sat by Pulse Oximetry (%) 96 02/21/19 09:00 Constitutional: Yes: Calm Eyes: Yes: Conjunctiva Clear HENT: Yes: Atraumatic Neck: Yes: Supple Cardiovascular: Yes: S1, S2 Respiratory: Yes: On Nasal O2 Gastrointestinal: Yes: Soft, Ascites Genitourinary: Yes: WNL Musculoskeletal: Yes: WNL Extremities: Yes: WNL Edema: LLE: Trace, RLE: Trace Neurological: Yes: Oriented Psychiatric: Yes: Oriented Labs: CBC, BMP 02/21/19 05:30 02/21/19 05:30 INR, PTT INR 2.29 (0.83-1.09) H 02/21/19 05:30 Problem List - Problems (1) Hyperkalemia Code(s): E87.5 - HYPERKALEMIA (2) Hypotension Code(s): I95.9 - HYPOTENSION, UNSPECIFIED (3) Junctional bradycardia Code(s): R00.1 - BRADYCARDIA, UNSPECIFIED (4) CAD (coronary artery disease) Code(s): I25.10 - ATHSCL HEART DISEASE OF [place] CORONARY ARTERY W/O ANG PCTRS (5) CKD (chronic kidney disease) Code(s): N18.9 - CHRONIC KIDNEY DISEASE, UNSPECIFIED Qualifiers: Chronic kidney disease stage: stage 3 (moderate) Qualified Code(s): N18.3 - Chronic kidney disease, stage 3 (moderate) Assessment/Plan Current Medications Generic Name Dose Route Start Last Admin Trade Name Freq PRN Reason Stop Dose Admin Atenolol 50 mg 02/21/19 11:00 Tenormin - PO DAILY [facility] Dopamine HCl 400,000 mcg/ 250 mls @ 4.62 mls/hr 02/19/19 13:45 02/20/19 14:00 Sodium Chloride IV 5 mcg/kg/min TITR [facility]IL 11.56 mls/hr Administration Protocol 2 MCG/KG/MIN Insulin Aspart 1 vial 02/19/19 22:00 02/21/19 11:57 Novolog Vial Sliding Scale - SQ Not Given ACHS [facility] Protocol Lactulose 0.03 gm 02/21/19 14:00 Cephulac (Oral Use) PO TID [facility] Pantoprazole Sodium 40 mg 02/19/19 19:00 02/21/19 10:35 Protonix - PO 40 mg DAILY [facility] Administration Silver Sulfadiazine 1 applic 02/20/19 23:00 02/21/19 10:35 Silvadene - TP 1 applic BID [facility] Administration Sodium Polystyrene Sulfonate 30 gm 02/20/19 22:00 02/21/19 10:35 Kayexalate - PO Not Given BID [facility]IL Sodium Zirconium Cyclosilicate 10 gm 02/19/19 10:00 02/21/19 10:38 Lokelma PO 10 gm DAILY [facility] Administration Tamsulosin HCl 0.4 mg 02/19/19 22:00 02/21/19 10:35 Flomax - PO 0.4 mg BID WIL Administration Impression 1. CKD 2. TO 3. hyperkalemia 4. liver cirrhosis 5. ascites 6. pain med dependence 7. bph 8. change in mental status/confusion 9. failure to thrive 10. non-compliance 11. hypotension 12. seizure 13. DM 14. a-fib Plan - potassium is normal - monitor renal function - hold aldactone - pt off of dopamine - cardio for rate control - GI follow up, monitor LFTs
--- NOTE | 2019-02-21 13:27 | EKG ---
Test Reason : Blood Pressure : / mmHG Vent. Rate : 115 BPM Atrial Rate : 115 BPM P-R Int : 000 ms QRS Dur : 086 ms QT Int : 308 ms P-R-T Axes : 000 -23 -49 degrees QTc Int : 426 ms ATRIAL FIBRILLATION WITH RAPID VENTRICULAR RESPONSE INFERIOR INFARCT (CITED ON OR BEFORE 15-MAY-2018) ANTEROSEPTAL INFARCT (CITED ON OR BEFORE 30-JAN-2015) NONSPECIFIC ST ABNORMALITY Confirmed by MARYLU CANTU MD ([id number]) on 02/21/2019 1:27:20 PM Referred By: Confirmed By:MARYLU CANTU MD
--- NOTE | 2019-02-21 13:28 | PN ---
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 Patient woke up this morning with palpitations and noted an elevated HR up to 140s then took 50mg of atenol x3 without relief. He then took cardizem (which he takes as needed) x 3 then started to feel faint and dizzy, last dose 8.30am. His blood pressure at home was non recordable then they came to the ED. In the ED, patient was bradycardic to 25, with EKG showing junctional bradycardia, Twave inversions v1-v4, Q waves v4-v6. Patient reported he normally has a high potassium (spironolactone on home med list), and pending CMP levels was given albuterol nebs-0.083%, Calcium gluconate x 3, dopamine drip , atropine-0.4, glucagon x4, 500mls NS, zofran. Patient was hypotensive and could not receive lasix. Nephrology was contacted by ED and patient declined dialysis again, but a potassium binder was ordered. Cardiology was consulted by ED- Dr Mireles and he did not recommend the patient for transvenous pacing at this time. Patient will be monitored in ICU for bradycardia and hyperkalemia. PMH alcoholic crirhossis -ESLD awaiting transplant at [facility]. Hsp ASHD as per HPI - 17 PCI's CHF diastolic CRI DM Left hip fracture s/p failed surgery repair January 2015 paroxysmal A. Fib Portal Hypertension - Current Medication List Current Medications: Active Medications Atenolol (Tenormin -) 50 mg PO DAILY [facility]IL Dopamine HCl 400,000 mcg/ (Sodium Chloride) 250 mls @ 4.62 mls/hr IV TITR [facility]IL; Protocol Last Admin: 02/20/19 14:00 Dose: 5 mcg/kg/min, 11.56 mls/hr Insulin Aspart (Novolog Vial Sliding Scale -) 1 vial SQ ACHS [facility]; Protocol Last Admin: 02/21/19 11:57 Dose: Not Given Lactulose (Cephulac (Oral Use)) 0.03 gm PO TID [facility] Pantoprazole Sodium (Protonix -) 40 mg PO DAILY [facility] Last Admin: 02/21/19 10:35 Dose: 40 mg Silver Sulfadiazine (Silvadene -) 1 applic TP BID [facility] Last Admin: 02/21/19 10:35 Dose: 1 applic Sodium Polystyrene Sulfonate (Kayexalate -) 30 gm PO BID [facility] Last Admin: 02/21/19 10:35 Dose: Not Given Tamsulosin HCl (Flomax -) 0.4 mg PO BID [facility] Last Admin: 02/21/19 10:35 Dose: 0.4 mg - Objective Vital Signs: Vital Signs Temperature 97.6 F 02/21/19 09:00 Pulse Rate 113 H 02/21/19 10:00 Respiratory Rate 12 02/21/19 10:00 Blood Pressure 90/58 L 02/21/19 10:00 O2 Sat by Pulse Oximetry (%) 96 02/21/19 09:00 Eyes: Yes: WNL, Conjunctiva Clear, EOM Intact HENT: Yes: WNL, Atraumatic, Normocephalic Neck: Yes: WNL, Supple, Trachea Midline Cardiovascular: Yes: WNL, Pulse Irregular Respiratory: Yes: WNL, Regular, CTA Bilaterally Gastrointestinal: Yes: WNL, Normal Bowel Sounds Genitourinary: Yes: WNL Musculoskeletal: Yes: WNL Extremities: Yes: WNL Edema: No Integumentary: Yes: WNL Neurological: Yes: WNL, Alert, Oriented ...Motor Strength: WNL Psychiatric: Yes: WNL Labs: CBC, BMP 02/21/19 05:30 02/21/19 05:30 INR, PTT INR 2.29 (0.83-1.09) H 02/21/19 05:30 Assessment/Plan junctional bradycardia - symptomatic most likely due to beta blockers ca alba blockers overdose and hyperkalemia - resolved. Patient is in AF now CKD End stage liver disease PAF ASHD echo nl ef mild TNI elevation most likely due to demand ischemia and CKD Plan; cardiac meza stable to be followed as outpatient. cc time spent 35 min a
[2019-02-21] MEDS ORDERED: LACTULOSE 20 GM/30 ML UDC (FOR ORAL USE ONLY) PO SCH ×2 (14:00)
[2019-02-21] MEDS ORDERED: oxyCODONE HCL 5 MG TABLET PO ONE ×3 (16:21→22:45)
[2019-02-21] MEDS: DOPAMINE HCL 400,000 MCG in SODIUM CHLORIDE 240 ML IV SCH (17:32)
[2019-02-21] MEDS: LACTULOSE 20 GM/30 ML UDC (FOR ORAL USE ONLY) PO SCH ×2 (17:52→22:18)
--- NOTE | 2019-02-21 19:02 | PN ---
Progress Note (short form) - Note Progress Note: Pt alert, no longer on pressors, now in sinus rhythm. INR still climbing this a.m.; was given p.o. vitamin K. ALT has leveled off, still quite high. Pt continues to complain about hospitalization and wants to be discharged. To check INR tomorrow. If INR comes down somewhat I have no objection to discharge but if INR is still rising then I believe he needs to stay until his hepatic biosynthetic function recovers.
[2019-02-21] MEDS ORDERED: PT OWN MED DRAWER 7, Y5N ONE (21:37)
[2019-02-21] MEDS: RIFAXIMIN 550 MG TABLET (UD) PO SCH (22:18)
[2019-02-21] MEDS ORDERED: LIDOCAINE 5% TOPICAL PATCH TP ONE (22:44)
[2019-02-22] MEDS ORDERED: oxyCODONE HCL 5 MG TABLET PO ONE (00:50)
--- NOTE | 2019-02-22 00:53 | HOSP ---
Subjective - Review of Symptoms Events since last encounter: Hospitalist Encounter Notified by RN that the patient reports chest pain. Subjective: Arrived to bedside, patient is awake, alert and oriented. Patient reports having sharp midsternal CP, non-radiating- now resolved. He denies SOB or palpitations. Patient reports generalized bodyaches and lumbar pain. Patient requests his pain medication Oxycodone 30mg, which he's on for Chronic Pain. PE performed see EMR Plan Stat EKG Cardiovascular: Yes: Chest Pain Musculoskeletal: Yes: Back Pain, Joint Pain (Left Hip), Other (Generalized Bodyaches) Physical Examination Vital Signs: Vital Signs Temperature 98.2 F 02/21/19 18:00 Pulse Rate 74 02/21/19 20:00 Respiratory Rate 14 02/21/19 20:00 Blood Pressure 117/60 02/21/19 20:00 O2 Sat by Pulse Oximetry (%) 96 02/21/19 09:00 Constitutional: Yes: Cachectic, Mild Distress Eyes: Yes: Conjunctiva Clear, EOM Intact, PERRL HENT: Yes: WNL, Atraumatic, Normocephalic Neck: Yes: WNL, Supple, Trachea Midline Cardiovascular: Yes: Regular Rate and Rhythm, S1, S2, Other (CP reproducible on palpation to midsternum) Respiratory: Yes: Regular, CTA Bilaterally Gastrointestinal: Yes: Soft, Ascites, Hepatomegaly, Hypoactive Bowel Sounds. No : Tenderness, Tenderness, Epigastrium Edema: Yes Edema: LLE: Trace, RLE: Trace Peripheral Pulses WNL: Yes Integumentary: Yes: Pressure Ulcer, Venous Stasis Changes Wound/Incision: Yes: Other (dressing to B/L heel non-adhesive dressing to anterior RLE) Neurological: Yes: Alert, Oriented, Cran Nerves II-XII Intact Psychiatric: Yes: Alert Labs: CBC, BMP 02/21/19 05:30 02/21/19 05:30 Laboratory Results - last 24 hr 02/21/19 02/21/19 02/21/19 05:30 05:30 05:30 WBC 8.0 RBC 4.13 Hgb 10.2 L Hct 31.5 L MCV 76.3 L MCH 24.6 L MCHC 32.2 RDW 23.0 H Plt Count 63 L MPV 10.4 Absolute Neuts (auto) 6.0 Neutrophils % 74.6 Neutrophils % (Manual) 85.9 H Band Neutrophils % 1.0 Lymphocytes % 4.5 L D Lymphocytes % (Manual) 3.0 L D Monocytes % 20.7 H Monocytes % (Manual) 9 Eosinophils % 0.1 D Eosinophils % (Manual) 0.0 D Basophils % 0.1 Basophils % (Manual) 1.0 Myelocytes % (Man) 0 D Promyelocytes % (Man) 0 Blast Cells % (Manual) 0 Nucleated RBC % 0 Metamyelocytes 0 Hypochromia 0 Platelet Estimate Decreased Platelet Comment Present Polychromasia 1+ Poikilocytosis 2+ Anisocytosis 2+ Microcytosis 1+ Macrocytosis 0 Spherocytes 1+ Target Cells 1+ Ovalocytes 1+ Meme Cells 1+ Schistocytes 1+ PT with INR 27.30 H INR 2.29 H Sodium 139 Potassium 4.5 Chloride 108 H Carbon Dioxide 18 L Anion Gap 13 BUN 89 H Creatinine 4.1 H Est GFR (CKD-EPI)AfAm 16.79 Est GFR (CKD-EPI)NonAf 14.48 POC Glucometer Random Glucose 145 H Calcium 8.0 L Phosphorus 4.8 Magnesium 2.4 Total Bilirubin 1.0 AST 572 H ALT 347 H Alkaline Phosphatase 183 H Troponin I 0.04 Total Protein 5.4 L Albumin 2.2 L 02/21/19 02/21/19 02/21/19 06:17 11:46 17:58 WBC RBC Hgb Hct MCV MCH MCHC RDW Plt Count MPV Absolute Neuts (auto) Neutrophils % Neutrophils % (Manual) Band Neutrophils % Lymphocytes % Lymphocytes % (Manual) Monocytes % Monocytes % (Manual) Eosinophils % Eosinophils % (Manual) Basophils % Basophils % (Manual) Myelocytes % (Man) Promyelocytes % (Man) Blast Cells % (Manual) Nucleated RBC % Metamyelocytes Hypochromia Platelet Estimate Platelet Comment Polychromasia Poikilocytosis Anisocytosis Microcytosis Macrocytosis Spherocytes Target Cells Ovalocytes Crozet Cells Schistocytes PT with INR INR Sodium Potassium Chloride Carbon Dioxide Anion Gap BUN Creatinine Est GFR (CKD-EPI)AfAm Est GFR (CKD-EPI)NonAf POC Glucometer 138 141 305 Random Glucose Calcium Phosphorus Magnesium Total Bilirubin AST ALT Alkaline Phosphatase Troponin I Total Protein Albumin 02/21/19 22:26 WBC RBC Hgb Hct MCV MCH MCHC RDW Plt Count MPV Absolute Neuts (auto) Neutrophils % Neutrophils % (Manual) Band Neutrophils % Lymphocytes % Lymphocytes % (Manual) Monocytes % Monocytes % (Manual) Eosinophils % Eosinophils % (Manual) Basophils % Basophils % (Manual) Myelocytes % (Man) Promyelocytes % (Man) Blast Cells % (Manual) Nucleated RBC % Metamyelocytes Hypochromia Platelet Estimate Platelet Comment Polychromasia Poikilocytosis Anisocytosis Microcytosis Macrocytosis Spherocytes Target Cells Ovalocytes Crozet Cells Schistocytes PT with INR INR Sodium Potassium Chloride Carbon Dioxide Anion Gap BUN Creatinine Est GFR (CKD-EPI)AfAm Est GFR (CKD-EPI)NonAf POC Glucometer 213 Random Glucose Calcium Phosphorus Magnesium Total Bilirubin AST ALT Alkaline Phosphatase Troponin I Total Protein Albumin Current Medications Generic Name Dose Route Start Last Admin Trade Name Freq PRN Reason Stop Dose Admin Insulin Aspart 1 vial 02/21/19 22:00 02/21/19 22:27 Novolog Vial Sliding Scale - SQ 4 units ACHS WIL Administration Protocol Lactulose 20 gm 02/21/19 14:00 02/21/19 22:18 Cephulac (Oral Use) PO 20 gm TID WIL Administration Metoprolol Succinate 50 mg 02/22/19 10:00 Toprol Xl - PO DAILY WIL Miscellaneous 1 each 02/22/19 11:00 Lidoderm Patch Removal MC 02/22/19 11:01 DAILY@1100 WIL Pantoprazole Sodium 40 mg 02/22/19 10:00 Protonix - PO DAILY WIL Rifaximin 550 mg 02/21/19 22:00 02/21/19 22:18 Xifaxan - PO 550 mg BID WIL Administration Silver Sulfadiazine 1 applic 02/21/19 22:00 02/21/19 22:18 Silvadene - TP 1 applic BID WIL Administration Tamsulosin HCl 0.4 mg 02/21/19 22:00 02/21/19 22:18 Flomax - PO 0.4 mg BID WIL Administration Hospitalist Encounter Assessment: This is a 63 y/o man with a PMHx of PAF, (on Atenolol and occasional Cardizem), CAD s/p 17 cardiac stents (last 10 years ago), DM, BORJAS-Cirrhosis on transplant list, with advanced Sarcopenia, Ascites (recent ascitic tap in [facility] on Sunday last week with 4L drained) and Intermittent Encephalopathy, progressive Renal Insufficiency (Cr-3.9 baseline, refused dialysis), Anemia, DHF , BPH. Admitted to the ICU and now downgraded to Telemetry for Junctional Bradycardia secondary to Accidental Overdose of CCB and BB, Electrolyte Imbalance. Outcome: EKG reviewed no acute changes compared to prior study Per patient, CP resolved Will order Oxycodone 15mg now Addendum: Notified by the primary RN that the patient reports palpitations and SOB PE: const- alert, oriented, card- S1, S2, no MGR, lungs- CTAB, no tachypnea, no accessory muscles- abd- soft distention, ascites EKG ordered- reviewed NSR no acute changes Recommendations/Interventions: Consider Psych consult for Anxiety and Depression Consider Pain Management and Furniture Stainer secondary to Opioid Dependence Critical Care Total Critical Care Time (in minutes): 45 Critical Care Statement: The care of this patient involved high complexity decision making to prevent further life threatening deterioration of the patient 's condition and/or to evaluate & treat vital organ system(s) failure or risk of failure.
[2019-02-22] MEDS: INSULIN SLIDING SCALE (NOVOLOG) 1 VIAL SQ SCH ×2 (06:25→11:10)
[2019-02-22] MEDS ORDERED: PT OWN MED DRAWER 7, Y5N ONE ×2 (06:30→09:00)
[2019-02-22 07:31] LABS: INR 2.19 (0.83-1.09)
[2019-02-22 08:09] LABS: ALBUMIN 2.2 g/dl (3.4-5.0); MAGNESIUM 2.4 mg/dL (1.8-2.4); PHOSPHOROUS 5.1 mg/dL (2.5-4.9); POTASSIUM 4.2 mmol/L (3.5-5.1); TOT PROT 5.4 g/dl (6.4-8.2)
--- NOTE | 2019-02-22 09:03 | PN ---
Progress Note, Physician Chief Complaint: Events noted Coverage for Dr. Elder History of Present Illness: Patient was seen and examined. Awake and alert. Chart was reviewed Denies chest pain, SOB or palpitations - Current Medication List Current Medications: Active Medications Insulin Aspart (Novolog Vial Sliding Scale -) 1 vial SQ [facility]; Protocol Last Admin: 02/22/19 06:25 Dose: 2 units Lactulose (Cephulac (Oral Use)) 20 gm PO TID [facility] Last Admin: 02/21/19 22:18 Dose: 20 gm Metoprolol Succinate (Toprol Xl -) 50 mg PO DAILY [facility] Miscellaneous (Lidoderm Patch Removal) 1 each MC DAILY@1100 [facility] Stop: 02/22/19 11:01 Pantoprazole Sodium (Protonix -) 40 mg PO DAILY [facility] Rifaximin (Xifaxan -) 550 mg PO BID [facility] Last Admin: 02/21/19 22:18 Dose: 550 mg Silver Sulfadiazine (Silvadene -) 1 applic TP BID [facility] Last Admin: 02/21/19 22:18 Dose: 1 applic Tamsulosin HCl (Flomax -) 0.4 mg PO BID [facility] Last Admin: 02/21/19 22:18 Dose: 0.4 mg - Objective Vital Signs: Vital Signs Temperature 98.3 F 02/22/19 06:00 Pulse Rate 79 02/22/19 06:00 Respiratory Rate 18 02/22/19 06:00 Blood Pressure 143/78 02/22/19 06:00 O2 Sat by Pulse Oximetry (%) 100 02/21/19 21:00 Eyes: Yes: PERRL HENT: Yes: Atraumatic Neck: Yes: Supple Cardiovascular: Yes: Regular Rate and Rhythm, S1, S2 Respiratory: Yes: CTA Bilaterally Gastrointestinal: Yes: Normal Bowel Sounds, Soft. No: Tenderness Edema: No Additional Findings/Remarks: - Review of Systems Constitutional: denies: Chills, Fever Cardiovascular: reports: Chest Pain, (-) Shortness of Breath. denies: Palpitations Respiratory: denies SOB, SOB on Exertion. denies: Cough, Hemoptysis, Orthopnea , PND, Wheezing Gastrointestinal: denies: Abdominal Pain, Constipation, Diarrhea, Melena, Nausea , Rectal Bleeding, Vomiting Genitourinary: denies: Dysuria, Hematuria Musculoskeletal: denies: Back Pain, Joint Pain Neurological: denies: Dizziness, Headache, Seizure, Syncope Labs: CBC, BMP 02/22/19 06:13 INR, PTT INR 2.19 (0.83-1.09) H 02/22/19 06:13 Problem List - Problems (1) ESRD (end stage renal disease) Code(s): N18.6 - END STAGE RENAL DISEASE (2) Elevated LFTs Code(s): R94.5 - ABNORMAL RESULTS OF LIVER FUNCTION STUDIES (3) Hyperkalemia Code(s): E87.5 - HYPERKALEMIA (4) Junctional bradycardia Code(s): R00.1 - BRADYCARDIA, UNSPECIFIED (5) Anemia Code(s): D64.9 - ANEMIA, UNSPECIFIED Qualifiers: Anemia type: other cause Other causes of anemia: chronic disease, kidney (6) Atrial fibrillation Code(s): I48.91 - UNSPECIFIED ATRIAL FIBRILLATION Qualifiers: Atrial fibrillation type: paroxysmal Qualified Code(s): I48.0 - Paroxysmal atrial fibrillation (7) Benign essential hypertension Code(s): I10 - ESSENTIAL (PRIMARY) HYPERTENSION (8) CKD (chronic kidney disease) Code(s): N18.9 - CHRONIC KIDNEY DISEASE, UNSPECIFIED Qualifiers: Chronic kidney disease stage: stage 3 (moderate) Qualified Code(s): N18.3 - Chronic kidney disease, stage 3 (moderate) (9) Chronic combined systolic and diastolic heart failure, NYHA class 1 Code(s): I50.42 - CHRONIC COMBINED SYSTOLIC AND DIASTOLIC HRT FAIL (10) Cirrhosis Code(s): K74.60 - UNSPECIFIED CIRRHOSIS OF LIVER Assessment/Plan 1. CAD s/p PCI with 17 stents, angina pectoris, demand ischemia 2. Junctional bradycardia due to medication overdose, currently sinus bradycardia 3. CKD with hyperkalemia 4. PAF 5. End stage liver disease awaiting transplant, elevated LFT 6. History of HTN 7. ? Opioid dependence 8. ? Anxiety and depression 9. Thrombocytopenia ? etiology ? liver/spleen PLAN: 1. Currently on Toprol XL with caution. No use of Diltiazem and advise against self medication. May hold Toprol XL if HR is below 60 bpm. For BP and CP, may consider Amlodipine 5 mg QD if BP permits 2. K 4.2 and BUN 88, Cr 4.0 noted 3. Use of anticoagulation is limited due to presence of CKD and ESLD. Would consider use of ASA if not contraindicated 4. Monitor renal function and electrolytes 5. Follow up at [facility] as outpatient 6. Patient wants to go home, but not certain if he would be cleared for discharge in view of further medication management and diminishing platelet level 7. GI follow up and consider Hematology evaluation Shawn Gore MD
[2019-02-22] MEDS: TAMSULOSIN HCL 0.4 MG CAP PO SCH (09:13)
[2019-02-22] MEDS: RIFAXIMIN 550 MG TABLET (UD) PO SCH (09:13)
[2019-02-22] MEDS: SILVER SULFADIAZINE 1% TOP CREAM 50 GM JAR TP SCH (09:14)
[2019-02-22] MEDS ORDERED: PANTOPRAZOLE 40 MG TABLET (FP) PO SCH (10:00)
--- NOTE | 2019-02-22 10:39 | PN ---
Progress Note, Physician Chief Complaint: Hypotension Junctional Bradycardia Elevated LFT Thrombocytopenia History of Present Illness: Previous notes and events reviewed awake and alert NAD patient sts he wants to go home, informed patient of drop in PLT count to 63 and explained hematology will be consulted and patient is still adamant about being discharged Spoke with Dr Pritchett in regards to patient situation and patient is clear from GI perspective for discharge with periods of bradycardia HR drops to 50s pending Hematology consult, if cleared by heme will discharge - Current Medication List Current Medications: Active Medications Insulin Aspart (Novolog Vial Sliding Scale -) 1 vial SQ ACHS [facility]; Protocol Last Admin: 02/22/19 06:25 Dose: 2 units Lactulose (Cephulac (Oral Use)) 20 gm PO TID [facility] Last Admin: 02/21/19 22:18 Dose: 20 gm Metoprolol Succinate (Toprol Xl -) 50 mg PO DAILY [facility] Miscellaneous (Lidoderm Patch Removal) 1 each MC DAILY@1100 [facility] Stop: 02/22/19 11:01 Pantoprazole Sodium (Protonix -) 40 mg PO DAILY [facility] Last Admin: 02/22/19 09:13 Dose: 40 mg Rifaximin (Xifaxan -) 550 mg PO BID [facility] Last Admin: 02/22/19 09:13 Dose: 550 mg Silver Sulfadiazine (Silvadene -) 1 applic TP BID [facility] Last Admin: 02/22/19 09:14 Dose: 1 applic Tamsulosin HCl (Flomax -) 0.4 mg PO BID [facility] Last Admin: 02/22/19 09:13 Dose: 0.4 mg - Objective Vital Signs: Vital Signs Temperature 98.3 F 02/22/19 06:00 Pulse Rate 79 02/22/19 06:00 Respiratory Rate 18 02/22/19 06:00 Blood Pressure 143/78 02/22/19 06:00 O2 Sat by Pulse Oximetry (%) 100 02/21/19 21:00 Constitutional: Yes: No Distress, Calm Cardiovascular: Yes: Regular Rate and Rhythm Respiratory: Yes: Regular, CTA Bilaterally Gastrointestinal: Yes: Normal Bowel Sounds, Ascites Musculoskeletal: Yes: Muscle Weakness Extremities: Yes: WNL Edema: Yes Edema: LLE: 1+, RLE: 1+ Neurological: Yes: Alert, Oriented Psychiatric: Yes: Alert, Oriented Labs: CBC, BMP 02/22/19 06:13 INR, PTT INR 2.19 (0.83-1.09) H 02/22/19 06:13 Problem List - Problems (1) Afib Assessment/Plan: -tele monitoring -Metoprolol for rate control, hold if HR <60 -INR 2.19 -No current AC use Code(s): I48.91 - UNSPECIFIED ATRIAL FIBRILLATION (2) ESRD (end stage renal disease) Assessment/Plan: -renal on board -BUN/Cr 88/4.0 Code(s): N18.6 - END STAGE RENAL DISEASE (3) Elevated LFTs Assessment/Plan: -AST 239, ALT 240, Alk Phos 168 Code(s): R94.5 - ABNORMAL RESULTS OF LIVER FUNCTION STUDIES (4) Hyperkalemia Assessment/Plan: -resolved -K 4.2 -monitor electrolyte daily Code(s): E87.5 - HYPERKALEMIA (5) Hypotension Assessment/Plan: -tele monitoring -monitor BP Code(s): I95.9 - HYPOTENSION, UNSPECIFIED (6) Junctional bradycardia Assessment/Plan: -cardiollogy on board -hold Metoprolol if HR <60 bpm -tele monitor Code(s): R00.1 - BRADYCARDIA, UNSPECIFIED (7) Thrombocytopenia Assessment/Plan: -PLT 63 -hematology consult Code(s): D69.6 - THROMBOCYTOPENIA, UNSPECIFIED Assessment/Plan see problem list
--- NOTE | 2019-02-22 10:40 | PN ---
Progress Note, Physician History of Present Illness: Pt seen and examined at bedside. He is awake and alert. He is asking to go home. He denies shortness of breath. - Current Medication List Current Medications: Active Medications Insulin Aspart (Novolog Vial Sliding Scale -) 1 vial SQ ACHS [facility]; Protocol Last Admin: 02/22/19 06:25 Dose: 2 units Lactulose (Cephulac (Oral Use)) 20 gm PO TID [facility] Last Admin: 02/21/19 22:18 Dose: 20 gm Metoprolol Succinate (Toprol Xl -) 50 mg PO DAILY [facility] Miscellaneous (Lidoderm Patch Removal) 1 each MC DAILY@1100 [facility] Stop: 02/22/19 11:01 Pantoprazole Sodium (Protonix -) 40 mg PO DAILY [facility] Last Admin: 02/22/19 09:13 Dose: 40 mg Rifaximin (Xifaxan -) 550 mg PO BID [facility] Last Admin: 02/22/19 09:13 Dose: 550 mg Silver Sulfadiazine (Silvadene -) 1 applic TP BID [facility] Last Admin: 02/22/19 09:14 Dose: 1 applic Tamsulosin HCl (Flomax -) 0.4 mg PO BID [facility] Last Admin: 02/22/19 09:13 Dose: 0.4 mg - Objective Vital Signs: Vital Signs Temperature 98.3 F 02/22/19 06:00 Pulse Rate 79 02/22/19 06:00 Respiratory Rate 18 02/22/19 06:00 Blood Pressure 143/78 02/22/19 06:00 O2 Sat by Pulse Oximetry (%) 100 02/21/19 21:00 Constitutional: Yes: Calm, Cachectic Eyes: Yes: Conjunctiva Clear HENT: Yes: Atraumatic Neck: Yes: Supple Cardiovascular: Yes: S1, S2 Respiratory: Yes: CTA Bilaterally Gastrointestinal: Yes: Soft, Ascites Genitourinary: Yes: WNL Musculoskeletal: Yes: WNL Edema: Yes Edema: LLE: Trace, RLE: Trace Neurological: Yes: Oriented Psychiatric: Yes: Oriented Labs: CBC, BMP 02/22/19 06:13 INR, PTT INR 2.19 (0.83-1.09) H 02/22/19 06:13 Problem List - Problems (1) Hyperkalemia Code(s): E87.5 - HYPERKALEMIA (2) Hypotension Code(s): I95.9 - HYPOTENSION, UNSPECIFIED (3) Junctional bradycardia Code(s): R00.1 - BRADYCARDIA, UNSPECIFIED (4) CAD (coronary artery disease) Code(s): I25.10 - ATHSCL HEART DISEASE OF [place] CORONARY ARTERY W/O ANG PCTRS (5) CKD (chronic kidney disease) Code(s): N18.9 - CHRONIC KIDNEY DISEASE, UNSPECIFIED Qualifiers: Qualified Code(s): N18.3 - Chronic kidney disease, stage 3 (moderate) Assessment/Plan Current Medications Generic Name Dose Route Start Last Admin Trade Name Freq PRN Reason Stop Dose Admin Insulin Aspart 1 vial 02/21/19 22:00 02/22/19 06:25 Novolog Vial Sliding Scale - SQ 2 units ACHS [facility] Administration Protocol Lactulose 20 gm 02/21/19 14:00 02/21/19 22:18 Cephulac (Oral Use) PO 20 gm TID [facility] Administration Metoprolol Succinate 50 mg 02/22/19 10:00 Toprol Xl - PO DAILY [facility]IL Miscellaneous 1 each 02/22/19 11:00 Lidoderm Patch Removal MC 02/22/19 11:01 DAILY@1100 [facility] Pantoprazole Sodium 40 mg 02/22/19 10:00 02/22/19 09:13 Protonix - PO 40 mg DAILY [facility] Administration Rifaximin 550 mg 02/21/19 22:00 02/22/19 09:13 Xifaxan - PO 550 mg BID [facility]IL Administration Silver Sulfadiazine 1 applic 02/21/19 22:00 02/22/19 09:14 Silvadene - TP 1 applic BID [facility]IL Administration Tamsulosin HCl 0.4 mg 02/21/19 22:00 02/22/19 09:13 Flomax - PO 0.4 mg BID WIL Administration Impression 1. CKD 2. TO 3. hyperkalemia 4. liver cirrhosis 5. ascites 6. pain med dependence 7. bph 8. change in mental status/confusion 9. failure to thrive 10. non-compliance 11. hypotension 12. seizure 13. DM 14. a-fib 15. thrombocytopenia Plan - potassium stable - can restart lasix - monitor renal function - avoid aldactone for now - GI follow up - monitor platelets
[2019-02-22] MEDS ORDERED: LIDOCAINE PATCH REMOVAL MC SCH (11:00)
[2019-02-22 11:12] LABS: BASO % 0.2 % (0-2.0); EOS % 0.4 % (0-4.5); HEMATOCRIT 30.2 % (35.4-49); HEMOGLOBIN 9.6 GM/dL (11.7-16.9); LYMPH % 5.6 % (8-40); MCH 24.6 pg (25.7-33.7); MCHC 31.8 g/dl (32.0-35.9); MEAN CELL VOLUME 77.5 fl (80-96); MEAN PLT VOLUME 13.3 fl (7.5-11.1); MONO % 19.3 % (3.8-10.2); NEUT % 74.5 % (42.8-82.8); PLATELET COUNT 118 K/MM3 (134-434); RDW 23.2 % (11.9-15.9); WHITE BLOOD COUNT 6.1 K/mm3 (4.0-10.0)
[2019-02-22 12:00] LABS: PLATELET ESTIMATE DECREASED
[2019-02-22 14:09] VITALS: BP 105/50; PULSE 63; TEMP 97.7
--- NOTE | 2019-02-22 14:40 | DS ---
Physical Examination Vital Signs: Vital Signs Temperature 97.7 F 02/22/19 14:00 Pulse Rate 63 02/22/19 14:00 Respiratory Rate 20 02/22/19 14:00 Blood Pressure 105/50 L 02/22/19 14:00 O2 Sat by Pulse Oximetry (%) 98 02/22/19 09:20 Findings/Remarks: Patient is 63 y/o male with past medical history of Liver Cirrhosis, Hepatic Encephalopathy, ASHD, diastolic CHF, CAD, COPD, CRI, [place], DM, L hip fracture ( failed surgical repair), paroxysmal afib, HLD, portal HTN. Patient presented to ER with BB and CCB overdose. Became dizzy and weak after taking atenolol ( rx from cardio) and cardizem. Presented to ER with HR 25. Constitutional: Yes: No Distress, Calm Eyes: Yes: Conjunctiva Clear HENT: Yes: Atraumatic Cardiovascular: Yes: Bradycardia Respiratory: Yes: Regular, CTA Bilaterally Gastrointestinal: Yes: Normal Bowel Sounds, Soft, Ascites Musculoskeletal: Yes: Muscle Weakness Extremities: Yes: WNL Edema: Yes Edema: LLE: 1+, RLE: 1+ Neurological: Yes: Alert, Oriented Psychiatric: Yes: Alert, Oriented Labs: CBC, BMP 02/22/19 06:13 02/22/19 06:13 Discharge Summary Reason For Visit: JUNSTIONAL BRADYCARDIA Current Active Problems Afib (Acute) ESRD (end stage renal disease) (Acute) Elevated LFTs (Acute) Hyperkalemia (Acute) Hypotension (Acute) Junctional bradycardia (Acute) Hospital Course: see progress notes Laboratory Tests 02/19/19 02/19/19 02/19/19 12:47 12:47 12:47 WBC 10.1 H RBC 4.09 Hgb 10.0 L Hct 32.6 L MCV 79.6 L MCH 24.5 L MCHC 30.8 L RDW 23.8 H Plt Count 188 D MPV 13.1 H D Absolute Neuts (auto) 7.9 Neutrophils % 77.9 Neutrophils % (Manual) Band Neutrophils % Lymphocytes % 5.8 L Lymphocytes % (Manual) Monocytes % 15.8 H Monocytes % (Manual) Eosinophils % 0.0 D Eosinophils % (Manual) Basophils % 0.5 Basophils % (Manual) Myelocytes % (Man) Promyelocytes % (Man) Blast Cells % (Manual) Nucleated RBC % 0 Metamyelocytes Hypochromia 0 Platelet Estimate Normal Platelet Comment Polychromasia 1+ Poikilocytosis 3+ Anisocytosis 1+ Microcytosis 1+ Macrocytosis 0 Spherocytes Target Cells 1+ Tear Drop Cells 1+ Ovalocytes 1+ Meme Cells Schistocytes 1+ PT with INR 19.10 H INR 1.61 H Sodium 131 L Potassium 6.9 H* Chloride 106 Carbon Dioxide 11 L Anion Gap 14 BUN 81 H Creatinine 4.1 H Est GFR (CKD-EPI)AfAm 16.79 Est GFR (CKD-EPI)NonAf 14.48 POC Glucometer Random Glucose 128 H Calcium 8.6 Phosphorus Magnesium Total Bilirubin 1.8 H AST 22 ALT 17 Alkaline Phosphatase 170 H Creatine Kinase 66 Troponin I 0.08 H Total Protein 7.2 Albumin 2.9 L Lipase 46 L 02/19/19 02/19/19 02/20/19 13:50 17:30 00:00 WBC RBC Hgb Hct MCV MCH MCHC RDW Plt Count MPV Absolute Neuts (auto) Neutrophils % Neutrophils % (Manual) Band Neutrophils % Lymphocytes % Lymphocytes % (Manual) Monocytes % Monocytes % (Manual) Eosinophils % Eosinophils % (Manual) Basophils % Basophils % (Manual) Myelocytes % (Man) Promyelocytes % (Man) Blast Cells % (Manual) Nucleated RBC % Metamyelocytes Hypochromia Platelet Estimate Platelet Comment Polychromasia Poikilocytosis Anisocytosis Microcytosis Macrocytosis Spherocytes Target Cells Tear Drop Cells Ovalocytes Suches Cells Schistocytes PT with INR INR Sodium 132 L 135 L Potassium 7.1 H* 6.2 H* Chloride 104 105 Carbon Dioxide 13 L 16 L Anion Gap 15 13 BUN 83 H 91 H Creatinine 4.3 H 4.2 H Est GFR (CKD-EPI)AfAm 15.85 16.30 Est GFR (CKD-EPI)NonAf 13.67 14.07 POC Glucometer 133 Random Glucose 172 H 256 H Calcium 9.1 8.8 Phosphorus 5.6 H Magnesium 2.7 H Total Bilirubin 2.1 H 1.3 H AST 202 H 488 H ALT 68 H 161 H Alkaline Phosphatase 174 H 165 H Creatine Kinase Troponin I 0.06 H Total Protein 7.2 6.8 Albumin 3.0 L 2.8 L Lipase 02/20/19 02/20/19 02/20/19 05:30 05:30 06:10 WBC 10.6 H RBC 4.70 Hgb 11.7 Hct 35.8 MCV 76.2 L MCH 24.8 L MCHC 32.6 RDW 22.8 H Plt Count 78 L D MPV 10.4 D Absolute Neuts (auto) 8.5 H Neutrophils % 80.2 Neutrophils % (Manual) Band Neutrophils % Lymphocytes % 5.9 L Lymphocytes % (Manual) Monocytes % 13.6 H Monocytes % (Manual) Eosinophils % 0.0 Eosinophils % (Manual) Basophils % 0.3 Basophils % (Manual) Myelocytes % (Man) Promyelocytes % (Man) Blast Cells % (Manual) Nucleated RBC % 0 Metamyelocytes Hypochromia Platelet Estimate Platelet Comment No clumping noted Polychromasia Poikilocytosis Anisocytosis Microcytosis Macrocytosis Spherocytes Target Cells Tear Drop Cells Ovalocytes Suches Cells Schistocytes PT with INR INR Sodium 134 L Potassium 5.6 H Chloride 104 Carbon Dioxide 18 L Anion Gap 12 BUN 85 H Creatinine 4.3 H Est GFR (CKD-EPI)AfAm 15.85 Est GFR (CKD-EPI)NonAf 13.67 POC Glucometer 210 Random Glucose 226 H Calcium 8.8 Phosphorus Magnesium 2.6 H Total Bilirubin 1.1 H AST 1153 H ALT 342 H Alkaline Phosphatase 179 H Creatine Kinase Troponin I Total Protein 6.9 Albumin 2.8 L Lipase 02/20/19 02/20/19 02/20/19 11:50 11:50 11:50 WBC RBC Hgb Hct MCV MCH MCHC RDW Plt Count MPV Absolute Neuts (auto) Neutrophils % Neutrophils % (Manual) Band Neutrophils % Lymphocytes % Lymphocytes % (Manual) Monocytes % Monocytes % (Manual) Eosinophils % Eosinophils % (Manual) Basophils % Basophils % (Manual) Myelocytes % (Man) Promyelocytes % (Man) Blast Cells % (Manual) Nucleated RBC % Metamyelocytes Hypochromia Platelet Estimate Platelet Comment Polychromasia Poikilocytosis Anisocytosis Microcytosis Macrocytosis Spherocytes Target Cells Tear Drop Cells Ovalocytes Meme Cells Schistocytes PT with INR 25.20 H INR 2.12 H Sodium 134 L Potassium 5.9 H Chloride 104 Carbon Dioxide 18 L Anion Gap 12 BUN 91 H Creatinine 4.1 H Est GFR (CKD-EPI)AfAm 16.79 Est GFR (CKD-EPI)NonAf 14.48 POC Glucometer 331 Random Glucose 324 H* Calcium 8.8 Phosphorus Magnesium Total Bilirubin AST ALT Alkaline Phosphatase Creatine Kinase Troponin I Total Protein Albumin Lipase 02/20/19 02/20/19 02/20/19 17:49 20:30 20:30 WBC RBC Hgb Hct MCV MCH MCHC RDW Plt Count MPV Absolute Neuts (auto) Neutrophils % Neutrophils % (Manual) Band Neutrophils % Lymphocytes % Lymphocytes % (Manual) Monocytes % Monocytes % (Manual) Eosinophils % Eosinophils % (Manual) Basophils % Basophils % (Manual) Myelocytes % (Man) Promyelocytes % (Man) Blast Cells % (Manual) Nucleated RBC % Metamyelocytes Hypochromia Platelet Estimate Platelet Comment Polychromasia Poikilocytosis Anisocytosis Microcytosis Macrocytosis Spherocytes Target Cells Tear Drop Cells Ovalocytes Meme Cells Schistocytes PT with INR INR Sodium 139 Potassium 6.0 H Chloride 108 H Carbon Dioxide 20 L Anion Gap 11 BUN 90 H Creatinine 4.3 H Est GFR (CKD-EPI)AfAm 15.85 Est GFR (CKD-EPI)NonAf 13.67 POC Glucometer 246 Random Glucose 177 H Calcium 8.5 Phosphorus Magnesium Total Bilirubin AST ALT Alkaline Phosphatase Creatine Kinase Troponin I 0.05 Total Protein Albumin Lipase 02/20/19 02/21/19 02/21/19 21:59 00:01 00:01 WBC RBC Hgb Hct MCV MCH MCHC RDW Plt Count MPV Absolute Neuts (auto) Neutrophils % Neutrophils % (Manual) Band Neutrophils % Lymphocytes % Lymphocytes % (Manual) Monocytes % Monocytes % (Manual) Eosinophils % Eosinophils % (Manual) Basophils % Basophils % (Manual) Myelocytes % (Man) Promyelocytes % (Man) Blast Cells % (Manual) Nucleated RBC % Metamyelocytes Hypochromia Platelet Estimate Platelet Comment Polychromasia Poikilocytosis Anisocytosis Microcytosis Macrocytosis Spherocytes Target Cells Tear Drop Cells Ovalocytes Meme Cells Schistocytes PT with INR INR Sodium 140 Potassium 4.4 Chloride 109 H Carbon Dioxide 18 L Anion Gap 13 BUN 87 H Creatinine 4.3 H Est GFR (CKD-EPI)AfAm 15.85 Est GFR (CKD-EPI)NonAf 13.67 POC Glucometer 181 Random Glucose 150 H Calcium 8.2 L Phosphorus Magnesium Total Bilirubin AST ALT Alkaline Phosphatase Creatine Kinase Troponin I 0.04 Cancelled Total Protein Albumin Lipase 02/21/19 02/21/19 02/21/19 05:30 05:30 05:30 WBC 8.0 RBC 4.13 Hgb 10.2 L Hct 31.5 L MCV 76.3 L MCH 24.6 L MCHC 32.2 RDW 23.0 H Plt Count 63 L MPV 10.4 Absolute Neuts (auto) 6.0 Neutrophils % 74.6 Neutrophils % (Manual) 85.9 H Band Neutrophils % 1.0 Lymphocytes % 4.5 L D Lymphocytes % (Manual) 3.0 L D Monocytes % 20.7 H Monocytes % (Manual) 9 Eosinophils % 0.1 D Eosinophils % (Manual) 0.0 D Basophils % 0.1 Basophils % (Manual) 1.0 Myelocytes % (Man) 0 D Promyelocytes % (Man) 0 Blast Cells % (Manual) 0 Nucleated RBC % 0 Metamyelocytes 0 Hypochromia 0 Platelet Estimate Decreased Platelet Comment Present Polychromasia 1+ Poikilocytosis 2+ Anisocytosis 2+ Microcytosis 1+ Macrocytosis 0 Spherocytes 1+ Target Cells 1+ Tear Drop Cells Ovalocytes 1+ Meme Cells 1+ Schistocytes 1+ PT with INR 27.30 H INR 2.29 H Sodium 139 Potassium 4.5 Chloride 108 H Carbon Dioxide 18 L Anion Gap 13 BUN 89 H Creatinine 4.1 H Est GFR (CKD-EPI)AfAm 16.79 Est GFR (CKD-EPI)NonAf 14.48 POC Glucometer Random Glucose 145 H Calcium 8.0 L Phosphorus 4.8 Magnesium 2.4 Total Bilirubin 1.0 AST 572 H ALT 347 H Alkaline Phosphatase 183 H Creatine Kinase Troponin I 0.04 Total Protein 5.4 L Albumin 2.2 L Lipase 02/21/19 02/21/19 02/21/19 06:17 11:46 17:58 WBC RBC Hgb Hct MCV MCH MCHC RDW Plt Count MPV Absolute Neuts (auto) Neutrophils % Neutrophils % (Manual) Band Neutrophils % Lymphocytes % Lymphocytes % (Manual) Monocytes % Monocytes % (Manual) Eosinophils % Eosinophils % (Manual) Basophils % Basophils % (Manual) Myelocytes % (Man) Promyelocytes % (Man) Blast Cells % (Manual) Nucleated RBC % Metamyelocytes Hypochromia Platelet Estimate Platelet Comment Polychromasia Poikilocytosis Anisocytosis Microcytosis Macrocytosis Spherocytes Target Cells Tear Drop Cells Ovalocytes Meme Cells Schistocytes PT with INR INR Sodium Potassium Chloride Carbon Dioxide Anion Gap BUN Creatinine Est GFR (CKD-EPI)AfAm Est GFR (CKD-EPI)NonAf POC Glucometer 138 141 305 Random Glucose Calcium Phosphorus Magnesium Total Bilirubin AST ALT Alkaline Phosphatase Creatine Kinase Troponin I Total Protein Albumin Lipase 02/21/19 02/22/19 02/22/19 22:26 06:13 06:13 WBC 6.1 RBC 3.90 L Hgb 9.6 L Hct 30.2 L MCV 77.5 L MCH 24.6 L MCHC 31.8 L RDW 23.2 H Plt Count 118 L D MPV 13.3 H D Absolute Neuts (auto) 4.5 Neutrophils % 74.5 Neutrophils % (Manual) Band Neutrophils % Lymphocytes % 5.6 L D Lymphocytes % (Manual) Monocytes % 19.3 H Monocytes % (Manual) Eosinophils % 0.4 D Eosinophils % (Manual) Basophils % 0.2 Basophils % (Manual) Myelocytes % (Man) Promyelocytes % (Man) Blast Cells % (Manual) Nucleated RBC % 0 Metamyelocytes Hypochromia Platelet Estimate Decreased Platelet Comment Large platelets Polychromasia Poikilocytosis Anisocytosis Microcytosis Macrocytosis Spherocytes Target Cells Tear Drop Cells Ovalocytes Suches Cells Schistocytes PT with INR 26.00 H INR 2.19 H Sodium Potassium Chloride Carbon Dioxide Anion Gap BUN Creatinine Est GFR (CKD-EPI)AfAm Est GFR (CKD-EPI)NonAf POC Glucometer 213 Random Glucose Calcium Phosphorus Magnesium Total Bilirubin AST ALT Alkaline Phosphatase Creatine Kinase Troponin I Total Protein Albumin Lipase 02/22/19 02/22/19 02/22/19 06:13 06:24 11:08 WBC RBC Hgb Hct MCV MCH MCHC RDW Plt Count MPV Absolute Neuts (auto) Neutrophils % Neutrophils % (Manual) Band Neutrophils % Lymphocytes % Lymphocytes % (Manual) Monocytes % Monocytes % (Manual) Eosinophils % Eosinophils % (Manual) Basophils % Basophils % (Manual) Myelocytes % (Man) Promyelocytes % (Man) Blast Cells % (Manual) Nucleated RBC % Metamyelocytes Hypochromia Platelet Estimate Platelet Comment Polychromasia Poikilocytosis Anisocytosis Microcytosis Macrocytosis Spherocytes Target Cells Tear Drop Cells Ovalocytes Suches Cells Schistocytes PT with INR INR Sodium 138 Potassium 4.2 Chloride 108 H Carbon Dioxide 18 L Anion Gap 12 BUN 88 H Creatinine 4.0 H Est GFR (CKD-EPI)AfAm 17.29 Est GFR (CKD-EPI)NonAf 14.92 POC Glucometer 154 186 Random Glucose 155 H Calcium 8.0 L Phosphorus 5.1 H Magnesium 2.4 Total Bilirubin 1.0 AST 239 H ALT 240 H Alkaline Phosphatase 168 H Creatine Kinase Troponin I Total Protein 5.4 L Albumin 2.2 L Lipase Active Medications Generic Name Dose Route Start Last Admin Trade Name Freq PRN Reason Stop Dose Admin Insulin Aspart 1 vial 02/21/19 22:00 02/22/19 11:10 Novolog Vial Sliding Scale - SQ 2 units ACHS WIL Administration Protocol Lactulose 20 gm 02/21/19 14:00 02/21/19 22:18 Cephulac (Oral Use) PO 20 gm TID WIL Administration Metoprolol Succinate 50 mg 02/22/19 10:00 02/22/19 09:15 Toprol Xl - PO Not Given DAILY WIL Pantoprazole Sodium 40 mg 02/22/19 10:00 02/22/19 09:13 Protonix - PO 40 mg DAILY WIL Administration Rifaximin 550 mg 02/21/19 22:00 02/22/19 09:13 Xifaxan - PO 550 mg BID WIL Administration Silver Sulfadiazine 1 applic 02/21/19 22:00 02/22/19 09:14 Silvadene - TP 1 applic BID WIL Administration Tamsulosin HCl 0.4 mg 02/21/19 22:00 02/22/19 09:13 Flomax - PO 0.4 mg BID WIL Administration Condition: Stable - Instructions Diet, Activity, Other Instructions: follow up with PMD in 48hrs follow up with GI for elevated liver function tests follow up with Renal for elevated BUN/Cr follow up with [employer] Dr Mireles continue with medication as prescribed continue Aldactone return to ER if develop severe pain, respiratory distress, chest pain, AMS Referrals: Dario Mireles MD [Staff Physician] - Ricky Balbuena MD [Staff Physician] - Salazar Pritchett MD [Staff Physician] - Disposition: HOME - Home Medications Comprehensive Discharge Medication List: Ambulatory Orders Esomeprazole Mag Trihydrate [Nexium] 40 mg PO DAILY #0 capsule. 01/22/12 Insulin Glargine,Hum.rec.anlog [Lantus (10mL VIAL) -] 20 units SQ HS 08/17/14 Lactulose 30 mg PO TID 08/18/14 Oxycodone HCl [Roxicodone] 30 mg PO QID PRN 01/30/15 Insulin Aspart [Novolog Flexpen] 20 unit SQ BID PRN 10/30/15 Tamsulosin HCl [Flomax] 0.4 mg PO BID 05/16/18 Epoetin Miguel [Procrit] 20,000 unit IV WEEKLY 10/20/18 Aspirin [ASA -] 81 mg PO DAILY 02/19/19 Rifaximin [Xifaxan] 550 mg PO BID 02/21/19 Lidocaine Patch Removal [Lidoderm Patch Removal] 1 each MC DAILY@1100 #30 each 02/22/19 Metoprolol Succinate [Toprol XL -] 25 mg PO DAILY #30 tab.sr.24h 02/22/19 Silver Sulfadiazine 1% Top Cr [Silvadene -] 1 applic TP BID #1 jar 02/22/19
--- NOTE | 2019-02-22 15:29 | EKG ---
Test Reason : Blood Pressure : / mmHG Vent. Rate : 065 BPM Atrial Rate : 065 BPM P-R Int : 130 ms QRS Dur : 084 ms QT Int : 394 ms P-R-T Axes : 010 -18 024 degrees QTc Int : 409 ms NORMAL SINUS RHYTHM SEPTAL INFARCT (CITED ON OR BEFORE 30-JAN-2015) INFERIOR INFARCT (CITED ON OR BEFORE 15-MAY-2018) ABNORMAL ECG WHEN COMPARED WITH ECG OF 22-FEB-2019 00:18, QUESTIONABLE CHANGE IN INITIAL FORCES OF ANTERIOR LEADS Confirmed by MD Herminio, Saad ([id number]) on 02/22/2019 3:28:43 PM Referred By: Santo DOWNS QUALITY CONTROL ASSISTANT Confirmed By:Saad Durham MD
--- NOTE | 2019-02-22 15:29 | EKG ---
Test Reason : Blood Pressure : / mmHG Vent. Rate : 064 BPM Atrial Rate : 064 BPM P-R Int : 128 ms QRS Dur : 086 ms QT Int : 378 ms P-R-T Axes : 020 -18 037 degrees QTc Int : 389 ms NORMAL SINUS RHYTHM INFERIOR INFARCT (CITED ON OR BEFORE 15-MAY-2018) ANTEROSEPTAL INFARCT (CITED ON OR BEFORE 30-JAN-2015) ABNORMAL ECG WHEN COMPARED WITH ECG OF 21-FEB-2019 09:01, SINUS RHYTHM HAS REPLACED ATRIAL FIBRILLATION VENT. RATE HAS DECREASED BY 51 BPM NONSPECIFIC T WAVE ABNORMALITY NOW EVIDENT IN ANTERIOR LEADS Confirmed by MD Herminio, Saad ([id number]) on 02/22/2019 3:29:19 PM Referred By: Confirmed By:Saad Durham MD
--- NOTE | 2019-02-22 15:39 | EKG ---
Test Reason : Blood Pressure : / mmHG Vent. Rate : 128 BPM Atrial Rate : 144 BPM P-R Int : 000 ms QRS Dur : 086 ms QT Int : 326 ms P-R-T Axes : 000 -09 100 degrees QTc Int : 475 ms ATRIAL FIBRILLATION WITH RAPID VENTRICULAR RESPONSE INFERIOR INFARCT (CITED ON OR BEFORE 15-MAY-2018) ANTERIOR INFARCT (CITED ON OR BEFORE 30-JAN-2015) ABNORMAL ECG WHEN COMPARED WITH ECG OF 20-FEB-2019 11:15, SERIAL CHANGES OF ANTERIOR INFARCT PRESENT Confirmed by MD Herminio, Saad ([id number]) on 02/22/2019 3:38:59 PM Referred By: Confirmed By:Saad Durham MD
== END 2019-02-22 15:15 | disposition home or self-care (01) | DRG 918 ==
LOC: JER 12:00 → JERBED 14:57 → JICU 16:02 → J4S 02-21 20:14
PROVIDERS: ADMIT Internal Medicine; ATTEND Family Medicine
DX: T46.1X1A Poisoning by calcium-channel blockers, accidental (unintentional), initial encounter (principal); I85.00 Esophageal varices without bleeding; I24.8 Other forms of acute ischemic heart disease; F11.20 Opioid dependence, uncomplicated; N17.9 Acute kidney failure, unspecified; E87.2 Acidosis; R18.8 Other ascites; I13.0 Hypertensive heart and chronic kidney disease with heart failure and stage 1 through stage 4 chronic kidney disease, or unspecified chronic kidney disease; I50.30 Unspecified diastolic (congestive) heart failure; T44.7X1A Poisoning by beta-adrenoreceptor antagonists, accidental (unintentional), initial encounter; E11.22 Type 2 diabetes mellitus with diabetic chronic kidney disease; N18.3 Chronic kidney disease, stage 3 (moderate); R00.1 Bradycardia, unspecified; I25.10 Atherosclerotic heart disease of native coronary artery without angina pectoris; I48.0 Paroxysmal atrial fibrillation; E78.5 Hyperlipidemia, unspecified; I25.2 Old myocardial infarction; J44.9 Chronic obstructive pulmonary disease, unspecified; K21.9 Gastro-esophageal reflux disease without esophagitis; K59.00 Constipation, unspecified; M54.5 Low back pain; K72.90 Hepatic failure, unspecified without coma; E87.5 Hyperkalemia; I27.20 Pulmonary hypertension, unspecified; R94.5 Abnormal results of liver function studies; D64.9 Anemia, unspecified; F41.8 Other specified anxiety disorders; R56.9 Unspecified convulsions; R53.1 Weakness; D69.6 Thrombocytopenia, unspecified; R62.7 Adult failure to thrive; Z68.23 Body mass index [BMI] 23.0-23.9, adult; K74.69 Other cirrhosis of liver; I95.9 Hypotension, unspecified; N40.0 Benign prostatic hyperplasia without lower urinary tract symptoms; R40.4 Transient alteration of awareness; Z79.4 Long term (current) use of insulin; Z91.14 Patient's other noncompliance with medication regimen
CPT/HCPCS: 36415; 71045-TC-FY; 76700-TC; 80048; 80053; 82550; 82962; 83690; 83735; 84100; 84484; 85025; 85610; 93005; 93010; 93306-TC; 94640; 99285-25; J7030

== ENCOUNTER 2019-04-15 06:05 | Inpatient (IN) | payer BC, OTHER ==
[2019-04-15] MEDS ORDERED: METOPROLOL TARTRATE 5 MG/5 ML VIAL IVPUSH ONE (08:06)
--- NOTE | 2019-04-15 08:11 | PDOC ---
History of Present Illness - General Chief Complaint: Altered Mental Status Stated Complaint: AMS Time Seen by Provider: 04/15/19 07:42 History Source: Spouse Exam Limitations: Clinical Condition - History of Present Illness Initial Comments: 04/15/19 08:30 #[phone]. Remi Su is a 63M with PMH Afib, hepatic cirrhosis w/ encephalopathy, CRI 2 /2 hepatorenal syndrome, and COPD presenting with AMS and falls. Per patient's , was having diarrhea yesterday and went to the bathroom, where he fell and yelled for help. Possible head injury, unwitnessed. Since then , patient has been confused, no longer recognizes and son. 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 Normally gets pericentesis every 2 months, but last pericentesis at [facility] 5 days ago, now fluid overloaded to abdomen and legs again. reports increased jaundice, confusion, and increased appetite. She gave him 1/4 xanax for confusion/agitation, ineffective. Past History - Past Medical History Allergies/Adverse Reactions: Allergies Allergy/AdvReac Type Severity Reaction Status Date / Time No Known Drug Allergies Allergy Verified 02/19/19 12:12 Home Medications: Ambulatory Orders Esomeprazole Mag Trihydrate [Nexium] 40 mg PO DAILY #0 capsule. 01/22/12 Insulin Glargine,Hum.rec.anlog [Lantus (10mL VIAL) -] 20 units SQ HS 08/17/14 Lactulose 30 mg PO TID 08/18/14 Oxycodone HCl [Roxicodone] 30 mg PO QID PRN 01/30/15 Insulin Aspart [Novolog Flexpen] 20 unit SQ BID PRN 10/30/15 Tamsulosin HCl [Flomax] 0.4 mg PO BID 05/16/18 Epoetin Miguel [Procrit] 20,000 unit IV WEEKLY 10/20/18 Aspirin [ASA -] 81 mg PO DAILY 02/19/19 Rifaximin [Xifaxan] 550 mg PO BID 02/21/19 Lidocaine Patch Removal [Lidoderm Patch Removal] 1 each MC DAILY@1100 #30 each 02/22/19 Metoprolol Succinate [Toprol XL -] 25 mg PO DAILY #30 tab.sr.24h 02/22/19 Silver Sulfadiazine 1% Top Cr [Silvadene -] 1 applic TP BID #1 jar 02/22/19 Anemia: No Asthma: No Cancer: No Cardiac Disorders: Yes (17 cardiac stents) CVA: No COPD: No CHF: No DVT: No Dementia: No Diabetes: Yes (IDDM) Dialysis: (Kidney problems) GI Disorders: No Disorders: No HTN: Yes Hypercholesterolemia: Yes Kidney Stones: No Liver Disease: Yes (cirrhosis) Seizures: No Thyroid Disease: No - Surgical History Abdominal Surgery: No Appendectomy: Yes Cardiac Surgery: (, stents x17) Cholecystectomy: No Lung Surgery: No Neurologic Surgery: Yes (LAMINECTOMY 2012, L HIP X 2.) Orthopedic Surgery: No - Immunization History Td Vaccination: Yes TDAP Vaccination: Yes - Suicide/Smoking/Psychosocial Hx Smoking Status: No Smoking History: Unknown if ever smoked Have you smoked in the past 12 months: No Number of Cigarettes Smoked Daily: 0 If you are a former smoker, when did you quit?: 2008 Hx Alcohol Use: No Drug/Substance Use Hx: No Substance Use Type: None Hx Substance Use Treatment: No Review of Systems - Review of Systems Able to Perform ROS?: No (presenting with AMS) Is the patient limited Thai proficient: No *Physical Exam - Vital Signs Last Vital Signs Temp Pulse Resp BP Pulse Ox 97.6 F 122 H 19 112/60 100 04/15/19 06:14 04/15/19 06:14 04/15/19 06:14 04/15/19 06:14 04/15/19 06:14 - Physical Exam Comments: 04/15/19 08:46 Not alert or oriented, responsive to voice and touch. Somnolent, but protecting airway, moaning. Eyes do not open spontaneously Afib to 130s. Skin jaundiced with scleral icterus. Oropharynx dehydrated. Grade 3 pedal edema bilaterally. General Appearance: Yes: Appropriately Dressed, Mild Distress, Thin HEENT: positive: Scleral Icterus (R), Scleral Icterus (L) Neck: positive: Trachea midline, Supple. negative: Stridor, Lymphadenopathy (R) , Lymphadenopathy (L) Respiratory/Chest: positive: Other (No respiratory distress, good air entry bilaterally, coarse lung sounds at bases, airway maintained.). negative: Normal Breath Sounds, Crackles, Rales, Rhonchi Cardiovascular: positive: Edema, Irregularly Irregular. negative: JVD, Murmur Gastrointestinal/Abdominal: positive: Normal Bowel Sounds, Distended ( significant ascites), Other. negative: Organomegaly, Hernia Musculoskeletal: positive: Normal Inspection Extremity: positive: Normal Capillary Refill, Normal Range of Motion, Pedal Edema (grade 3 pedal edema, R foot wrapped), Other Integumentary: positive: Normal Color, Dry, Warm, Jaundice Neurologic: positive: Other (somnolent, moving all extremities spontaneously, moaning intermittently). negative: Alert, Normal Response ED Treatment Course - LABORATORY CBC & Chemistry Diagram: 04/15/19 07:19 04/15/19 07:19 - RADIOLOGY Radiology Studies Ordered: Category Date Time Status CHEST X-RAY PORTABLE* [RAD] Stat Radiology 04/15/19 07:58 Ordered Medical Decision Making - Medical Decision Making 04/15/19 08:10 Remi Su is a 63M with PMH Afib, hepatic cirrhosis w/ encephalopathy, CRI 2 /2 hepatorenal syndrome, and COPD presenting with AMS and falls. Patient presentation concerning for afib with RVR and hepatic encephalopathy. HR on arrival 122 with BP stable to 120s/80s. Will correct with 5mg metoprolol tartrate IV and continue to monitor. AMS most likely 2/2 hepatic encephalopathy given history, jaundice, and worsening ascites within one week of pericentesis. Also concerning for sepsis 2/ 2 infectious etiology. Will evaluate via CMP, CBC, PT/INR/PTT, ECG, BNP, lactate, and ammonia level. Will obtain CT head and neck to eval for recent fall, CXR for CHF and fluid levels. 04/15/19 09:21 CT Head and neck no acute abnormalities noted. Ammonia elevated to 162, AP to 202, starting on PA lactulose 200g. Lactate 3.4 concerning for poor perfusion 2/2 hepatic cirrhosis vs. sepsis, will continue to evaluate. Based on labs, Child-Baeza Class C, MELD score 25. 04/15/19 10:[address] Ball re: admission, will admit to telemetry for further care of hepatic encephalopathy given afib and concern for respiratory status. *DC/Admit/Observation/Transfer Diagnosis at time of Disposition: Altered mental status, Afib - Discharge Dispostion Decision to Admit order: Yes - Referrals - Patient Instructions - Post Discharge Activity
[2019-04-15] MEDS ORDERED: METOPROLOL TARTRATE 5 MG/5 ML VIAL ONE (08:14)
[2019-04-15 08:16] LABS: HEMATOCRIT 27.6 % (35.4-49); MCH 26.8 pg (25.7-33.7); MCHC 32.6 g/dl (32.0-35.9); MEAN CELL VOLUME 82.2 fl (80-96); MEAN PLT VOLUME 11.5 fl (7.5-11.1); RBC 3.36 M/mm3 (4.00-5.60); RDW 20.3 % (11.9-15.9)
[2019-04-15 08:24] LABS: INR 1.54 (0.83-1.09); PROTHROMBIN TIME (PATIENT) 18.2 SEC (9.7-13.0)
[2019-04-15 08:47] LABS: ALK PHOS 202 U/L (45-117); ANION GAP 11 MMOL/L (8-16); BILIRUBIN,TOTAL 1.2 mg/dL (0.2-1); BLOOD UREA NITROGEN 66.6 mg/dL (7-18); CALCIUM 8.2 mg/dL (8.5-10.1); CHLORIDE 104 mmol/L (98-107); CO2 20 mmol/L (21-32); CREATININE 4.3 mg/dL (0.55-1.3); GLUCOSE,RANDOM 240 mg/dL (74-106); POTASSIUM 4.8 mmol/L (3.5-5.1); SGOT/AST 48 U/L (15-37); SGPT/ALT 24 U/L (13-61); SODIUM 136 mmol/L (136-145); TOT PROT 7.2 g/dl (6.4-8.2)
[2019-04-15] MEDS ORDERED: SODIUM CHLORIDE 500 ML IV STA (08:50)
[2019-04-15] MEDS ORDERED: LACTULOSE 20 GM/30 ML UDC (FOR RECTAL USE ONLY) PR ONE ×2 (09:05→09:30)
[2019-04-15] MEDS ORDERED: LACTULOSE 20 GM/30 ML UDC (FOR ORAL USE ONLY) ONE (09:11)
--- NOTE | 2019-04-15 09:16 | PDOC ---
Attending Attestation - Resident Resident Name: Sigifredo Don - ED Attending Attestation I have performed the following: I have examined & evaluated the patient, The case was reviewed & discussed with the resident, I agree w/resident's findings & plan - HPI HPI: 04/15/19 09:10 63-year-old male with multiple medical problems including liver failure/ cirrhosis with history of encephalopathy maintained on lactulose three times daily (last dose Sunday), requiring paracentesis every 2-3 months, most recently [address] Pritchett, presents now brought in by family with worsening mental status over the past 2 days similar to past episodes of encephalopathy. No obvious infectious signs or symptoms, did fall yesterday with head injury. - Physicial Exam PE: 04/15/19 09:12 Vitals as noted, rectal temp 96.4, tachycardia Lying in bed, somnolent but protecting airway and making sounds, occasionally waking up and moaning Atraumatic Heart is irregular tachycardia Course breath sounds at both bases, otherwise good air entry Abdomen is distended, palpable fluid wave, no guarding Bilateral lower extremity edema with chronic venous stasis dermatitis Limited neuro and psych exam, moving all extremities equally - Critical Care Time Total Critical Care Time: 75 Critical Care Statement: The care of this patient involved high complexity decision making to prevent further life threatening deterioration of the patient 's condition and/or to evaluate & treat vital organ system(s) failure or risk of failure. - Medical Decision Making 04/15/19 09:13 63-year-old male with history of cirrhosis presents with altered mental status for 2 days, seems most consistent with encephalopathy, also with intrafibrillation with rapid ventricular response. Head injury yesterday, rule out TBI. Stat CT head showed no acute injury Labs notable for elevated ammonia, we'll treat with lactulose Infectious workup GI consult Admission and close monitoring 04/15/19 13:52 progressively lethargic since admission despite lactulose. less responsive to physical stimuli, concern for airway protection. RSI, venous access, ICU admission See resident procedure notes Heart Score/ECG Review #1 ECG reviewed & interpreted by me at: 07:09 Compared to previous ECG there are: No significant change (c/w 02/16, now in afib , st depression no change) 04/15/19 09:15 afib with rvr at 120. st depression I/AVL, V4-V6 likely rate related strain. qtc 429
[2019-04-15 09:51] LABS: PLATELET COUNT 116 K/MM3 (134-434)
[2019-04-15] MEDS ORDERED: PT OWN MED DRAWER 7, Y5N ONE (10:28)
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
[2019-04-15] MEDS ORDERED: INSULIN ASPART 20 UNIT SQ PRN (13:11)
[2019-04-15] MEDS ORDERED: LACTULOSE 20 GM/30 ML UDC (FOR ORAL USE ONLY) PO SCH (14:00)
--- NOTE | 2019-04-15 14:09 | CONSULT ---
Consultation: REQUESTING PROVIDER: Juan Carroll CONSULT REQUEST: We have been asked to medically evaluate this patient for hepatic encephalopathy HISTORY OF PRESENT ILLNESS: 63 year old male with a history of atrial fibrillation, hepatic cirrhosis with hepatic encephalopathy, COPD presents from home for increasing confusion s/p fall yesterday. Per patient's at bedside, patient has been more confused since this past , noting multiple falls over the past couple of weeks. reports that after he fell yesterday, he was not able to remember her or any of his children. This is, according to the , an acute change compared to the the days prior when he was only mildly confused. She reported that he gets a therapeutic paracentesis every 2 months, with his last paracentesis being 1 week ago. Since then, patient's reports that his abdomen is now distended within 1 week to the same amount it was prior to the paracentesis. Per , patient has needed intubation in the past. states that he has had a liver problem since . 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 Patient is unable to answer questions because of mental status and stuporous nature. ICU is consulted for management of overt hepatic encephalopathy. REVIEW OF SYSTEMS: Unable to assess due to mental status PHYSICAL EXAMINATION Vital Signs - 24 hr 04/15/19 04/15/19 06:14 08:30 Temperature 97.6 F Pulse Rate 122 H Respiratory 19 Rate Blood Pressure 112/60 121/87 O2 Sat by Pulse 100 Oximetry (%) GENERAL: A&Ox0, moderate distress, unintelligible, moaning sounds EYES: PERRLA, mild scleral icterus ENT: Moist mucus membranes NECK: No JVD LUNGS: diffuse rhonchi auscultated bilaterally, increased work of breathing, using accessory muscles of respiration HEART: tachycardic, no murmurs ABDOMEN: Firm and distended, positive fluid wave, bowel sounds present, unclear if tender as patient is making unintelligible moaning sounds EXTREMITIES: 2+ pulses, 1+ edema bilaterally NEUROLOGICAL: Unable to assess due to mental status Laboratory Results - last 24 hr 04/15/19 04/15/19 04/15/19 07:19 07:19 07:19 WBC 5.0 RBC 3.36 L Hgb 9.0 L Hct 27.6 L MCV 82.2 MCH 26.8 MCHC 32.6 RDW 20.3 H Plt Count 116 L MPV 11.5 H D Manual Slide Review Reviewed Platelet Comment PT with INR INR PTT (Actin FS) Sodium 136 Potassium 4.8 Chloride 104 Carbon Dioxide 20 L Anion Gap 11 BUN 66.6 H Creatinine 4.3 H Est GFR (CKD-EPI)AfAm 15.85 Est GFR (CKD-EPI)NonAf 13.67 Random Glucose 240 H Lactic Acid Calcium 8.2 L Total Bilirubin 1.2 H AST 48 H ALT 24 Alkaline Phosphatase 202 H Ammonia 169.50 H Creatine Kinase 141 Troponin I < 0.02 B-Natriuretic Peptide Total Protein 7.2 Albumin 3.0 L 04/15/19 04/15/19 04/15/19 07:19 07:19 07:19 WBC RBC Hgb Hct MCV MCH MCHC RDW Plt Count MPV Manual Slide Review Platelet Comment PT with INR 18.20 H INR 1.54 H PTT (Actin FS) Sodium Potassium Chloride Carbon Dioxide Anion Gap BUN Creatinine Est GFR (CKD-EPI)AfAm Est GFR (CKD-EPI)NonAf Random Glucose Lactic Acid 3.4 H* Calcium Total Bilirubin AST ALT Alkaline Phosphatase Ammonia Creatine Kinase Troponin I B-Natriuretic Peptide 9473.4 H Total Protein Albumin 04/15/19 07:19 WBC RBC Hgb Hct MCV MCH MCHC RDW Plt Count MPV Manual Slide Review Platelet Comment PT with INR INR PTT (Actin FS) 37.4 H Sodium Potassium Chloride Carbon Dioxide Anion Gap BUN Creatinine Est GFR (CKD-EPI)AfAm Est GFR (CKD-EPI)NonAf Random Glucose Lactic Acid Calcium Total Bilirubin AST ALT Alkaline Phosphatase Ammonia Creatine Kinase Troponin I B-Natriuretic Peptide Total Protein Albumin Active Medications Generic Name Dose Route Start Last Admin Trade Name Freq PRN Reason Stop Dose Admin Aspirin 81 mg 04/16/19 10:00 Asa - PO DAILY [facility] Insulin Aspart 1 vial 04/15/19 16:30 Novolog Vial Sliding Scale - SQ ACHS [facility] Protocol Insulin Detemir 20 units 04/15/19 22:00 Levemir Vial SQ HS [facility] Metoprolol Succinate 25 mg 04/16/19 10:00 Toprol Xl - PO DAILY [facility] Miscellaneous 1 each 04/16/19 11:00 Lidoderm Patch Removal MC DAILY@1100 [facility] Rifaximin 550 mg 04/15/19 22:00 Xifaxan - PO BID [facility] Tamsulosin HCl 0.4 mg 04/15/19 22:00 Flomax - PO BID@0830,2200 [facility] ASSESSMENT/PLAN: 63 year old male with a history of atrial fibrillation, hepatic cirrhosis with hepatic encephalopathy, COPD presents from home for increasing confusion s/p fall yesterday admitted for the evaluation and treatment of hepatic encephalopathy Neurological -patient is not alert or oriented, is stuporous and only able -this is likely 2/2 hepatic encephalopathy from decompensated cirrhosis -will treat hepatic encephalopathy and monitor neurologic status -patient will be intubated for airway protection -head CT negative -neurology on board Cardiovascular -atrial fibrillation with rapid ventricular response -given lopressor 5mg push, patient's rate improved -not on AC from previous history of bleeding -monitor HR on tele -lopressor 5mg IV push while intubated -patient is fluid overloaded likely from hepatic congestion, lasix 40 IV -echo from January showed normal EF and LV function -cards consultation ordered Pulmonary -patient was not maintaining airway, using accessory muscles of respiration -patient intubated for airway protection -will get ABG -CXR shows pulmonary congestion -mechanical ventilation -will empirically cover with ceftriaxone/azithromycin for SBP and simultaneously pneumonia Gastrointestinal -hepatic encephalopathy likely grade III, requiring ICU admission -lactulose per rectum -rifaximin started by primary -monitor stool output -ceftriaxone/azithromycin to cover SBP and pneumonia -will likely need therapeutic/diagnostic tap tomorrow, will give vitamin K now and FFP tomorrow due to elevated INR -GI consulted Renal -CKD with GFR < 20, likely component of hepatorenal syndrome -creatinine at baseline -will need diuresis as patient is fluid overloaded -lasix 40 IV BID -obtain UA Infectious Diseases -in order to prophylax for SBP, will give ceftriaxone/azithromycin -lactic acidosis worsening, will trend q4h -blood and urine cultures Heme/Onc -anemia likely anemia of chronic inflammation, hemoglobin baseline -elevated INR likely 2/2 cirrhosis -will give vitamin K now and FFP in the morning -follow H&H -thrombocytopenia likely 2/2 decreased TPO released by chronic liver disease FEN -NPO while intubated -no standing fluids -replete lytes as necessary Prophylaxis -SCDs for prophylaxis Disposition -continue to monitor in ICU Visit type - Emergency Visit Emergency Visit: Yes ED Registration Date: 04/15/19 Care time: The patient presented to the Emergency Department on the above date and was hospitalized for further evaluation of their emergent condition. - New Patient This patient is new to me today: Yes Date on this admission: 04/15/19 - Critical Care Critical Care patient: No ATTENDING PHYSICIAN STATEMENT I saw and evaluated the patient. I reviewed the resident's note and discussed the case with the resident. I agree with the resident's findings and plan as documented. SUBJECTIVE: OBJECTIVE: ASSESSMENT AND PLAN:
--- NOTE | 2019-04-15 14:41 | EKG ---
Test Reason : Blood Pressure : / mmHG Vent. Rate : 120 BPM Atrial Rate : 113 BPM P-R Int : 000 ms QRS Dur : 104 ms QT Int : 304 ms P-R-T Axes : 000 019 204 degrees QTc Int : 429 ms ATRIAL FIBRILLATION WITH RAPID VENTRICULAR RESPONSE LOW VOLTAGE QRS CANNOT RULE OUT ANTERIOR INFARCT (CITED ON OR BEFORE 30-JAN-2015) ABNORMAL ECG WHEN COMPARED WITH ECG OF 22-FEB-2019 03:42, SIGNIFICANT CHANGES HAVE OCCURRED Confirmed by Sandoval Gama MD ([id number]) on 04/15/2019 2:41:22 PM Referred By: Confirmed By:Sandoval Gama MD
[2019-04-15] MEDS ORDERED: ETOMIDATE 20 MG/10 ML AMPUL IVPUSH ONE (14:47)
[2019-04-15] MEDS ORDERED: SUCCINYLCHOLINE CHLORIDE 200 MG/10 ML VIAL ONE (14:47)
[2019-04-15] MEDS ORDERED: PROPOFOL 1,000,000 MCG/100 ML VIAL ONE (15:16)
[2019-04-15] MEDS ORDERED: PHYTONADIONE 10 MG/1 ML AMP SQ ONE ×2 (15:17→19:41)
--- NOTE | 2019-04-15 15:28 | PN ---
Teaching Attending Note Name of Resident: Luiz Johansen ATTENDING PHYSICIAN STATEMENT I saw and evaluated the patient. I reviewed the resident's note and discussed the case with the resident. I agree with the resident's findings and plan as documented. SUBJECTIVE: Patient seen and examined in the ER. Patient is very well known to me from multiple previous admissions. 63 M, liver cirrhosis due to BORJAS, CKD, AFib, and COPD. Last paracentesis was last at [facility]. 4.5 liters was drained. Over the next few days his noted progressive worsening of his mental status. No travel history or sick contacts. No documented fever or chills. No hemoptysis or night sweats. Due to poor mental status and respiratory distress he was electively endotracheally intubated in the ER. Hemodynamics are currently stable. Intake & Output 04/12/19 04/13/19 04/14/19 04/15/19 23:59 23:59 23:59 23:59 Weight 140 lb Last Vital Signs Temp Pulse Resp BP Pulse Ox 97.6 F 122 H 19 121/87 100 04/15/19 06:14 04/15/19 06:14 04/15/19 06:14 04/15/19 08:30 04/15/19 06:14 Active Medications Aspirin (Asa -) 81 mg PO DAILY [facility] Cefotaxime Sodium 1,000 mg/ (Dextrose) 50 mls @ 100 mls/hr IVPB Q8H-IV [facility]; Protocol Insulin Aspart (Novolog Vial Sliding Scale -) 1 vial SQ ACHS [facility]; Protocol Insulin Detemir (Levemir Vial) 20 units SQ HS [facility] Metoprolol Succinate (Toprol Xl -) 25 mg PO DAILY [facility] Miscellaneous (Lidoderm Patch Removal) 1 each MC DAILY@1100 [facility] Rifaximin (Xifaxan -) 550 mg PO BID [facility] Tamsulosin HCl (Flomax -) 0.4 mg PO BID@0830,2200 [facility] Constitutional: Yes: Intubated and sedated Eyes: Yes: Sclera Icterus HENT: Yes: Atraumatic Cardiovascular: Yes: S1, S2 Respiratory: Yes: Intubated, mechanically ventilated, scattered rhonchi Gastrointestinal: Yes: (+) tense Ascites, (+) BS, (-) guarding or rigidity Renal/: Yes: Incontinence Musculoskeletal: Yes: Muscle Weakness Edema: Yes Edema: LLE: 2+, RLE: 2+ Integumentary: Yes: Venous Stasis Changes Neurological: Yes: Lethargy Labs: Laboratory Results - last 24 hr 04/15/19 04/15/19 04/15/19 07:19 07:19 07:19 WBC 5.0 RBC 3.36 L Hgb 9.0 L Hct 27.6 L MCV 82.2 MCH 26.8 MCHC 32.6 RDW 20.3 H Plt Count 116 L MPV 11.5 H D Manual Slide Review Reviewed Platelet Comment PT with INR INR PTT (Actin FS) Sodium 136 Potassium 4.8 Chloride 104 Carbon Dioxide 20 L Anion Gap 11 BUN 66.6 H Creatinine 4.3 H Est GFR (CKD-EPI)AfAm 15.85 Est GFR (CKD-EPI)NonAf 13.67 Random Glucose 240 H Lactic Acid Calcium 8.2 L Total Bilirubin 1.2 H AST 48 H ALT 24 Alkaline Phosphatase 202 H Ammonia 169.50 H Creatine Kinase 141 Troponin I < 0.02 B-Natriuretic Peptide Total Protein 7.2 Albumin 3.0 L 04/15/19 04/15/19 04/15/19 07:19 07:19 07:19 WBC RBC Hgb Hct MCV MCH MCHC RDW Plt Count MPV Manual Slide Review Platelet Comment PT with INR 18.20 H INR 1.54 H PTT (Actin FS) Sodium Potassium Chloride Carbon Dioxide Anion Gap BUN Creatinine Est GFR (CKD-EPI)AfAm Est GFR (CKD-EPI)NonAf Random Glucose Lactic Acid 3.4 H* Calcium Total Bilirubin AST ALT Alkaline Phosphatase Ammonia Creatine Kinase Troponin I B-Natriuretic Peptide 9473.4 H Total Protein Albumin 04/15/19 07:19 WBC RBC Hgb Hct MCV MCH MCHC RDW Plt Count MPV Manual Slide Review Platelet Comment PT with INR INR PTT (Actin FS) 37.4 H Sodium Potassium Chloride Carbon Dioxide Anion Gap BUN Creatinine Est GFR (CKD-EPI)AfAm Est GFR (CKD-EPI)NonAf Random Glucose Lactic Acid Calcium Total Bilirubin AST ALT Alkaline Phosphatase Ammonia Creatine Kinase Troponin I B-Natriuretic Peptide Total Protein Albumin Problem List - Problems (1) Afib Code(s): I48.91 - UNSPECIFIED ATRIAL FIBRILLATION (2) Altered mental status Code(s): R41.82 - ALTERED MENTAL STATUS, UNSPECIFIED (3) CKD (chronic kidney disease) Code(s): N18.9 - CHRONIC KIDNEY DISEASE, UNSPECIFIED Qualifiers: Chronic kidney disease stage: stage 3 (moderate) Qualified Code(s): N18.3 - Chronic kidney disease, stage 3 (moderate) Assessment/Plan Acute Respiratory Failure Volume overload due to Liver Cirrhosis Hepatic Encephalopathy R/O SBP CKD TO Pain medication dependence BPH AFib Failure to thrive History of seizure D/O DM Plan: AC Mode of vent Check ABG Lactulose Continue Xifaxan Lasix Reed-culture Would cover for SBP for now Strict I & O Close monitoring of renal function Hold Aldactone until Hyperkalemia is corrected GI evaluation Requires ICU monitoring Dr Dominguez Critical care time spent in reviewing chart, evaluating patient and formulating plan - 36 minutes.
[2019-04-15] MEDS ORDERED: PHYTONADIONE 10 MG/1 ML AMP ONE ×2 (15:30→19:50)
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
[2019-04-15] MEDS ORDERED: PROPOFOL 1,000,000 MCG/100 ML VIAL IVPB SCH ×2 (15:45→17:34)
[2019-04-15] MEDS ORDERED: methylPREDNISolone NA SUCC 1000 MG/8 ML VIAL ONE (16:06)
[2019-04-15] MEDS ORDERED: CEFTRIAXONE 2 GM-D5W BAG 2 GM/50 ML BAG IVPB SCH (16:15)
[2019-04-15] MEDS ORDERED: METOPROLOL TARTRATE 5 MG/5 ML VIAL IVPUSH PRN (16:45)
[2019-04-15] MEDS ORDERED: LACTULOSE 20 GM/30 ML UDC (FOR RECTAL USE ONLY) PR SCH (17:15)
[2019-04-15] MEDS ORDERED: CEFOTAXIME SODIUM 1,000 MG in DEXTROSE 5%-WATER - 50 ML IVPB SCH (18:00)
[2019-04-15 18:07] VITALS: BMI 27.6
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
[2019-04-15] MEDS: AZITHROMYCIN IVPB 500 MG/250 ML BAG IVPB SCH (18:39)
[2019-04-15] MEDS: FUROSEMIDE 40 MG/4 ML INJECTABLE VIAL IVPUSH SCH (18:39)
--- NOTE | 2019-04-15 18:41 | PN ---
Progress Note (short form) - Note Progress Note: 63 y.o. man well known to me with end-stage cirrhosis (nonalcoholic fatty liver) , hepatic encephalopathy, ascites, chronic kidney disease (creatinine about 3.6 lately), coronary artery disease ( multiple stents), paroxysmal atrial fibrillation, pressure ulcers on heels and backside. Now admitted with confusional state that developed in the early hours of the morning. Currently he is intubated and sedated. Abdomen is distended but with active bowel sounds, soft. Labs: CBC,CMP WBC 5.0 K/mm3 (4.0-10.0) 04/15/19 07:19 RBC 3.36 M/mm3 (4.00-5.60) L 04/15/19 07:19 Hgb 9.0 GM/dL (11.7-16.9) L 04/15/19 07:19 Hct 27.6 % (35.4-49) L 04/15/19 07:19 MCV 82.2 fl (80-96) 04/15/19 07:19 MCH 26.8 pg (25.7-33.7) 04/15/19 07:19 MCHC 32.6 g/dl (32.0-35.9) 04/15/19 07:19 RDW 20.3 % (11.9-15.9) H 04/15/19 07:19 Plt Count 116 K/MM3 (134-434) L 04/15/19 07:19 MPV 11.5 fl (7.5-11.1) H D 04/15/19 07:19 Manual Slide Review Reviewed 04/15/19 07:19 Platelet Comment 04/15/19 07:19 Sodium 136 mmol/L (136-145) 04/15/19 07:19 Potassium 4.8 mmol/L (3.5-5.1) 04/15/19 07:19 Chloride 104 mmol/L (98-107) 04/15/19 07:19 Carbon Dioxide 20 mmol/L (21-32) L 04/15/19 07:19 Anion Gap 11 MMOL/L (8-16) 04/15/19 07:19 BUN 66.6 mg/dL (7-18) H 04/15/19 07:19 Creatinine 4.3 mg/dL (0.55-1.3) H 04/15/19 07:19 Est GFR (CKD-EPI)AfAm 15.85 04/15/19 07:19 Est GFR (CKD-EPI)NonAf 13.67 04/15/19 07:19 POC Glucometer 239 UNITS (80-120) 04/15/19 18:11 Random Glucose 240 mg/dL (74-106) H 04/15/19 07:19 Lactic Acid 3.8 mmol/L (0.4-2.0) H* 04/15/19 15:00 Calcium 8.2 mg/dL (8.5-10.1) L 04/15/19 07:19 Total Bilirubin 1.2 mg/dL (0.2-1) H 04/15/19 07:19 AST 48 U/L (15-37) H 04/15/19 07:19 ALT 24 U/L (13-61) 04/15/19 07:19 Alkaline Phosphatase 202 U/L (45-117) H 04/15/19 07:19 Ammonia 169.50 umol/L (11-32) H 04/15/19 07:19 Creatine Kinase 141 U/L (26-308) 04/15/19 07:19 Troponin I < 0.02 ng/ml (0.00-0.05) 04/15/19 07:19 B-Natriuretic Peptide 9473.4 pg/ml (5-125) H 04/15/19 07:19 Total Protein 7.2 g/dl (6.4-8.2) 04/15/19 07:19 Albumin 3.0 g/dl (3.4-5.0) L 04/15/19 07:19 PT/INR is also elevated. Note ammonia level of 170. The GFR is probably lower than the estimate of 13.67, as the patient has advanced muscle wasting secondary to liver disease. At this point I recommend: 1) discontinue IV diprivan in early hours of a.m. It will take him a long time to wake up. 2) If he becomes agitated, remove endotracheal tube and begin lactulose and rifaximin. 3) Avoid further sedatives.
[2019-04-15] MEDS: INSULIN SLIDING SCALE (NOVOLOG) 1 VIAL SQ SCH ×2 (19:17→21:41)
[2019-04-15] MEDS ORDERED: LACTULOSE 20 GM/30 ML UDC (FOR ORAL USE ONLY) NGT PRN (19:40)
[2019-04-15] MEDS ORDERED: ALBUMIN HUMAN 25% 12.5 GM/50 ML VIAL IVPB SCH (19:45)
[2019-04-15] MEDS: ALBUMIN HUMAN 25% 12.5 GM/50 ML VIAL IVPB SCH (21:48)
[2019-04-15] MEDS ORDERED: INSULIN (LEVEMIR) 100 UNITS/ML UNITS SQ SCH (22:00)
[2019-04-15] MEDS ORDERED: TAMSULOSIN HCL 0.4 MG CAP PO SCH (22:00)
[2019-04-15 22:22] LABS: ARTERIAL BLD GAS O2 SATURATION 99.7 % (95-98); ARTERIAL BLOOD GAS BASE EXCESS -5.3 meq/l (-2-2); ARTERIAL BLOOD GAS PCO2 31.3 mmHg (35-45); ARTERIAL BLOOD GAS PO2 176 mmHg (80-105); ARTERIAL BLOOD GAS pH 7.39 (7.35-7.45)
[2019-04-16] MEDS: ALBUMIN HUMAN 25% 12.5 GM/50 ML VIAL IVPB SCH ×3 (00:02→02:05)
[2019-04-16] MEDS: RIFAXIMIN 550 MG TABLET (UD) PO SCH ×2 (00:37→12:07)
[2019-04-16 06:39] LABS: ALBUMIN 2.8 g/dl (3.4-5.0); BILIRUBIN,TOTAL 0.8 mg/dL (0.2-1); BLOOD UREA NITROGEN 70.2 mg/dL (7-18); CALCIUM 8.2 mg/dL (8.5-10.1); CREATININE 4.2 mg/dL (0.55-1.3); MAGNESIUM 2.4 mg/dL (1.8-2.4); N-TERMINAL BNP 28430.5 pg/ml (5-125); POTASSIUM 3.9 mmol/L (3.5-5.1)
[2019-04-16 06:41] LABS: BASO % 0.5 % (0-2.0); EOS % 0.4 % (0-4.5); HEMATOCRIT 22.9 % (35.4-49); HEMOGLOBIN 7.7 GM/dL (11.7-16.9); MCH 27.1 pg (25.7-33.7); MCHC 33.8 g/dl (32.0-35.9); MEAN CELL VOLUME 80.3 fl (80-96); MEAN PLT VOLUME 10.9 fl (7.5-11.1); MONO % 9.9 % (3.8-10.2); NEUT % 85.2 % (42.8-82.8); PLATELET COUNT 93 K/MM3 (134-434); RBC 2.85 M/mm3 (4.00-5.60); RDW 19.7 % (11.9-15.9); WHITE BLOOD COUNT 6.4 K/mm3 (4.0-10.0)
[2019-04-16] MEDS: INSULIN SLIDING SCALE (NOVOLOG) 1 VIAL SQ SCH ×2 (06:58→12:06)
[2019-04-16] MEDS ORDERED: PT OWN MED DRAWER 7, Y5N ONE ×2 (07:23→09:30)
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
[2019-04-16] MEDS: AZITHROMYCIN IVPB 500 MG/250 ML BAG IVPB SCH (09:44)
[2019-04-16] MEDS: FUROSEMIDE 40 MG/4 ML INJECTABLE VIAL IVPUSH SCH (09:45)
[2019-04-16] MEDS ORDERED: CEFTRIAXONE 2 GM in DEXTROSE 5%-WATER 100 ML IVPB SCH (10:00)
[2019-04-16] MEDS ORDERED: ASPIRIN 81 MG CHEWABLE TABLETS PO SCH (10:00)
[2019-04-16] MEDS: PROPOFOL 1,000,000 MCG/100 ML VIAL IVPB SCH ×2 (10:16→14:23)
[2019-04-16] MEDS ORDERED: DEXTROSE 5%-WATER 100 ML IVPB ONE (10:30)
--- NOTE | 2019-04-16 10:30 | EKG ---
Test Reason : Blood Pressure : / mmHG Vent. Rate : 079 BPM Atrial Rate : 079 BPM P-R Int : 122 ms QRS Dur : 088 ms QT Int : 428 ms P-R-T Axes : 064 -21 000 degrees QTc Int : 490 ms NORMAL SINUS RHYTHM LOW VOLTAGE QRS INFERIOR INFARCT , AGE UNDETERMINED CANNOT RULE OUT ANTEROSEPTAL INFARCT (CITED ON OR BEFORE 30-JAN-2015) ABNORMAL ECG WHEN COMPARED WITH ECG OF 15-APR-2019 07:09, SINUS RHYTHM HAS REPLACED ATRIAL FIBRILLATION VENT. RATE HAS DECREASED BY 41 BPM NONSPECIFIC T WAVE ABNORMALITY, WORSE IN ANTERIOR LEADS T WAVE INVERSION NO LONGER EVIDENT IN LATERAL LEADS Confirmed by FELECIA JUNIOR MD ([id number]) on 04/16/2019 10:30:25 AM Referred By: SANTHOSH ZAPATA DR Confirmed By:FELECIA JUNIOR MD
[2019-04-16] MEDS ORDERED: LIDOCAINE PATCH REMOVAL MC SCH (11:00)
--- NOTE | 2019-04-16 11:29 | PN ---
Progress Note, Physician History of Present Illness: 63-year-old male with multiple medical problems including liver failure/ cirrhosis with history of hepatic encephalopathy (advanced lcirrhosis), requiring paracentesis every 2-3 months, most recently [address] Pritchett , CAD (hx ?AR; multiple coronary stents), diastolic CHF, PAF, CKD, presents now brought in by family with worsening mental status over the past 2 days similar to past episodes of encephalopathy. No obvious infectious signs or symptoms, did fall yesterday with ?head injury. Initial EKG notes AF with RVR. - Current Medication List Current Medications: Active Medications Aspirin (Asa -) 81 mg PO DAILY [facility] Furosemide (Lasix Injection -) 40 mg IVPUSH DAILY [facility] Last Admin: 04/16/19 09:45 Dose: 40 mg Azithromycin (Zithromax 500mg Ivpb (Pre-Docked)) 500 mg in 250 mls @ 250 mls/ hr IVPB DAILY [facility] Last Admin: 04/16/19 09:44 Dose: 250 mls/hr Propofol (Diprivan -) 1,000,000 mcg in 100 mls @ 5 mls/hr IVPB TITR [facility]; Protocol Last Titration: 04/16/19 09:16 Dose: 3 mls/hr Propofol (Diprivan -) 1,000,000 mcg in 100 mls @ 3.058 mls/hr IVPB TITR [facility]; Protocol Last Admin: 04/16/19 10:16 Dose: 10 mcg/kg/min, 4.368 mls/hr Ceftriaxone Sodium 2 gm/ (Dextrose) 100 mls @ 200 mls/hr IVPB DAILY [facility]; Protocol Insulin Aspart (Novolog Vial Sliding Scale -) 1 vial SQ ACHS [facility]; Protocol Last Admin: 04/16/19 06:58 Dose: Not Given Insulin Detemir (Levemir Vial) 20 units SQ HS [facility] Last Admin: 04/15/19 22:04 Dose: 20 units Lactulose (Cephulac (Oral Use)) 30 gm NGT TID PRN PRN Reason: CONSTIPATION Last Admin: 04/16/19 00:37 Dose: 30 gm Metoprolol Tartrate (Lopressor Injection -) 5 mg IVPUSH Q4H PRN PRN Reason: HYPERTENSION Rifaximin (Xifaxan -) 550 mg PO BID [facility] Last Admin: 04/16/19 00:37 Dose: 550 mg - Objective Vital Signs: Vital Signs Temperature 98.6 F 04/16/19 10:04 Pulse Rate 77 04/16/19 10:04 Respiratory Rate 11 04/16/19 10:04 Blood Pressure 92/49 L 04/16/19 10:04 O2 Sat by Pulse Oximetry (%) 100 04/16/19 08:44 Eyes: Yes: WNL, Conjunctiva Clear, EOM Intact HENT: Yes: WNL, Atraumatic, Normocephalic Neck: Yes: WNL, Supple, Trachea Midline Cardiovascular: Yes: WNL, Regular Rate and Rhythm Respiratory: Yes: Intubated, Mechanically Ventilated Gastrointestinal: Yes: Normal Bowel Sounds, Ascites, Distention Genitourinary: Yes: WNL Musculoskeletal: Yes: WNL Extremities: Yes: WNL Edema: Yes Integumentary: Yes: WNL ...Motor Strength: WNL Psychiatric: Yes: WNL Labs: CBC, BMP 04/16/19 06:00 04/16/19 06:00 INR, PTT INR 1.54 (0.83-1.09) H 04/15/19 07:19 Laboratory Tests 04/15/19 04/15/19 04/15/19 07:19 07:19 07:19 WBC 5.0 RBC 3.36 L Hgb 9.0 L Hct 27.6 L MCV 82.2 MCH 26.8 MCHC 32.6 RDW 20.3 H Plt Count 116 L MPV 11.5 H D Absolute Neuts (auto) Neutrophils % Lymphocytes % Monocytes % Eosinophils % Basophils % Nucleated RBC % Manual Slide Review Reviewed Platelet Comment PT with INR INR PTT (Actin FS) Anticoagulation Therapy Puncture Site ABG pH ABG pCO2 at Pt Temp ABG pO2 at Pt Temp ABG HCO3 ABG O2 Sat (Measured) ABG O2 Content ABG Base Excess Martir Test O2 Delivery Device Oxygen Flow Rate Vent Mode Vent Rate Mechanical Rate PEEP Pressure Support Vent Sodium 136 Potassium 4.8 Chloride 104 Carbon Dioxide 20 L Anion Gap 11 BUN 66.6 H Creatinine 4.3 H Est GFR (CKD-EPI)AfAm 15.85 Est GFR (CKD-EPI)NonAf 13.67 POC Glucometer Random Glucose 240 H Lactic Acid Calcium 8.2 L Phosphorus Magnesium Total Bilirubin 1.2 H AST 48 H ALT 24 Alkaline Phosphatase 202 H Ammonia 169.50 H Creatine Kinase 141 Troponin I < 0.02 B-Natriuretic Peptide Total Protein 7.2 Albumin 3.0 L Triglycerides Cholesterol Total LDL Cholesterol HDL Cholesterol 04/15/19 04/15/19 04/15/19 07:19 07:19 07:19 WBC RBC Hgb Hct MCV MCH MCHC RDW Plt Count MPV Absolute Neuts (auto) Neutrophils % Lymphocytes % Monocytes % Eosinophils % Basophils % Nucleated RBC % Manual Slide Review Platelet Comment PT with INR 18.20 H INR 1.54 H PTT (Actin FS) Anticoagulation Therapy Puncture Site ABG pH ABG pCO2 at Pt Temp ABG pO2 at Pt Temp ABG HCO3 ABG O2 Sat (Measured) ABG O2 Content ABG Base Excess Martir Test O2 Delivery Device Oxygen Flow Rate Vent Mode Vent Rate Mechanical Rate PEEP Pressure Support Vent Sodium Potassium Chloride Carbon Dioxide Anion Gap BUN Creatinine Est GFR (CKD-EPI)AfAm Est GFR (CKD-EPI)NonAf POC Glucometer Random Glucose Lactic Acid 3.4 H* Calcium Phosphorus Magnesium Total Bilirubin AST ALT Alkaline Phosphatase Ammonia Creatine Kinase Troponin I B-Natriuretic Peptide 9473.4 H Total Protein Albumin Triglycerides Cholesterol Total LDL Cholesterol HDL Cholesterol 04/15/19 04/15/19 04/15/19 07:19 15:00 18:11 WBC RBC Hgb Hct MCV MCH MCHC RDW Plt Count MPV Absolute Neuts (auto) Neutrophils % Lymphocytes % Monocytes % Eosinophils % Basophils % Nucleated RBC % Manual Slide Review Platelet Comment PT with INR INR PTT (Actin FS) 37.4 H Anticoagulation Therapy Puncture Site ABG pH ABG pCO2 at Pt Temp ABG pO2 at Pt Temp ABG HCO3 ABG O2 Sat (Measured) ABG O2 Content ABG Base Excess Martir Test O2 Delivery Device Oxygen Flow Rate Vent Mode Vent Rate Mechanical Rate PEEP Pressure Support Vent Sodium Potassium Chloride Carbon Dioxide Anion Gap BUN Creatinine Est GFR (CKD-EPI)AfAm Est GFR (CKD-EPI)NonAf POC Glucometer 239 Random Glucose Lactic Acid 3.8 H* Calcium Phosphorus Magnesium Total Bilirubin AST ALT Alkaline Phosphatase Ammonia Creatine Kinase Troponin I B-Natriuretic Peptide Total Protein Albumin Triglycerides Cholesterol Total LDL Cholesterol HDL Cholesterol 04/15/19 04/15/19 04/15/19 20:20 21:30 21:39 WBC RBC Hgb Hct MCV MCH MCHC RDW Plt Count MPV Absolute Neuts (auto) Neutrophils % Lymphocytes % Monocytes % Eosinophils % Basophils % Nucleated RBC % Manual Slide Review Platelet Comment PT with INR INR PTT (Actin FS) Anticoagulation Therapy No Result Required. Puncture Site Left radial ABG pH 7.39 ABG pCO2 at Pt Temp 31.3 L ABG pO2 at Pt Temp 176 H ABG HCO3 18.5 L ABG O2 Sat (Measured) 99.7 H ABG O2 Content 11.4 L ABG Base Excess -5.3 L Martir Test No Result Required. O2 Delivery Device Mech. vent. Oxygen Flow Rate 50% Vent Mode A/c Vent Rate 12 Mechanical Rate No Result Required. PEEP 5.0 Pressure Support Vent 450 Sodium Potassium Chloride Carbon Dioxide Anion Gap BUN Creatinine Est GFR (CKD-EPI)AfAm Est GFR (CKD-EPI)NonAf POC Glucometer 260 Random Glucose Lactic Acid 2.6 H* Calcium Phosphorus Magnesium Total Bilirubin AST ALT Alkaline Phosphatase Ammonia Creatine Kinase Troponin I B-Natriuretic Peptide Total Protein Albumin Triglycerides Cholesterol Total LDL Cholesterol HDL Cholesterol 04/16/19 04/16/19 04/16/19 01:00 06:00 06:00 WBC 6.4 RBC 2.85 L Hgb 7.7 L Hct 22.9 L D MCV 80.3 MCH 27.1 MCHC 33.8 RDW 19.7 H Plt Count 93 L MPV 10.9 Absolute Neuts (auto) 5.4 Neutrophils % 85.2 H Lymphocytes % 4.0 L D Monocytes % 9.9 Eosinophils % 0.4 Basophils % 0.5 Nucleated RBC % 0 Manual Slide Review Platelet Comment PT with INR INR PTT (Actin FS) Anticoagulation Therapy Puncture Site ABG pH ABG pCO2 at Pt Temp ABG pO2 at Pt Temp ABG HCO3 ABG O2 Sat (Measured) ABG O2 Content ABG Base Excess Martir Test O2 Delivery Device Oxygen Flow Rate Vent Mode Vent Rate Mechanical Rate PEEP Pressure Support Vent Sodium 140 Potassium 3.9 Chloride 109 H Carbon Dioxide 21 Anion Gap 9 BUN 70.2 H Creatinine 4.2 H Est GFR (CKD-EPI)AfAm 16.30 Est GFR (CKD-EPI)NonAf 14.07 POC Glucometer Random Glucose 232 H Lactic Acid 2.1 H Calcium 8.2 L Phosphorus 5.0 H Magnesium 2.4 Total Bilirubin 0.8 AST 72 H ALT 20 Alkaline Phosphatase 137 H Ammonia Creatine Kinase Troponin I 19.20 H* B-Natriuretic Peptide 03289.5 H Total Protein 6.0 L Albumin 2.8 L Triglycerides 88 Cholesterol 79 Total LDL Cholesterol 49 HDL Cholesterol 20 L 04/16/19 04/16/19 06:00 06:08 WBC RBC Hgb Hct MCV MCH MCHC RDW Plt Count MPV Absolute Neuts (auto) Neutrophils % Lymphocytes % Monocytes % Eosinophils % Basophils % Nucleated RBC % Manual Slide Review Platelet Comment PT with INR INR PTT (Actin FS) Anticoagulation Therapy Puncture Site ABG pH ABG pCO2 at Pt Temp ABG pO2 at Pt Temp ABG HCO3 ABG O2 Sat (Measured) ABG O2 Content ABG Base Excess Martir Test O2 Delivery Device Oxygen Flow Rate Vent Mode Vent Rate Mechanical Rate PEEP Pressure Support Vent Sodium Potassium Chloride Carbon Dioxide Anion Gap BUN Creatinine Est GFR (CKD-EPI)AfAm Est GFR (CKD-EPI)NonAf POC Glucometer 199 Random Glucose Lactic Acid Calcium Phosphorus Magnesium Total Bilirubin AST ALT Alkaline Phosphatase Ammonia 96.10 H Creatine Kinase Troponin I B-Natriuretic Peptide Total Protein Albumin Triglycerides Cholesterol Total LDL Cholesterol HDL Cholesterol Assessment/Plan roble (1) Altered mental status Code(s): R41.82 - ALTERED MENTAL STATUS, UNSPECIFIED (2) Toxic metabolic encephalopathy Assessment/Plan: Intubated; On Propofol (ideally, discontinue it in early am). Nonalcoholic liver cirrhosis. On antibiotics (cephalosporin). Code(s): G92 - TOXIC ENCEPHALOPATHY (3) Anemia Code(s): D64.9 - ANEMIA, UNSPECIFIED Qualifiers: Anemia type: other cause Other causes of anemia: chronic disease, kidney (4) Ascites Code(s): R18.8 - OTHER ASCITES Qualifiers: Ascites type: other type Qualified Code(s): R18.8 - Other ascites (5) CAD (coronary artery disease) Code(s): I25.10 - ATHSCL HEART DISEASE OF [place] CORONARY ARTERY W/O ANG PCTRS Qualifiers: Coronary Disease-Associated Artery/Lesion type: [place] artery [place] vs. transplanted heart: [place] heart Associated angina: without angina Qualified Code(s): I25.10 - Atherosclerotic heart disease of [place] coronary artery without angina pectoris (6) CKD (chronic kidney disease) Code(s): N18.9 - CHRONIC KIDNEY DISEASE, UNSPECIFIED Qualifiers: Chronic kidney disease stage: stage 3 (moderate) Qualified Code(s): N18.3 - Chronic kidney disease, stage 3 (moderate) (7) ESRD (end stage renal disease) Code(s): N18.6 - END STAGE RENAL DISEASE (8) Paroxysmal A-fib Assessment/Plan: Presently in sinus rhythm. On metoprolol IVP prn if needed for HR control (digoxin has been used in the past if hypotensive). Liver disease, altered hematologic parameters mitigate against systemic anticoagulation. 01/2019 ECHO: normal LVEF: moderate LAE; moderate MR and TR Code(s): I48.0 - PAROXYSMAL ATRIAL FIBRILLATION (9) Diastolic CHF Code(s): I50.30 - UNSPECIFIED DIASTOLIC (CONGESTIVE) HEART FAILURE (10) Thrombocytopenia Assessment/Plan: Caution with ASA use; f/u platelets serially. Code(s): D69.6 - THROMBOCYTOPENIA, UNSPECIFIED non stemi tni up from normal to 19 echo ac with heparin if no GI contraindications - cirhossis/varices? cont asa add Plavix bb as tolerated Prognosis is guarded CCU time spent: 36 minutes
[2019-04-16] MEDS ORDERED: CLOPIDOGREL BISULFATE 75 MG TABLET (FP) PO SCH (11:45)
[2019-04-16 13:03] LABS: INR 1.64 (0.83-1.09); PROTHROMBIN TIME (PATIENT) 19.5 SEC (9.7-13.0)
--- NOTE | 2019-04-16 13:26 | PN ---
Progress Note, Physician History of Present Illness: Pt seen and examined at bedside. He remains in the ICU. He remains intubated and sedate. - Current Medication List Current Medications: Active Medications Aspirin (Asa -) 81 mg PO DAILY [facility] Last Admin: 04/16/19 12:07 Dose: Not Given Clopidogrel Bisulfate (Plavix -) 75 mg PO DAILY [facility] Furosemide (Lasix Injection -) 40 mg IVPUSH DAILY [facility] Last Admin: 04/16/19 09:45 Dose: 40 mg Azithromycin (Zithromax 500mg Ivpb (Pre-Docked)) 500 mg in 250 mls @ 250 mls/ hr IVPB DAILY [facility] Last Admin: 04/16/19 09:44 Dose: 250 mls/hr Propofol (Diprivan -) 1,000,000 mcg in 100 mls @ 5 mls/hr IVPB TITR [facility]; Protocol Last Titration: 04/16/19 09:16 Dose: 3 mls/hr Propofol (Diprivan -) 1,000,000 mcg in 100 mls @ 3.058 mls/hr IVPB TITR [facility]; Protocol Last Admin: 04/16/19 10:16 Dose: 10 mcg/kg/min, 4.368 mls/hr Ceftriaxone Sodium 2 gm/ (Dextrose) 100 mls @ 200 mls/hr IVPB DAILY [facility]; Protocol Last Admin: 04/16/19 10:30 Dose: 200 mls/hr Insulin Aspart (Novolog Vial Sliding Scale -) 1 vial SQ ACHS [facility]; Protocol Last Admin: 04/16/19 12:06 Dose: 2 units Insulin Detemir (Levemir Vial) 20 units SQ HS [facility] Last Admin: 04/15/19 22:04 Dose: 20 units Lactulose (Cephulac (Oral Use)) 30 gm NGT TID [facility] Metoprolol Tartrate (Lopressor Injection -) 5 mg IVPUSH Q4H PRN PRN Reason: HYPERTENSION Rifaximin (Xifaxan -) 550 mg PO BID [facility] Last Admin: 04/16/19 12:07 Dose: Not Given - Objective Vital Signs: Vital Signs Temperature 98.6 F 04/16/19 10:04 Pulse Rate 77 04/16/19 13:02 Respiratory Rate 11 04/16/19 13:02 Blood Pressure 96/60 04/16/19 13:02 O2 Sat by Pulse Oximetry (%) 97 04/16/19 11:15 Constitutional: Yes: Calm HENT: Yes: Atraumatic Neck: Yes: Supple Cardiovascular: Yes: S1, S2 Respiratory: Yes: Intubated, Mechanically Ventilated Gastrointestinal: Yes: Normal Bowel Sounds, Soft, Ascites Genitourinary: Yes: Christian Present Musculoskeletal: Yes: Muscle Weakness Edema: Yes Edema: LLE: 1+, RLE: 1+ Neurological: Yes: Lethargy Labs: CBC, BMP 04/16/19 06:00 04/16/19 06:00 INR, PTT INR 1.64 (0.83-1.09) H 04/16/19 12:35 Problem List - Problems (1) Afib Code(s): I48.91 - UNSPECIFIED ATRIAL FIBRILLATION (2) Altered mental status Code(s): R41.82 - ALTERED MENTAL STATUS, UNSPECIFIED (3) CKD (chronic kidney disease) Code(s): N18.9 - CHRONIC KIDNEY DISEASE, UNSPECIFIED Qualifiers: Chronic kidney disease stage: stage 3 (moderate) Qualified Code(s): N18.3 - Chronic kidney disease, stage 3 (moderate) Assessment/Plan Current Medications Generic Name Dose Route Start Last Admin Trade Name Freq PRN Reason Stop Dose Admin Aspirin 81 mg 04/16/19 10:00 04/16/19 12:07 Asa - PO Not Given DAILY [facility] Clopidogrel Bisulfate 75 mg 04/16/19 11:45 Plavix - PO DAILY [facility] Furosemide 40 mg 04/15/19 17:30 04/16/19 09:45 Lasix Injection - IVPUSH 40 mg DAILY [facility] Administration Azithromycin 500 mg in 250 mls @ 250 mls/hr 04/15/19 16:30 04/16/19 09:44 Zithromax 500mg Ivpb (Pre-Docked) IVPB 250 mls/hr DAILY [facility] Administration Propofol 1,000,000 mcg in 100 mls @ 5 mls/hr 04/15/19 17:34 04/16/19 09:16 Diprivan - IVPB 3 mls/hr TITR [facility]IL Titration Protocol Propofol 1,000,000 mcg in 100 mls @ 3.058 mls/hr 04/16/19 10:00 04/16/19 10: 16 Diprivan - IVPB 10 mcg/kg/min TITR [facility]IL 4.368 mls/hr Administration Protocol 7 MCG/KG/MIN Ceftriaxone Sodium 2 gm/ 100 mls @ 200 mls/hr 04/16/19 10:00 04/16/19 10:30 Dextrose IVPB 200 mls/hr DAILY [facility] Administration Protocol Insulin Aspart 1 vial 04/15/19 16:30 04/16/19 12:06 Novolog Vial Sliding Scale - SQ 2 units ACHS WIL Administration Protocol Insulin Detemir 20 units 04/15/19 22:00 04/15/19 22:04 Levemir Vial SQ 20 units HS [facility]IL Administration Lactulose 30 gm 04/16/19 14:00 Cephulac (Oral Use) NGT TID [facility] Metoprolol Tartrate 5 mg 04/15/19 16:45 Lopressor Injection - IVPUSH Q4H PRN HYPERTENSION Rifaximin 550 mg 04/15/19 22:00 04/16/19 12:07 Xifaxan - PO Not Given BID [facility] Impression 1. CKD 2. TO 3. change in mental status 4. liver cirrhosis 5. ascites 6. pain med dependence 7. bph 8. a-fib 9. failure to thrive 10. non-compliance 11. hypotension 12. seizure 13. DM Plan - cont lasix - monitor renal function - cont lactulose/rifaximin - monitor renal function - can restart aldactone as needed - vent support
--- NOTE | 2019-04-16 13:30 | PN ---
Teaching Attending Note Name of Resident: Luiz Fernandez ATTENDING PHYSICIAN STATEMENT I saw and evaluated the patient. I reviewed the resident's note and discussed the case with the resident. I agree with the resident's findings and plan as documented. SUBJECTIVE: Pt seen and examined in the ICU. Remains intubated, sedated. No fevers recorded. OBJECTIVE: Vital Signs Period Temp Pulse Resp BP Sys/Grant Pulse Ox Last 24 Hr 95 F-98.6 F 70-89 11-22 84-132/43-79 97-100 Intake & Output 04/13/19 04/14/19 04/15/19 04/16/19 23:59 23:59 23:59 23:59 Intake Total 0 445 Output Total 950 450 Balance -950 -5 Weight 73.2 kg 72.802 kg Gen: intubated, sedated Heart: RRR Lung: decreased breath sounds at the bases Abd: softly distended, +ascites Ext: no edema CBC, BMP 04/16/19 06:00 04/16/19 06:00 Active Medications Aspirin (Asa -) 81 mg PO DAILY [facility] Last Admin: 04/16/19 12:07 Dose: Not Given Clopidogrel Bisulfate (Plavix -) 75 mg PO DAILY [facility] Furosemide (Lasix Injection -) 40 mg IVPUSH DAILY [facility] Last Admin: 04/16/19 09:45 Dose: 40 mg Azithromycin (Zithromax 500mg Ivpb (Pre-Docked)) 500 mg in 250 mls @ 250 mls/ hr IVPB DAILY [facility] Last Admin: 04/16/19 09:44 Dose: 250 mls/hr Propofol (Diprivan -) 1,000,000 mcg in 100 mls @ 5 mls/hr IVPB TITR [facility]; Protocol Last Titration: 04/16/19 09:16 Dose: 3 mls/hr Propofol (Diprivan -) 1,000,000 mcg in 100 mls @ 3.058 mls/hr IVPB TITR [facility]; Protocol Last Admin: 04/16/19 10:16 Dose: 10 mcg/kg/min, 4.368 mls/hr Ceftriaxone Sodium 2 gm/ (Dextrose) 100 mls @ 200 mls/hr IVPB DAILY [facility]; Protocol Last Admin: 04/16/19 10:30 Dose: 200 mls/hr Insulin Aspart (Novolog Vial Sliding Scale -) 1 vial SQ ACHS [facility]; Protocol Last Admin: 04/16/19 12:06 Dose: 2 units Insulin Detemir (Levemir Vial) 20 units SQ HS [facility] Last Admin: 04/15/19 22:04 Dose: 20 units Lactulose (Cephulac (Oral Use)) 30 gm NGT TID [facility] Metoprolol Tartrate (Lopressor Injection -) 5 mg IVPUSH Q4H PRN PRN Reason: HYPERTENSION Rifaximin (Xifaxan -) 550 mg PO BID [facility] Last Admin: 04/16/19 12:07 Dose: Not Given ASSESSMENT AND PLAN: Acute Respiratory Failure Altered Mental Status Acute NSTEMI Liver Cirrhosis/BORJAS Hepatic Encephalopathy Coagulopathy Thrombocytopenia r/o SBP CKD Atrial Fibrillation DM BPH - ASA, plavix, anticoagulation per cardiology - beta paty - trend cardiac enzymes - echocardiogram - continue empiric antibiotics - diagnostic paracentesis when coagulopathy improved - lactulose, rifaximin - DVT/GI prophylaxis - continue ICU monitoring critical care time spent in reviewing chart, evaluating patient and formulating plan 35 min
[2019-04-16] MEDS ORDERED: LACTULOSE 20 GM/30 ML UDC (FOR ORAL USE ONLY) NGT SCH (14:00)
--- NOTE | 2019-04-16 14:16 | PN ---
Progress Note (short form) - Note Progress Note: Pt seen at bedside; case discussed with Jeimy Esquivel HE[employer] NAVIGATOR, also with patient's . Currently he remains intubated. He is now in Afib. Abdomen remains soft, nontender. LE edema less. Has elevated troponin and markedly elevated BNP. INR elevated as well. Creatinine 4.2. WBC stable, Hgb down slightly. Plan discussed with Dr Magallon and Ms Carroll: 1) attempt to wean off respirator 2) IV furosemide as needed to control fluid retention 3) discuss possibility of loading dose of digoxin to control Afib (was done last admission). Prognosis guarded.
--- NOTE | 2019-04-16 14:28 | PN ---
Progress Note, Physician Chief Complaint: Toxic Metabolic Encephalopathy Cirrhosis Elevated Troponin-NSTEMI History of Present Illness: Previous notes and events reviewed mechanically ventilated-A/C mode sedated with propofal Troponin 19.2 Tachycardic on monitor-HR 110-120s will attempt to wean patient from ventilator pending coag panel results for possbile paracentesis - Current Medication List Current Medications: Active Medications Aspirin (Asa -) 81 mg PO DAILY [facility] Last Admin: 04/16/19 12:07 Dose: Not Given Clopidogrel Bisulfate (Plavix -) 75 mg PO DAILY [facility] Furosemide (Lasix Injection -) 40 mg IVPUSH DAILY [facility] Last Admin: 04/16/19 09:45 Dose: 40 mg Azithromycin (Zithromax 500mg Ivpb (Pre-Docked)) 500 mg in 250 mls @ 250 mls/ hr IVPB DAILY [facility] Last Admin: 04/16/19 09:44 Dose: 250 mls/hr Propofol (Diprivan -) 1,000,000 mcg in 100 mls @ 5 mls/hr IVPB TITR [facility]; Protocol Last Titration: 04/16/19 09:16 Dose: 3 mls/hr Propofol (Diprivan -) 1,000,000 mcg in 100 mls @ 3.058 mls/hr IVPB TITR [facility]; Protocol Last Admin: 04/16/19 10:16 Dose: 10 mcg/kg/min, 4.368 mls/hr Ceftriaxone Sodium 2 gm/ (Dextrose) 100 mls @ 200 mls/hr IVPB DAILY [facility]; Protocol Last Admin: 04/16/19 10:30 Dose: 200 mls/hr Insulin Aspart (Novolog Vial Sliding Scale -) 1 vial SQ ACHS [facility]; Protocol Last Admin: 04/16/19 12:06 Dose: 2 units Insulin Detemir (Levemir Vial) 20 units SQ HS [facility] Last Admin: 04/15/19 22:04 Dose: 20 units Lactulose (Cephulac (Oral Use)) 30 gm NGT TID [facility] Metoprolol Tartrate (Lopressor Injection -) 5 mg IVPUSH Q4H PRN PRN Reason: HYPERTENSION Rifaximin (Xifaxan -) 550 mg PO BID [facility] Last Admin: 04/16/19 12:07 Dose: Not Given - Objective Vital Signs: Vital Signs Temperature 98.6 F 04/16/19 10:04 Pulse Rate 77 04/16/19 13:02 Respiratory Rate 11 04/16/19 13:02 Blood Pressure 96/60 04/16/19 13:02 O2 Sat by Pulse Oximetry (%) 97 04/16/19 11:15 Constitutional: Yes: No Distress HENT: Yes: Atraumatic Cardiovascular: Yes: Tachycardia, Pulse Irregular Respiratory: Yes: Mechanically Ventilated, Rhonchi Gastrointestinal: Yes: Soft, Ascites, Hypoactive Bowel Sounds Genitourinary: Yes: Christian Present Musculoskeletal: Yes: Muscle Weakness Extremities: Yes: WNL Edema: Yes Neurological: Yes: Other (Sedated) Labs: CBC, BMP 04/16/19 06:00 04/16/19 06:00 INR, PTT INR 1.64 (0.83-1.09) H 04/16/19 12:35 Problem List - Problems (1) Toxic metabolic encephalopathy Assessment/Plan: -Ammonia 169.5 -LA 2.1 -Neurology on board -Head CT scan shows no evidence of acute intracranial hemorrhage, edema, midline shift, mass effect, or skull fracture, no acute territoral ischemic changes -no leukocytosis -BC and UC pending -neuro checks q1h -EEG Code(s): G92 - TOXIC ENCEPHALOPATHY (2) Afib Assessment/Plan: -Metoprolol PO held due to mental status -Lopressor 5mg IVP q4h PRN for HR >110bpm -tele monitoring -cardiology on board Code(s): I48.91 - UNSPECIFIED ATRIAL FIBRILLATION (3) Acute on chronic systolic and diastolic heart failure, NYHA class 1 Assessment/Plan: -1L fluid restriction -daily weights -BNP 16018.5 -cardiology on board -Furosemide Code(s): I50.43 - ACUTE ON CHRONIC COMBINED SYSTOLIC AND DIASTOLIC HRT FAIL (4) Benign essential hypertension Assessment/Plan: -monitor BP -PO BP meds on hold due to mental status -cardiology consult Code(s): I10 - ESSENTIAL (PRIMARY) HYPERTENSION (5) Cirrhosis of liver Assessment/Plan: -GI on board -ammonia 96 -Lactulose TID -AST 72, Alk Phos 137 -hold Aspirin, Plavix Code(s): K74.60 - UNSPECIFIED CIRRHOSIS OF LIVER Qualifiers: Hepatic cirrhosis type: other cirrhosis Qualified Code(s): K74.69 - Other cirrhosis of liver (6) Hepatic encephalopathy syndrome Assessment/Plan: -GI consult -ammonia 96 -Lactulose TID -AST 72, Alk Phos 137 -Xifaxin PO onhold due to mental status Code(s): K72.90 - HEPATIC FAILURE, UNSPECIFIED WITHOUT COMA (7) CKD (chronic kidney disease) Assessment/Plan: -Renal on board -BUN/Cr 70.2/4.2 -monitor renal function daily -as per renal safe to start Lasix but avoid aldactone until K level not as high Code(s): N18.9 - CHRONIC KIDNEY DISEASE, UNSPECIFIED Qualifiers: Chronic kidney disease stage: stage 3 (moderate) Qualified Code(s): N18.3 - Chronic kidney disease, stage 3 (moderate) (8) Diabetes 1.5, managed as type 2 Assessment/Plan: -BGM ACHS -Levemir and ISS -HgA1c Code(s): E13.9 - OTHER SPECIFIED DIABETES MELLITUS WITHOUT COMPLICATIONS (9) Elevated troponin Assessment/Plan: -Troponin 19.20 -Cardiology on board -Unable to start AC due to risk of bleeding 2/2 cirrhosis/varices--discussed with GI Dr Pritchett -monitor troponin for downtrend Code(s): R74.8 - ABNORMAL LEVELS OF OTHER SERUM ENZYMES Assessment/Plan see problem list
[2019-04-16] MEDS ORDERED: METOPROLOL TARTRATE 5 MG/5 ML VIAL IVPUSH ONE ×2 (14:33→18:08)
--- NOTE | 2019-04-16 14:34 | ECHO ---
Name: KAYKAY NGUYỄN Exam:Adult Echocardiogram Study Date: 04/16/2019 12:47 PM Age: 63 yrs Reason For Study: ef Height: 64 in Weight: 160 lb BSA: 1.8 m2 MMode/2D Measurements & Calculations IVSd: 0.96 cm Ao root diam: 2.8 cm LVIDd: 4.2 cm LA dimension: 4.7 cm LVIDs: 3.3 cm LVPWd: 0.85 cm EDV(Teich): 78.0 ml LVOT diam: 2.0 cm ESV(Teich): 45.2 ml LAV (MOD-bp): 64.6 ml Doppler Measurements & Calculations MV E max petey: 110.0 cm/sec Ao V2 max: 146.6 cm/sec MV dec time: 0.21 sec Ao max P.6 mmHg SUN(V,D): 1.8 cm2 LV V1 max P.8 mmHg MR max petey: 352.9 cm/sec LV V1 max: 84.4 cm/sec MR max P.8 mmHg TR max petey: 225.3 cm/sec PA V2 max: 112.7 cm/sec TR max P.6 mmHg PA max P.1 mmHg Med Peak E' Petey: 7.3 cm/sec Med E/e': 15.1 Lat Peak E' Petey: 14.3 cm/sec Lat E/e': 7.7 Procedure A two-dimensional transthoracic echocardiogram with color flow and Doppler was performed. The study w as technically difficult with many images being suboptimal in quality. Left Ventricle The left ventricle is grossly normal size. The left ventricle is not well visualized. Left ventricula r systolic function is severely reduced. There is septal wall akinesis. There is apical septal wall zaid nesis. There is apical akinesis. There is moderate to severe global hypokinesis of the left ventricle. Regio nal wall motion abnormalities cannot be excluded due to limited visualization. Right Ventricle The right ventricle is not well visualized. Atria The left atrium is moderately dilated. The right atrium is moderately dilated. Mitral Valve There is mild mitral valve thickening. There is no mitral valve stenosis. There is mild to moderate m itral regurgitation. Tricuspid Valve The tricuspid valve is normal in structure and function. There is no tricuspid stenosis. There is mil d tricuspid regurgitation. Right ventricular systolic pressure is normal. Aortic Valve The aortic valve is not well visualized. No hemodynamically significant valvular aortic stenosis. No aortic regurgitation is present. Pulmonic Valve The pulmonic valve is not well visualized. Great Vessels The aortic root is normal size. Pericardium/Pleura There is a mild pericardial effusion. There is a pleural effusion present. Interpretation Summary There is mild to moderate mitral regurgitation. The right atrium is moderately dilated. The left atrium is moderately dilated. There is a mild pericardial effusion. There is a pleural effusion present. There is mild tricuspid regurgitation. Right ventricular systolic pressure is normal. The study was technically difficult with many images being suboptimal in quality. The left ventricle is grossly normal size. Left ventricular systolic function is severely reduced. There is septal wall akinesis. There is apical septal wall akinesis. There is apical akinesis. There is moderate to severe global hypokinesis of the left ventricle. Regional wall motion abnormalities cannot be excluded due to limited visualization. The left ventricle is not well visualized. MD Dario Mireles 04/16/2019 02:33 PM
[2019-04-16] MEDS ORDERED: CLOPIDOGREL BISULFATE 75 MG TABLET (FP) PO ONE (14:55)
[2019-04-16] MEDS ORDERED: FENTANYL INJECTION 500 MCG in DEXTROSE 5%-WATER - 90 ML IVPB SCH (17:30)
[2019-04-16] MEDS ORDERED: fentaNYL CITRATE 250 MCG/5 ML VIAL ONE (17:33)
[2019-04-16] MEDS ORDERED: CLOPIDOGREL BISULFATE 300 MG TABLET PO ONE (17:44)
[2019-04-16] MEDS ORDERED: METOPROLOL TARTRATE 5 MG/5 ML VIAL ONE (18:14)
--- NOTE | 2019-04-16 23:36 | PN ---
Progress Note (short form) - Note Progress Note: Pt's EF severely reduced and in lieu of elevated troponin likely NSTEMI vs. other cardiac event. Cardiology recommending transfer to tertiary care/cardiac center for higher level of care and possible intervention once stable. Pt was loaded with 300mg Plavix and then to have 75mg qdaily starting tomorrow. Pt accepted to [facility] under Dr. Houston being transferred to CCU. Pt's family aware. Pt transferred in stable condition with guarded prognosis. --Luiz Fernandez, DO - IM PGY-3
[2019-04-17 00:23] VITALS: BP 95/69; PULSE 126; TEMP 0
[2019-04-17] MEDS ORDERED: CLOPIDOGREL BISULFATE 75 MG TABLET (FP) PO SCH (10:00)
== END 2019-04-16 20:00 | disposition short-term general hospital (02) | DRG 280 ==
LOC: JER 06:05 → JERBED 10:32 → JICU 17:01
PROVIDERS: ADMIT Family Medicine; ATTEND Family Medicine
PROC: 5A1945Z Respiratory Ventilation, 24-96 Consecutive Hours (ICD-10-PCS; principal; 2019-04-15)
PROC: 0BH17EZ Insertion of Endotracheal Airway into Trachea, Via Natural or Artificial Opening (ICD-10-PCS; 2019-04-15)
DX: I21.4 Non-ST elevation (NSTEMI) myocardial infarction (principal); G92 Toxic encephalopathy; I50.43 Acute on chronic combined systolic (congestive) and diastolic (congestive) heart failure; J96.00 Acute respiratory failure, unspecified whether with hypoxia or hypercapnia; I13.0 Hypertensive heart and chronic kidney disease with heart failure and stage 1 through stage 4 chronic kidney disease, or unspecified chronic kidney disease; D68.9 Coagulation defect, unspecified; R18.8 Other ascites; N17.9 Acute kidney failure, unspecified; K72.90 Hepatic failure, unspecified without coma; K74.60 Unspecified cirrhosis of liver; E11.9 Type 2 diabetes mellitus without complications; N18.3 Chronic kidney disease, stage 3 (moderate); R74.8 Abnormal levels of other serum enzymes; D69.6 Thrombocytopenia, unspecified; N40.0 Benign prostatic hyperplasia without lower urinary tract symptoms; D64.9 Anemia, unspecified; I25.10 Atherosclerotic heart disease of native coronary artery without angina pectoris; I48.0 Paroxysmal atrial fibrillation; R62.7 Adult failure to thrive; I95.9 Hypotension, unspecified; E87.70 Fluid overload, unspecified
CPT/HCPCS: 36415; 36600; 70450-TC; 71045-TC-FY; 72125-TC; 80053; 80061; 82140; 82550; 82803; 82962; 83605; 83721; 83735; 83880; 84100; 84436; 84484; 85025; 85027; 85610; 85730; 86850; 86900; 86901; 87040; 87086; 93005; 93010; 93306-TC; 94002; 99282-25; 99285-25; P9047

== ENCOUNTER 2019-05-04 21:48 | Emergency (ER) | payer BC, OTHER ==
[2019-05-04 21:55] VITALS: BP 114/67; PULSE 112; TEMP 98; BMI 28.6
[2019-05-04] MEDS ORDERED: SODIUM CHLORIDE 500 ML IV STA (22:24)
[2019-05-04] MEDS ORDERED: morphine CARPU-JECT 4 MG/1 ML DISP.SYRIN IVPUSH ONE (22:24)
[2019-05-04] MEDS ORDERED: ACETAMINOPHEN 1000 MG/100 ML VIAL (NON FORMULARY) IVPB ONE (22:29)
[2019-05-04] MEDS ORDERED: Methylnaltrexone Bromide 12 MG/0.6 ML KIT SQ ONE (22:30)
[2019-05-04] MEDS ORDERED: ACETAMINOPHEN INJECTION 100 ML IVPB ONE (22:35)
[2019-05-04 23:10] LABS: BASO % 0.4 % (0-2.0); HEMATOCRIT 31.4 % (35.4-49); HEMOGLOBIN 10.1 GM/dL (11.7-16.9); LYMPH % 2.5 % (8-40); MCH 26.3 pg (25.7-33.7); MEAN PLT VOLUME 11.6 fl (7.5-11.1); MONO % 11.8 % (3.8-10.2); NEUT % 85.3 % (42.8-82.8); PLATELET COUNT 133 K/MM3 (134-434); RBC 3.83 M/mm3 (4.00-5.60); RDW 18.5 % (11.9-15.9); WHITE BLOOD COUNT 6.9 K/mm3 (4.0-10.0)
[2019-05-04 23:27] LABS: INR 1.69 (0.83-1.09)
[2019-05-04 23:29] LABS: ACTIVATED PTT 41.4 SECONDS (25.2-36.5)
[2019-05-04 23:53] LABS: ALBUMIN 2.8 g/dl (3.4-5.0); BILIRUBIN,TOTAL 1.8 mg/dL (0.2-1); BLOOD UREA NITROGEN 97.7 mg/dL (7-18); CALCIUM 8.4 mg/dL (8.5-10.1); CREATININE 5.6 mg/dL (0.55-1.3); TOT PROT 6.9 g/dl (6.4-8.2)
[2019-05-05] MEDS ORDERED: FOLIC ACID INJECTION - 1 MG, THIAMINE HCL 100 MG, MULTIVIT INJECTION ADULT 10 ML in SOD... IVPB ONE (00:04)
--- NOTE | 2019-05-05 00:04 | PDOC ---
History of Present Illness - General Chief Complaint: Pain Stated Complaint: ABDOMINAL PAIN Time Seen by Provider: 05/04/19 22:09 - History of Present Illness Initial Comments: 05/04/19 23:31 HPI: 63 y/o M with hx of Afib, cirrhosis, COPD, CKD, CAD s/p mutlitple stents, CHF, chronic back pain presenting with 2 days of abdominal pain and distention. He reports attempting to have a bowel movement yesterday but felt severe abdominal pain and feeling of incomplete evacuation. He reports having 1 more BM today that was small hard stools. He typically has 1-2 BMs a day. Abdominal pain is diffuse with no radiation to chest or back. He also endorses 5 episodes of NBNB emesis and nausea. He has not been able to tolerate any PO intake for the past 2 days. He tried mag citrate and lactulose, but that did not help his symptoms. He denies fever, chills, chest pain, palpitations, SOB, dysuria, BPR. PMHx: as noted above ROS: as noted SHx: Denies Etoh, IVDA, tobacco use Allergies: NKDA Past History - Past Medical History Allergies/Adverse Reactions: Allergies Allergy/AdvReac Type Severity Reaction Status Date / Time No Known Drug Allergies Allergy Verified 02/19/19 12:12 Home Medications: Ambulatory Orders Tamsulosin HCl [Flomax] 0.4 mg PO BID 05/16/18 Aspirin [ASA -] 81 mg PO DAILY 02/19/19 Rifaximin [Xifaxan] 550 mg PO BID 02/21/19 Cephalexin [Keflex] 500 mg PO DAILY 04/15/19 Insulin (Novolog 70/30) [Novolog Mix 70/30 Vial -] 10 units SQ AM 04/15/19 Insulin Glargine,Hum.rec.anlog [Lantus] 15 unit SQ HS 04/15/19 Lactulose 10 gm PO BID 04/15/19 Metoprolol Succinate [Toprol Xl] 50 mg PO DAILY 04/15/19 Mirtazapine 15 mg PO HS 04/15/19 Ranitidine [Zantac -] 150 mg PO DAILY 04/15/19 Anemia: No Asthma: No Cancer: No Cardiac Disorders: Yes (17 cardiac stents) CVA: No COPD: No CHF: No DVT: No Dementia: No Diabetes: Yes (IDDM) Dialysis: (Kidney problems) GI Disorders: No Disorders: No HTN: Yes Hypercholesterolemia: Yes Kidney Stones: No Liver Disease: Yes (cirrhosis) Seizures: No Thyroid Disease: No - Surgical History Abdominal Surgery: No Appendectomy: Yes Cardiac Surgery: (, stents x17) Cholecystectomy: No Lung Surgery: No Neurologic Surgery: Yes (LAMINECTOMY 2012, L HIP X 2.) Orthopedic Surgery: No - Immunization History Td Vaccination: Yes TDAP Vaccination: Yes - Suicide/Smoking/Psychosocial Hx Smoking Status: No Smoking History: Never smoked Have you smoked in the past 12 months: No Number of Cigarettes Smoked Daily: 0 If you are a former smoker, when did you quit?: 2008 Hx Alcohol Use: No Drug/Substance Use Hx: No Substance Use Type: None Hx Substance Use Treatment: No Review of Systems - Review of Systems Comments:: 05/05/19 00:13 GENERAL/CONSTITUTIONAL: No fever or chills. No weakness. HEAD, EYES, EARS, NOSE AND THROAT: No change in vision. No ear pain or discharge. No sore throat. CARDIOVASCULAR: No chest pain or shortness of breath RESPIRATORY: No cough, wheezing, or hemoptysis. GASTROINTESTINAL: +nausea, vomiting, or constipation. no diarrhea GENITOURINARY: No dysuria, frequency, or change in urination. MUSCULOSKELETAL: No joint or muscle swelling or pain. No neck or back pain. SKIN: No rash NEUROLOGIC: +LH ENDOCRINE: No increased thirst. No abnormal weight change HEMATOLOGIC/LYMPHATIC: No anemia, easy bleeding, or history of blood clots. ALLERGIC/IMMUNOLOGIC: No hives or skin allergy. *Physical Exam - Vital Signs Last Vital Signs Temp Pulse Resp BP Pulse Ox 98 F 112 H 20 114/67 98 05/04/19 21:52 05/04/19 21:52 05/04/19 21:52 05/04/19 21:52 05/04/19 21:52 - Physical Exam Comments: 05/05/19 00:15 GENERAL: Awake, alert, and fully oriented, in moderate acute distress HEAD: No signs of trauma, normocephalic, atraumatic EYES: EOMI, scleral icterus, conjunctiva clear ENT: Auricles normal inspection, hearing grossly normal, nares patent, oropharynx clear without exudates. dry mucosa NECK: Normal ROM, supple, no lymphadenopathy, JVD, or masses LUNGS: No distress, speaks full sentences, clear to auscultation bilaterally HEART: tachycardia, regular rhythm, normal S1 and S2, no murmurs, rubs or gallops, peripheral pulses normal and equal bilaterally. ABDOMEN: Soft, significantly distended, ascites present, diffuse tenderness with guarding, left CVA tenderness, firm liver palpated, caput medusae present EXTREMITIES : Normal inspection, Normal range of motion, no edema. No clubbing or cyanosis. NEUROLOGICAL: Cranial nerves II through XII grossly intact. Normal speech, normal gait, no focal sensorimotor deficits SKIN: Warm, Dry, normal turgor, no rashes or lesions noted ED Treatment Course - LABORATORY CBC & Chemistry Diagram: 05/04/19 23:00 05/04/19 23:00 - ADDITIONAL ORDERS Additional order review: Laboratory Results 05/04/19 23:00 PT with INR 20.00 H INR 1.69 H PTT (Actin FS) 41.4 H 05/04/19 23:00 RBC 3.83 L MCV 82.0 MCHC 32.0 RDW 18.5 H MPV 11.6 H Neutrophils % 85.3 H Lymphocytes % 2.5 L D Monocytes % 11.8 H Eosinophils % 0.0 D Basophils % 0.4 - Medications Given in the ED: ED Medications Discontinued Medications Generic Name Dose Route Start Last Admin Trade Name Renardq PRN Reason Stop Dose Admin Acetaminophen 1,000 mg 05/04/19 22:29 05/04/19 22:50 Ofirmev Injection - IVPB 05/04/19 22:30 1,000 mg ONCE ONE Administration Sodium Chloride 500 mls @ 500 mls/hr 05/04/19 22:24 05/04/19 22:50 Normal Saline - IV 05/04/19 23:23 500 mls/hr ASDIR STA Administration Medical Decision Making - Medical Decision Making 05/05/19 00:19 63 y/o M with hx of Afib, cirrhosis, COPD, CKD, CAD s/p mutlitple stents, CHF, chronic back pain presenting with 2 days of abdominal pain and distention associated with inability to tolerate PO, emesis, and decreased BM. Vitals notable for HR 112. Physical exam with significantly distended abdomen with tympany in epigastric region and diffuse tenderness -CBC, CMP, coags, T&S, UA, UCx -IVF, ofirmev -CT abd/pel noncon 05/05/19 00:21 straight cath for urine relistor administered 05/05/19 01:26 CT abd/pel: mod to large ascites; large feces in the colon with minimally dilated air-filled transverse colon; no colitis or free air Patient had 3 large BMs and is improved; has no pain; would like to go home given decreased PO tolerance, severe constipation, hypokalemia, FTT would like to admit patient for obs for continued ROBF and management however patient adamantly refuses Patient and signed AMA forms with understanding of significant impairment, possible perforation, bowel obstruction, peritonitis, *DC/Admit/Observation/Transfer Diagnosis at time of Disposition: Hypokalemia Constipation Qualifiers: Constipation type: unspecified constipation type Qualified Code(s): K59.00 - Constipation, unspecified Failure to thrive Qualifiers: Failure to thrive age range: in adult Qualified Code(s): R62.7 - Adult failure to thrive - Discharge Dispostion Disposition: AGAINST MEDICAL ADVICE Condition at time of disposition: Improved Decision to Admit order: No - Referrals - Patient Instructions Additional Instructions: Additional Instructions: Please return to the emergency department with any new or worsening symptoms or concerns including severe abdominal pain, vomiting, fainting. Please follow up with your primary care physician and/or Dr Pritchett within 72 hours. AMA: As discussed you may have undiagnosed illness or medical diagnosis that if left untreated can lead to multiple complications including, but not limited to permanent disability and . Should you reconsider you should turn to the emergency department for evaluation. Please continue your bowel regimen - Post Discharge Activity
[2019-05-05 01:03] LABS: PH,URINE 5.5 (5.0-8.0); URINE APPEARANCE CLEAR; URINE BILIRUBIN NEGATIVE (NEGATIVE); URINE COLOR YELLOW; URINE GLUCOSE (UA) NEGATIVE (NEGATIVE); URINE KETONE NEGATIVE (NEGATIVE); URINE LEUK ESTERASE NEGATIVE (NEGATIVE); URINE NITRITE NEGATIVE (NEGATIVE); URINE PROTEIN TRACE (NEGATIVE); URINE UROBILINOGEN 0.2 mg/dL (0.2-1.0)
[2019-05-05 01:18] LABS: COCAINE, UR NEGATIVE ng/ml (CUTOFF=300); METHADONE, UR NEGATIVE ng/ml (CUTOFF=300); PHENCYCLIDINE,URINE NEGATIVE ng/ml (CUTOFF=25); URINE AMPHETAMINES NEGATIVE ng/ml (CUTOFF=500); URINE BARBITURATES NEGATIVE ng/ml (CUTOFF=200); URINE BENZODIAZEPINES NEGATIVE ng/ml (CUTOFF=200)
[2019-05-05 01:20] LABS: OPIATES, URI POSITIVE ng/ml (CUTOFF=300)
[2019-05-05] MEDS ORDERED: Methylnaltrexone Bromide 12 MG/0.6 ML KIT SQ ONE (22:31)
--- NOTE | 2019-05-10 20:52 | PDOC ---
Documentation entered by Saad Bhatia SCRIBE, acting as scribe for Margot Akbar MD. Margot Akbar MD: This documentation has been prepared by the Sriram graff Daniel, SCRIBE, under my direction and personally reviewed by me in its entirety. I confirm that the documentation accurately reflects all work, treatment, procedures, and medical decision making performed by me. Attending Attestation - Resident Resident Name: AdrielSudhakar - ED Attending Attestation I have performed the following: I have examined & evaluated the patient, The case was reviewed & discussed with the resident, I agree w/resident's findings & plan - HPI HPI: 05/04/19 22:33 The patient is a 63 year old male with a past medical history of liver cirrhosis , diastolic CHF, CAD, COPD, paroxysmal Afib, HLD, andHTN here today for evaluation of abdominal pain and distention. The patient reports that he has had 2 days of abdominal pain and distention which is worse when he tries to have a bowel movement. He notes having a bowel movement yesterday and a small movement today and notes that both stools were hard. He reports being unable to tolerate PO intake due to nausea and vomiting. Patient notes being able to pass gas. Patient was sent in by Dr. Pritchett Patient denies headache, lightheadedness. Denies fever, chills. Denies chest pain, shortness of breath. Denies diarrhea. Allergies: NKDA Social history: Denies tobacco, alcohol, and illicit drug use. GI: Salazar Pritchett - Physicial Exam PE: 05/04/19 23:38 GENERAL: +jaundice. +cachectic appearing. +anasarca. Awake, alert, and fully oriented, in no acute distress HEAD: No signs of trauma EYES: PERRLA, EOMI, sclera anicteric, conjunctiva clear ENT: Auricles normal inspection, hearing grossly normal, nares patent, oropharynx clear without exudates. Moist mucosa NECK: Normal ROM, supple, no lymphadenopathy, JVD, or masses LUNGS: Breath sounds equal, clear to auscultation bilaterally. No wheezes, and no crackles HEART: +tachycardia. Regular rhythm, normal S1 and S2, no murmurs, rubs or gallops ABDOMEN: +enlarged. +ascites. +tenderness to palpation. Soft, normoactive bowel sounds. No guarding, no rebound. No masses EXTREMITIES: +bilateral lower extremity 4+pitting edema right worse than left. Normal range of motion. No clubbing or cyanosis. No cords, erythema, or tenderness NEUROLOGICAL: Cranial nerves II through XII grossly intact. Normal speech, normal gait SKIN: +old surgical scar on right lower extremity. Warm, Dry, normal turgor, no rashes or lesions noted. - Medical Decision Making 05/05/19 01:34 Pt treated with Relistor 8mg Subcutaneous and he had a BM and he is feeling better. Pt had a CT scan: Patient Name: KAYKAY NGUYỄN THIS IS A PRELIMINARY REPORT FROM [facility] DATE OF SERVICE: 2019-05-04 23:17:16 IMAGES: 564 EXAM: CT ABDOMEN AND PELVIS WITHOUT CONTRAST Moderate to large ascites, increased since , correlate clinically for worsening portal hypertension. Tiny dependent hyperdensities in right lateral mid paracolic space at site of previously seen acute hemoperitoneum (near level of right kidney), question scarring or septations related to prior hemorrhage. However, if there is concern for small recurrent acute hemoperitoneum such as from recent paracentesis, for example, advise short term followup to exclude worsening hemorrhage. Cirrhotic liver, splenomegaly, and upper abdominal varices. 1.6 cm diameter tubular structure inferior to cecum in right lower quadrant, question small bowel loop. A normal appendix is not seen. If there is concern for acute appendicitis , consider followup CT after oral contrast. Large feces colon and minimally dilated air-filled transverse colon, similar to prior exam and possibly related to constipation. No colitis or free air. No nephrolithiasis, ureterolithiasis or obstructive uropathy. No bladder calculi. Bilateral medullary nephrocalcinosis. Dilated urinary bladder, similar to prior exam. Atrophic pancreas. Cholelithiasis. 3.7 cm calcification in right lower quadrant, similar to prior exam. Small bilateral inguinal region hernias containing fat. Small periumbilical calcification may be related to a small umbilical hernia, similar to prior exam. Increased subcutaneous edema compared to prior exam. Small left pleural effusion appearing since prior exam. Dependent/compressive atelectasis lung bases. Coronary artery disease. Hypodense intracardiac blood, which can be seen with anemia Pt wants to sign out AMA
== END 2019-05-05 02:30 | disposition left against medical advice (07) ==
LOC: JER 21:48
PROC: 3E0337Z Introduction of Electrolytic and Water Balance Substance into Peripheral Vein, Percutaneous Approach (ICD-10-PCS; principal; 2019-05-04)
PROC: 3E033NZ Introduction of Analgesics, Hypnotics, Sedatives into Peripheral Vein, Percutaneous Approach (ICD-10-PCS; 2019-05-04)
PROC: 3E033NZ Introduction of Analgesics, Hypnotics, Sedatives into Peripheral Vein, Percutaneous Approach (ICD-10-PCS; 2019-05-04)
PROC: 3E023GC Introduction of Other Therapeutic Substance into Muscle, Percutaneous Approach (ICD-10-PCS; 2019-05-04)
PROC: 0T9B70Z Drainage of Bladder with Drainage Device, Via Natural or Artificial Opening (ICD-10-PCS; 2019-05-04)
DX: K59.00 Constipation, unspecified (principal); R18.8 Other ascites; E87.6 Hypokalemia; R62.7 Adult failure to thrive; Z68.28 Body mass index [BMI] 28.0-28.9, adult; I25.10 Atherosclerotic heart disease of native coronary artery without angina pectoris; I13.0 Hypertensive heart and chronic kidney disease with heart failure and stage 1 through stage 4 chronic kidney disease, or unspecified chronic kidney disease; N18.9 Chronic kidney disease, unspecified; I50.30 Unspecified diastolic (congestive) heart failure; Z95.5 Presence of coronary angioplasty implant and graft; I48.91 Unspecified atrial fibrillation; Z79.01 Long term (current) use of anticoagulants; E11.9 Type 2 diabetes mellitus without complications; Z79.4 Long term (current) use of insulin; J44.9 Chronic obstructive pulmonary disease, unspecified; K74.60 Unspecified cirrhosis of liver; E78.00 Pure hypercholesterolemia, unspecified
CPT/HCPCS: 36415; 74176-TC; 80053; 80307; 81003; 85025; 85610; 85730; 86850; 86900; 86901; 87086; 99281-25; J0131; J7030

== ENCOUNTER 2019-05-11 17:35 | Inpatient (IN) | payer BC, OTHER ==
--- NOTE | 2019-05-11 17:57 | PDOC ---
History of Present Illness - General Chief Complaint: Shortness of Breath Stated Complaint: SOB Time Seen by Provider: 05/11/19 17:48 History Source: Patient Exam Limitations: No Limitations - History of Present Illness Initial Comments: 05/11/19 18:41 63M w/ pmh of Afib, CAD s/p stents, HFrEF(severe global hypokinesis, 04/16/19), COPD, CKD, chronic pain(oxycodone 30mg), BORJAS cirrhosis(MELD 29, Raphael B; ) referred by Dr Pritchett(GI, ) for complaint of SOB, worsened x2d. SOB with activity and rest, w/a nonproductive cough. 3d prior, went to Dr Evelyn Su's office for urinary retention and received a Christian, told to return to office on 05/12/19. has increased pt's lasix from 80mg QD to BID. Has had trouble tolerating a diet, with immediate spitting up of food(eg. yogurt) worsening since intubation from March 2019. Denies recent sick contact. Endorses falling onto his backside. Has been increasingly dependent on others for ADLs, with limited ability to ambulate. Last paracentesis was 2wk prior by Dr Pritchett, draining 8L. Does not have regularly scheduled paracentesis. Last upper endoscopy was 17ys prior for variceal banding. Last colonoscopy was 10ys prior. Recently, seen at [facility](05/04/19) for abdominal pain w/ distension, thought to be 2/2 severe obstipation. At that time, refused admission and signed out AMA. Severity: moderate Associated Symptoms: reports: cough, loss of appetite, nausea/vomiting, shortness of breath. denies: fever/chills Past History - Travel Traveled outside of the country in the last 30 days: No Close contact w/someone who was outside of country & ill: No - Past Medical History Allergies/Adverse Reactions: Allergies Allergy/AdvReac Type Severity Reaction Status Date / Time No Known Drug Allergies Allergy Verified 05/11/19 17:45 Home Medications: Ambulatory Orders Tamsulosin HCl [Flomax] 0.4 mg PO BID 05/16/18 Aspirin [ASA -] 81 mg PO DAILY 02/19/19 Rifaximin [Xifaxan] 550 mg PO BID 02/21/19 Cephalexin [Keflex] 500 mg PO DAILY 04/15/19 Insulin (Novolog 70/30) [Novolog Mix 70/30 Vial -] 10 units SQ AM 04/15/19 Insulin Glargine,Hum.rec.anlog [Lantus] 15 unit SQ HS 04/15/19 Lactulose 10 gm PO BID 04/15/19 Metoprolol Succinate [Toprol Xl] 50 mg PO DAILY 04/15/19 Mirtazapine 15 mg PO HS 04/15/19 Ranitidine [Zantac -] 150 mg PO DAILY 04/15/19 Anemia: No Asthma: No Cancer: No Cardiac Disorders: Yes (17 cardiac stents) CVA: No COPD: No CHF: No DVT: No Dementia: No Diabetes: Yes (IDDM) Dialysis: (Kidney problems) GI Disorders: No Disorders: No HTN: Yes Hypercholesterolemia: Yes Kidney Stones: No Liver Disease: Yes (cirrhosis) Seizures: No Thyroid Disease: No - Surgical History Abdominal Surgery: No Appendectomy: Yes Cardiac Surgery: (, stents x17) Cholecystectomy: No Lung Surgery: No Neurologic Surgery: Yes (LAMINECTOMY 2012, L HIP X 2.) Orthopedic Surgery: No - Family Disease History Comment:: 05/11/19 19:00 noncontributory for current condition - Immunization History Td Vaccination: Yes TDAP Vaccination: Yes - Suicide/Smoking/Psychosocial Hx Smoking Status: No Smoking History: Never smoked Have you smoked in the past 12 months: No Number of Cigarettes Smoked Daily: 0 If you are a former smoker, when did you quit?: 2008 Hx Alcohol Use: No Drug/Substance Use Hx: No Substance Use Type: None Hx Substance Use Treatment: No Review of Systems - Review of Systems Able to Perform ROS?: Yes Is the patient limited [place] proficient: No Constitutional: Yes: Malaise, Weakness. No: Chills, Fever HEENTM: Yes: Difficulty Swallowing. No: Blurred Vision, Double Vision Respiratory: Yes: Cough, Shortness of Breath, SOB at Rest. No: Productive cough Cardiac (ROS): Yes: Edema (lower extremity). No: Chest Pain, Palpitations ABD/GI: Yes: Abdominal Distended, Constipated : Yes: Other (urinary retention). No: Burning, Dysuria Musculoskeletal: Yes: Back Pain Integumentary: Yes: Other (scleral icterus) *Physical Exam - Vital Signs Last Vital Signs Temp Pulse Resp BP Pulse Ox 98 F 109 H 20 106/66 98 05/11/19 17:43 05/11/19 17:43 05/11/19 17:43 05/11/19 17:43 05/11/19 17:43 - Physical Exam General Appearance: Yes: Mild Distress, Cachetic HEENT: positive: Scleral Icterus (R), Scleral Icterus (L). negative: Symmetrical, Pale Conjunctivae, Rhinorrhea Neck: positive: Trachea midline, Supple. negative: Tender, Decreased range of motion, Lymphadenopathy (R), Lymphadenopathy (L) Respiratory/Chest: positive: Lungs Clear, Normal Breath Sounds (weak inspiratory effort). negative: Chest Tender, Labored Respiration, Rapid RR, Paradoxal Breathing, Rales, Rhonchi, Stridor, Wheezing Cardiovascular: positive: Regular Rate, S1, S2, Edema (diffuse BLE edema) Gastrointestinal/Abdominal: positive: Protuberent, Distended (dull fluid-filled abd). negative: Tender, Guarding, Rebound, Tenderness Male Genitalia: positive: other (Christian catheter on Right thigh with yellow urine ) Extremity: positive: Pedal Edema, Swelling. negative: Calf Tenderness Integumentary: positive: Dry, Warm, Jaundice Neurologic: positive: Fully Oriented, Alert ED Treatment Course - LABORATORY CBC & Chemistry Diagram: 05/13/19 05:36 05/13/19 05:36 Medical Decision Making - Medical Decision Making 05/11/19 19:12 SOB likely 2/2 to acutely decompensated cirrhosis - fu CBC, CMP, INR, lipase, ammonia, lactic acid, BNP, cardiac enzymes - fu EKG - fu CXR, XR L-spine - pain prn: oxycodone 30mg(home dose) - to update Dr Pritchett([phone]) -- no answer at ~18:45 - signed out to Dr Kameron Connor for PM care *DC/Admit/Observation/Transfer Diagnosis at time of Disposition: Acute kidney failure, Portal hypertension syndrome, Hepatic encephalopathy syndrome, Cirrhosis of liver, Nonhealing ulcer of multiple sites of right lower extremity - Referrals - Patient Instructions - Post Discharge Activity
[2019-05-11] MEDS ORDERED: oxyCODONE HCL 5 MG TABLET PO ONE (18:40)
--- NOTE | 2019-05-11 19:15 | PDOC ---
Documentation entered by Ameena Gómez SCRIBE, acting as scribe for Anson Rudolph MD. Anson Rudolph MD: This documentation has been prepared by the Rico graff Sammi, SCRIBE, under my direction and personally reviewed by me in its entirety. I confirm that the documentation accurately reflects all work, treatment, procedures, and medical decision making performed by me. Attending Attestation - Resident Resident Name: Ethan Park - ED Attending Attestation I have performed the following: I have examined & evaluated the patient, The case was reviewed & discussed with the resident, I agree w/resident's findings & plan, Exceptions are as noted - HPI HPI: 05/11/19 19:09 The patient is a 63 year old male, with a significant PMH of Afib, CHF, cirrhosis, CAD, COPD, CKD, HLD, and HTN, who presents to ED with SOB. He states he feels like his abdomen has become very distended over the past few days, making it more difficult to breathe. Denies CP. Denies F/C. Does endorse BLE swelling.. Most recent paracentesis was about 2 weeks ago. Allergies: NKA GI: Salazar Pritchett Urology: N Georges - Physicial Exam PE: 05/11/19 19:18 "GENERAL: Awake, alert, and fully oriented, in no acute distress. HEAD: No signs of trauma EYES: PERRLA, EOMI, sclera anicteric, conjunctiva clear ENT: Auricles normal inspection, hearing grossly normal, nares patent, oropharynx clear without exudates. Moist mucosa NECK: Nontender, no stepoffs, Normal ROM, supple, no lymphadenopathy, JVD, or masses LUNGS: Breath sounds equal, clear to auscultation bilaterally. No wheezes, and no crackles HEART: Regular rate and rhythm, normal S1 and S2, no murmurs, rubs or gallops ABDOMEN: + Large distended abdomen with + fluid wave, no tympany, nontender, No guarding, no rebound. No masses EXTREMITIES: +2 PE BLE, No clubbing or cyanosis. No cords, erythema, or tenderness NEUROLOGICAL: Cranial nerves II through XII intact. 5/5 strength and sensation in all extremities, Normal speech, normal gait, normal cerebellar function SKIN: Warm, Dry, normal turgor, no rashes or lesions noted. - Critical Care Time Total Critical Care Time: 60 Critical Care Statement: The care of this patient involved high complexity decision making to prevent further life threatening deterioration of the patient 's condition and/or to evaluate & treat vital organ system(s) failure or risk of failure. - Medical Decision Making 05/11/19 19:19 63 M with SOB, likely 2/2 large volume of ascites. Pt with no CP. Normal O2 sat. Will r/o ACS with trop and EKG. R/o PNA with CXR. Pt with no abdominal pain , no tenderness on exam, no fevers. SBP unlikely. - Labs, trop, BNP, ammonia - CXR - Discuss with pt's GI Dr. Pritchett
[2019-05-11 20:16] LABS: BASO % 0.7 % (0-2.0); HEMATOCRIT 30.2 % (35.4-49); LYMPH % 6.4 % (8-40); MCH 26.4 pg (25.7-33.7); MEAN CELL VOLUME 80.2 fl (80-96); MEAN PLT VOLUME 11.4 fl (7.5-11.1); MONO % 17.9 % (3.8-10.2); PLATELET COUNT 152 K/MM3 (134-434); RBC 3.77 M/mm3 (4.00-5.60); RDW 18.7 % (11.9-15.9); WHITE BLOOD COUNT 5.9 K/mm3 (4.0-10.0)
[2019-05-11 20:28] LABS: INR 1.61 (0.83-1.09); PROTHROMBIN TIME (PATIENT) 19.1 SEC (9.7-13.0)
[2019-05-11] MEDS ORDERED: oxyCODONE HCL 5 MG TABLET ONE (20:55)
[2019-05-11 20:57] LABS: ALBUMIN 2.6 g/dl (3.4-5.0); BILIRUBIN,TOTAL 1.3 mg/dL (0.2-1); CALCIUM 7.8 mg/dL (8.5-10.1); CREATININE 6.1 mg/dL (0.55-1.3); N-TERMINAL BNP 20682.8 pg/ml (5-125); POTASSIUM 3.9 mmol/L (3.5-5.1)
--- NOTE | 2019-05-11 21:06 | PN ---
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 Most recently he was hospitalized with poor cardiac output and was transferred to [facility]. No major intervention was performed. His usual outpatient medications include: furosemide, 40 to 80 mg daily atenolol, 50 mg po daily lactulose 30 ml po tid Xifaxan 550 mg bid Nexium 40 mg daily oxycodone 30 mg qid prn pain Nexium 40 mg po daily tamsulosin hcl 0.4 mg bid Procrit 20,000 units IV weekly Insulin - varying doses, managed by patient After discharge he gained weight, retaining more fluid with bilateral 4+ LE edema. I increased his furosemide to 80 mg bid with no response. He was referred to a urologist with a suspicion of urinary retention and was found to have a post-void residual of 1L. A Christian catheter was placed; his diuretics were increased to furosemide 80 mg with metolazone 5 mg bid. His creatinine was 5.7 with a BUN of 91 on 05/08. He called today to state he was having difficulty breathing because of fluid retention. I examined him in the ER with Dr Connor. Vital Signs Period Temp Pulse Resp BP Sys/Grant Pulse Ox Last 24 Hr 98 F 109 20 106/66 98 He appeared to be in atrial fibrillation (he was not in fibrillation last week). General appearance: cachectic, muscle wasting, temporal wasting, large abdomen. Chest: RLL rales COR: irregularly irregular Abdomen: distended, not tender Extremities: 1+ LLE edema, 2+ RLE edema, ulcer on RLE. Edema is improved over last week. 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 Not tremulous. Labs so far: CBC,CMP WBC 5.9 K/mm3 (4.0-10.0) 05/11/19 20:03 RBC 3.77 M/mm3 (4.00-5.60) L 05/11/19 20:03 Hgb 10.0 GM/dL (11.7-16.9) L 05/11/19 20:03 Hct 30.2 % (35.4-49) L 05/11/19 20:03 MCV 80.2 fl (80-96) 05/11/19 20:03 MCH 26.4 pg (25.7-33.7) 05/11/19 20:03 MCHC 33.0 g/dl (32.0-35.9) 05/11/19 20:03 RDW 18.7 % (11.9-15.9) H 05/11/19 20:03 Plt Count 152 K/MM3 (134-434) 05/11/19 20:03 MPV 11.4 fl (7.5-11.1) H 05/11/19 20:03 Absolute Neuts (auto) 4.4 K/mm3 (1.5-8.0) 05/11/19 20:03 Neutrophils % 75.0 % (42.8-82.8) 05/11/19 20:03 Lymphocytes % 6.4 % (8-40) L D 05/11/19 20:03 Monocytes % 17.9 % (3.8-10.2) H 05/11/19 20:03 Eosinophils % 0.0 % (0-4.5) 05/11/19 20:03 Basophils % 0.7 % (0-2.0) 05/11/19 20:03 Nucleated RBC % 0 % (0-0) 05/11/19 20:03 Sodium 127 mmol/L (136-145) L 05/11/19 20:03 Potassium 3.9 mmol/L (3.5-5.1) 05/11/19 20:03 Chloride 87 mmol/L (98-107) L 05/11/19 20:03 Carbon Dioxide 27 mmol/L (21-32) 05/11/19 20:03 Anion Gap 13 MMOL/L (8-16) 05/11/19 20:03 Creatinine 6.1 mg/dL (0.55-1.3) H 05/11/19 20:03 Est GFR (CKD-EPI)AfAm 10.38 05/11/19 20:03 Est GFR (CKD-EPI)NonAf 8.96 05/11/19 20:03 Lactic Acid 1.8 mmol/L (0.4-2.0) 05/11/19 20:03 Calcium 7.8 mg/dL (8.5-10.1) L 05/11/19 20:03 Total Bilirubin 1.3 mg/dL (0.2-1) H 05/11/19 20:03 AST 144 U/L (15-37) H 05/11/19 20:03 ALT 58 U/L (13-61) 05/11/19 20:03 Alkaline Phosphatase 306 U/L (45-117) H 05/11/19 20:03 Ammonia 25.70 umol/L (11-32) 05/11/19 20:03 Creatine Kinase 1171 U/L (26-308) H 05/11/19 20:03 Troponin I 0.08 ng/ml (0.00-0.05) H 05/11/19 20:03 B-Natriuretic Peptide 14481.8 pg/ml (5-125) H 05/11/19 20:03 Total Protein 7.0 g/dl (6.4-8.2) 05/11/19 20:03 Albumin 2.6 g/dl (3.4-5.0) L 05/11/19 20:03 INR, PTT INR 1.61 (0.83-1.09) H 05/11/19 20:03 CBC, BMP 05/11/19 20:03 05/11/19 20:03 Impression: Hepatorenal syndrome; atrial fibrillation; congestive heart failure. Blood sugar pending to determine whether he has true hyponatremia. At this time I recommend: 1) ICU admission 2) Aggressive treatment of his worsening renal function with:' a) albumin infusion. Begin with 60 mg albumin over 2 hrs IV, then 25 mg IV daily b) octreotide drip. 25 mcg IV bolus followed by 25 mcg/hr drip c) midodrine, 5 mg po tid. 3) Strict I&O, daily weights, salt-restricted diabetic diet 4) Sliding scale insulin. 5) ID consult with Justin Marks/Marcello for RLE ulcer 6) Cardiology consult with Justin Tripathi/Aline 7) Renal consult Dr Balbuena 8) Continue furosemide 80 mg/metolazone 5 mg bid for now. 9) Continue atenolol 50 mg daily.
[2019-05-11] MEDS ORDERED: ALBUMIN HUMAN 25% 12.5 GM/50 ML VIAL IVPB ONE (21:11)
--- NOTE | 2019-05-11 21:16 | PDOC ---
*Physical Exam - Vital Signs Last Vital Signs Temp Pulse Resp BP Pulse Ox 98 F 109 H 20 106/66 98 05/11/19 17:43 05/11/19 17:43 05/11/19 17:43 05/11/19 17:43 05/11/19 17:43 ED Treatment Course - LABORATORY CBC & Chemistry Diagram: 05/11/19 20:03 05/11/19 20:03 - ADDITIONAL ORDERS Additional order review: Laboratory Results 05/11/19 05/11/19 05/11/19 20:03 20:03 20:03 PT with INR INR Sodium 127 L Potassium 3.9 Chloride 87 L Carbon Dioxide 27 Anion Gap 13 BUN 109.0 H* Creatinine 6.1 H Est GFR (CKD-EPI)AfAm 10.38 Est GFR (CKD-EPI)NonAf 8.96 Random Glucose 190 H Lactic Acid 1.8 Calcium 7.8 L Total Bilirubin 1.3 H AST 144 H ALT 58 Alkaline Phosphatase 306 H Ammonia Creatine Kinase 1171 H Creatine Kinase Index 0.9 CK-MB (CK-2) 11.6 H Troponin I 0.08 H B-Natriuretic Peptide 70815.8 H Total Protein 7.0 Albumin 2.6 L 05/11/19 05/11/19 20:03 20:03 PT with INR 19.10 H INR 1.61 H Sodium Potassium Chloride Carbon Dioxide Anion Gap BUN Creatinine Est GFR (CKD-EPI)AfAm Est GFR (CKD-EPI)NonAf Random Glucose Lactic Acid Calcium Total Bilirubin AST ALT Alkaline Phosphatase Ammonia 25.70 Creatine Kinase Creatine Kinase Index CK-MB (CK-2) Troponin I B-Natriuretic Peptide Total Protein Albumin 05/11/19 20:03 RBC 3.77 L MCV 80.2 MCHC 33.0 RDW 18.7 H MPV 11.4 H Neutrophils % 75.0 Lymphocytes % 6.4 L D Monocytes % 17.9 H Eosinophils % 0.0 Basophils % 0.7 - Medications Given in the ED: ED Medications Discontinued Medications Generic Name Dose Route Start Last Admin Trade Name Freq PRN Reason Stop Dose Admin Oxycodone HCl 30 mg 05/11/19 18:40 05/11/19 20:59 Roxicodone - PO 05/11/19 18:41 30 mg ONCE ONE Administration Medical Decision Making - Medical Decision Making 05/11/19 21:36 Received signed out by Dr. Park. As per Dr. Pritchett, creatine being above 5 (6.5) starting the patient on midodrine , albumin and octreotide and admitting to ICU to Dr. Fernandez. No paracentesis yet due to poor renal function. *DC/Admit/Observation/Transfer Diagnosis at time of Disposition: Acute kidney failure, Portal hypertension syndrome, Hepatic encephalopathy syndrome, Cirrhosis of liver, Nonhealing ulcer of multiple sites of right lower extremity - Discharge Dispostion Decision to Admit order: Yes - Referrals - Patient Instructions - Post Discharge Activity
--- NOTE | 2019-05-11 21:42 | CONSULT ---
Consultation: REQUESTING PROVIDER: Dr. Pritchett CONSULT SERVICE: ICU Resident HISTORY OF PRESENT ILLNESS: 63yo M with h/o cirrhosis 2/2 BORJAS, CKD, T2DM, CAD s/p PCI, paroxysmal atrial fibrillation who presents today due to increased lower extremity edema over the past week. Pt on 05/08/[address] Pritchett in his outpatient offices and was noted to have increased edema. Pt's regiment was increased to Lasix 80mg PO BID and Metolazone 5mg BID PO at that time. In addition pt was noted to have urinary retention and a phelps catheter was placed outpatient which yielded a 1L residual volume that was being retained. Pt left and continued on his medication in addition to having the phelps continued until his next follow-up. Pt noted increasing volume especially in his abdomen and had trouble with diaphragmatic excursion so he sought help in the ED. Pt also endorses insomnia for the past 3 days 2/2 to his difficulty in diaphragmatic excursion. Otherwise pt has no other complaints at this time. Denies any fever/chills, n/v/d/c, cough , shortness of breath, palpitations, chest pain/discomfort, abdominal pain, diarrhea, numbness, weakness, tremulousness. Pt denies any increased salt in his diet at this time. He reports being strict with his medication regiment and denies any new medications that he tried between 05/08/19 and now. REVIEW OF SYSTEMS: As per HPI PHYSICAL EXAMINATION Vital Signs - 24 hr 05/11/19 17:43 Temperature 98 F Pulse Rate 109 H Respiratory 20 Rate Blood Pressure 106/66 O2 Sat by Pulse 98 Oximetry (%) GENERAL: NAD, Awake, alert, and fully oriented HEENT: Nc/At, EOMI, DELMI, sclera anicteric, MMM NECK: JVD appreciated minimally above clavicle. LUNGS: Bibasilar rales bilaterally. No wheezes. No accessory muscle use. HEART: Irregularly irregular rhtyhm slightly tachycardic at 108bpm, normal S1 and S2 without murmur appreciated ABDOMEN: Soft, extremely distended, nontender, dull to percussion, fluid wave appreciated, bowel sounds distant, no guarding, no rebound. MUSCULOSKELETAL: No CVA tenderness. EXTREMITIES: 2+ distal pulses b/l, warm, well-perfused. No calf tenderness. 2+ edema to thigh b/l PSYCHIATRIC: Cooperative. Good eye contact. Appropriate mood and affect. SKIN: Warm, dry, b/l stasis changes noted in LExt, R calcaneous ulceration without erythema or exudate, no caput medusa noted. Laboratory Results - last 24 hr 05/11/19 05/11/19 05/11/19 20:03 20:03 20:03 WBC RBC Hgb Hct MCV MCH MCHC RDW Plt Count MPV Absolute Neuts (auto) Neutrophils % Lymphocytes % Monocytes % Eosinophils % Basophils % Nucleated RBC % PT with INR 19.10 H INR 1.61 H Sodium Potassium Chloride Carbon Dioxide Anion Gap BUN Creatinine Est GFR (CKD-EPI)AfAm Est GFR (CKD-EPI)NonAf Random Glucose Lactic Acid Calcium Total Bilirubin AST ALT Alkaline Phosphatase Ammonia 25.70 Creatine Kinase 1171 H Creatine Kinase Index 0.9 CK-MB (CK-2) 11.6 H Troponin I 0.08 H B-Natriuretic Peptide Total Protein Albumin 05/11/19 05/11/19 05/11/19 20:03 20:03 20:03 WBC 5.9 RBC 3.77 L Hgb 10.0 L Hct 30.2 L MCV 80.2 MCH 26.4 MCHC 33.0 RDW 18.7 H Plt Count 152 MPV 11.4 H Absolute Neuts (auto) 4.4 Neutrophils % 75.0 Lymphocytes % 6.4 L D Monocytes % 17.9 H Eosinophils % 0.0 Basophils % 0.7 Nucleated RBC % 0 PT with INR INR Sodium 127 L Potassium 3.9 Chloride 87 L Carbon Dioxide 27 Anion Gap 13 BUN 109.0 H* Creatinine 6.1 H Est GFR (CKD-EPI)AfAm 10.38 Est GFR (CKD-EPI)NonAf 8.96 Random Glucose 190 H Lactic Acid 1.8 Calcium 7.8 L Total Bilirubin 1.3 H AST 144 H ALT 58 Alkaline Phosphatase 306 H Ammonia Creatine Kinase Creatine Kinase Index CK-MB (CK-2) Troponin I B-Natriuretic Peptide 10928.8 H Total Protein 7.0 Albumin 2.6 L Active Medications Generic Name Dose Route Start Last Admin Trade Name Freq PRN Reason Stop Dose Admin Octreotide Acetate 200 mcg/ 500 mls @ 25 mls/hr 05/11/19 21:15 Octreotide Acetate 1,000 mcg/ IVPB Dextrose ASDIR WIL Midodrine 5 mg 05/12/19 21:13 Proamatine - PO 05/12/19 21:14 ONCE ONE ASSESSMENT/PLAN: Acute volume overload Hepatorenal syndrome Urinary retention (improving) Paroxysmal Atrial Fibrillation Elevated troponin 2/2 to demand ischemia CAD T2DM Hyponatremia --Dr. Pritchett on board and appreciate recommendations --Will add Albumin 25gm qdaily --Continue Lasix 80mg IV BID for now given acute overload with Metolazone 5mg PO BID --Continue Midodrine 5mg TID --Octreotide gtt continued --Continue Atenolol 50mg qdaily (pt's Toprol XL was recently changed to this from [facility] visit) --Strict I&O's ordered with daily weights --At this time can medically manage, however possible therapeutic paracentesis with albumin replacement --PT/INR for tomorrow AM --Monitor LFTs and Cr for worsening hepatorenal syndrome --Nephrology consulted --ISS on board for glucose control --BGM ACHS --Pt received cardiac workup at [facility]; will trend troponins however likely 2/2 to demand ischemia FEN: Fluids: Active diuresis Electrolyte abnormalities: Hypervolemic hyponatremia; diuresis as above ( monitor Na levels) Nutrition: Sodium controlled diabetic diet PPX: DVt - Heparin TID SQ GI - Zantac 150mg qdaily Dispo: Can monitor for ICU overnight Case discussed with ER physicians Luiz Fernandez DO - IM PGY-3 Visit type - Emergency Visit Emergency Visit: Yes ED Registration Date: 05/11/19 Care time: The patient presented to the Emergency Department on the above date and was hospitalized for further evaluation of their emergent condition. - New Patient This patient is new to me today: Yes Date on this admission: 05/11/19 - Critical Care Critical Care patient: Yes Total Critical Care Time (in minutes): 35 Critical Care Statement: The care of this patient involved high complexity decision making to prevent further life threatening deterioration of the patient 's condition and/or to evaluate & treat vital organ system(s) failure or risk of failure. ATTENDING PHYSICIAN STATEMENT I saw and evaluated the patient. I reviewed the resident's note and discussed the case with the resident. I agree with the resident's findings and plan as documented. SUBJECTIVE: OBJECTIVE: ASSESSMENT AND PLAN:
[2019-05-11] MEDS ORDERED: MIDODRINE HCL 5 MG TABLET PO ONE (21:50)
[2019-05-12] MEDS: OCTREOTIDE ACETATE 200 MCG, OCTREOTIDE ACETATE 1,000 MCG in DEXTROSE 5%-WATER - 496 ML IVPB SCH ×2 (01:54→21:07)
[2019-05-12] MEDS: MELATONIN 5 MG TABLETS PO PRN ×2 (01:55→22:26)
[2019-05-12] MEDS: HEPARIN NA (PORCINE) 5,000 UNITS/ML 1ML VIAL SQ SCH ×3 (06:26→13:38)
[2019-05-12] MEDS: FUROSEMIDE 40 MG/4 ML INJECTABLE VIAL IVPUSH SCH ×2 (06:26→13:38)
[2019-05-12] MEDS: INSULIN SLIDING SCALE (NOVOLOG) 1 VIAL SQ SCH ×4 (06:27→22:28)
[2019-05-12 06:32] LABS: HEMATOCRIT 23.9 % (35.4-49); MCH 26.8 pg (25.7-33.7); MCHC 33.5 g/dl (32.0-35.9); MEAN CELL VOLUME 80.1 fl (80-96); MEAN PLT VOLUME 10.9 fl (7.5-11.1); PLATELET COUNT 102 K/MM3 (134-434); RBC 2.98 M/mm3 (4.00-5.60); RDW 19.1 % (11.9-15.9); WHITE BLOOD COUNT 3.9 K/mm3 (4.0-10.0)
[2019-05-12 06:45] LABS: INR 1.82 (0.83-1.09); PROTHROMBIN TIME (PATIENT) 21.6 SEC (9.7-13.0)
[2019-05-12] MEDS ORDERED: PT OWN MED DRAWER 7, Y5N ONE ×6 (06:56→21:11)
[2019-05-12 06:59] LABS: ALBUMIN 3.2 g/dl (3.4-5.0); BILIRUBIN,TOTAL 1.5 mg/dL (0.2-1); CALCIUM 7.8 mg/dL (8.5-10.1); CREATININE 6.2 mg/dL (0.55-1.3); MAGNESIUM 3.5 mg/dL (1.8-2.4); PHOSPHOROUS 6.2 mg/dL (2.5-4.9); POTASSIUM 3.3 mmol/L (3.5-5.1); TOT PROT 6.3 g/dl (6.4-8.2)
[2019-05-12 07:07] LABS: BLOOD UREA NITROGEN 112.2 mg/dL (7-18)
[2019-05-12] MEDS: KCL 10 MEQ IVPB 10 MEQ/100 ML INFUS.BAG IVPB SCH ×3 (08:00→09:48)
[2019-05-12] MEDS: TAMSULOSIN HCL 0.4 MG CAP PO SCH ×2 (09:05→21:08)
--- NOTE | 2019-05-12 09:38 | CON.CARD ---
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 Pt on 05/08/[address] Pritchett in his outpatient offices and was noted to have increased edema. Pt's regiment was increased to Lasix 80mg PO BID and Metolazone 5mg BID PO at that time. In addition pt was noted to have urinary retention and a phelps catheter was placed outpatient which yielded a 1L residual volume that was being retained. Pt left and continued on his medication in addition to having the phelps continued until his next follow-up. Pt noted increasing volume especially in his abdomen and had trouble with diaphragmatic excursion so he sought help in the ED. Pt also endorses insomnia for the past 3 days 2/2 to his difficulty in diaphragmatic excursion. Otherwise pt has no other complaints at this time. Denies any fever/chills, n/v/d/c, cough , shortness of breath, palpitations, chest pain/discomfort, abdominal pain, diarrhea, numbness, weakness, tremulousness. Pt denies any increased salt in his diet at this time. He reports being strict with his medication regiment and denies any new medications that he tried between 05/08/19 and now. - Past Medical History BLUNGER: Yes: Other (hepatic encephalopathy) Cardio/Vascular: Yes: AFIB, CAD, HTN, [place], Hyperlipdemia Pulmonary: Yes: COPD Gastrointestinal: Yes: Constipation, Esophageal Varices, GERD, Ascites, Other Hepatobiliary: Yes: Cirrhosis (due to BORJAS with ascites, coagulopathy, thrombocytopenia, portal hypertension and esophageal varices that required endoscopic ablation and hepatic encephalopathy) Renal/: Yes: Renal Inusuff, Renal Failure Psych: Yes: Addictions (? pain meds (dependence/tolerance for sure)) Musculoskeletal: Yes: Chronic low back pain, Other (failed left hip ORIF with chronic pain) Endocrine: Yes: Diabetes Mellitus Dermatology: Yes: Other (chronic brawny LE edema, venous insufficiency, left thigh heating blanket burn) Additional Medical History: Chronic opiate use - Past Surgical History Past Surgical History: Yes: Appendectomy, Colonoscopy, Joint Replacement, Stent , Upper Endoscopy - Alcohol/Substance Use Hx Alcohol Use: No History of Substance Use: reports: None - Smoking History Smoking history: Never smoked Have you smoked in the past 12 months: No Aproximately how many cigarettes per day: 0 If you are a former smoker, when did you quit?: 2008 - Social History Usual Living Arrangement: With Spouse ADL: Independent 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, 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 Travel: No Home Medications - Allergies Allergies/Adverse Reactions: Allergies Allergy/AdvReac Type Severity Reaction Status Date / Time No Known Drug Allergies Allergy Verified 05/11/19 17:45 - Home Medications Home Medications: Ambulatory Orders Tamsulosin HCl [Flomax] 0.4 mg PO BID 05/16/18 Aspirin [ASA -] 81 mg PO DAILY 02/19/19 Rifaximin [Xifaxan] 550 mg PO BID 02/21/19 Cephalexin [Keflex] 500 mg PO DAILY 04/15/19 Insulin (Novolog 70/30) [Novolog Mix 70/30 Vial -] 10 units SQ AM 04/15/19 Insulin Glargine,Hum.rec.anlog [Lantus] 15 unit SQ HS 04/15/19 Lactulose 10 gm PO BID 04/15/19 Metoprolol Succinate [Toprol Xl] 50 mg PO DAILY 04/15/19 Mirtazapine 15 mg PO HS 04/15/19 Ranitidine [Zantac -] 150 mg PO DAILY 04/15/19 Family Disease History - Family Disease History Family Disease History: Diabetes: Father, Mother ( 72 of [place]), Brother, Sister, Heart Disease: Father, Mother, Other: Father, Son (healthy), Daughter ( healthy) Review of Systems - Review of Systems Constitutional: reports: Malaise, Weakness Eyes: reports: No Symptoms HENT: reports: No Symptoms Neck: reports: No Symptoms Cardiovascular: reports: Shortness of Breath Respiratory: reports: SOB Gastrointestinal: reports: No Symptoms Genitourinary: reports: No Symptoms Breasts: reports: No Symptoms Reported Musculoskeletal: reports: No Symptoms Integumentary: reports: No Symptoms Neurological: reports: No Symptoms Endocrine: reports: No Symptoms Hematology/Lymphatic: reports: No Symptoms Psychiatric: reports: No Symptoms Vital Signs: Vital Signs Temperature 97.8 F 05/12/19 05:00 Pulse Rate 92 H 05/12/19 08:00 Respiratory Rate 11 05/12/19 08:00 Blood Pressure 115/83 05/12/19 08:00 O2 Sat by Pulse Oximetry (%) 95 05/12/19 01:12 Constitutional: Yes: Well Nourished, No Distress, Calm Eyes: Yes: WNL, Conjunctiva Clear, EOM Intact HENT: Yes: WNL, Atraumatic, Normocephalic Neck: Yes: WNL, Supple, Trachea Midline Respiratory: Yes: Diminished Gastrointestinal: Yes: Ascites Renal/: Yes: WNL Cardiovascular: Yes: Pulse Irregular Heart Sounds: Yes: S1, S2 Musculoskeletal: Yes: WNL Extremities: Yes: WNL Edema: Yes Integumentary: Yes: WNL Neurological: Yes: WNL, Alert, Oriented ...Motor Strength: WNL Psychiatric: Yes: WNL, Alert, Oriented - Other Data Labs, Other Data: CBC, BMP 05/12/19 05:50 05/12/19 05:50 INR, PTT INR 1.82 (0.83-1.09) H 05/12/19 05:50 Troponin, BNP 05/11/19 05/11/19 20:03 20:03 Troponin I 0.08 H B-Natriuretic Peptide 78888.8 H Troponin, BNP 05/11/19 05/11/19 20:03 20:03 Troponin I 0.08 H B-Natriuretic Peptide 87743.8 H Imaging - Results Chest X-ray: Image Reviewed (cm LLL infiltrate) EKG: Image Reviewed (af old ant septal mi rep abn) Problem List - Problems (1) Acute kidney failure Code(s): N17.9 - ACUTE KIDNEY FAILURE, UNSPECIFIED (2) Acute kidney injury superimposed on chronic kidney disease Code(s): N17.9 - ACUTE KIDNEY FAILURE, UNSPECIFIED; N18.9 - CHRONIC KIDNEY DISEASE, UNSPECIFIED (3) Chronic ulcer of right lower extremity Code(s): L97.919 - NON-PRS CHRONIC ULC UNSP PRT OF R LOW LEG W UNSP SEVERITY (4) Cirrhosis Code(s): K74.60 - UNSPECIFIED CIRRHOSIS OF LIVER (5) Hepatic encephalopathy syndrome Code(s): K72.90 - HEPATIC FAILURE, UNSPECIFIED WITHOUT COMA (6) Nonhealing ulcer of multiple sites of right lower extremity Code(s): L97.919 - NON-PRS CHRONIC ULC UNSP PRT OF R LOW LEG W UNSP SEVERITY (7) Portal hypertension syndrome Code(s): K76.6 - PORTAL HYPERTENSION (8) Venous stasis dermatitis of both lower extremities Code(s): I87.2 - VENOUS INSUFFICIENCY (CHRONIC) (PERIPHERAL) (9) Volume overload Code(s): E87.70 - FLUID OVERLOAD, UNSPECIFIED (10) Acute blood loss anemia Code(s): D62 - ACUTE POSTHEMORRHAGIC ANEMIA (11) Acute on chronic systolic and diastolic heart failure, NYHA class 1 Code(s): I50.43 - ACUTE ON CHRONIC COMBINED SYSTOLIC AND DIASTOLIC HRT FAIL (12) Afib Code(s): I48.91 - UNSPECIFIED ATRIAL FIBRILLATION (13) Alteration consciousness Code(s): R40.4 - TRANSIENT ALTERATION OF AWARENESS (14) Altered mental status Code(s): R41.82 - ALTERED MENTAL STATUS, UNSPECIFIED (15) Anemia Code(s): D64.9 - ANEMIA, UNSPECIFIED Qualifiers: Anemia type: other cause Other causes of anemia: chronic disease, kidney (16) Ascites Code(s): R18.8 - OTHER ASCITES Qualifiers: Ascites type: other type Qualified Code(s): R18.8 - Other ascites (17) Ascites controlled with medication Code(s): R18.8 - OTHER ASCITES (18) Atrial fibrillation Code(s): I48.91 - UNSPECIFIED ATRIAL FIBRILLATION Qualifiers: Atrial fibrillation type: paroxysmal Qualified Code(s): I48.0 - Paroxysmal atrial fibrillation (19) Benign essential hypertension Code(s): I10 - ESSENTIAL (PRIMARY) HYPERTENSION (20) Benign prostatic hyperplasia Code(s): N40.0 - BENIGN PROSTATIC HYPERPLASIA WITHOUT LOWER URINRY TRACT SYMP Qualifiers: Lower urinary tract symptom presence: symptoms present Lower urinary tract symptom detail: urinary retention Qualified Code(s): N40.1 - Benign prostatic hyperplasia with lower urinary tract symptoms; R33.8 - Other retention of urine (21) Bladder outflow obstruction Code(s): N32.0 - BLADDER-NECK OBSTRUCTION (22) CAD (coronary artery disease) Code(s): I25.10 - ATHSCL HEART DISEASE OF [place] CORONARY ARTERY W/O ANG PCTRS Qualifiers: Coronary Disease-Associated Artery/Lesion type: [place] artery [place] vs. transplanted heart: [place] heart Associated angina: without angina Qualified Code(s): I25.10 - Atherosclerotic heart disease of [place] coronary artery without angina pectoris (23) CAD (coronary artery disease) Code(s): I25.10 - ATHSCL HEART DISEASE OF [place] CORONARY ARTERY W/O ANG PCTRS (24) CKD (chronic kidney disease) Code(s): N18.9 - CHRONIC KIDNEY DISEASE, UNSPECIFIED Qualifiers: Chronic kidney disease stage: stage 3 (moderate) Qualified Code(s): N18.3 - Chronic kidney disease, stage 3 (moderate) (25) Cataract Code(s): H26.9 - UNSPECIFIED CATARACT (26) Chronic combined systolic and diastolic heart failure, NYHA class 1 Code(s): I50.42 - CHRONIC COMBINED SYSTOLIC AND DIASTOLIC HRT FAIL (27) Chronic pain with drug dependence Code(s): G89.29 - OTHER CHRONIC PAIN; F19.20 - OTHER PSYCHOACTIVE SUBSTANCE DEPENDENCE, UNCOMPLICATED (28) Cirrhosis of liver Code(s): K74.60 - UNSPECIFIED CIRRHOSIS OF LIVER Qualifiers: Hepatic cirrhosis type: other cirrhosis Qualified Code(s): K74.69 - Other cirrhosis of liver (29) Coagulation defect Code(s): D68.9 - COAGULATION DEFECT, UNSPECIFIED (30) Constipation Code(s): K59.00 - CONSTIPATION, UNSPECIFIED Qualifiers: Constipation type: unspecified constipation type Qualified Code(s): K59.00 - Constipation, unspecified (31) Diabetes 1.5, managed as type 2 Code(s): E13.9 - OTHER SPECIFIED DIABETES MELLITUS WITHOUT COMPLICATIONS (32) Diastolic CHF Code(s): I50.30 - UNSPECIFIED DIASTOLIC (CONGESTIVE) HEART FAILURE (33) ESRD (end stage renal disease) Code(s): N18.6 - END STAGE RENAL DISEASE (34) Elevated LFTs Code(s): R94.5 - ABNORMAL RESULTS OF LIVER FUNCTION STUDIES (35) Elevated troponin Code(s): R74.8 - ABNORMAL LEVELS OF OTHER SERUM ENZYMES (36) Failure to thrive Code(s): [id number] - Qualifiers: Failure to thrive age range: in adult Qualified Code(s): R62.7 - Adult failure to thrive (37) Failure to thrive in adult Code(s): R62.7 - ADULT FAILURE TO THRIVE (38) Fall Code(s): W19.XXXA - UNSPECIFIED FALL, INITIAL ENCOUNTER (39) Fatty liver with encephalopathy Code(s): K76.0 - FATTY (CHANGE OF) LIVER, NOT ELSEWHERE CLASSIFIED (40) GERD (gastroesophageal reflux disease) Code(s): K21.9 - GASTRO-ESOPHAGEAL REFLUX DISEASE WITHOUT ESOPHAGITIS Qualifiers: Esophagitis presence: without esophagitis Qualified Code(s): K21.9 - Gastro -esophageal reflux disease without esophagitis (41) H/O heart artery stent Code(s): Z95.5 - PRESENCE OF CORONARY ANGIOPLASTY IMPLANT AND GRAFT (42) Head injury Code(s): S09.90XA - UNSPECIFIED INJURY OF HEAD, INITIAL ENCOUNTER Qualifiers: Encounter type: initial encounter Qualified Code(s): S09.90XA - Unspecified injury of head, initial encounter (43) Hip fracture requiring operative repair Code(s): S72.009A - FRACTURE OF UNSP PART OF NECK OF UNSP FEMUR, INIT (44) Hip fracture, intertrochanteric Code(s): S72.143A - DISPLACED INTERTROCHANTERIC FRACTURE OF UNSP FEMUR, INIT (45) Hip fracture, left Code(s): S72.002A - FRACTURE OF UNSP PART OF NECK OF LEFT FEMUR, INIT (46) Hyperkalemia Code(s): E87.5 - HYPERKALEMIA (47) Hypokalemia Code(s): E87.6 - HYPOKALEMIA (48) Hypomagnesemia Code(s): E83.42 - HYPOMAGNESEMIA (49) Hyponatremia Code(s): E87.1 - HYPO-OSMOLALITY AND HYPONATREMIA (50) Hyponatremia Code(s): E87.1 - HYPO-OSMOLALITY AND HYPONATREMIA (51) Hypotension Code(s): I95.9 - HYPOTENSION, UNSPECIFIED (52) Intertrochanteric fracture of left hip Code(s): S72.142A - DISPLACED INTERTROCHANTERIC FRACTURE OF LEFT FEMUR, INIT Qualifiers: Encounter type: sequela Qualified Code(s): S72.142S - Displaced intertrochanteric fracture of left femur, sequela (53) Junctional bradycardia Code(s): R00.1 - BRADYCARDIA, UNSPECIFIED (54) Laceration of head Code(s): S01.91XA - LACERATION W/O FOREIGN BODY OF UNSP PART OF HEAD, INIT (55) Leg wound, left Code(s): S81.802A - UNSPECIFIED OPEN WOUND, LEFT LOWER LEG, INITIAL ENCOUNTER (56) Leukocytosis Code(s): D72.829 - ELEVATED WHITE BLOOD CELL COUNT, UNSPECIFIED (57) Lumbar and sacral spondylarthritis Code(s): M48.9 - SPONDYLOPATHY, UNSPECIFIED (58) Metabolic encephalopathy Code(s): G93.41 - METABOLIC ENCEPHALOPATHY (59) Neuropathy Code(s): G62.9 - POLYNEUROPATHY, UNSPECIFIED (60) Occipital scalp laceration Code(s): S01.01XA - LACERATION WITHOUT FOREIGN BODY OF SCALP, INITIAL ENCOUNTER Qualifiers: Encounter type: initial encounter Qualified Code(s): S01.01XA - Laceration without foreign body of scalp, initial encounter (61) Opiate dependence Code(s): F11.20 - OPIOID DEPENDENCE, UNCOMPLICATED Qualifiers: Substance use status: with other opioid-induced disorder Qualified Code(s) : F11.288 - Opioid dependence with other opioid-induced disorder; F11.28 - Opioid dependence with other opioid-induced disorder (62) Pain of left lower leg Code(s): M79.662 - PAIN IN LEFT LOWER LEG (63) Paroxysmal A-fib Code(s): I48.0 - PAROXYSMAL ATRIAL FIBRILLATION (64) Removal of marlon Code(s): Z48.02 - ENCOUNTER FOR REMOVAL OF SUTURES (65) Renal failure Code(s): N19 - UNSPECIFIED KIDNEY FAILURE (66) Renal failure associated with renal vascular disease Code(s): N19 - UNSPECIFIED KIDNEY FAILURE; I99.9 - UNSPECIFIED DISORDER OF CIRCULATORY SYSTEM (67) Respiratory failure Code(s): J96.90 - RESPIRATORY FAILURE, UNSP, UNSP W HYPOXIA OR HYPERCAPNIA (68) Scalp laceration Code(s): S01.01XA - LACERATION WITHOUT FOREIGN BODY OF SCALP, INITIAL ENCOUNTER Qualifiers: Encounter type: initial encounter Qualified Code(s): S01.01XA - Laceration without foreign body of scalp, initial encounter (69) Spinal fracture Code(s): [id number] - (70) Thrombocytopenia Code(s): D69.6 - THROMBOCYTOPENIA, UNSPECIFIED (71) Toxic metabolic encephalopathy Code(s): G92 - TOXIC ENCEPHALOPATHY (72) Uncontrolled diabetes mellitus Code(s): E11.65 - TYPE 2 DIABETES MELLITUS WITH HYPERGLYCEMIA (73) Venous (peripheral) insufficiency Code(s): I87.2 - VENOUS INSUFFICIENCY (CHRONIC) (PERIPHERAL) (74) Weakness Code(s): R53.1 - WEAKNESS Assessment/Plan CHF systolic Acute volume overload Hepatorenal syndrome Urinary retention (improving) Paroxysmal Atrial Fibrillation - rate controlled with Atenolol Elevated troponin 2/2 to demand ischemia CAD T2DM Hyponatremia ?PNA Plan IV lasix albumin dvtplx abx prognosis is guarded CC time spent70 min
[2019-05-12] MEDS: RIFAXIMIN 550 MG TABLET (UD) PO SCH ×2 (09:47→21:09)
[2019-05-12] MEDS: MIDODRINE HCL 5 MG TABLET PO SCH ×3 (09:47→17:42)
[2019-05-12] MEDS: RANITIDINE HCL 150 MG TABLET (FP) PO SCH (09:47)
[2019-05-12] MEDS: METOLAZONE 5 MG TABLET PO SCH ×2 (09:47→21:09)
[2019-05-12] MEDS ORDERED: ATENOLOL 50 MG TABLET (FP) PO SCH (10:00)
[2019-05-12] MEDS ORDERED: ASPIRIN 81 MG CHEWABLE TABLETS PO SCH (10:00)
--- NOTE | 2019-05-12 10:06 | PN ---
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, CAD, CKD, recent respiratory failure requiring intubation- and transferred to [facility] 04/16 (here 04/15 to ) for cardiac eval (no intervention) now admitted with worsening SOB despited increase in lasix to bid re had urinary retention and phelps was placed on Sunday as outpt 1 liter residual no fevers or chills no abdominal pain noted a blister popped on his right lower extremity and he has a small ulcer alert and conversant volume overload worsening renal failure in the setting of liver cirrhosis CAD-s/p multiple stents no signs of cellulitis -small RLE ulcer is clean- can apply topical bacitracin bilateral venous stasis changes both legs management per gi and renal please call back if needed Problem List - Problems (1) Volume overload Code(s): E87.70 - FLUID OVERLOAD, UNSPECIFIED (2) Acute kidney injury superimposed on chronic kidney disease Code(s): N17.9 - ACUTE KIDNEY FAILURE, UNSPECIFIED; N18.9 - CHRONIC KIDNEY DISEASE, UNSPECIFIED (3) Cirrhosis Code(s): K74.60 - UNSPECIFIED CIRRHOSIS OF LIVER (4) Chronic ulcer of right lower extremity Code(s): L97.919 - NON-PRS CHRONIC ULC UNSP PRT OF R LOW LEG W UNSP SEVERITY (5) Venous stasis dermatitis of both lower extremities Code(s): I87.2 - VENOUS INSUFFICIENCY (CHRONIC) (PERIPHERAL)
[2019-05-12] MEDS: MUPIROCIN 2% TOPICAL OINTMENT FOR DECOLONIZATION NS SCH ×2 (11:06→22:28)
--- NOTE | 2019-05-12 11:10 | EKG ---
Test Reason : Blood Pressure : / mmHG Vent. Rate : 107 BPM Atrial Rate : 141 BPM P-R Int : 000 ms QRS Dur : 098 ms QT Int : 360 ms P-R-T Axes : 000 -15 173 degrees QTc Int : 480 ms ATRIAL FIBRILLATION WITH RAPID VENTRICULAR RESPONSE LOW VOLTAGE QRS POSSIBLE INFERIOR INFARCT (CITED ON OR BEFORE 15-MAY-2018) CANNOT RULE OUT ANTEROSEPTAL INFARCT (CITED ON OR BEFORE 30-JAN-2015) ABNORMAL ECG WHEN COMPARED WITH ECG OF 16-APR-2019 09:10, ATRIAL FIBRILLATION HAS REPLACED SINUS RHYTHM VENT. RATE HAS INCREASED Confirmed by DONNA REGALADO MD ([id number]) on 05/12/2019 11:10:11 AM Referred By: Confirmed By:DONNA REGALADO MD
[2019-05-12] MEDS: ALBUMIN HUMAN 25% 12.5 GM/50 ML VIAL IVPB SCH (11:36)
[2019-05-12] MEDS: BACITRACIN/POLYMYXIN B SULFATE 15 GM TUBE TP SCH ×2 (11:39→21:10)
--- NOTE | 2019-05-12 11:53 | CONSULT ---
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 Recent transfer to [facility]. Per ID-volume overload worsening renal failure in the setting of liver cirrhosis CAD-s/p multiple stents IR for paracentesis pending Pt reports difficulty swallowing over last couple of days. Recent extubation before admission. 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 pain meds (dependence/tolerance for sure)) Musculoskeletal: Yes: Chronic low back pain, Other (failed left hip ORIF with chronic pain) Endocrine: Yes: Diabetes Mellitus Dermatology: Yes: Other (chronic brawny LE edema, venous insufficiency, left thigh heating blanket burn) - Past Surgical History Past Surgical History: Yes: Appendectomy, Colonoscopy, Joint Replacement, Stent , Upper Endoscopy - Smoking History Smoking history: Never smoked Have you smoked in the past 12 months: No Aproximately how many cigarettes per day: 0 If you are a former smoker, when did you quit?: 2008 - Alcohol/Substance Use Hx Alcohol Use: No History of Substance Use: reports: None - Social History ADL: Independent 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, 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 Travel: No History - Admission Reason For Visit: HEPATIC CIRRHOSIS - Diagnostics X-ray: Report Reviewed - General Mental Status: Alert and Oriented, Awake and Alert, Able to Follow Commands, Vague Attention: Distractible, Mild Impairment Ability to Follow Directions: Good Head/Neck Control: Fair - Hearing Hearing: Normal Hearing Aide: No With Patient: No Speech Evaluation - Communication Primary Language: ETHIOPIAN Communication: Yes: Within Normal Limits Oral Expression Ability: Yes: No Impairment - Speech Production Able to Make Needs Known: Yes: WNL Intelligibility: Yes: WNL - Speech Characteristics Voice Loudness: Mildly Soft/Quiet Voice Pitch: Yes: Normal Voice Phonatory-based Quality: Yes: Dysphonia Speech Clarity: < 100% Nasal Resonance: Normal Articulation: Yes: Precise - Language/Auditory Comprehension Follows: Yes: 1 Stage Simple Commands Observation: Able to respond to yes/no queries: Yes, Yes/No Confusion: No, Comprehends Conversational Speech: Yes - Language/Verbal Expression Able to Respond to Simple Queries: Yes: WNL Able to Communicate Wants and Needs: Yes: WNL - Swallow Evaluation/Bedside Assessment Current Nutritional Intake: Regular, Thin Liquids Oral Secretions: Yes: Dryness Dentition: Yes: Adequate Facial Symmetry at Rest: Symmetrical Facial Symmetry on Retraction: Symmetrical Facial Movement: Controlled Against Resistance Opening: Weak Against Resistance Closing: Weak Pucker Lips: Weak Smile: Weak Lingual Movement: Symmetric Lingual Speed of Movement: Normal Lingual Movement Strgth Against Opposition: Reduced Laryngeal Movement: Able to Palpate, Reduced Excursion, Labored,delay initiation Rate of Intake: Slow/Holding Bolus Size: Small Labial Seal: WFL Chewing: WFL Oral Prep Time: WFL A-P Transit: WFL Pocketing: None Timing of Swallow: Delayed Coughing/Throat Clear: Yes (Gagging and repeatedly regurgitating soft, moist lasagne back into orophay) Recommendations - Speech Evaluation, Impression/Plan Impression: Gagging and repeatedly regurgitating soft, moist lasagne back into oropharynx. Responsive cough on thin liquids. Overtly tolerated pudding. Per nursing, paracentesis pending - Dysphagia Impressions/Plan Swallowing Skills: Impaired Dysphagia Impressions: Moderate Impairment, Suspect Aspiration *Silent aspiration: cannot be R/O at bedside Dysphagia Treatment Plan: Small Bites, Chin Tuck/Down, Clear Pocket Food, Facilitative Feeding, Safe Rate, 1/2 tsp. at a time, Elevate HOB during feed Recommendations: MBS w Esophagus - Recommendations Diet Consistency: Dysphagia Pureed Medication Administration: Crushed with applesauce Liquids: [place] Thick Supplement: Magic Cup, Ensure Pudding
--- NOTE | 2019-05-12 11:54 | PN ---
Physical Exam: SUBJECTIVE: Patient seen and examined at bedside. There were no acute events overnight. Patient is alert and fully oriented and states he is feeling more comfortable than he was on admission. Plan to tranfer to [facility] today. OBJECTIVE: Vital Signs Period Temp Pulse Resp BP Sys/Grant Pulse Ox Last 24 Hr 97.8 F-98 F 88-109 10-20 98-119/66-85 95-99 GENERAL: The patient is awake, alert, and fully oriented, in no acute distress. HEAD: Normal with no signs of trauma, temporal wasting EYES: PERRL, extraocular movements intact, sclera anicteric, conjunctiva clear. ENT: Ears normal, nares patent, oropharynx clear without exudates, moist mucous membranes. NECK: Trachea midline, supple. LUNGS: Breath sounds equal, clear to auscultation bilaterally, no wheezes, no accessory muscle use. HEART: Iregular rate and mildly tacycardic, S1, S2 without murmur. ABDOMEN: extremely distended, nontender, dull to percussion, bowel sounds distant, no guarding, no rebound. EXTREMITIES: 2+ pulses, warm, well-perfused, 2+ bilateral LE edema NEUROLOGICAL: Cranial nerves II through XII grossly intact. Normal speech, gait not observed. PSYCH: Normal mood, normal affect. SKIN: Warm, dry, bilateral stasis changes noted in LE extremities, R calcaneous ulceration without erythema or exudate. Laboratory Results - last 24 hr 05/11/19 05/11/19 05/11/19 20:03 20:03 20:03 WBC RBC Hgb Hct MCV MCH MCHC RDW Plt Count MPV Absolute Neuts (auto) Neutrophils % Lymphocytes % Monocytes % Eosinophils % Basophils % Nucleated RBC % PT with INR 19.10 H INR 1.61 H Sodium Potassium Chloride Carbon Dioxide Anion Gap BUN Creatinine Est GFR (CKD-EPI)AfAm Est GFR (CKD-EPI)NonAf POC Glucometer Random Glucose Lactic Acid Calcium Phosphorus Magnesium Total Bilirubin AST ALT Alkaline Phosphatase Ammonia 25.70 Creatine Kinase 1171 H Creatine Kinase Index 0.9 CK-MB (CK-2) 11.6 H Troponin I 0.08 H B-Natriuretic Peptide Total Protein Albumin 05/11/19 05/11/19 05/11/19 20:03 20:03 20:03 WBC 5.9 RBC 3.77 L Hgb 10.0 L Hct 30.2 L MCV 80.2 MCH 26.4 MCHC 33.0 RDW 18.7 H Plt Count 152 MPV 11.4 H Absolute Neuts (auto) 4.4 Neutrophils % 75.0 Lymphocytes % 6.4 L D Monocytes % 17.9 H Eosinophils % 0.0 Basophils % 0.7 Nucleated RBC % 0 PT with INR INR Sodium 127 L Potassium 3.9 Chloride 87 L Carbon Dioxide 27 Anion Gap 13 BUN 109.0 H* Creatinine 6.1 H Est GFR (CKD-EPI)AfAm 10.38 Est GFR (CKD-EPI)NonAf 8.96 POC Glucometer Random Glucose 190 H Lactic Acid 1.8 Calcium 7.8 L Phosphorus Magnesium Total Bilirubin 1.3 H AST 144 H ALT 58 Alkaline Phosphatase 306 H Ammonia Creatine Kinase Creatine Kinase Index CK-MB (CK-2) Troponin I B-Natriuretic Peptide 47958.8 H Total Protein 7.0 Albumin 2.6 L 05/12/19 05/12/19 05/12/19 05:50 05:50 05:50 WBC 3.9 L RBC 2.98 L Hgb 8.0 L Hct 23.9 L D MCV 80.1 MCH 26.8 MCHC 33.5 RDW 19.1 H Plt Count 102 L D MPV 10.9 Absolute Neuts (auto) Neutrophils % Lymphocytes % Monocytes % Eosinophils % Basophils % Nucleated RBC % PT with INR 21.60 H INR 1.82 H Sodium 130 L Potassium 3.3 L Chloride 88 L Carbon Dioxide 27 Anion Gap 15 BUN 112.2 H* Creatinine 6.2 H Est GFR (CKD-EPI)AfAm 10.18 Est GFR (CKD-EPI)NonAf 8.78 POC Glucometer Random Glucose 153 H Lactic Acid Calcium 7.8 L Phosphorus 6.2 H Magnesium 3.5 H Total Bilirubin 1.5 H AST 98 H ALT 40 Alkaline Phosphatase 221 H Ammonia Creatine Kinase Creatine Kinase Index CK-MB (CK-2) Troponin I B-Natriuretic Peptide Total Protein 6.3 L Albumin 3.2 L 05/12/19 05/12/19 06:19 11:13 WBC RBC Hgb Hct MCV MCH MCHC RDW Plt Count MPV Absolute Neuts (auto) Neutrophils % Lymphocytes % Monocytes % Eosinophils % Basophils % Nucleated RBC % PT with INR INR Sodium Potassium Chloride Carbon Dioxide Anion Gap BUN Creatinine Est GFR (CKD-EPI)AfAm Est GFR (CKD-EPI)NonAf POC Glucometer 145 154 Random Glucose Lactic Acid Calcium Phosphorus Magnesium Total Bilirubin AST ALT Alkaline Phosphatase Ammonia Creatine Kinase Creatine Kinase Index CK-MB (CK-2) Troponin I B-Natriuretic Peptide Total Protein Albumin Active Medications Generic Name Dose Route Start Last Admin Trade Name Freq PRN Reason Stop Dose Admin Albumin Human 25 gm 05/12/19 10:00 05/12/19 11:36 Albumin Human 25% IVPB 05/15/19 10:01 25 gm DAILY WIL Administration Aspirin 81 mg 05/12/19 10:00 05/12/19 09:47 Asa - PO 81 mg DAILY WIL Administration Atenolol 50 mg 05/12/19 10:00 05/12/19 09:47 Tenormin - PO 50 mg DAILY WIL Administration Bacitracin/Polymyxin B Sulfate 1 applic 05/12/19 10:00 05/12/19 11:39 Polysporin Ointment - TP 1 applic BID WIL Administration Chlorhexidine Gluconate 1 applic 05/12/19 22:00 Hibiclens For Decolonization - TP HS WIL Furosemide 80 mg 05/12/19 06:00 05/12/19 06:26 Lasix Injection - IVPUSH 80 mg BID@0600,1400 WIL Administration Heparin Sodium (Porcine) 5,000 unit 05/12/19 06:00 05/12/19 06:32 Heparin - SQ Not Given TID WIL Octreotide Acetate 200 mcg/ 500 mls @ 25 mls/hr 05/11/19 21:15 05/12/19 01:54 Octreotide Acetate 1,000 mcg/ IVPB 25 mls/hr Dextrose ASDIR WIL Administration Insulin Aspart 1 vial 05/12/19 07:00 05/12/19 11:42 Novolog Vial Sliding Scale - SQ 2 units ACHS WIL Administration Protocol Melatonin 5 mg 05/11/19 23:14 05/12/19 01:55 Melatonin PO 5 mg HS PRN Administration INSOMNIA Metolazone 5 mg 05/12/19 10:00 05/12/19 09:47 Zaroxolyn - PO 5 mg BID WIL Administration Midodrine 5 mg 05/12/19 10:00 05/12/19 09:47 Proamatine - PO 5 mg TID-MID WIL Administration Mupirocin 1 applic 05/12/19 10:00 05/12/19 11:06 Bactroban Ointment (For Decolonization) - NS 05/17/19 09:59 1 applic BID WIL Administration Oxycodone HCl 10 mg 05/12/19 11:16 Roxicodone - PO Q6H PRN PAIN LEVEL 6-10 Ranitidine HCl 150 mg 05/12/19 10:00 05/12/19 09:47 Zantac - PO 150 mg DAILY WIL Administration Rifaximin 550 mg 05/12/19 10:00 05/12/19 09:47 Xifaxan - PO 550 mg BID WIL Administration Tamsulosin HCl 0.4 mg 05/12/19 08:30 05/12/19 09:05 Flomax - PO 0.4 mg BID@0830,2200 WIL Administration ASSESSMENT/PLAN: Dr. Su is a 63 year old man with a past medical history of BORJAS-cirrhosis complicated by hepatic encephalopathy, renal insufficiency, DM, atherosclerotic heart disease and paroxysmal afib admitted to the ICU for diuresis 2/2 fluid retention and hepatorenal syndrome. Acute volume overload Hepatorenal syndrome Urinary retention (improving) Paroxysmal Atrial Fibrillation Elevated troponin 2/2 to demand ischemia CAD T2DM Hyponatremia Dr. Pritchett on board and appreciate recommendations Neuro -awake, alert and oriented - stable, continue to monitor for signs of hepatic encephalopathy CV -Continue Atenolol 50mg qdaily (pt's Toprol XL was recently changed to this from [facility] visit) -Strict I&O's ordered with daily weights - Troponin slightly elevated at 0.08 pt received cardiac workup at [facility] within the past month. Most likely 2/2 to demand but will follow up - cardiology following, appreciate recommendations Pulm - breathing comfortably on room air now that he is being aggressively diuresed - continue diuretics Renal -Albumin 25gm qdaily -Lasix 80mg PO BID with Metolazone 5mg PO BID -Continue Midodrine 5mg TID -Octreotide gtt continued - HD offered but patient refused -F/U renal U/S -Dr. Balbuena consulted, appreciate recommendations GI -Therapeutic paracentesis with albumin replacement -PT/INR for tomorrow AM -Monitor LFTs and Cr for worsening hepatorenal syndrome -Speech and swallow eval for possible aspiration --dysphagia diet with nectar thick liquids recommended -- barium swallow to assess for aspiration Endo --ISS on board for glucose control --BGM ACHS FEN: Fluids: Active diuresis Electrolyte abnormalities: Hypervolemic hyponatremia; diuresis as above ( monitor Na levels) Nutrition: Dysphagia puree with nectar thick liquids PPX: DVt - Heparin TID SQ GI - Zantac 150mg qdaily Dispo: Patient is medically stable for transfer to floors Visit type - Emergency Visit Emergency Visit: Yes ED Registration Date: 05/11/19 Care time: The patient presented to the Emergency Department on the above date and was hospitalized for further evaluation of their emergent condition. - New Patient This patient is new to me today: Yes Date on this admission: 05/12/19 - Critical Care Critical Care patient: Yes Total Critical Care Time (in minutes): 40 Critical Care Statement: The care of this patient involved high complexity decision making to prevent further life threatening deterioration of the patient 's condition and/or to evaluate & treat vital organ system(s) failure or risk of failure. ATTENDING PHYSICIAN STATEMENT I saw and evaluated the patient. I reviewed the resident's note and discussed the case with the resident. I agree with the resident's findings and plan as documented. SUBJECTIVE: OBJECTIVE: ASSESSMENT AND PLAN:
[2019-05-12] MEDS: oxyCODONE HCL 5 MG TABLET PO PRN ×2 (12:14→20:19)
--- NOTE | 2019-05-12 12:26 | PN ---
Teaching Attending Note Name of Resident: Rizwana Ocampo ATTENDING PHYSICIAN STATEMENT I saw and evaluated the patient. I reviewed the resident's note and discussed the case with the resident. I agree with the resident's findings and plan as documented. SUBJECTIVE: Patient seen and examined in the ICU. Awake and alert. Denies CP or SOB. Tense abdomen. Last paracentesis was apparently at [facility] about 2 weeks ago (4.5 L ). Intake & Output 05/09/19 05/10/19 05/11/19 05/12/19 23:59 23:59 23:59 23:59 Intake Total 150 Output Total 450 Balance -300 Weight 160 lb 158 lb 3.2 oz Last Vital Signs Temp Pulse Resp BP Pulse Ox 97.9 F 92 H 12 109/78 95 05/12/19 10:00 05/12/19 12:00 05/12/19 12:00 05/12/19 12:00 05/12/19 09:00 Active Medications Albumin Human (Albumin Human 25%) 25 gm IVPB DAILY [facility] Stop: 05/15/19 10:01 Last Admin: 05/12/19 11:36 Dose: 25 gm Aspirin (Asa -) 81 mg PO DAILY [facility] Last Admin: 05/12/19 09:47 Dose: 81 mg Atenolol (Tenormin -) 50 mg PO DAILY [facility] Last Admin: 05/12/19 09:47 Dose: 50 mg Bacitracin/Polymyxin B Sulfate (Polysporin Ointment -) 1 applic TP BID WIL Last Admin: 05/12/19 11:39 Dose: 1 applic Chlorhexidine Gluconate (Hibiclens For Decolonization -) 1 applic TP HS WIL Furosemide (Lasix Injection -) 80 mg IVPUSH BID@0600,1400 [facility] Last Admin: 05/12/19 06:26 Dose: 80 mg Heparin Sodium (Porcine) (Heparin -) 5,000 unit SQ TID WIL Last Admin: 05/12/19 06:32 Dose: Not Given Octreotide Acetate 200 mcg/Octreotide Acetate 1,000 mcg/Dextrose 500 mls @ 25 mls/hr IVPB ASDIR WIL Last Admin: 05/12/19 01:54 Dose: 25 mls/hr Insulin Aspart (Novolog Vial Sliding Scale -) 1 vial SQ ACHS [facility]; Protocol Last Admin: 05/12/19 11:42 Dose: 2 units Melatonin (Melatonin) 5 mg PO HS PRN PRN Reason: INSOMNIA Last Admin: 05/12/19 01:55 Dose: 5 mg Metolazone (Zaroxolyn -) 5 mg PO BID [facility] Last Admin: 05/12/19 09:47 Dose: 5 mg Midodrine (Proamatine -) 5 mg PO TID-MID [facility] Last Admin: 05/12/19 09:47 Dose: 5 mg Mupirocin (Bactroban Ointment (For Decolonization) -) 1 applic NS BID [facility] Stop: 05/17/19 09:59 Last Admin: 05/12/19 11:06 Dose: 1 applic Oxycodone HCl (Roxicodone -) 10 mg PO Q6H PRN PRN Reason: PAIN LEVEL 6-10 Ranitidine HCl (Zantac -) 150 mg PO DAILY [facility] Last Admin: 05/12/19 09:47 Dose: 150 mg Rifaximin (Xifaxan -) 550 mg PO BID [facility] Last Admin: 05/12/19 09:47 Dose: 550 mg Tamsulosin HCl (Flomax -) 0.4 mg PO BID@0830,2200 [facility] Last Admin: 05/12/19 09:05 Dose: 0.4 mg GENERAL: Awake, alert, and oriented HEENT: scleral icterus NECK: (+) JVD LUNGS: Bibasilar rales bilaterally. No wheezes. No accessory muscle use. HEART: Irregularly irregular ABDOMEN: Soft, distended, nontender, dull to percussion, no guarding, no rebound. MUSCULOSKELETAL: No CVA tenderness. EXTREMITIES: 2+ distal pulses b/l, warm, well-perfused. No calf tenderness. 2+ edema to thigh b/l PSYCHIATRIC: Cooperative. Good eye contact. Appropriate mood and affect. SKIN: Warm, dry, b/l stasis changes noted in LExt, R calcaneous ulceration without erythema or exudate, no caput medusa noted. Laboratory Results - last 24 hr 05/11/19 05/11/19 05/11/19 20:03 20:03 20:03 WBC RBC Hgb Hct MCV MCH MCHC RDW Plt Count MPV Absolute Neuts (auto) Neutrophils % Lymphocytes % Monocytes % Eosinophils % Basophils % Nucleated RBC % PT with INR 19.10 H INR 1.61 H Sodium Potassium Chloride Carbon Dioxide Anion Gap BUN Creatinine Est GFR (CKD-EPI)AfAm Est GFR (CKD-EPI)NonAf Random Glucose Lactic Acid Calcium Total Bilirubin AST ALT Alkaline Phosphatase Ammonia 25.70 Creatine Kinase 1171 H Creatine Kinase Index 0.9 CK-MB (CK-2) 11.6 H Troponin I 0.08 H B-Natriuretic Peptide Total Protein Albumin 05/11/19 05/11/19 05/11/19 20:03 20:03 20:03 WBC 5.9 RBC 3.77 L Hgb 10.0 L Hct 30.2 L MCV 80.2 MCH 26.4 MCHC 33.0 RDW 18.7 H Plt Count 152 MPV 11.4 H Absolute Neuts (auto) 4.4 Neutrophils % 75.0 Lymphocytes % 6.4 L D Monocytes % 17.9 H Eosinophils % 0.0 Basophils % 0.7 Nucleated RBC % 0 PT with INR INR Sodium 127 L Potassium 3.9 Chloride 87 L Carbon Dioxide 27 Anion Gap 13 BUN 109.0 H* Creatinine 6.1 H Est GFR (CKD-EPI)AfAm 10.38 Est GFR (CKD-EPI)NonAf 8.96 Random Glucose 190 H Lactic Acid 1.8 Calcium 7.8 L Total Bilirubin 1.3 H AST 144 H ALT 58 Alkaline Phosphatase 306 H Ammonia Creatine Kinase Creatine Kinase Index CK-MB (CK-2) Troponin I B-Natriuretic Peptide 42363.8 H Total Protein 7.0 Albumin 2.6 L ASSESSMENT/PLAN: Acute volume overload Hepatorenal syndrome Urinary retention (improving) Paroxysmal Atrial Fibrillation Elevated troponin 2/2 to demand ischemia CAD T2DM Hyponatremia Per GI recommendations Albumin 25gm qdaily Lasix 80mg IV BID Metolazone 5mg PO BID Midodrine 5mg TID Octreotide drip Pain control O2 as needed IR for paracentesis PO as tolerated: patient has requested swallow evaluation Renal follow up Daily weights Strict I & O 4W / 4S monitoring Dr Dominguez
--- NOTE | 2019-05-12 12:41 | CONS ---
INFECTIOUS DISEASE CONSULTATION DATE OF CONSULTATION: DATE OF DICTATION: 05/12/2019 REQUESTING PHYSICIAN: Hospitalist service. HISTORY: This is a 63-year-old man. 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 He has a history of coronary artery disease, status post PCI, chronic kidney disease, diabetes, atrial fibrillation. He was recently hospitalized April 15 to April 16 at [facility] when he was in respiratory failure and admitted. He was transferred to [facility] because he had positive troponins and was evaluated by the cardiac team. No intervention was done, and he was extubated. He has been following up with the gas plant worker, Dr. Pritchett, and had his Lasix doubled due to increasing volume retention. This did not help him. He was seen by the urologist, noted to be in urinary retention, and had a Christian catheter placed for a 1 L residual. He was then admitted on the . He was sent to the ER for increasing shortness of breath. He denies any fevers, chills, nausea, or vomiting. He has no cough. He has no abdominal pain or chest pain. He has not had any diarrhea. PAST MEDICAL HISTORY: Notable for history of liver cirrhosis secondary to BORJAS with hepatic encephalopathy in the past. He has had multiple paracenteses in the past. He has coagulopathy, thrombocytopenia, portal hypertension, and has had esophageal varices that have required endoscopic ablation in the past. He has a history of paroxysmal atrial fibrillation, coronary artery disease, hypertension, hyperlipidemia, COPD, chronic kidney disease, anemia, chronic low back pain. He has diabetes and chronic venostasis of his legs. PAST SURGICAL HISTORY: Notable for appendectomy. He has had hip fractures. He has multiple stents in the past. SOCIAL HISTORY: He is a former smoker. He quit in 2008. There is no history of any substance use. He lives with his spouse. He uses a walker to ambulate. 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 Has not been able to practice in at least 15 years. ALLERGIES: No known drug allergies. MEDICATIONS: As an outpatient include tamsulosin, rifaximin, Zantac, mirtazapine, metoprolol, lactulose, insulin, and aspirin. REVIEW OF SYSTEMS: As per HPI. PHYSICAL EXAMINATION: Vital Signs: His temperature is 97.8, pulse of 92, blood pressure 115/83, respiratory rate is 11. He weighs 71 kg. He is saturating 90% on room air. General: He is very awake and alert. HEENT: He is normocephalic. His eyes are anicteric. He has no thrush. Neck: Supple. Lungs: Diminished breath sounds at the bases. Heart: Regular rate and rhythm. Abdomen: Firm, distended. He has ascites. It is nontender. He has a little periumbilical swelling. Extremities: He has bilateral venostasis changes. He has a 1.5-cm ulcer on the right lower leg where he states he had a blister that popped. It is clean. There is no erythema or purulence. He has bilateral heel ulcers stage 1-2. DIAGNOSTIC DATA: His labs are notable for a white count of 3.9, hemoglobin 8, platelets 102. His INR is 1.8. His BUN 112, creatinine 6.2 with a bilirubin of 1.5, alkaline phosphatase 221, AST 98. His BNP is 20,682. Chest x-ray is unchanged from prior. There is some left basilar atelectasis or fluid. In summary, this is a 63-year-old man with volume overload, worsening renal failure in the setting of liver cirrhosis, coronary artery disease status post multiple stents. He has no signs of cellulitis hinting these are bilateral venostasis changes. He has a small right lower extremity ulcer, which is clean and chronic stage 2 ulcers of his heels for which he can put heel pads. Would apply topical bacitracin. No role for systemic antibiotics at this time. Management per GI and Renal. Please call back if needed. LORIE VILLEGAS M.D. [id number]
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
[2019-05-12] MEDS ORDERED: oxyCODONE HCL 5 MG TABLET PO ONE ×2 (15:45→22:17)
[2019-05-12] MEDS ORDERED: FUROSEMIDE INJECTION 100 MG in DEXTROSE 5%-WATER - 90 ML IVPB SCH (19:15)
--- NOTE | 2019-05-12 19:16 | PN ---
Progress Note (short form) - Note Progress Note: Pt examined, case discussed with house staff in ICU. Currently he is awake, alert, oriented. He wants to leave hospital and ICU, but I have explained that I cannot discharge him while his renal function is continuing to deteriorate. His legs are MUCH improved, with only trace ankle edema on L, 1+ ankle edema on R. Abdomen still distended. CBC, BMP 05/12/19 05:50 05/12/19 05:50 INR, PTT INR 1.82 (0.83-1.09) H 05/12/19 05:50 Vital Signs - 24 hr 05/11/19 05/12/19 05/12/19 23:30 01:12 02:00 Temperature 97.8 F 97.9 F Pulse Rate 90 88 Pulse Rate [ 103 H Right Radial] Respiratory 15 11 11 Rate Blood Pressure 119/74 108/76 Blood Pressure 117/85 [Right Arm] O2 Sat by Pulse 99 95 Oximetry (%) 05/12/19 05/12/19 05/12/19 05:00 08:00 09:00 Temperature 97.8 F Pulse Rate 94 H 92 H Pulse Rate [ Right Radial] Respiratory 10 11 11 Rate Blood Pressure 98/72 115/83 Blood Pressure [Right Arm] O2 Sat by Pulse 95 Oximetry (%) 05/12/19 05/12/19 05/12/19 10:00 12:00 14:00 Temperature 97.9 F Pulse Rate 97 H 92 H 85 Pulse Rate [ Right Radial] Respiratory 11 12 11 Rate Blood Pressure 114/85 109/78 110/77 Blood Pressure [Right Arm] O2 Sat by Pulse Oximetry (%) 05/12/19 05/12/19 16:00 18:00 Temperature 98.0 F Pulse Rate 90 91 H Pulse Rate [ Right Radial] Respiratory 12 14 Rate Blood Pressure 111/78 118/77 Blood Pressure [Right Arm] O2 Sat by Pulse Oximetry (%) He no longer appears to be in Afib, there are P waves on his tracing. Intake & Output 05/12/19 05/12/19 05/12/19 07:59 15:59 23:59 Intake Total 150 300 300 Output Total 300 150 350 Balance -150 150 -50 Weight 158 lb 3.2 oz Intake: IV 150 300 1 150 300 IVPB 300 Output: Urine 300 150 350 Christian 300 150 350 Other: Voiding Method Indwelling Catheter Indwelling Catheter Bowel Movement No No Height 5 ft 4 in Body Mass Index (BMI) 27.1 Weight Measurement Method Built in Bedscale Urine output still leaves something to be desired, and creatinine and BUN are still rising. Plan now: 1) increase midodrine to 7.5 mg q8h 2) change furosemide to continuous drip, maybe this will result in a more sustained diuretic effect 3) large volume paracentesis tomorrow 4) d/c SQ heparin, he appears to be auto-anticoagulated. Renal, ID, cardiology consults appreciated.
[2019-05-12] MEDS: CHLORHEXIDINE GLUCONATE 4% CLEANSER FOR DECOLONIZATION TP SCH (21:08)
[2019-05-12] MEDS ORDERED: MIDODRINE HCL 5 MG TABLET PO ONE (21:13)
[2019-05-13] MEDS: FUROSEMIDE 40 MG/4 ML INJECTABLE VIAL IVPUSH SCH ×2 (05:46→15:57)
[2019-05-13] MEDS: oxyCODONE HCL 5 MG TABLET PO PRN ×3 (05:46→18:36)
[2019-05-13 06:30] LABS: HEMATOCRIT 26.2 % (35.4-49); HEMOGLOBIN 8.8 GM/dL (11.7-16.9); MCH 26.5 pg (25.7-33.7); MCHC 33.8 g/dl (32.0-35.9); MEAN CELL VOLUME 78.4 fl (80-96); MEAN PLT VOLUME 10.2 fl (7.5-11.1); PLATELET COUNT 108 K/MM3 (134-434); RBC 3.34 M/mm3 (4.00-5.60); RDW 18.5 % (11.9-15.9); WHITE BLOOD COUNT 5.8 K/mm3 (4.0-10.0)
[2019-05-13 07:03] LABS: ALBUMIN 3.2 g/dl (3.4-5.0); BILIRUBIN,TOTAL 1.9 mg/dL (0.2-1); POTASSIUM 3.7 mmol/L (3.5-5.1); TOT PROT 6.4 g/dl (6.4-8.2)
[2019-05-13] MEDS: INSULIN SLIDING SCALE (NOVOLOG) 1 VIAL SQ SCH ×4 (07:05→22:21)
[2019-05-13 07:25] LABS: BLOOD UREA NITROGEN 111.4 mg/dL (7-18)
[2019-05-13] MEDS ORDERED: PT OWN MED DRAWER 7, Y5N ONE ×2 (07:49→22:08)
--- NOTE | 2019-05-13 07:58 | CONSULT ---
Consultation: REQUESTING PROVIDER: CONSULT REQUEST: We have been asked to medically evaluate this patient for ( specify). HISTORY OF PRESENT ILLNESS: REVIEW OF SYSTEMS: CONSTITUTIONAL: Absent: fever, chills, diaphoresis, generalized weakness, malaise, loss of appetite, weight change HEENT: Absent: rhinorrhea, nasal congestion, throat pain, throat swelling, difficulty swallowing, mouth swelling, ear pain, eye pain, visual changes CARDIOVASCULAR: Absent: chest pain, syncope, palpitations, irregular heart rate, lightheadedness , peripheral edema RESPIRATORY: Absent: cough, shortness of breath, dyspnea with exertion, orthopnea, wheezing, stridor, hemoptysis GASTROINTESTINAL: Absent: abdominal pain, abdominal distension, nausea, vomiting, diarrhea, constipation, melena, hematochezia GENITOURINARY: Absent: dysuria, frequency, urgency, hesitancy, hematuria, flank pain, genital pain MUSCULOSKELETAL: Absent: myalgia, arthralgia, joint swelling, back pain, neck pain SKIN: Absent: rash, itching, pallor HEMATOLOGIC/IMMUNOLOGIC: Absent: easy bleeding, easy bruising, lymphadenopathy, frequent infections ENDOCRINE: Absent: unexplained weight gain, unexplained weight loss, heat intolerance, cold intolerance NEUROLOGIC: Absent: headache, focal weakness or paresthesias, dizziness, unsteady gait, seizure, mental status changes, bladder or bowel incontinence PSYCHIATRIC: Absent: anxiety, depression, suicidal or homicidal ideation, hallucinations. PHYSICAL EXAMINATION Vital Signs - 24 hr 05/12/19 05/12/19 05/12/19 08:00 09:00 10:00 Temperature 97.9 F Pulse Rate 92 H 97 H Respiratory 11 11 11 Rate Blood Pressure 115/83 114/85 O2 Sat by Pulse 95 Oximetry (%) 05/12/19 05/12/19 05/12/19 12:00 14:00 16:00 Temperature 98.0 F Pulse Rate 92 H 85 90 Respiratory 12 11 12 Rate Blood Pressure 109/78 110/77 111/78 O2 Sat by Pulse Oximetry (%) 05/12/19 05/12/19 05/12/19 18:00 20:00 20:41 Temperature Pulse Rate 91 H 96 H Respiratory 14 12 Rate Blood Pressure 118/77 107/77 O2 Sat by Pulse 96 Oximetry (%) 05/12/19 05/13/19 05/13/19 22:00 00:00 02:00 Temperature Pulse Rate 81 94 H 95 H Respiratory 12 11 11 Rate Blood Pressure 137/72 111/77 108/79 O2 Sat by Pulse Oximetry (%) 05/13/19 05/13/19 04:00 06:00 Temperature Pulse Rate 96 H 95 H Respiratory 9 L 9 L Rate Blood Pressure 112/72 115/84 O2 Sat by Pulse Oximetry (%) GENERAL: Awake, alert, and fully oriented, in no acute distress. HEAD: Normal with no signs of trauma. EYES: Pupils equal, round and reactive to light, extraocular movements intact, sclera anicteric, conjunctiva clear. No lid lag. EARS, NOSE, THROAT: Ears normal, nares patent, oropharynx clear without exudates. Moist mucous membranes. NECK: Normal range of motion, supple without lymphadenopathy, JVD, or masses. LUNGS: Breath sounds equal, clear to auscultation bilaterally. No wheezes, and no crackles. No accessory muscle use. HEART: Regular rate and rhythm, normal S1 and S2 without murmur, rub or gallop. ABDOMEN: Soft, nontender, not distended, normoactive bowel sounds, no guarding, no rebound, no masses. No hepatomegaly or splenomegaly. MUSCULOSKELETAL: Normal range of motion at all joints. No bony deformities or tenderness. No CVA tenderness. UPPER EXTREMITIES: 2+ pulses, warm, well-perfused. No cyanosis. No clubbing. Cap refill <2 seconds. No peripheral edema. LOWER EXTREMITIES: 2+ pulses, warm, well-perfused. No calf tenderness. No peripheral edema. NEUROLOGICAL: Cranial nerves II-XII intact. Normal speech. Normal gait. PSYCHIATRIC: Cooperative. Good eye contact. Appropriate mood and affect. SKIN: Warm, dry, normal turgor, no rashes or lesions noted. Laboratory Results - last 24 hr 05/12/19 05/12/19 05/12/19 11:13 16:24 19:40 WBC RBC Hgb Hct MCV MCH MCHC RDW Plt Count MPV Sodium Potassium Chloride Carbon Dioxide Anion Gap BUN Creatinine Est GFR (CKD-EPI)AfAm Est GFR (CKD-EPI)NonAf POC Glucometer 154 171 Random Glucose Calcium Total Bilirubin AST ALT Alkaline Phosphatase Total Protein Albumin Lipase 262 05/12/19 05/13/19 05/13/19 21:16 05:36 05:36 WBC 5.8 RBC 3.34 L Hgb 8.8 L Hct 26.2 L MCV 78.4 L MCH 26.5 MCHC 33.8 RDW 18.5 H Plt Count 108 L MPV 10.2 Sodium 128 L Potassium 3.7 Chloride 88 L Carbon Dioxide 28 Anion Gap 12 BUN 111.4 H* Creatinine 6.0 H Est GFR (CKD-EPI)AfAm 10.59 Est GFR (CKD-EPI)NonAf 9.14 POC Glucometer 164 Random Glucose 72 L Calcium 8.0 L Total Bilirubin 1.9 H AST 102 H ALT 40 Alkaline Phosphatase 198 H Total Protein 6.4 Albumin 3.2 L Lipase 05/13/19 05:54 WBC RBC Hgb Hct MCV MCH MCHC RDW Plt Count MPV Sodium Potassium Chloride Carbon Dioxide Anion Gap BUN Creatinine Est GFR (CKD-EPI)AfAm Est GFR (CKD-EPI)NonAf POC Glucometer 70 Random Glucose Calcium Total Bilirubin AST ALT Alkaline Phosphatase Total Protein Albumin Lipase Active Medications Generic Name Dose Route Start Last Admin Trade Name Freq PRN Reason Stop Dose Admin Albumin Human 25 gm 05/12/19 10:00 05/12/19 11:36 Albumin Human 25% IVPB 05/15/19 10:01 25 gm DAILY WIL Administration Bacitracin/Polymyxin B Sulfate 1 applic 05/12/19 10:00 05/12/19 21:10 Polysporin Ointment - TP 1 applic BID WIL Administration Chlorhexidine Gluconate 1 applic 05/12/19 22:00 05/12/19 21:08 Hibiclens For Decolonization - TP 1 applic HS WIL Administration Furosemide 80 mg 05/13/19 06:00 05/13/19 05:46 Lasix Injection - IVPUSH 80 mg BID@0600,1400 WIL Administration Octreotide Acetate 200 mcg/ 500 mls @ 25 mls/hr 05/11/19 21:15 05/12/19 21:07 Octreotide Acetate 1,000 mcg/ IVPB 25 mls/hr Dextrose ASDIR WIL Administration Insulin Aspart 1 vial 05/12/19 07:00 05/12/19 22:28 Novolog Vial Sliding Scale - SQ 2 units ACHS WIL Administration Protocol Melatonin 5 mg 05/11/19 23:14 05/12/19 22:26 Melatonin PO 5 mg HS PRN Administration INSOMNIA Metolazone 5 mg 05/12/19 10:00 05/12/19 21:09 Zaroxolyn - PO 5 mg BID WIL Administration Midodrine 7.5 mg 05/12/19 19:03 Proamatine - PO TID-MID WIL Mupirocin 1 applic 05/12/19 10:00 05/12/19 22:28 Bactroban Ointment (For Decolonization) - NS 05/17/19 09:59 1 applic BID WIL Administration Oxycodone HCl 30 mg 05/12/19 22:12 05/13/19 05:46 Roxicodone - PO 30 mg Q6H PRN Administration PAIN LEVEL 6-10 Ranitidine HCl 150 mg 05/12/19 10:00 05/12/19 09:47 Zantac - PO 150 mg DAILY WIL Administration Rifaximin 550 mg 05/12/19 10:00 05/12/19 21:09 Xifaxan - PO 550 mg BID WIL Administration Tamsulosin HCl 0.4 mg 05/12/19 08:30 05/12/19 21:08 Flomax - PO 0.4 mg BID@0830,2200 WIL Administration ASSESSMENT/PLAN: Dispo: We will continue to follow the patient. Thank you for this consultative opportunity. ATTENDING PHYSICIAN STATEMENT I saw and evaluated the patient. I reviewed the resident's note and discussed the case with the resident. I agree with the resident's findings and plan as documented. SUBJECTIVE: OBJECTIVE: ASSESSMENT AND PLAN:
--- NOTE | 2019-05-13 08:05 | PN ---
Physical Exam: SUBJECTIVE: Patient examined @ bedside. As per overnight team, patient refused transfer to Med/Surg floor. Denies chest pain, shortness of breath, abdominal pain. OBJECTIVE: General: awake, alert, NAD Abdomen: distended, (+) fluid wave shift; distension appears less severe than PE yesterday (05/12) CV: S1, S2 RRR Respiratory: CLTA B/L, no wheeze/crackle Extremity: 2+ DP, trace pedal edema B/L Vital Signs Period Temp Pulse Resp BP Sys/Grant Pulse Ox Last 24 Hr 97.9 F-98.0 F 81-97 9-14 107-137/72-85 95-96 Laboratory Results - last 24 hr 05/12/19 05/12/19 05/12/19 11:13 16:24 19:40 WBC RBC Hgb Hct MCV MCH MCHC RDW Plt Count MPV Sodium Potassium Chloride Carbon Dioxide Anion Gap BUN Creatinine Est GFR (CKD-EPI)AfAm Est GFR (CKD-EPI)NonAf POC Glucometer 154 171 Random Glucose Calcium Total Bilirubin AST ALT Alkaline Phosphatase Total Protein Albumin Lipase 262 05/12/19 05/13/19 05/13/19 21:16 05:36 05:36 WBC 5.8 RBC 3.34 L Hgb 8.8 L Hct 26.2 L MCV 78.4 L MCH 26.5 MCHC 33.8 RDW 18.5 H Plt Count 108 L MPV 10.2 Sodium 128 L Potassium 3.7 Chloride 88 L Carbon Dioxide 28 Anion Gap 12 BUN 111.4 H* Creatinine 6.0 H Est GFR (CKD-EPI)AfAm 10.59 Est GFR (CKD-EPI)NonAf 9.14 POC Glucometer 164 Random Glucose 72 L Calcium 8.0 L Total Bilirubin 1.9 H AST 102 H ALT 40 Alkaline Phosphatase 198 H Total Protein 6.4 Albumin 3.2 L Lipase 05/13/19 05:54 WBC RBC Hgb Hct MCV MCH MCHC RDW Plt Count MPV Sodium Potassium Chloride Carbon Dioxide Anion Gap BUN Creatinine Est GFR (CKD-EPI)AfAm Est GFR (CKD-EPI)NonAf POC Glucometer 70 Random Glucose Calcium Total Bilirubin AST ALT Alkaline Phosphatase Total Protein Albumin Lipase Active Medications Generic Name Dose Route Start Last Admin Trade Name Freq PRN Reason Stop Dose Admin Albumin Human 25 gm 05/12/19 10:00 05/12/19 11:36 Albumin Human 25% IVPB 05/15/19 10:01 25 gm DAILY WIL Administration Bacitracin/Polymyxin B Sulfate 1 applic 05/12/19 10:00 05/12/19 21:10 Polysporin Ointment - TP 1 applic BID WIL Administration Chlorhexidine Gluconate 1 applic 05/12/19 22:00 05/12/19 21:08 Hibiclens For Decolonization - TP 1 applic HS WIL Administration Furosemide 80 mg 05/13/19 06:00 05/13/19 05:46 Lasix Injection - IVPUSH 80 mg BID@0600,1400 WIL Administration Octreotide Acetate 200 mcg/ 500 mls @ 25 mls/hr 05/11/19 21:15 05/12/19 21:07 Octreotide Acetate 1,000 mcg/ IVPB 25 mls/hr Dextrose ASDIR WIL Administration Insulin Aspart 1 vial 05/12/19 07:00 05/12/19 22:28 Novolog Vial Sliding Scale - SQ 2 units ACHS WIL Administration Protocol Melatonin 5 mg 05/11/19 23:14 05/12/19 22:26 Melatonin PO 5 mg HS PRN Administration INSOMNIA Metolazone 5 mg 05/12/19 10:00 05/12/19 21:09 Zaroxolyn - PO 5 mg BID WIL Administration Midodrine 7.5 mg 05/12/19 19:03 Proamatine - PO TID-MID WIL Mupirocin 1 applic 05/12/19 10:00 05/12/19 22:28 Bactroban Ointment (For Decolonization) - NS 05/17/19 09:59 1 applic BID WIL Administration Oxycodone HCl 30 mg 05/12/19 22:12 05/13/19 05:46 Roxicodone - PO 30 mg Q6H PRN Administration PAIN LEVEL 6-10 Ranitidine HCl 150 mg 05/12/19 10:00 05/12/19 09:47 Zantac - PO 150 mg DAILY WIL Administration Rifaximin 550 mg 05/12/19 10:00 05/12/19 21:09 Xifaxan - PO 550 mg BID WIL Administration Tamsulosin HCl 0.4 mg 05/12/19 08:30 05/12/19 21:08 Flomax - PO 0.4 mg BID@0830,2200 WIL Administration ASSESSMENT/PLAN: 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 Pritchett on board and appreciate recommendations Neuro -awake, alert and oriented - stable, continue to monitor for signs of hepatic encephalopathy CV - Holding Atenolol (50 mg QD) as BB may worsen hepatorenal syndrome; monitor closely for AFib and restart as indicated --Strict I&O's ordered with daily weights - Troponin slightly elevated at 0.08 pt received cardiac workup at [facility] within the past month. Most likely 2/2 to demand - No acute EKG changes - cardiology following, appreciate recommendations Pulm - breathing comfortably on room air now that he is being aggressively diuresed - continue diuretics Renal -Albumin 25gm qdaily -Lasix 80mg PO BID with Metolazone 5mg PO BID -Continue Midodrine 5mg TID -Octreotide gtt continued - HD offered but patient refused -Dr. Balbuena consulted, appreciate recommendations -Dr. Balbuena discussed case d/w patient and patient's @ bedside, patient' s agrees that if patient's clinical condition deteriorates and she becomes default HCP patient would not want HD GI -Therapeutic paracentesis with albumin replacement later today -Monitor LFTs and Cr for worsening hepatorenal syndrome -Speech and swallow eval - patient NPO for suspected aspiration Endo --ISS on board for glucose control --BGM ACHS FEN: Fluids: Active diuresis Electrolyte abnormalities: Hypervolemic hyponatremia; diuresis as above ( monitor Na levels) Nutrition: NPO PPX: DVt - Heparin TID SQ GI - Zantac 150mg qdaily Dispo: Patient is medically stable for transfer to Med/Surg Visit type - Emergency Visit Emergency Visit: No - New Patient This patient is new to me today: Yes Date on this admission: 05/13/19 - Critical Care Critical Care patient: No ATTENDING PHYSICIAN STATEMENT I saw and evaluated the patient. I reviewed the resident's note and discussed the case with the resident. I agree with the resident's findings and plan as documented. SUBJECTIVE: OBJECTIVE: ASSESSMENT AND PLAN:
[2019-05-13] MEDS: TAMSULOSIN HCL 0.4 MG CAP PO SCH ×2 (09:05→22:10)
--- NOTE | 2019-05-13 10:23 | PN ---
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 Pt did not want breakfast this am. I heard him coughing, vocal wetness, gurgly , self suctioning. He had finished a container of [place] thick milk. He feels it 's not going down. Suspect aspiration -Anterograde vs retrograde with impaired emptying. Paracentesis planned for today. Suggest NPO Paracentesis per GI MBS after Paracentesis, if ordered and can be scheduled.
[2019-05-13] MEDS: MIDODRINE HCL 5 MG TABLET PO SCH ×3 (10:40→19:38)
[2019-05-13] MEDS: METOLAZONE 5 MG TABLET PO SCH ×2 (10:40→22:09)
[2019-05-13] MEDS: RIFAXIMIN 550 MG TABLET (UD) PO SCH ×2 (10:42→22:10)
[2019-05-13] MEDS: RANITIDINE HCL 150 MG TABLET (FP) PO SCH (10:47)
[2019-05-13] MEDS: BACITRACIN/POLYMYXIN B SULFATE 15 GM TUBE TP SCH ×2 (10:59→22:10)
[2019-05-13] MEDS: MUPIROCIN 2% TOPICAL OINTMENT FOR DECOLONIZATION NS SCH ×2 (11:00→22:20)
--- NOTE | 2019-05-13 11:24 | PN ---
Teaching Attending Note Name of Resident: Sophie Mccoy ATTENDING PHYSICIAN STATEMENT I saw and evaluated the patient. I reviewed the resident's note and discussed the case with the resident. I agree with the resident's findings and plan as documented. SUBJECTIVE: Patient seen and examined in the ICU. Awake and alert. Denies CP or SOB. Still with a tense abdomen. Seen by speech & swallow -> suspect aspiration and recommended NPO for now. Intake & Output 05/10/19 05/11/19 05/12/19 05/13/19 23:59 23:59 23:59 23:59 Intake Total 750 239 Output Total 800 700 Balance -50 -461 Weight 160 lb 158 lb 3.2 oz Last Vital Signs Temp Pulse Resp BP Pulse Ox 98.0 F 93 H 10 114/82 96 05/12/19 16:00 05/13/19 08:00 05/13/19 08:00 05/13/19 08:00 05/12/19 20:41 Active Medications Albumin Human (Albumin Human 25%) 25 gm IVPB DAILY [facility] Stop: 05/15/19 10:01 Last Admin: 05/12/19 11:36 Dose: 25 gm Bacitracin/Polymyxin B Sulfate (Polysporin Ointment -) 1 applic TP BID [facility] Last Admin: 05/13/19 10:59 Dose: 1 applic Chlorhexidine Gluconate (Hibiclens For Decolonization -) 1 applic TP HS [facility] Last Admin: 05/12/19 21:08 Dose: 1 applic Furosemide (Lasix Injection -) 80 mg IVPUSH BID@0600,1400 [facility] Last Admin: 05/13/19 05:46 Dose: 80 mg Octreotide Acetate 200 mcg/Octreotide Acetate 1,000 mcg/Dextrose 500 mls @ 25 mls/hr IVPB ASDIR [facility] Last Admin: 05/12/19 21:07 Dose: 25 mls/hr Insulin Aspart (Novolog Vial Sliding Scale -) 1 vial SQ ACHS [facility]; Protocol Last Admin: 05/13/19 07:05 Dose: Not Given Melatonin (Melatonin) 5 mg PO HS PRN PRN Reason: INSOMNIA Last Admin: 05/12/19 22:26 Dose: 5 mg Metolazone (Zaroxolyn -) 5 mg PO BID [facility] Last Admin: 05/13/19 10:40 Dose: 5 mg Midodrine (Proamatine -) 7.5 mg PO TID-MID [facility] Last Admin: 05/13/19 10:40 Dose: 7.5 mg Mupirocin (Bactroban Ointment (For Decolonization) -) 1 applic NS BID [facility] Stop: 05/17/19 09:59 Last Admin: 05/13/19 11:00 Dose: 1 applic Oxycodone HCl (Roxicodone -) 30 mg PO Q6H PRN PRN Reason: PAIN LEVEL 6-10 Last Admin: 05/13/19 05:46 Dose: 30 mg Ranitidine HCl (Zantac -) 150 mg PO DAILY [facility] Last Admin: 05/13/19 10:47 Dose: 150 mg Rifaximin (Xifaxan -) 550 mg PO BID [facility] Last Admin: 05/13/19 10:42 Dose: 550 mg Tamsulosin HCl (Flomax -) 0.4 mg PO BID@0830,2200 [facility] Last Admin: 05/13/19 09:05 Dose: 0.4 mg GENERAL: Awake, alert, and oriented HEENT: scleral icterus NECK: (+) JVD LUNGS: Bibasilar rales bilaterally. No wheezes. No accessory muscle use. HEART: Irregularly irregular ABDOMEN: Soft, distended, nontender, dull to percussion, no guarding, no rebound. MUSCULOSKELETAL: No CVA tenderness. EXTREMITIES: 2+ distal pulses b/l, warm, well-perfused. No calf tenderness. 2+ edema to thigh b/l PSYCHIATRIC: Cooperative. Good eye contact. Appropriate mood and affect. SKIN: Warm, dry, b/l stasis changes noted in LExt, R calcaneous ulceration without erythema or exudate Laboratory Results - last 24 hr 05/12/19 05/12/19 05/12/19 16:24 19:40 21:16 WBC RBC Hgb Hct MCV MCH MCHC RDW Plt Count MPV Sodium Potassium Chloride Carbon Dioxide Anion Gap BUN Creatinine Est GFR (CKD-EPI)AfAm Est GFR (CKD-EPI)NonAf POC Glucometer 171 164 Random Glucose Calcium Total Bilirubin AST ALT Alkaline Phosphatase Total Protein Albumin Lipase 262 05/13/19 05/13/19 05/13/19 05:36 05:36 05:54 WBC 5.8 RBC 3.34 L Hgb 8.8 L Hct 26.2 L MCV 78.4 L MCH 26.5 MCHC 33.8 RDW 18.5 H Plt Count 108 L MPV 10.2 Sodium 128 L Potassium 3.7 Chloride 88 L Carbon Dioxide 28 Anion Gap 12 BUN 111.4 H* Creatinine 6.0 H Est GFR (CKD-EPI)AfAm 10.59 Est GFR (CKD-EPI)NonAf 9.14 POC Glucometer 70 Random Glucose 72 L Calcium 8.0 L Total Bilirubin 1.9 H AST 102 H ALT 40 Alkaline Phosphatase 198 H Total Protein 6.4 Albumin 3.2 L Lipase 05/13/ 08:13 WBC RBC Hgb Hct MCV MCH MCHC RDW Plt Count MPV Sodium Potassium Chloride Carbon Dioxide Anion Gap BUN Creatinine Est GFR (CKD-EPI)AfAm Est GFR (CKD-EPI)NonAf POC Glucometer 114 Random Glucose Calcium Total Bilirubin AST ALT Alkaline Phosphatase Total Protein Albumin Lipase ASSESSMENT/PLAN: Acute volume overload Hepatorenal syndrome Urinary retention (improving) Paroxysmal Atrial Fibrillation Elevated troponin 2/2 to demand ischemia CAD T2DM Hyponatremia Per GI recommendations Albumin 25gm qdaily Lasix 80mg IV BID Metolazone 5mg PO BID Midodrine 5mg TID Octreotide Pain control O2 as needed IR for paracentesis NPO has been recommended by speech & swallow Daily weights Strict I & O 4W / 4S monitoring Dr Dominguez
--- NOTE | 2019-05-13 11:51 | PN ---
Progress Note, Physician History of Present Illness: Pt seen and examined at bedside. He is awake and alert. He is asking to go home. He has been difficult with the staff. - Current Medication List Current Medications: Active Medications Albumin Human (Albumin Human 25%) 25 gm IVPB DAILY [facility] Stop: 05/15/19 10:01 Last Admin: 05/12/19 11:36 Dose: 25 gm Bacitracin/Polymyxin B Sulfate (Polysporin Ointment -) 1 applic TP BID [facility] Last Admin: 05/13/19 10:59 Dose: 1 applic Chlorhexidine Gluconate (Hibiclens For Decolonization -) 1 applic TP HS [facility] Last Admin: 05/12/19 21:08 Dose: 1 applic Furosemide (Lasix Injection -) 80 mg IVPUSH BID@0600,1400 [facility] Last Admin: 05/13/19 05:46 Dose: 80 mg Octreotide Acetate 200 mcg/Octreotide Acetate 1,000 mcg/Dextrose 500 mls @ 25 mls/hr IVPB ASDIR [facility] Last Admin: 05/12/19 21:07 Dose: 25 mls/hr Insulin Aspart (Novolog Vial Sliding Scale -) 1 vial SQ ACHS [facility]; Protocol Last Admin: 05/13/19 07:05 Dose: Not Given Melatonin (Melatonin) 5 mg PO HS PRN PRN Reason: INSOMNIA Last Admin: 05/12/19 22:26 Dose: 5 mg Metolazone (Zaroxolyn -) 5 mg PO BID [facility] Last Admin: 05/13/19 10:40 Dose: 5 mg Midodrine (Proamatine -) 7.5 mg PO TID-MID [facility] Last Admin: 05/13/19 10:40 Dose: 7.5 mg Mupirocin (Bactroban Ointment (For Decolonization) -) 1 applic NS BID [facility] Stop: 05/17/19 09:59 Last Admin: 05/13/19 11:00 Dose: 1 applic Oxycodone HCl (Roxicodone -) 30 mg PO Q6H PRN PRN Reason: PAIN LEVEL 6-10 Last Admin: 05/13/19 05:46 Dose: 30 mg Ranitidine HCl (Zantac -) 150 mg PO DAILY [facility] Last Admin: 05/13/19 10:47 Dose: 150 mg Rifaximin (Xifaxan -) 550 mg PO BID [facility] Last Admin: 05/13/19 10:42 Dose: 550 mg Tamsulosin HCl (Flomax -) 0.4 mg PO BID@0830,2200 [facility] Last Admin: 05/13/19 09:05 Dose: 0.4 mg - Objective Vital Signs: Vital Signs Temperature 98.0 F 05/12/19 16:00 Pulse Rate 93 H 05/13/19 08:00 Respiratory Rate 10 05/13/19 08:00 Blood Pressure 114/82 05/13/19 08:00 O2 Sat by Pulse Oximetry (%) 96 05/12/19 20:41 Constitutional: Yes: Calm HENT: Yes: Atraumatic Neck: Yes: Supple Cardiovascular: Yes: S1, S2 Respiratory: Yes: CTA Bilaterally Gastrointestinal: Yes: Abdomen, Obese, Ascites Genitourinary: Yes: WNL Musculoskeletal: Yes: WNL Edema: Yes Edema: LLE: 2+, RLE: 2+ Neurological: Yes: Oriented Psychiatric: Yes: Oriented Labs: CBC, BMP 05/13/19 05:36 05/13/19 05:36 INR, PTT INR 1.82 (0.83-1.09) H 05/12/19 05:50 Problem List - Problems (1) Acute kidney failure Code(s): N17.9 - ACUTE KIDNEY FAILURE, UNSPECIFIED (2) Cirrhosis Code(s): K74.60 - UNSPECIFIED CIRRHOSIS OF LIVER Assessment/Plan Current Medications Generic Name Dose Route Start Last Admin Trade Name Freq PRN Reason Stop Dose Admin Albumin Human 25 gm 05/12/19 10:00 05/12/19 11:36 Albumin Human 25% IVPB 05/15/19 10:01 25 gm DAILY [facility] Administration Bacitracin/Polymyxin B Sulfate 1 applic 05/12/19 10:00 05/13/19 10:59 Polysporin Ointment - TP 1 applic BID [facility] Administration Chlorhexidine Gluconate 1 applic 05/12/19 22:00 05/12/19 21:08 Hibiclens For Decolonization - TP 1 applic HS [facility] Administration Furosemide 80 mg 05/13/19 06:00 05/13/19 05:46 Lasix Injection - IVPUSH 80 mg BID@0600,1400 [facility] Administration Octreotide Acetate 200 mcg/ 500 mls @ 25 mls/hr 05/11/19 21:15 05/12/19 21:07 Octreotide Acetate 1,000 mcg/ IVPB 25 mls/hr Dextrose ASDIR [facility] Administration Insulin Aspart 1 vial 05/12/19 07:00 05/13/19 07:05 Novolog Vial Sliding Scale - SQ Not Given ACHS [facility] Protocol Melatonin 5 mg 05/11/19 23:14 05/12/19 22:26 Melatonin PO 5 mg HS PRN Administration INSOMNIA Metolazone 5 mg 05/12/19 10:00 05/13/19 10:40 Zaroxolyn - PO 5 mg BID [facility] Administration Midodrine 7.5 mg 05/12/19 19:03 05/13/19 10:40 Proamatine - PO 7.5 mg TID-MID [facility] Administration Mupirocin 1 applic 05/12/19 10:00 05/13/19 11:00 Bactroban Ointment (For Decolonization) - NS 05/17/19 09:59 1 applic BID [facility] Administration Oxycodone HCl 30 mg 05/12/19 22:12 05/13/19 05:46 Roxicodone - PO 30 mg Q6H PRN Administration PAIN LEVEL 6-10 Ranitidine HCl 150 mg 05/12/19 10:00 05/13/19 10:47 Zantac - PO 150 mg DAILY [facility] Administration Rifaximin 550 mg 05/12/19 10:00 05/13/19 10:42 Xifaxan - PO 550 mg BID [facility] Administration Tamsulosin HCl 0.4 mg 05/12/19 08:30 05/13/19 09:05 Flomax - PO 0.4 mg BID@0830,2200 [facility] Administration Impression 1. CKD 2. TO 3. change in mental status 4. liver cirrhosis 5. ascites 6. pain med dependence 7. bph 8. a-fib 9. failure to thrive 10. non-compliance 11. hypotension 12. seizure 13. 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
[2019-05-13] MEDS: ALBUMIN HUMAN 25% 12.5 GM/50 ML VIAL IVPB SCH (15:56)
--- NOTE | 2019-05-13 18:17 | PN ---
Progress Note (short form) - Note Progress Note: Reportedly had 7 L paracentesis today (no note in chart yet from Radiology, this information gleaned from patient and his ). Abdomen much less distended. Pt very anxious to go home. NO pedal edema now. Creatinine still 6.0, BUN over 100. Ms Grossman' note appreciated but if patient, who is already severely cachectic, is made NPO, he will never improve. His renal function will not allow hyperalimentation. His ascites will not permit a gastrostomy tube. His coagulopathy and cirrhosis would make an NG tube extremely hazardous. Will continue with pureed diet and thickened liquids for now. I have told the patient in no uncertain terms that I do not believe he is ready for discharge, nor will he be ready tomorrow. Current plan will be to assess chemistries tomorrow, and if the creatinine is coming down, to discontinue albumin and octreotide drips and change furosemide back to oral dosing.
[2019-05-13] MEDS: OCTREOTIDE ACETATE 200 MCG, OCTREOTIDE ACETATE 1,000 MCG in DEXTROSE 5%-WATER - 496 ML IVPB SCH (22:01)
[2019-05-13] MEDS: MELATONIN 5 MG TABLETS PO PRN (22:10)
[2019-05-13] MEDS: CHLORHEXIDINE GLUCONATE 4% CLEANSER FOR DECOLONIZATION TP SCH (22:20)
[2019-05-13] MEDS ORDERED: SODIUM CHLORIDE IVPB SCH (23:15)
[2019-05-13] MEDS ORDERED: OCTREOTIDE ACETATE IVPB SCH (23:15)
[2019-05-14] MEDS: oxyCODONE HCL 5 MG TABLET PO PRN ×5 (00:14→23:35)
[2019-05-14] MEDS: FUROSEMIDE 40 MG/4 ML INJECTABLE VIAL IVPUSH SCH ×3 (06:03→14:58)
[2019-05-14] MEDS: INSULIN SLIDING SCALE (NOVOLOG) 1 VIAL SQ SCH ×4 (06:04→21:52)
--- NOTE | 2019-05-14 06:36 | PN ---
Progress Note, Physician Chief Complaint: Pt A&Ox3; no chest pain, palpitations, or dyspnea. No abdominal pain; awaits paracentesis. History of Present Illness: The patient is a 63 year old male, with a significant PMH of Afib, severe systolic CHF, cirrhosis, CAD, COPD, CKD, HLD, and HTN, who presents to ED with SOB. He states he feels like his abdomen has become very distended over the past few days, making it more difficult to breathe. Denies CP. Denies F/C. Does endorse BLE swelling. Most recent paracentesis was about 2 weeks ago. - Current Medication List Current Medications: Active Medications Albumin Human (Albumin Human 25%) 25 gm IVPB DAILY [facility] Stop: 05/15/19 10:01 Last Admin: 05/13/19 15:56 Dose: 25 gm Bacitracin/Polymyxin B Sulfate (Polysporin Ointment -) 1 applic TP BID [facility] Last Admin: 05/13/19 22:10 Dose: 1 applic Chlorhexidine Gluconate (Hibiclens For Decolonization -) 1 applic TP HS [facility] Last Admin: 05/13/19 22:20 Dose: 1 applic Furosemide (Lasix Injection -) 80 mg IVPUSH BID@0600,1400 [facility] Last Admin: 05/14/19 06:03 Dose: 80 mg Octreotide Acetate 200 mcg/Octreotide Acetate 1,000 mcg/Sodium Chloride 500 mls @ 25 mls/hr IVPB ASDIR [facility] Last Admin: 05/13/19 23:52 Dose: 25 mls/hr Insulin Aspart (Novolog Vial Sliding Scale -) 1 vial SQ ACHS [facility]; Protocol Last Admin: 05/14/19 06:04 Dose: Not Given Melatonin (Melatonin) 5 mg PO HS PRN PRN Reason: INSOMNIA Last Admin: 05/13/19 22:10 Dose: 5 mg Metolazone (Zaroxolyn -) 5 mg PO BID [facility] Last Admin: 05/13/19 22:09 Dose: 5 mg Midodrine (Proamatine -) 7.5 mg PO TID-MID [facility] Last Admin: 05/13/19 19:38 Dose: 7.5 mg Mupirocin (Bactroban Ointment (For Decolonization) -) 1 applic NS BID [facility] Stop: 05/17/19 09:59 Last Admin: 05/13/19 22:20 Dose: 1 applic Oxycodone HCl (Roxicodone -) 30 mg PO Q6H PRN PRN Reason: PAIN LEVEL 6-10 Last Admin: 05/14/19 06:11 Dose: 30 mg Ranitidine HCl (Zantac -) 150 mg PO DAILY [facility] Last Admin: 05/13/19 10:47 Dose: 150 mg Rifaximin (Xifaxan -) 550 mg PO BID [facility] Last Admin: 05/13/19 22:10 Dose: 550 mg Tamsulosin HCl (Flomax -) 0.4 mg PO BID@0830,2200 [facility] Last Admin: 05/13/19 22:10 Dose: 0.4 mg - Objective Vital Signs: Vital Signs Temperature 97.6 F 05/14/19 02:00 Pulse Rate 97 H 05/14/19 04:00 Respiratory Rate 10 05/14/19 04:00 Blood Pressure 117/67 05/14/19 04:00 O2 Sat by Pulse Oximetry (%) 95 05/13/19 09:00 Constitutional: Yes: No Distress, Calm Eyes: Yes: WNL HENT: Yes: WNL Neck: Yes: WNL Cardiovascular: Yes: Murmur, S1 (varies in intensity), S2 Respiratory: Yes: Diminished Gastrointestinal: Yes: Distention ("fluid wave" on physical examination). No: Tenderness ...Rectal Exam: Yes: Deferred Genitourinary: No: Anuria Musculoskeletal: Yes: Joint Swelling, Muscle Weakness Extremities: Yes: Cool Edema: Yes Edema: LLE: 1+, RLE: 1+ Peripheral Pulses WNL: Yes Integumentary: Yes: Venous Stasis Changes Neurological: Yes: Alert, Oriented, Weakness Psychiatric: Yes: Alert, Oriented Labs: CBC, BMP 05/13/19 05:36 05/13/19 05:36 INR, PTT INR 1.82 (0.83-1.09) H 05/12/19 05:50 Abnormal Lab Results 05/15/19 05/15/19 05/15/19 05:27 05:27 05:27 RBC 3.33 L Hgb 8.8 L Hct 26.4 L MCV 79.3 L RDW 19.0 H Plt Count 99 L MPV 11.3 H PT with INR 22.60 H INR 1.90 H PTT (Actin FS) 46.6 H Sodium 129 L Chloride 87 L Anion Gap 17 H BUN 120.0 H* Creatinine 6.2 H Random Glucose 135 H Calcium 8.3 L Phosphorus 8.4 H Magnesium 3.5 H Total Bilirubin 2.0 H AST 271 H ALT 70 H Alkaline Phosphatase 163 H Total Protein 6.0 L Albumin 3.1 L - ....Imaging Other: Image Reviewed (telemetry: AF; controlled VR) Problem List - Problems (1) Hypoalbuminemia Assessment/Plan: O IV albumin Code(s): E88.09 - OTH DISORDERS OF PLASMA-PROTEIN METABOLISM, NEC (2) Cachexia Code(s): R64 - CACHEXIA (3) Acute kidney injury superimposed on chronic kidney disease Code(s): N17.9 - ACUTE KIDNEY FAILURE, UNSPECIFIED; N18.9 - CHRONIC KIDNEY DISEASE, UNSPECIFIED (4) Chronic ulcer of right lower extremity Code(s): L97.919 - NON-PRS CHRONIC ULC UNSP PRT OF R LOW LEG W UNSP SEVERITY (5) Cirrhosis Code(s): K74.60 - UNSPECIFIED CIRRHOSIS OF LIVER (6) Hepatic encephalopathy syndrome Code(s): K72.90 - HEPATIC FAILURE, UNSPECIFIED WITHOUT COMA (7) Volume overload Code(s): E87.70 - FLUID OVERLOAD, UNSPECIFIED (8) Acute on chronic systolic and diastolic heart failure, NYHA class 1 Assessment/Plan: + JVD; Presently on IV furosemide. For paracentesis today. s/p recent NSTEMI; severely reduced LVEF. Periods of hypotension, liver and renal comorbidities have made starting medications that would be beneficial for both CAD and CHF (e.g. beta blockers, RAAS, Entresto) problematic. When more hemodynamically stable, the first to start would ideally be beta blockers for additional benefit of AF HR control. 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, managed as type 2 Code(s): E13.9 - OTHER SPECIFIED DIABETES MELLITUS WITHOUT COMPLICATIONS (14) H/O heart artery stent Code(s): Z95.5 - PRESENCE OF CORONARY ANGIOPLASTY IMPLANT AND GRAFT (15) Opiate dependence Code(s): F11.20 - OPIOID DEPENDENCE, UNCOMPLICATED Qualifiers: Substance use status: with other opioid-induced disorder Qualified Code(s) : F11.288 - Opioid dependence with other opioid-induced disorder; F11.28 - Opioid dependence with other opioid-induced disorder (16) Venous (peripheral) insufficiency Code(s): I87.2 - VENOUS INSUFFICIENCY (CHRONIC) (PERIPHERAL) (17) Weakness Code(s): R53.1 - WEAKNESS Assessment/Plan CCU time spent: 35 minutes.
[2019-05-14 08:15] LABS: ALBUMIN 2.9 g/dl (3.4-5.0); BILIRUBIN,TOTAL 1.5 mg/dL (0.2-1); CREATININE 6.1 mg/dL (0.55-1.3); POTASSIUM 3.4 mmol/L (3.5-5.1); TOT PROT 5.7 g/dl (6.4-8.2)
[2019-05-14 08:19] LABS: BLOOD UREA NITROGEN 114.9 mg/dL (7-18)
[2019-05-14 08:45] LABS: HEMATOCRIT 28.1 % (35.4-49); HEMOGLOBIN 9.2 GM/dL (11.7-16.9); MCH 26.4 pg (25.7-33.7); MCHC 32.8 g/dl (32.0-35.9); MEAN CELL VOLUME 80.3 fl (80-96); MEAN PLT VOLUME 11.2 fl (7.5-11.1); PLATELET COUNT 107 K/MM3 (134-434); RDW 19.2 % (11.9-15.9); WHITE BLOOD COUNT 6.3 K/mm3 (4.0-10.0)
[2019-05-14] MEDS: METOLAZONE 5 MG TABLET PO SCH (10:10)
[2019-05-14] MEDS: RIFAXIMIN 550 MG TABLET (UD) PO SCH ×2 (10:10→22:34)
[2019-05-14] MEDS: TAMSULOSIN HCL 0.4 MG CAP PO SCH ×2 (10:10→21:47)
[2019-05-14] MEDS: MIDODRINE HCL 5 MG TABLET PO SCH ×2 (10:11→14:47)
[2019-05-14] MEDS: MUPIROCIN 2% TOPICAL OINTMENT FOR DECOLONIZATION NS SCH ×2 (10:11→23:34)
[2019-05-14] MEDS: BACITRACIN/POLYMYXIN B SULFATE 15 GM TUBE TP SCH ×2 (10:11→23:34)
[2019-05-14] MEDS: RANITIDINE HCL 150 MG TABLET (FP) PO SCH (10:12)
--- NOTE | 2019-05-14 10:37 | PN ---
Progress Note, Physician Chief Complaint: AWAKE ALERT EVENTS AND NOTES REVIEWED DENIES FEVER OR CHILLS DENIES CHEST PAIN OR SOB + MILLS - Current Medication List Current Medications: Active Medications Albumin Human (Albumin Human 25%) 25 gm IVPB DAILY [facility] Stop: 05/15/19 10:01 Last Admin: 05/13/19 15:56 Dose: 25 gm Bacitracin/Polymyxin B Sulfate (Polysporin Ointment -) 1 applic TP BID [facility] Last Admin: 05/14/19 10:11 Dose: 1 applic Chlorhexidine Gluconate (Hibiclens For Decolonization -) 1 applic TP HS [facility] Last Admin: 05/13/19 22:20 Dose: 1 applic Furosemide (Lasix Injection -) 80 mg IVPUSH BID@0600,1400 [facility] Last Admin: 05/14/19 06:03 Dose: 80 mg Octreotide Acetate 200 mcg/Octreotide Acetate 1,000 mcg/Sodium Chloride 500 mls @ 25 mls/hr IVPB ASDIR [facility] Last Admin: 05/13/19 23:52 Dose: 25 mls/hr Insulin Aspart (Novolog Vial Sliding Scale -) 1 vial SQ ACHS [facility]; Protocol Last Admin: 05/14/19 06:04 Dose: Not Given Melatonin (Melatonin) 5 mg PO HS PRN PRN Reason: INSOMNIA Last Admin: 05/13/19 22:10 Dose: 5 mg Metolazone (Zaroxolyn -) 5 mg PO BID [facility] Last Admin: 05/14/19 10:10 Dose: 5 mg Midodrine (Proamatine -) 7.5 mg PO TID-MID [facility] Last Admin: 05/14/19 10:11 Dose: Not Given Mupirocin (Bactroban Ointment (For Decolonization) -) 1 applic NS BID [facility] Stop: 05/17/19 09:59 Last Admin: 05/14/19 10:11 Dose: 1 applic Oxycodone HCl (Roxicodone -) 30 mg PO Q6H PRN PRN Reason: PAIN LEVEL 6-10 Last Admin: 05/14/19 06:11 Dose: 30 mg Ranitidine HCl (Zantac -) 150 mg PO DAILY [facility] Last Admin: 05/14/19 10:12 Dose: 150 mg Rifaximin (Xifaxan -) 550 mg PO BID [facility] Last Admin: 05/14/19 10:10 Dose: 550 mg Tamsulosin HCl (Flomax -) 0.4 mg PO BID@0830,2200 [facility] Last Admin: 05/14/19 10:10 Dose: 0.4 mg - Objective Vital Signs: Vital Signs Temperature 97.5 F L 05/14/19 06:00 Pulse Rate 93 H 05/14/19 08:00 Respiratory Rate 12 05/14/19 08:00 Blood Pressure 95/61 05/14/19 08:00 O2 Sat by Pulse Oximetry (%) 95 05/13/19 09:00 Constitutional: Yes: No Distress Eyes: Yes: WNL, Other HENT: Yes: WNL, Other Cardiovascular: Yes: Pulse Irregular Respiratory: Yes: Diminished Gastrointestinal: Yes: Ascites, Distention Genitourinary: Yes: Mills Present Musculoskeletal: Yes: Muscle Weakness Edema: Yes Integumentary: Yes: Rash Wound/Incision: Yes: Dressing Dry and Intact Neurological: Yes: Confusion, Weakness ...Motor Strength: LLE, RLE Psychiatric: Yes: Other Labs: CBC, BMP 05/14/19 07:38 05/14/19 07:38 INR, PTT INR 1.82 (0.83-1.09) H 05/12/19 05:50 Problem List - Problems (1) Acute kidney failure Code(s): N17.9 - ACUTE KIDNEY FAILURE, UNSPECIFIED (2) Acute kidney injury superimposed on chronic kidney disease Code(s): N17.9 - ACUTE KIDNEY FAILURE, UNSPECIFIED; N18.9 - CHRONIC KIDNEY DISEASE, UNSPECIFIED (3) Cachexia Code(s): R64 - CACHEXIA (4) Chronic ulcer of right lower extremity Code(s): L97.919 - NON-PRS CHRONIC ULC UNSP PRT OF R LOW LEG W UNSP SEVERITY (5) Cirrhosis Code(s): K74.60 - UNSPECIFIED CIRRHOSIS OF LIVER (6) Hepatic encephalopathy syndrome Code(s): K72.90 - HEPATIC FAILURE, UNSPECIFIED WITHOUT COMA (7) Hypoalbuminemia Code(s): E88.09 - OTH DISORDERS OF PLASMA-PROTEIN METABOLISM, NEC (8) Nonhealing ulcer of multiple sites of right lower extremity Code(s): L97.919 - NON-PRS CHRONIC ULC UNSP PRT OF R LOW LEG W UNSP SEVERITY (9) Portal hypertension syndrome Code(s): K76.6 - PORTAL HYPERTENSION (10) Venous stasis dermatitis of both lower extremities Code(s): I87.2 - VENOUS INSUFFICIENCY (CHRONIC) (PERIPHERAL) (11) Volume overload Code(s): E87.70 - FLUID OVERLOAD, UNSPECIFIED (12) Acute on chronic systolic and diastolic heart failure, NYHA class 1 Code(s): I50.43 - ACUTE ON CHRONIC COMBINED SYSTOLIC AND DIASTOLIC HRT FAIL (13) Afib Code(s): I48.91 - UNSPECIFIED ATRIAL FIBRILLATION (14) Ascites Code(s): R18.8 - OTHER ASCITES Qualifiers: Ascites type: other type Qualified Code(s): R18.8 - Other ascites (15) ESRD (end stage renal disease) Code(s): N18.6 - END STAGE RENAL DISEASE (16) Failure to thrive Code(s): [id number] - Qualifiers: Failure to thrive age range: in adult Qualified Code(s): R62.7 - Adult failure to thrive (17) Thrombocytopenia Code(s): D69.6 - THROMBOCYTOPENIA, UNSPECIFIED (18) Toxic metabolic encephalopathy Code(s): G92 - TOXIC ENCEPHALOPATHY (19) Uncontrolled diabetes mellitus Code(s): E11.65 - TYPE 2 DIABETES MELLITUS WITH HYPERGLYCEMIA (20) Venous (peripheral) insufficiency Code(s): I87.2 - VENOUS INSUFFICIENCY (CHRONIC) (PERIPHERAL) (21) Weakness Code(s): R53.1 - WEAKNESS Assessment/Plan S/P PARACENTESIS VOLUME OVERLOAD 7L REMOVED PER BP SUPPORT RENAL FAILURE PATIENT REFUSING HD, WILL D/W DR CHAN DVT PROPHYLAXIS SELF ANTICOAGULATED LIVER/RENAL FAILURE SWALLOW EVAL CARDIO F/U APPRECIATED H/O CHF 02 SUPPORT PT EVAL
[2019-05-14] MEDS ORDERED: POTASSIUM CHLORIDE TABS 10 MEQ TABLET.ER (FP) PO ONE (10:38)
--- NOTE | 2019-05-14 10:51 | PN ---
Progress Note, FLIGHT DISPATCHER - Note Progress Note: Selected Entries 05/14/19 05/14/19 05/14/19 02:00 06:00 10:00 Breakfast 50% Temperature 97.6 F 97.5 F L 97.7 F Laboratory Tests 05/14/19 07:38 WBC 6.3 Pt received Paracentesis yesterday with reported good affect. He was NPO and placed back on puree/thick liquids due to concern of lack of nutrition. Swallowing reassessed-Still aspirating on thin liquid with vocal wetness and cough response. Suggest MBS to further assess swallowing function, r/o aspiration, determine most liberal diet pt can tolerate.
--- NOTE | 2019-05-14 11:13 | PN ---
Progress Note, Physician History of Present Illness: Pt seen and examined at bedside. He is asking to go home. He had a paracentesis. He denies shortness of breath. - Current Medication List Current Medications: Active Medications Albumin Human (Albumin Human 25%) 25 gm IVPB DAILY [facility] Stop: 05/15/19 10:01 Last Admin: 05/13/19 15:56 Dose: 25 gm Bacitracin/Polymyxin B Sulfate (Polysporin Ointment -) 1 applic TP BID [facility] Last Admin: 05/14/19 10:11 Dose: 1 applic Chlorhexidine Gluconate (Hibiclens For Decolonization -) 1 applic TP HS [facility] Last Admin: 05/13/19 22:20 Dose: 1 applic Furosemide (Lasix Injection -) 80 mg IVPUSH BID@0600,1400 [facility] Last Admin: 05/14/19 06:03 Dose: 80 mg Octreotide Acetate 200 mcg/Octreotide Acetate 1,000 mcg/Sodium Chloride 500 mls @ 25 mls/hr IVPB ASDIR [facility] Last Admin: 05/13/19 23:52 Dose: 25 mls/hr Insulin Aspart (Novolog Vial Sliding Scale -) 1 vial SQ ACHS [facility]; Protocol Last Admin: 05/14/19 06:04 Dose: Not Given Melatonin (Melatonin) 5 mg PO HS PRN PRN Reason: INSOMNIA Last Admin: 05/13/19 22:10 Dose: 5 mg Metolazone (Zaroxolyn -) 5 mg PO BID [facility] Last Admin: 05/14/19 10:10 Dose: 5 mg Midodrine (Proamatine -) 7.5 mg PO TID-MID [facility] Last Admin: 05/14/19 10:11 Dose: Not Given Mupirocin (Bactroban Ointment (For Decolonization) -) 1 applic NS BID [facility] Stop: 05/17/19 09:59 Last Admin: 05/14/19 10:11 Dose: 1 applic Oxycodone HCl (Roxicodone -) 30 mg PO Q6H PRN PRN Reason: PAIN LEVEL 6-10 Last Admin: 05/14/19 06:11 Dose: 30 mg Ranitidine HCl (Zantac -) 150 mg PO DAILY [facility] Last Admin: 05/14/19 10:12 Dose: 150 mg Rifaximin (Xifaxan -) 550 mg PO BID [facility] Last Admin: 05/14/19 10:10 Dose: 550 mg Tamsulosin HCl (Flomax -) 0.4 mg PO BID@0830,2200 [facility] Last Admin: 05/14/19 10:10 Dose: 0.4 mg - Objective Vital Signs: Vital Signs Temperature 97.7 F 05/14/19 10:00 Pulse Rate 111 H 05/14/19 10:00 Respiratory Rate 19 05/14/19 10:00 Blood Pressure 120/56 L 05/14/19 10:00 O2 Sat by Pulse Oximetry (%) 96 05/14/19 09:00 Constitutional: Yes: Calm, Cachectic HENT: Yes: Atraumatic Neck: Yes: Supple Cardiovascular: Yes: S1, S2 Respiratory: Yes: CTA Bilaterally Gastrointestinal: Yes: Soft, Ascites Genitourinary: Yes: WNL Musculoskeletal: Yes: WNL Edema: Yes Edema: LLE: 1+, RLE: 1+ Neurological: Yes: Oriented Psychiatric: Yes: Oriented Labs: CBC, BMP 05/14/19 07:38 05/14/19 07:38 INR, PTT INR 1.82 (0.83-1.09) H 05/12/19 05:50 Problem List - Problems (1) Acute kidney failure Code(s): N17.9 - ACUTE KIDNEY FAILURE, UNSPECIFIED (2) Cirrhosis Code(s): K74.60 - UNSPECIFIED CIRRHOSIS OF LIVER Assessment/Plan Current Medications Generic Name Dose Route Start Last Admin Trade Name Freq PRN Reason Stop Dose Admin Albumin Human 25 gm 05/12/19 10:00 05/13/19 15:56 Albumin Human 25% IVPB 05/15/19 10:01 25 gm DAILY [facility] Administration Bacitracin/Polymyxin B Sulfate 1 applic 05/12/19 10:00 05/14/19 10:11 Polysporin Ointment - TP 1 applic BID [facility] Administration Chlorhexidine Gluconate 1 applic 05/12/19 22:00 05/13/19 22:20 Hibiclens For Decolonization - TP 1 applic HS [facility] Administration Furosemide 80 mg 05/13/19 06:00 05/14/19 06:03 Lasix Injection - IVPUSH 80 mg BID@0600,1400 [facility] Administration Octreotide Acetate 200 mcg/ 500 mls @ 25 mls/hr 05/13/19 23:15 05/13/19 23:52 Octreotide Acetate 1,000 mcg/ IVPB 25 mls/hr Sodium Chloride ASDIR [facility] Administration Insulin Aspart 1 vial 05/12/19 07:00 05/14/19 06:04 Novolog Vial Sliding Scale - SQ Not Given ACHS [facility] Protocol Melatonin 5 mg 05/11/19 23:14 05/13/19 22:10 Melatonin PO 5 mg HS PRN Administration INSOMNIA Metolazone 5 mg 05/12/19 10:00 05/14/19 10:10 Zaroxolyn - PO 5 mg BID [facility] Administration Midodrine 7.5 mg 05/12/19 19:03 05/14/19 10:11 Proamatine - PO Not Given TID-MID [facility] Mupirocin 1 applic 05/12/19 10:00 05/14/19 10:11 Bactroban Ointment (For Decolonization) - NS 05/17/19 09:59 1 applic BID [facility] Administration Oxycodone HCl 30 mg 05/12/19 22:12 05/14/19 06:11 Roxicodone - PO 30 mg Q6H PRN Administration PAIN LEVEL 6-10 Ranitidine HCl 150 mg 05/12/19 10:00 05/14/19 10:12 Zantac - PO 150 mg DAILY [facility] Administration Rifaximin 550 mg 05/12/19 10:00 05/14/19 10:10 Xifaxan - PO 550 mg BID [facility] Administration Tamsulosin HCl 0.4 mg 05/12/19 08:30 05/14/19 10:10 Flomax - PO 0.4 mg BID@0830,2200 [facility] Administration Impression 1. CKD 2. TO 3. change in mental status 4. liver cirrhosis 5. ascites 6. pain med dependence 7. bph 8. a-fib 9. failure to thrive 10. non-compliance 11. hypotension 12. seizure 13. DM Plan - renal function is not improved - cont treatment per primary team - GI input appreciated - overall prognosis guarded - mild right hydro, consider urology eval - pt with hepatorenal disease
[2019-05-14] MEDS: ALBUMIN HUMAN 25% 12.5 GM/50 ML VIAL IVPB SCH (11:19)
--- NOTE | 2019-05-14 11:35 | PN ---
Physical Exam: SUBJECTIVE: Patient seen and examined at the bedside. Yesterday the patient had a therapeutic paracentesis which was successful in draining 7L of ascitic fluid. Patient states he is feeling much better today. Cr is not improving, option of HD has been discussed with patient and his on multiple occasions and the patient maintains that he would not like to receive HD. OBJECTIVE: Vital Signs Period Temp Pulse Resp BP Sys/Grant Pulse Ox Last 24 Hr 97.5 F-97.8 F 82-111 10-19 94-120/56-85 96 GENERAL: The patient is awake, alert, and fully oriented, in no acute distress. HEAD: Normal with no signs of trauma, temporal wasting and cachecitc appearing EYES: PERRL, extraocular movements intact, conjunctiva clear. ENT: Ears normal, nares patent, moist mucous membranes. NECK: Trachea midline, full range of motion, supple. LUNGS: Breath sounds equal, clear to auscultation bilaterally, no wheezes, no crackles, no accessory muscle use. HEART: Regular rate and rhythm, S1, S2 without murmur. ABDOMEN: Soft, nontender, distended but improved from yesterday EXTREMITIES: 2+ pulses, warm, well-perfused, trace pedal edema. Laboratory Results - last 24 hr 05/13/19 05/13/19 05/13/19 11:48 16:07 22:19 WBC RBC Hgb Hct MCV MCH MCHC RDW Plt Count MPV Sodium Potassium Chloride Carbon Dioxide Anion Gap BUN Creatinine Est GFR (CKD-EPI)AfAm Est GFR (CKD-EPI)NonAf POC Glucometer 154 192 205 Random Glucose Calcium Total Bilirubin AST ALT Alkaline Phosphatase Total Protein Albumin 05/14/19 05/14/19 05/14/19 05:43 07:38 07:38 WBC 6.3 RBC 3.50 L Hgb 9.2 L Hct 28.1 L MCV 80.3 MCH 26.4 MCHC 32.8 RDW 19.2 H Plt Count 107 L MPV 11.2 H Sodium 128 L Potassium 3.4 L Chloride 87 L Carbon Dioxide 27 Anion Gap 14 BUN 114.9 H* Creatinine 6.1 H Est GFR (CKD-EPI)AfAm 10.38 Est GFR (CKD-EPI)NonAf 8.96 POC Glucometer 71 Random Glucose 80 Calcium 8.0 L Total Bilirubin 1.5 H AST 138 H ALT 48 Alkaline Phosphatase 160 H Total Protein 5.7 L Albumin 2.9 L 05/14/19 11:27 WBC RBC Hgb Hct MCV MCH MCHC RDW Plt Count MPV Sodium Potassium Chloride Carbon Dioxide Anion Gap BUN Creatinine Est GFR (CKD-EPI)AfAm Est GFR (CKD-EPI)NonAf POC Glucometer 110 Random Glucose Calcium Total Bilirubin AST ALT Alkaline Phosphatase Total Protein Albumin Active Medications Generic Name Dose Route Start Last Admin Trade Name Freq PRN Reason Stop Dose Admin Albumin Human 25 gm 05/12/19 10:00 05/14/19 11:19 Albumin Human 25% IVPB 05/15/19 10:01 25 gm DAILY [facility] Administration Bacitracin/Polymyxin B Sulfate 1 applic 05/12/19 10:00 05/14/19 10:11 Polysporin Ointment - TP 1 applic BID [facility] Administration Chlorhexidine Gluconate 1 applic 05/12/19 22:00 05/13/19 22:20 Hibiclens For Decolonization - TP 1 applic HS [facility] Administration Furosemide 80 mg 05/13/19 06:00 05/14/19 06:03 Lasix Injection - IVPUSH 80 mg BID@0600,1400 [facility] Administration Octreotide Acetate 200 mcg/ 500 mls @ 25 mls/hr 05/13/19 23:15 05/13/19 23:52 Octreotide Acetate 1,000 mcg/ IVPB 25 mls/hr Sodium Chloride ASDIR [facility] Administration Insulin Aspart 1 vial 05/12/19 07:00 05/14/19 11:30 Novolog Vial Sliding Scale - SQ Not Given ACHS [facility] Protocol Melatonin 5 mg 05/11/19 23:14 05/13/19 22:10 Melatonin PO 5 mg HS PRN Administration INSOMNIA Metolazone 5 mg 05/12/19 10:00 05/14/19 10:10 Zaroxolyn - PO 5 mg BID [facility] Administration Midodrine 7.5 mg 05/12/19 19:03 05/14/19 10:11 Proamatine - PO Not Given TID-MID [facility] Mupirocin 1 applic 05/12/19 10:00 05/14/19 10:11 Bactroban Ointment (For Decolonization) - NS 05/17/19 09:59 1 applic BID [facility] Administration Oxycodone HCl 30 mg 05/12/19 22:12 05/14/19 06:11 Roxicodone - PO 30 mg Q6H PRN Administration PAIN LEVEL 6-10 Ranitidine HCl 150 mg 05/12/19 10:00 05/14/19 10:12 Zantac - PO 150 mg DAILY [facility] Administration Rifaximin 550 mg 05/12/19 10:00 05/14/19 10:10 Xifaxan - PO 550 mg BID [facility] Administration Tamsulosin HCl 0.4 mg 05/12/19 08:30 05/14/19 10:10 Flomax - PO 0.4 mg BID@0830,2200 [facility] Administration ASSESSMENT/PLAN: 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 Pritchett on board and appreciate recommendations Neuro -awake, alert and oriented - stable, continue to monitor for signs of hepatic encephalopathy CV - Holding Atenolol (50 mg QD) as BB may worsen hepatorenal syndrome; monitor closely for AFib and restart as indicated --Strict I&O's ordered with daily weights - Troponin slightly elevated at 0.08 pt received cardiac workup at [facility] within the past month. Most likely 2/2 to demand - No acute EKG changes - cardiology following, appreciate recommendations Pulm - breathing comfortably on room air now that he is being aggressively diuresed - continue diuretics Renal -Albumin 25gm qdaily -Lasix 80mg PO BID with Metolazone 5mg PO BID -Continue Midodrine 5mg TID -Octreotide gtt continued - HD offered but patient refused -Dr. Balbuena consulted, appreciate recommendations -Dr. Balbuena discussed case d/w patient and patient's @ bedside, patient' s agrees that if patient's clinical condition deteriorates and she becomes default HCP patient would not want HD GI -Monitor LFTs and Cr for worsening hepatorenal syndrome -Modified barium swallow to evaluate whether patient is aspirating Endo --ISS on board for glucose control --BGM ACHS FEN: Fluids: Active diuresis Electrolyte abnormalities: Hypervolemic hyponatremia; diuresis as above ( monitor Na levels) Nutrition: Soft diet PPX: DVt - Heparin TID SQ GI - Zantac 150mg qdaily Dispo: Patient is medically stable for transfer to Med/Surg Visit type - Emergency Visit Emergency Visit: Yes ED Registration Date: 05/11/19 Care time: The patient presented to the Emergency Department on the above date and was hospitalized for further evaluation of their emergent condition. - New Patient This patient is new to me today: No - Critical Care Critical Care patient: Yes Total Critical Care Time (in minutes): 40 Critical Care Statement: The care of this patient involved high complexity decision making to prevent further life threatening deterioration of the patient 's condition and/or to evaluate & treat vital organ system(s) failure or risk of failure. ATTENDING PHYSICIAN STATEMENT I saw and evaluated the patient. I reviewed the resident's note and discussed the case with the resident. I agree with the resident's findings and plan as documented. SUBJECTIVE: OBJECTIVE: ASSESSMENT AND PLAN:
--- NOTE | 2019-05-14 11:52 | PN ---
Progress Note, Physician History of Present Illness: 63yo M with h/o cirrhosis 2/2 BORJAS, CKD, T2DM, CAD s/p PCI, paroxysmal atrial fibrillation who presents today due to increased lower extremity edema over the past week. Pt on 05/08/[address] Pritchett in his outpatient offices and was noted to have increased edema. Pt's regiment was increased to Lasix 80mg PO BID and Metolazone 5mg BID PO at that time. In addition pt was noted to have urinary retention and a phelps catheter was placed outpatient which yielded a 1L residual volume that was being retained. Pt left and continued on his medication in addition to having the phelps continued until his next follow-up. Pt noted increasing volume especially in his abdomen and had trouble with diaphragmatic excursion so he sought help in the ED. Pt also endorses insomnia for the past 3 days 2/2 to his difficulty in diaphragmatic excursion. Otherwise pt has no other complaints at this time. Denies any fever/chills, n/v/d/c, cough , shortness of breath, palpitations, chest pain/discomfort, abdominal pain, diarrhea, numbness, weakness, tremulousness. Pt denies any increased salt in his diet at this time. He reports being strict with his medication regiment and denies any new medications that he tried between 05/08/19 and now. - Current Medication List Current Medications: Active Medications Albumin Human (Albumin Human 25%) 25 gm IVPB DAILY [facility] Stop: 05/15/19 10:01 Last Admin: 05/14/19 11:19 Dose: 25 gm Bacitracin/Polymyxin B Sulfate (Polysporin Ointment -) 1 applic TP BID [facility] Last Admin: 05/14/19 10:11 Dose: 1 applic Chlorhexidine Gluconate (Hibiclens For Decolonization -) 1 applic TP HS [facility] Last Admin: 05/13/19 22:20 Dose: 1 applic Furosemide (Lasix Injection -) 80 mg IVPUSH BID@0600,1400 [facility] Last Admin: 05/14/19 06:03 Dose: 80 mg Octreotide Acetate 200 mcg/Octreotide Acetate 1,000 mcg/Sodium Chloride 500 mls @ 25 mls/hr IVPB ASDIR [facility] Last Admin: 05/13/19 23:52 Dose: 25 mls/hr Insulin Aspart (Novolog Vial Sliding Scale -) 1 vial SQ ACHS [facility]; Protocol Last Admin: 05/14/19 11:30 Dose: Not Given Melatonin (Melatonin) 5 mg PO HS PRN PRN Reason: INSOMNIA Last Admin: 05/13/19 22:10 Dose: 5 mg Metolazone (Zaroxolyn -) 5 mg PO BID [facility] Last Admin: 05/14/19 10:10 Dose: 5 mg Midodrine (Proamatine -) 7.5 mg PO TID-MID [facility] Last Admin: 05/14/19 10:11 Dose: Not Given Mupirocin (Bactroban Ointment (For Decolonization) -) 1 applic NS BID [facility] Stop: 05/17/19 09:59 Last Admin: 05/14/19 10:11 Dose: 1 applic Oxycodone HCl (Roxicodone -) 30 mg PO Q6H PRN PRN Reason: PAIN LEVEL 6-10 Last Admin: 05/14/19 06:11 Dose: 30 mg Ranitidine HCl (Zantac -) 150 mg PO DAILY [facility] Last Admin: 05/14/19 10:12 Dose: 150 mg Rifaximin (Xifaxan -) 550 mg PO BID [facility] Last Admin: 05/14/19 10:10 Dose: 550 mg Tamsulosin HCl (Flomax -) 0.4 mg PO BID@0830,2200 [facility] Last Admin: 05/14/19 10:10 Dose: 0.4 mg - Objective Vital Signs: Vital Signs Temperature 97.7 F 05/14/19 10:00 Pulse Rate 111 H 05/14/19 10:00 Respiratory Rate 05/14/19 10:00 Blood Pressure 120/56 L 05/14/19 10:00 O2 Sat by Pulse Oximetry (%) 96 05/14/19 09:00 Eyes: Yes: WNL, Conjunctiva Clear, EOM Intact HENT: Yes: WNL, Atraumatic, Normocephalic Neck: Yes: WNL, Supple, Trachea Midline Cardiovascular: Yes: Pulse Irregular Respiratory: Yes: WNL, Regular, CTA Bilaterally Gastrointestinal: Yes: Ascites Genitourinary: Yes: WNL Musculoskeletal: Yes: WNL Extremities: Yes: WNL Edema: No Integumentary: Yes: WNL Neurological: Yes: WNL, Alert, Oriented ...Motor Strength: WNL Psychiatric: Yes: WNL Labs: CBC, BMP 05/14/19 07:38 05/14/19 07:38 INR, PTT INR 1.82 (0.83-1.09) H 05/12/19 05:50 Problem List - Problems (1) Acute kidney failure Code(s): N17.9 - ACUTE KIDNEY FAILURE, UNSPECIFIED (2) Acute kidney injury superimposed on chronic kidney disease Code(s): N17.9 - ACUTE KIDNEY FAILURE, UNSPECIFIED; N18.9 - CHRONIC KIDNEY DISEASE, UNSPECIFIED (3) Chronic ulcer of right lower extremity Code(s): L97.919 - NON-PRS CHRONIC ULC UNSP PRT OF R LOW LEG W UNSP SEVERITY (4) Cirrhosis Code(s): K74.60 - UNSPECIFIED CIRRHOSIS OF LIVER (5) Hepatic encephalopathy syndrome Code(s): K72.90 - HEPATIC FAILURE, UNSPECIFIED WITHOUT COMA (6) Nonhealing ulcer of multiple sites of right lower extremity Code(s): L97.919 - NON-PRS CHRONIC ULC UNSP PRT OF R LOW LEG W UNSP SEVERITY (7) Portal hypertension syndrome Code(s): K76.6 - PORTAL HYPERTENSION (8) Venous stasis dermatitis of both lower extremities Code(s): I87.2 - VENOUS INSUFFICIENCY (CHRONIC) (PERIPHERAL) (9) Volume overload Code(s): E87.70 - FLUID OVERLOAD, UNSPECIFIED (10) Acute blood loss anemia Code(s): D62 - ACUTE POSTHEMORRHAGIC ANEMIA (11) Acute on chronic systolic and diastolic heart failure, NYHA class 1 Code(s): I50.43 - ACUTE ON CHRONIC COMBINED SYSTOLIC AND DIASTOLIC HRT FAIL (12) Afib Code(s): I48.91 - UNSPECIFIED ATRIAL FIBRILLATION (13) Alteration consciousness Code(s): R40.4 - TRANSIENT ALTERATION OF AWARENESS (14) Altered mental status Code(s): R41.82 - ALTERED MENTAL STATUS, UNSPECIFIED (15) Anemia Code(s): D64.9 - ANEMIA, UNSPECIFIED Qualifiers: Anemia type: other cause Other causes of anemia: chronic disease, kidney (16) Ascites Code(s): R18.8 - OTHER ASCITES Qualifiers: Ascites type: other type Qualified Code(s): R18.8 - Other ascites (17) Ascites controlled with medication Code(s): R18.8 - OTHER ASCITES (18) Atrial fibrillation Code(s): I48.91 - UNSPECIFIED ATRIAL FIBRILLATION Qualifiers: Atrial fibrillation type: paroxysmal Qualified Code(s): I48.0 - Paroxysmal atrial fibrillation (19) Benign essential hypertension Code(s): I10 - ESSENTIAL (PRIMARY) HYPERTENSION (20) Benign prostatic hyperplasia Code(s): N40.0 - BENIGN PROSTATIC HYPERPLASIA WITHOUT LOWER URINRY TRACT SYMP Qualifiers: Lower urinary tract symptom presence: symptoms present Lower urinary tract symptom detail: urinary retention Qualified Code(s): N40.1 - Benign prostatic hyperplasia with lower urinary tract symptoms; R33.8 - Other retention of urine (21) Bladder outflow obstruction Code(s): N32.0 - BLADDER-NECK OBSTRUCTION (22) CAD (coronary artery disease) Code(s): I25.10 - ATHSCL HEART DISEASE OF [place] CORONARY ARTERY W/O ANG PCTRS Qualifiers: Coronary Disease-Associated Artery/Lesion type: [place] artery [place] vs. transplanted heart: [place] heart Associated angina: without angina Qualified Code(s): I25.10 - Atherosclerotic heart disease of [place] coronary artery without angina pectoris (23) CAD (coronary artery disease) Code(s): I25.10 - ATHSCL HEART DISEASE OF [place] CORONARY ARTERY W/O ANG PCTRS (24) CKD (chronic kidney disease) Code(s): N18.9 - CHRONIC KIDNEY DISEASE, UNSPECIFIED Qualifiers: Chronic kidney disease stage: stage 3 (moderate) Qualified Code(s): N18.3 - Chronic kidney disease, stage 3 (moderate) (25) Cataract Code(s): H26.9 - UNSPECIFIED CATARACT (26) Chronic combined systolic and diastolic heart failure, NYHA class 1 Code(s): I50.42 - CHRONIC COMBINED SYSTOLIC AND DIASTOLIC HRT FAIL (27) Chronic pain with drug dependence Code(s): G89.29 - OTHER CHRONIC PAIN; F19.20 - OTHER PSYCHOACTIVE SUBSTANCE DEPENDENCE, UNCOMPLICATED (28) Cirrhosis of liver Code(s): K74.60 - UNSPECIFIED CIRRHOSIS OF LIVER Qualifiers: Hepatic cirrhosis type: other cirrhosis Qualified Code(s): K74.69 - Other cirrhosis of liver (29) Coagulation defect Code(s): D68.9 - COAGULATION DEFECT, UNSPECIFIED (30) Constipation Code(s): K59.00 - CONSTIPATION, UNSPECIFIED Qualifiers: Constipation type: unspecified constipation type Qualified Code(s): K59.00 - Constipation, unspecified (31) Diabetes 1.5, managed as type 2 Code(s): E13.9 - OTHER SPECIFIED DIABETES MELLITUS WITHOUT COMPLICATIONS (32) Diastolic CHF Code(s): I50.30 - UNSPECIFIED DIASTOLIC (CONGESTIVE) HEART FAILURE (33) ESRD (end stage renal disease) Code(s): N18.6 - END STAGE RENAL DISEASE (34) Elevated LFTs Code(s): R94.5 - ABNORMAL RESULTS OF LIVER FUNCTION STUDIES (35) Elevated troponin Code(s): R74.8 - ABNORMAL LEVELS OF OTHER SERUM ENZYMES (36) Failure to thrive Code(s): [id number] - Qualifiers: Failure to thrive age range: in adult Qualified Code(s): R62.7 - Adult failure to thrive (37) Failure to thrive in adult Code(s): R62.7 - ADULT FAILURE TO THRIVE (38) Fall Code(s): W19.XXXA - UNSPECIFIED FALL, INITIAL ENCOUNTER (39) Fatty liver with encephalopathy Code(s): K76.0 - FATTY (CHANGE OF) LIVER, NOT ELSEWHERE CLASSIFIED (40) GERD (gastroesophageal reflux disease) Code(s): K21.9 - GASTRO-ESOPHAGEAL REFLUX DISEASE WITHOUT ESOPHAGITIS Qualifiers: Esophagitis presence: without esophagitis Qualified Code(s): K21.9 - Gastro -esophageal reflux disease without esophagitis (41) H/O heart artery stent Code(s): Z95.5 - PRESENCE OF CORONARY ANGIOPLASTY IMPLANT AND GRAFT (42) Head injury Code(s): S09.90XA - UNSPECIFIED INJURY OF HEAD, INITIAL ENCOUNTER Qualifiers: Encounter type: initial encounter Qualified Code(s): S09.90XA - Unspecified injury of head, initial encounter (43) Hip fracture requiring operative repair Code(s): S72.009A - FRACTURE OF UNSP PART OF NECK OF UNSP FEMUR, INIT (44) Hip fracture, intertrochanteric Code(s): S72.143A - DISPLACED INTERTROCHANTERIC FRACTURE OF UNSP FEMUR, INIT (45) Hip fracture, left Code(s): S72.002A - FRACTURE OF UNSP PART OF NECK OF LEFT FEMUR, INIT (46) Hyperkalemia Code(s): E87.5 - HYPERKALEMIA (47) Hypokalemia Code(s): E87.6 - HYPOKALEMIA (48) Hypomagnesemia Code(s): E83.42 - HYPOMAGNESEMIA (49) Hyponatremia Code(s): E87.1 - HYPO-OSMOLALITY AND HYPONATREMIA (50) Hyponatremia Code(s): E87.1 - HYPO-OSMOLALITY AND HYPONATREMIA (51) Hypotension Code(s): I95.9 - HYPOTENSION, UNSPECIFIED (52) Intertrochanteric fracture of left hip Code(s): S72.142A - DISPLACED INTERTROCHANTERIC FRACTURE OF LEFT FEMUR, INIT Qualifiers: Encounter type: sequela Qualified Code(s): S72.142S - Displaced intertrochanteric fracture of left femur, sequela (53) Junctional bradycardia Code(s): R00.1 - BRADYCARDIA, UNSPECIFIED (54) Laceration of head Code(s): S01.91XA - LACERATION W/O FOREIGN BODY OF UNSP PART OF HEAD, INIT (55) Leg wound, left Code(s): S81.802A - UNSPECIFIED OPEN WOUND, LEFT LOWER LEG, INITIAL ENCOUNTER (56) Leukocytosis Code(s): D72.829 - ELEVATED WHITE BLOOD CELL COUNT, UNSPECIFIED (57) Lumbar and sacral spondylarthritis Code(s): M48.9 - SPONDYLOPATHY, UNSPECIFIED (58) Metabolic encephalopathy Code(s): G93.41 - METABOLIC ENCEPHALOPATHY (59) Neuropathy Code(s): G62.9 - POLYNEUROPATHY, UNSPECIFIED (60) Occipital scalp laceration Code(s): S01.01XA - LACERATION WITHOUT FOREIGN BODY OF SCALP, INITIAL ENCOUNTER Qualifiers: Encounter type: initial encounter Qualified Code(s): S01.01XA - Laceration without foreign body of scalp, initial encounter (61) Opiate dependence Code(s): F11.20 - OPIOID DEPENDENCE, UNCOMPLICATED Qualifiers: Substance use status: with other opioid-induced disorder Qualified Code(s) : F11.288 - Opioid dependence with other opioid-induced disorder; F11.28 - Opioid dependence with other opioid-induced disorder (62) Pain of left lower leg Code(s): M79.662 - PAIN IN LEFT LOWER LEG (63) Paroxysmal A-fib Code(s): I48.0 - PAROXYSMAL ATRIAL FIBRILLATION (64) Removal of marlon Code(s): Z48.02 - ENCOUNTER FOR REMOVAL OF SUTURES (65) Renal failure Code(s): N19 - UNSPECIFIED KIDNEY FAILURE (66) Renal failure associated with renal vascular disease Code(s): N19 - UNSPECIFIED KIDNEY FAILURE; I99.9 - UNSPECIFIED DISORDER OF CIRCULATORY SYSTEM (67) Respiratory failure Code(s): J96.90 - RESPIRATORY FAILURE, UNSP, UNSP W HYPOXIA OR HYPERCAPNIA (68) Scalp laceration Code(s): S01.01XA - LACERATION WITHOUT FOREIGN BODY OF SCALP, INITIAL ENCOUNTER Qualifiers: Encounter type: initial encounter Qualified Code(s): S01.01XA - Laceration without foreign body of scalp, initial encounter (69) Spinal fracture Code(s): [id number] - (70) Thrombocytopenia Code(s): D69.6 - THROMBOCYTOPENIA, UNSPECIFIED (71) Toxic metabolic encephalopathy Code(s): G92 - TOXIC ENCEPHALOPATHY (72) Uncontrolled diabetes mellitus Code(s): E11.65 - TYPE 2 DIABETES MELLITUS WITH HYPERGLYCEMIA (73) Venous (peripheral) insufficiency Code(s): I87.2 - VENOUS INSUFFICIENCY (CHRONIC) (PERIPHERAL) (74) Weakness Code(s): R53.1 - WEAKNESS Assessment/Plan - Problems (1) Hypoalbuminemia Code(s): E88.09 - OTH DISORDERS OF PLASMA-PROTEIN METABOLISM, NEC (2) Cachexia Code(s): R64 - CACHEXIA (3) Acute kidney injury superimposed on chronic kidney disease Code(s): N17.9 - ACUTE KIDNEY FAILURE, UNSPECIFIED; N18.9 - CHRONIC KIDNEY DISEASE, UNSPECIFIED (4) Chronic ulcer of right lower extremity Code(s): L97.919 - NON-PRS CHRONIC ULC UNSP PRT OF R LOW LEG W UNSP SEVERITY (5) Cirrhosis Code(s): K74.60 - UNSPECIFIED CIRRHOSIS OF LIVER (6) Hepatic encephalopathy syndrome Code(s): K72.90 - HEPATIC FAILURE, UNSPECIFIED WITHOUT COMA (7) Volume overload Code(s): E87.70 - FLUID OVERLOAD, UNSPECIFIED (8) Acute on chronic systolic and diastolic heart failure, NYHA class 1 Assessment/Plan: + JVD; Presently on IV furosemide. s/p paracentesis yesterday s/p recent NSTEMI; severely reduced LVEF. Periods of hypotension, liver and renal comorbidities have made starting medications that would be beneficial for both CAD and CHF (e.g. beta blockers, RAAS, Entresto) problematic. When more hemodynamically stable, the first to start would ideally be beta blockers for additional benefit of AF HR control. Code(s): I50.43 - ACUTE ON CHRONIC COMBINED SYSTOLIC AND DIASTOLIC HRT FAIL (9) Afib Code(s): I48.91 - UNSPECIFIED ATRIAL FIBRILLATION (10) Ascites Code(s): R18.8 - OTHER ASCITES Qualifiers: Ascites type: other type Qualified Code(s): R18.8 - Other ascites (11) Benign essential hypertension Code(s): I10 - ESSENTIAL (PRIMARY) HYPERTENSION (12) CAD (coronary artery disease) Code(s): I25.10 - ATHSCL HEART DISEASE OF [place] CORONARY ARTERY W/O ANG PCTRS (13) Diabetes 1.5, managed as type 2 Code(s): E13.9 - OTHER SPECIFIED DIABETES MELLITUS WITHOUT COMPLICATIONS (14) H/O heart artery stent Code(s): Z95.5 - PRESENCE OF CORONARY ANGIOPLASTY IMPLANT AND GRAFT (15) Opiate dependence Code(s): F11.20 - OPIOID DEPENDENCE, UNCOMPLICATED Qualifiers: Substance use status: with other opioid-induced disorder Qualified Code(s) : F11.288 - Opioid dependence with other opioid-induced disorder; F11.28 - Opioid dependence with other opioid-induced disorder (16) Venous (peripheral) insufficiency Code(s): I87.2 - VENOUS INSUFFICIENCY (CHRONIC) (PERIPHERAL) (17) Weakness Code(s): R53.1 - WEAKNESS Assessment/Plan CCU time spent: 35 minutes.
--- NOTE | 2019-05-14 12:19 | PN ---
Teaching Attending Note Name of Resident: Rizwana Ocampo ATTENDING PHYSICIAN STATEMENT I saw and evaluated the patient. I reviewed the resident's note and discussed the case with the resident. I agree with the resident's findings and plan as documented. SUBJECTIVE: Patient seen and examined in the ICU. Awake and alert. Denies CP or SOB. 7 liters of ascites drained yesterday. Seen by speech & swallow -> still suspect aspiration and recommended NPO for now. Intake & Output 05/11/19 05/12/19 05/13/19 05/14/19 23:59 23:59 23:59 23:59 Intake Total 750 839 400 Output Total 800 1200 900 Balance -50 -361 -500 Weight 160 lb 158 lb 3.2 oz 158 lb 145 lb 6 oz Last Vital Signs Temp Pulse Resp BP Pulse Ox 97.7 F 111 H 19 120/56 L 96 05/14/19 10:00 05/14/19 10:00 05/14/19 10:00 05/14/19 10:00 05/14/19 09:00 Active Medications Albumin Human (Albumin Human 25%) 25 gm IVPB DAILY [facility] Stop: 05/15/19 10:01 Last Admin: 05/14/19 11:19 Dose: 25 gm Bacitracin/Polymyxin B Sulfate (Polysporin Ointment -) 1 applic TP BID [facility] Last Admin: 05/14/19 10:11 Dose: 1 applic Chlorhexidine Gluconate (Hibiclens For Decolonization -) 1 applic TP HS [facility] Last Admin: 05/13/19 22:20 Dose: 1 applic Furosemide (Lasix Injection -) 80 mg IVPUSH BID@0600,1400 [facility] Last Admin: 05/14/19 06:03 Dose: 80 mg Octreotide Acetate 200 mcg/Octreotide Acetate 1,000 mcg/Sodium Chloride 500 mls @ 25 mls/hr IVPB ASDIR [facility] Last Admin: 05/13/19 23:52 Dose: 25 mls/hr Insulin Aspart (Novolog Vial Sliding Scale -) 1 vial SQ ACHS [facility]; Protocol Last Admin: 05/14/19 11:30 Dose: Not Given Melatonin (Melatonin) 5 mg PO HS PRN PRN Reason: INSOMNIA Last Admin: 05/13/19 22:10 Dose: 5 mg Metolazone (Zaroxolyn -) 5 mg PO BID [facility] Last Admin: 05/14/19 10:10 Dose: 5 mg Midodrine (Proamatine -) 7.5 mg PO TID-MID [facility] Last Admin: 05/14/19 10:11 Dose: Not Given Mupirocin (Bactroban Ointment (For Decolonization) -) 1 applic NS BID [facility] Stop: 05/17/19 09:59 Last Admin: 05/14/19 10:11 Dose: 1 applic Oxycodone HCl (Roxicodone -) 30 mg PO Q6H PRN PRN Reason: PAIN LEVEL 6-10 Last Admin: 05/14/19 12:05 Dose: 30 mg Ranitidine HCl (Zantac -) 150 mg PO DAILY [facility] Last Admin: 05/14/19 10:12 Dose: 150 mg Rifaximin (Xifaxan -) 550 mg PO BID [facility] Last Admin: 05/14/19 10:10 Dose: 550 mg Tamsulosin HCl (Flomax -) 0.4 mg PO BID@0830,2200 [facility] Last Admin: 05/14/19 10:10 Dose: 0.4 mg GENERAL: Awake, alert, and oriented HEENT: scleral icterus NECK: (+) JVD LUNGS: Bibasilar rales bilaterally. No wheezes. No accessory muscle use. HEART: Irregularly irregular ABDOMEN: Soft, distended, nontender, dull to percussion, no guarding, no rebound. MUSCULOSKELETAL: No CVA tenderness. EXTREMITIES: 2+ distal pulses b/l, warm, well-perfused. No calf tenderness. 2+ edema to thigh b/l PSYCHIATRIC: Cooperative. Good eye contact. Appropriate mood and affect. SKIN: Warm, dry, b/l stasis changes noted in LExt, R calcaneous ulceration without erythema or exudate Laboratory Results - last 24 hr 05/13/19 05/13/19 05/14/19 16:07 22:19 05:43 WBC RBC Hgb Hct MCV MCH MCHC RDW Plt Count MPV Sodium Potassium Chloride Carbon Dioxide Anion Gap BUN Creatinine Est GFR (CKD-EPI)AfAm Est GFR (CKD-EPI)NonAf POC Glucometer 192 205 71 Random Glucose Calcium Total Bilirubin AST ALT Alkaline Phosphatase Total Protein Albumin 05/14/19 05/14/19 05/14/19 07:38 07:38 11:27 WBC 6.3 RBC 3.50 L Hgb 9.2 L Hct 28.1 L MCV 80.3 MCH 26.4 MCHC 32.8 RDW 19.2 H Plt Count 107 L MPV 11.2 H Sodium 128 L Potassium 3.4 L Chloride 87 L Carbon Dioxide 27 Anion Gap 14 BUN 114.9 H* Creatinine 6.1 H Est GFR (CKD-EPI)AfAm 10.38 Est GFR (CKD-EPI)NonAf 8.96 POC Glucometer 110 Random Glucose 80 Calcium 8.0 L Total Bilirubin 1.5 H AST 138 H ALT 48 Alkaline Phosphatase 160 H Total Protein 5.7 L Albumin 2.9 L ASSESSMENT/PLAN: Acute volume overload Hepatorenal syndrome Urinary retention (improving) Paroxysmal Atrial Fibrillation Elevated troponin 2/2 to demand ischemia CAD T2DM Hyponatremia Per GI recommendations Albumin 25gm qdaily Lasix 80mg IV BID Metolazone 5mg PO BID Midodrine 5mg TID Octreotide Pain control O2 as needed IR for paracentesis NPO has been recommended by speech & swallow: For MBS Daily weights Strict I & O 4W / 4S monitoring Dr Dominguez
--- NOTE | 2019-05-14 17:15 | PN ---
Progress Note (short form) - Note Progress Note: Case discussed with Dr. Pritchett. Patient with good output through phelps, 1200cc yesterday along with 7L removal via paracentesis. Today so far 900cc through phelps. Switched Lasix IV to Lasix 40mg PO daily, d/c metolazone, d/c octreotide. MBS done which showed risk of aspiration. Patient unable to get TPN, NG tube, or PEG tube and thus needs nutrition by mouth. Patient and Dr. Pritchett aware of risks associated with PO intake, however patient requires proper nutrition to survive and per Dr. Pritchett will restart dysphagia puree with honey thick liquids and diabetic modification.
--- NOTE | 2019-05-14 17:21 | PN ---
Progress Note (short form) - Note Progress Note: Pt seen at bedside, case discussed with house staff and nursing staff. Pt still wants to leave hospital, is unwilling to accept the gravity of his current illness. Urinary output has improved but creatinine remains above 6, BUN over 100: CBC, BMP 05/14/19 07:38 05/14/19 07:38 With respect to his swallowing, if patient is fed, he MAY aspirate and develop pneumonia, but if he is made NPO, he WILL . Alternate methods of nutrition (TPN, G tube, NG tube) are all contraindicated by his medical conditions. He has been making adequate urine. Current plan is to reduce his diuretic back to his baseline 40 mg furosemide oral daily. D/C octreotide, albumin; continue midodrine for now. To check BMP, INR tomorrow.
[2019-05-14] MEDS ORDERED: Methylnaltrexone Bromide 12 MG/0.6 ML KIT SQ SCH (17:30)
[2019-05-14] MEDS ORDERED: Methylnaltrexone Bromide 12 MG/0.6 ML KIT SQ ONE (17:42)
[2019-05-14] MEDS ORDERED: MAG HYDROX/AL HYDROX/SIMETH 30 ML UNIT-DOSE CUP PO ONE (19:27)
[2019-05-14] MEDS: CHLORHEXIDINE GLUCONATE 4% CLEANSER FOR DECOLONIZATION TP SCH (23:34)
[2019-05-15] MEDS ORDERED: LORazepam 1 MG TABLET PO ONE (01:50)
[2019-05-15] MEDS ORDERED: LACTULOSE 20 GM/30 ML UDC (FOR ORAL USE ONLY) PO ONE (01:50)
[2019-05-15] MEDS: INSULIN SLIDING SCALE (NOVOLOG) 1 VIAL SQ SCH ×4 (06:33→21:08)
[2019-05-15 07:19] LABS: HEMATOCRIT 26.4 % (35.4-49); HEMOGLOBIN 8.8 GM/dL (11.7-16.9); MCH 26.6 pg (25.7-33.7); MCHC 33.5 g/dl (32.0-35.9); MEAN CELL VOLUME 79.3 fl (80-96); MEAN PLT VOLUME 11.3 fl (7.5-11.1); PLATELET COUNT 99 K/MM3 (134-434); RBC 3.33 M/mm3 (4.00-5.60); WHITE BLOOD COUNT 5.9 K/mm3 (4.0-10.0)
[2019-05-15 07:25] LABS: INR 1.9 (0.83-1.09); PROTHROMBIN TIME (PATIENT) 22.6 SEC (9.7-13.0)
[2019-05-15 07:28] LABS: ACTIVATED PTT 46.6 SECONDS (25.2-36.5)
[2019-05-15 08:07] LABS: ALBUMIN 3.1 g/dl (3.4-5.0); CALCIUM 8.3 mg/dL (8.5-10.1); CREATININE 6.2 mg/dL (0.55-1.3); MAGNESIUM 3.5 mg/dL (1.8-2.4); PHOSPHOROUS 8.4 mg/dL (2.5-4.9); POTASSIUM 3.6 mmol/L (3.5-5.1)
[2019-05-15] MEDS: oxyCODONE HCL 5 MG TABLET PO PRN ×2 (08:29→21:10)
[2019-05-15] MEDS: TAMSULOSIN HCL 0.4 MG CAP PO SCH ×2 (08:30→21:12)
[2019-05-15] MEDS ORDERED: ALBUMIN HUMAN 25% 12.5 GM/50 ML VIAL IVPB SCH (10:00)
[2019-05-15] MEDS ORDERED: FUROSEMIDE 40 MG TABLET (FP) PO SCH (10:00)
[2019-05-15] MEDS ORDERED: PT OWN MED DRAWER 7, Y5N ONE ×2 (11:33→15:53)
[2019-05-15] MEDS: MIDODRINE HCL 5 MG TABLET PO SCH ×3 (11:41→18:42)
[2019-05-15] MEDS: RANITIDINE HCL 150 MG TABLET (FP) PO SCH (11:41)
[2019-05-15] MEDS: MUPIROCIN 2% TOPICAL OINTMENT FOR DECOLONIZATION NS SCH ×2 (11:42→21:12)
[2019-05-15] MEDS: RIFAXIMIN 550 MG TABLET (UD) PO SCH ×2 (11:42→21:10)
[2019-05-15] MEDS: BACITRACIN/POLYMYXIN B SULFATE 15 GM TUBE TP SCH ×2 (11:52→21:12)
--- NOTE | 2019-05-15 12:11 | PATH ---
Cytology Non-Gynecological Report Patient Name: KAYKAY NGUYỄN Med. Rec. #: [id number] /Age/Gender: 1955 (Age: 63) / M Account: [id number] Location: 4 TELEMETRY U Taken: 05/13/2019 Received: 05/14/2019 Reported: 05/15/2019 Physicians: Karla Flowers M.D. Specimen(s) Received ABDOMINAL FLUID Clinical History Ascites Final Diagnosis ABDOMINAL FLUID, PARACENTESIS: SATISFACTORY FOR EVALUATION. NO MALIGNANT CELLS IDENTIFIED. FEW MACROPHAGES, RARE MESOTHELIAL CELLS, AND FEW LYMPHOCYTES PRESENT. Electronically Signed Josy Xavier M.D. Gross Description Approximately 50 cc of valentin fluid received fixed in 50% alcohol. One cytofunnel prepared and Pap stained. One cellblock prepared.
--- NOTE | 2019-05-15 13:47 | PN ---
Progress Note, FACILITY SERVICE ASSOCIATE - Note Progress Note: Selected Entries 05/15/19 12:26 Breakfast 25% Diet Tolerated Poor Laboratory Tests 05/15/19 05:27 WBC 5.9 Chart reviewed. MBS results and recommendation reviewed with staff.Case discussed with GI. Pt on PO diet per MD order's. Suggest supervision with PO intake. Monitor tolerance. Yankower available as needed. Pt remains a full code per chart.
--- NOTE | 2019-05-15 13:49 | PN ---
Progress Note, Physician Chief Complaint: patient seen and examined in bed sleeping - Current Medication List Current Medications: Active Medications Acetaminophen (Tylenol -) 650 mg PO Q6H PRN PRN Reason: PAIN OR FEVER Bacitracin/Polymyxin B Sulfate (Polysporin Ointment -) 1 applic TP BID [facility] Last Admin: 05/15/19 11:52 Dose: 1 applic Chlorhexidine Gluconate (Hibiclens For Decolonization -) 1 applic TP HS [facility] Last Admin: 05/14/19 23:34 Dose: Not Given Furosemide (Lasix -) 40 mg PO DAILY [facility] Last Admin: 05/15/19 11:41 Dose: 40 mg Insulin Aspart (Novolog Vial Sliding Scale -) 1 vial SQ ACHS [facility]; Protocol Last Admin: 05/15/19 12:17 Dose: Not Given Melatonin (Melatonin) 5 mg PO HS PRN PRN Reason: INSOMNIA Midodrine (Proamatine -) 7.5 mg PO TID-MID [facility] Last Admin: 05/15/19 11:41 Dose: 7.5 mg Mupirocin (Bactroban Ointment (For Decolonization) -) 1 applic NS BID [facility] Stop: 05/17/19 09:59 Last Admin: 05/15/19 11:42 Dose: Not Given Oxycodone HCl (Roxicodone -) 30 mg PO Q6H PRN PRN Reason: PAIN LEVEL 6-10 Last Admin: 05/15/19 08:29 Dose: 30 mg Ranitidine HCl (Zantac -) 150 mg PO DAILY [facility] Last Admin: 05/15/19 11:41 Dose: 150 mg Rifaximin (Xifaxan -) 550 mg PO BID [facility] Last Admin: 05/15/19 11:42 Dose: 550 mg Tamsulosin HCl (Flomax -) 0.4 mg PO BID@0830,2200 [facility] Last Admin: 05/15/19 08:30 Dose: 0.4 mg - Objective Vital Signs: Vital Signs Temperature 97.8 F 05/15/19 08:48 Pulse Rate 110 H 05/15/19 08:48 Respiratory Rate 20 05/15/19 08:48 Blood Pressure 109/72 05/15/19 08:48 O2 Sat by Pulse Oximetry (%) 98 05/14/19 21:00 Constitutional: Yes: Calm, Thin Eyes: Yes: Sclera Icterus Cardiovascular: Yes: Regular Rate and Rhythm, S1, S2 Respiratory: Yes: Diminished Gastrointestinal: Yes: Soft Edema: No Labs: CBC, BMP 05/15/19 05:27 05/15/19 05:27 INR, PTT INR 1.90 (0.83-1.09) H 05/15/19 05:27 Problem List - Problems (1) Cirrhosis Assessment/Plan: rifaximin lactulose Code(s): K74.60 - UNSPECIFIED CIRRHOSIS OF LIVER (2) Cachexia Assessment/Plan: dysphagia puree diet Code(s): R64 - CACHEXIA (3) Hepatic encephalopathy syndrome Assessment/Plan: midodrine lasix Code(s): K72.90 - HEPATIC FAILURE, UNSPECIFIED WITHOUT COMA
--- NOTE | 2019-05-15 14:22 | PN ---
Progress Note (short form) - Note Progress Note: Pt seen and examined. Case discussed with , Dr Tripathi, Dr Balbuena, and nursing staff. Continued and somewhat worsening uremia. Arousable but confused, oriented though to person,place. Wants to go home still. Current plan is to d/c all diuretics.] Fluid challenge of 500 cc. Back in AF at 109 bpm. If rate goes up substantially will need to reinstitute beta-paty. Prognosis poor.
--- NOTE | 2019-05-15 14:56 | PN ---
Progress Note, Physician History of Present Illness: Pt seen and examined at bedside. He is awake but does get confused. He is asking to go home. He denies shortness of breath. - Current Medication List Current Medications: Active Medications Acetaminophen (Tylenol -) 650 mg PO Q6H PRN PRN Reason: PAIN OR FEVER Bacitracin/Polymyxin B Sulfate (Polysporin Ointment -) 1 applic TP BID [facility] Last Admin: 05/15/19 11:52 Dose: 1 applic Chlorhexidine Gluconate (Hibiclens For Decolonization -) 1 applic TP HS [facility] Last Admin: 05/14/19 23:34 Dose: Not Given Insulin Aspart (Novolog Vial Sliding Scale -) 1 vial SQ ACHS [facility]; Protocol Last Admin: 05/15/19 12:17 Dose: Not Given Lactulose (Cephulac (Oral Use)) 20 gm PO TID [facility] Melatonin (Melatonin) 5 mg PO HS PRN PRN Reason: INSOMNIA Midodrine (Proamatine -) 7.5 mg PO TID-MID [facility] Last Admin: 05/15/19 11:41 Dose: 7.5 mg Mupirocin (Bactroban Ointment (For Decolonization) -) 1 applic NS BID [facility] Stop: 05/17/19 09:59 Last Admin: 05/15/19 11:42 Dose: Not Given Oxycodone HCl (Roxicodone -) 30 mg PO Q6H PRN PRN Reason: PAIN LEVEL 6-10 Last Admin: 05/15/19 08:29 Dose: 30 mg Ranitidine HCl (Zantac -) 150 mg PO DAILY [facility] Last Admin: 05/15/19 11:41 Dose: 150 mg Rifaximin (Xifaxan -) 550 mg PO BID [facility] Last Admin: 05/15/19 11:42 Dose: 550 mg Tamsulosin HCl (Flomax -) 0.4 mg PO BID@0830,2200 [facility] Last Admin: 05/15/19 08:30 Dose: 0.4 mg - Objective Vital Signs: Vital Signs Temperature 97.8 F 05/15/19 08:48 Pulse Rate 110 H 05/15/19 08:48 Respiratory Rate 20 05/15/19 08:48 Blood Pressure 109/72 05/15/19 08:48 O2 Sat by Pulse Oximetry (%) 98 05/14/19 21:00 Constitutional: Yes: Calm HENT: Yes: Atraumatic Neck: Yes: Supple Cardiovascular: Yes: S1, S2 Respiratory: Yes: CTA Bilaterally, On Nasal O2 Gastrointestinal: Yes: Normal Bowel Sounds, Soft Genitourinary: Yes: Christian Present Musculoskeletal: Yes: Muscle Weakness Edema: Yes Edema: LLE: 1+, RLE: 1+ Neurological: Yes: Confusion Psychiatric: Yes: Oriented Labs: CBC, BMP 05/15/19 05:27 05/15/19 05:27 INR, PTT INR 1.90 (0.83-1.09) H 05/15/19 05:27 Problem List - Problems (1) Acute kidney failure Code(s): N17.9 - ACUTE KIDNEY FAILURE, UNSPECIFIED (2) Cirrhosis Code(s): K74.60 - UNSPECIFIED CIRRHOSIS OF LIVER Assessment/Plan Current Medications Generic Name Dose Route Start Last Admin Trade Name Freq PRN Reason Stop Dose Admin Acetaminophen 650 mg 05/14/19 19:26 Tylenol - PO Q6H PRN PAIN OR FEVER Bacitracin/Polymyxin B Sulfate 1 applic 05/14/19 22:00 05/15/19 11:52 Polysporin Ointment - TP 1 applic BID [facility] Administration Chlorhexidine Gluconate 1 applic 05/14/19 22:00 05/14/19 23:34 Hibiclens For Decolonization - TP Not Given HS [facility] Insulin Aspart 1 vial 05/14/19 22:00 05/15/19 12:17 Novolog Vial Sliding Scale - SQ Not Given ACHS [facility] Protocol Lactulose 20 gm 05/15/19 22:00 Cephulac (Oral Use) PO TID [facility] Melatonin 5 mg 05/14/19 18:12 Melatonin PO HS PRN INSOMNIA Midodrine 7.5 mg 05/15/19 10:00 05/15/19 11:41 Proamatine - PO 7.5 mg TID-MID [facility] Administration Mupirocin 1 applic 05/14/19 22:00 05/15/19 11:42 Bactroban Ointment (For Decolonization) - NS 05/17/19 09:59 Not Given BID [facility] Oxycodone HCl 30 mg 05/14/19 18:12 05/15/19 08:29 Roxicodone - PO 30 mg Q6H PRN Administration PAIN LEVEL 6-10 Ranitidine HCl 150 mg 05/15/19 10:00 05/15/19 11:41 Zantac - PO 150 mg DAILY [facility] Administration Rifaximin 550 mg 05/14/19 22:00 05/15/19 11:42 Xifaxan - PO 550 mg BID [facility] Administration Tamsulosin HCl 0.4 mg 05/14/19 22:00 05/15/19 08:30 Flomax - PO 0.4 mg BID@0830,2200 [facility] Administration Impression 1. CKD 2. TO 3. change in mental status 4. liver cirrhosis 5. ascites 6. pain med dependence 7. bph 8. a-fib 9. failure to thrive 10. non-compliance 11. hypotension 12. seizure 13. DM Plan - discussed with GI, diuretics to be held - will give 500 cc of clinimix as he has not eaten, this will also be a small fluid challenge - repeat labs in am - overall prognosis is poor, discussed with at length - pt with hepatorenal disease
[2019-05-15] MEDS: AMINO ACIDS 4.25%/D5W 1,000 ML IV SCH (16:18)
[2019-05-15] MEDS: MELATONIN 5 MG TABLETS PO PRN (21:09)
[2019-05-15] MEDS: LACTULOSE 20 GM/30 ML UDC (FOR ORAL USE ONLY) PO SCH (21:09)
[2019-05-16] MEDS: CHLORHEXIDINE GLUCONATE 4% CLEANSER FOR DECOLONIZATION TP SCH (00:05)
[2019-05-16] MEDS: AMINO ACIDS 4.25%/D5W 1,000 ML IV SCH ×2 (03:22→22:42)
[2019-05-16] MEDS: LACTULOSE 20 GM/30 ML UDC (FOR ORAL USE ONLY) PO SCH ×3 (06:49→22:42)
[2019-05-16] MEDS: INSULIN SLIDING SCALE (NOVOLOG) 1 VIAL SQ SCH ×4 (06:49→22:46)
[2019-05-16 07:08] VITALS: BMI 24.9
[2019-05-16 07:48] LABS: CREATININE 6.3 mg/dL (0.55-1.3); POTASSIUM 3.5 mmol/L (3.5-5.1)
[2019-05-16 07:50] LABS: INR 1.84 (0.83-1.09); PROTHROMBIN TIME (PATIENT) 21.8 SEC (9.7-13.0)
[2019-05-16 07:51] LABS: BASO % 0.5 % (0-2.0); HEMATOCRIT 25.4 % (35.4-49); HEMOGLOBIN 8.4 GM/dL (11.7-16.9); MCH 26.4 pg (25.7-33.7); MCHC 33.2 g/dl (32.0-35.9); MEAN CELL VOLUME 79.6 fl (80-96); MEAN PLT VOLUME 10.9 fl (7.5-11.1); MONO % 11.1 % (3.8-10.2); NEUT % 84.4 % (42.8-82.8); PLATELET COUNT 95 K/MM3 (134-434); RBC 3.19 M/mm3 (4.00-5.60); RDW 18.6 % (11.9-15.9); WHITE BLOOD COUNT 7.4 K/mm3 (4.0-10.0)
[2019-05-16 08:21] LABS: BLOOD UREA NITROGEN 130.3 mg/dL (7-18)
[2019-05-16] MEDS: TAMSULOSIN HCL 0.4 MG CAP PO SCH ×2 (10:04→22:41)
[2019-05-16] MEDS: MIDODRINE HCL 5 MG TABLET PO SCH ×3 (10:04→17:38)
[2019-05-16] MEDS: RANITIDINE HCL 150 MG TABLET (FP) PO SCH (10:04)
[2019-05-16] MEDS: RIFAXIMIN 550 MG TABLET (UD) PO SCH ×2 (10:06→22:42)
[2019-05-16] MEDS: MUPIROCIN 2% TOPICAL OINTMENT FOR DECOLONIZATION NS SCH ×2 (10:06→22:42)
[2019-05-16] MEDS: oxyCODONE HCL 5 MG TABLET PO PRN ×3 (10:07→23:51)
--- NOTE | 2019-05-16 10:44 | PN ---
Progress Note, NEWS PRODUCER - Note Progress Note: Selected Entries 05/15/19 12:26 Breakfast 25% Diet Tolerated Poor Laboratory Tests 05/15/19 05:27 WBC 5.9 OOB in chair. Verbal. Pt taking little by mouth, coughing after trials. MBS results reviewed with nursing. Pt on PO diet per MD order's. Suggest supervision with PO intake. Monitor tolerance. Yankower available as needed. Pt remains a full code per chart.
--- NOTE | 2019-05-16 12:09 | PN ---
Progress Note, Physician History of Present Illness: Pt seen and examined at bedside. He is more awake and alert today. He is out of bed to chair. - Current Medication List Current Medications: Active Medications Acetaminophen (Tylenol -) 650 mg PO Q6H PRN PRN Reason: PAIN OR FEVER Bacitracin/Polymyxin B Sulfate (Polysporin Ointment -) 1 applic TP BID [facility] Last Admin: 05/15/19 21:12 Dose: 1 applic Chlorhexidine Gluconate (Hibiclens For Decolonization -) 1 applic TP HS [facility] Last Admin: 05/16/19 00:05 Dose: Not Given Insulin Aspart (Novolog Vial Sliding Scale -) 1 vial SQ ACHS [facility]; Protocol Last Admin: 05/16/19 06:49 Dose: 2 units Lactulose (Cephulac (Oral Use)) 20 gm PO TID [facility] Last Admin: 05/16/19 06:49 Dose: 20 gm Melatonin (Melatonin) 5 mg PO HS PRN PRN Reason: INSOMNIA Last Admin: 05/15/19 21:09 Dose: 5 mg Midodrine (Proamatine -) 7.5 mg PO TID-MID [facility] Last Admin: 05/16/19 10:04 Dose: 7.5 mg Mupirocin (Bactroban Ointment (For Decolonization) -) 1 applic NS BID [facility] Stop: 05/17/19 09:59 Last Admin: 05/16/19 10:06 Dose: Not Given Oxycodone HCl (Roxicodone -) 30 mg PO Q6H PRN PRN Reason: PAIN LEVEL 6-10 Last Admin: 05/16/19 10:07 Dose: 30 mg Ranitidine HCl (Zantac -) 150 mg PO DAILY [facility] Last Admin: 05/16/19 10:04 Dose: 150 mg Rifaximin (Xifaxan -) 550 mg PO BID [facility] Last Admin: 05/16/19 10:06 Dose: 550 mg Tamsulosin HCl (Flomax -) 0.4 mg PO BID@0830,2200 [facility] Last Admin: 05/16/19 10:04 Dose: 0.4 mg - Objective Vital Signs: Vital Signs Temperature 97.5 F L 05/16/19 08:56 Pulse Rate 102 H 05/16/19 08:56 Respiratory Rate 20 05/16/19 08:56 Blood Pressure 102/64 08/16/19 08:56 O2 Sat by Pulse Oximetry (%) 93 L 05/16/19 08:50 Constitutional: Yes: Calm, Cachectic HENT: Yes: Atraumatic Neck: Yes: Supple Cardiovascular: Yes: S1, S2 Respiratory: Yes: CTA Bilaterally Gastrointestinal: Yes: Normal Bowel Sounds, Ascites Genitourinary: Yes: WNL Musculoskeletal: Yes: WNL Edema: Yes Edema: LLE: 1+, RLE: 1+ Neurological: Yes: Confusion Labs: CBC, BMP 05/16/19 05:25 05/16/19 05:25 INR, PTT INR 1.84 (0.83-1.09) H 05/16/19 05:25 Problem List - Problems (1) Acute kidney failure Code(s): N17.9 - ACUTE KIDNEY FAILURE, UNSPECIFIED (2) Cirrhosis Code(s): K74.60 - UNSPECIFIED CIRRHOSIS OF LIVER Assessment/Plan Current Medications Generic Name Dose Route Start Last Admin Trade Name Freq PRN Reason Stop Dose Admin Acetaminophen 650 mg 05/14/19 19:26 Tylenol - PO Q6H PRN PAIN OR FEVER Bacitracin/Polymyxin B Sulfate 1 applic 05/14/19 22:00 05/15/19 21:12 Polysporin Ointment - TP 1 applic BID [facility] Administration Chlorhexidine Gluconate 1 applic 05/14/19 22:00 05/16/19 00:05 Hibiclens For Decolonization - TP Not Given HS [facility] Insulin Aspart 1 vial 05/14/19 22:00 05/16/19 06:49 Novolog Vial Sliding Scale - SQ 2 units ACHS [facility] Administration Protocol Lactulose 20 gm 05/15/19 22:00 05/16/19 06:49 Cephulac (Oral Use) PO 20 gm TID [facility] Administration Melatonin 5 mg 05/14/19 18:12 05/15/19 21:09 Melatonin PO 5 mg HS PRN Administration INSOMNIA Midodrine 7.5 mg 05/15/19 10:00 05/16/19 10:04 Proamatine - PO 7.5 mg TID-MID [facility] Administration Mupirocin 1 applic 05/14/19 22:00 05/16/19 10:06 Bactroban Ointment (For Decolonization) - NS 05/17/19 09:59 Not Given BID [facility] Oxycodone HCl 30 mg 05/14/19 18:12 05/16/19 10:07 Roxicodone - PO 30 mg Q6H PRN Administration PAIN LEVEL 6-10 Ranitidine HCl 150 mg 05/15/19 10:00 05/16/19 10:04 Zantac - PO 150 mg DAILY [facility] Administration Rifaximin 550 mg 05/14/19 22:00 05/16/19 10:06 Xifaxan - PO 550 mg BID [facility] Administration Tamsulosin HCl 0.4 mg 05/14/19 22:00 05/16/19 10:04 Flomax - PO 0.4 mg BID@0830,2200 [facility] Administration Impression 1. CKD 2. TO 3. change in mental status 4. liver cirrhosis 5. ascites 6. pain med dependence 7. bph 8. a-fib 9. failure to thrive 10. non-compliance 11. hypotension 12. seizure 13. DM Plan - cont clinimix for now - monitor volume status - lasix on hold - overall prognosis is poor, discussed with at length - pt with hepatorenal disease
[2019-05-16] MEDS: BACITRACIN/POLYMYXIN B SULFATE 15 GM TUBE TP SCH (12:14)
[2019-05-16] MEDS ORDERED: AMINO ACIDS 4.25%/D5W 1,000 ML IV SCH (12:15)
--- NOTE | 2019-05-16 15:03 | PN ---
Progress Note, Physician Chief Complaint: patient seen and examined sitting in chair per nursing patient chokes and coughs up every time he tried to have medication or drink - Current Medication List Current Medications: Active Medications Acetaminophen (Tylenol -) 650 mg PO Q6H PRN PRN Reason: PAIN OR FEVER Bacitracin/Polymyxin B Sulfate (Polysporin Ointment -) 1 applic TP BID [facility] Last Admin: 05/16/19 12:14 Dose: Not Given Chlorhexidine Gluconate (Hibiclens For Decolonization -) 1 applic TP HS [facility] Last Admin: 05/16/19 00:05 Dose: Not Given Amino Acids (Clinimix -) 1,000 mls @ 30 mls/hr IV Q24H [facility] Last Admin: 05/16/19 13:25 Dose: 30 mls/hr Insulin Aspart (Novolog Vial Sliding Scale -) 1 vial SQ ACHS [facility]; Protocol Last Admin: 05/16/19 12:13 Dose: Not Given Lactulose (Cephulac (Oral Use)) 20 gm PO TID [facility] Last Admin: 05/16/19 06:49 Dose: 20 gm Melatonin (Melatonin) 5 mg PO HS PRN PRN Reason: INSOMNIA Last Admin: 05/15/19 21:09 Dose: 5 mg Midodrine (Proamatine -) 7.5 mg PO TID-MID [facility] Last Admin: 05/16/19 13:26 Dose: 7.5 mg Mupirocin (Bactroban Ointment (For Decolonization) -) 1 applic NS BID [facility] Stop: 05/17/19 09:59 Last Admin: 05/16/19 10:06 Dose: Not Given Oxycodone HCl (Roxicodone -) 30 mg PO Q6H PRN PRN Reason: PAIN LEVEL 6-10 Last Admin: 05/16/19 10:07 Dose: 30 mg Ranitidine HCl (Zantac -) 150 mg PO DAILY [facility] Last Admin: 05/16/19 10:04 Dose: 150 mg Rifaximin (Xifaxan -) 550 mg PO BID [facility] Last Admin: 05/16/19 10:06 Dose: 550 mg Tamsulosin HCl (Flomax -) 0.4 mg PO BID@0830,2200 [facility] Last Admin: 05/16/19 10:04 Dose: 0.4 mg - Objective Vital Signs: Vital Signs Temperature 98.0 F 05/16/19 13:23 Pulse Rate 110 H 05/16/19 13:23 Respiratory Rate 18 05/16/19 13:23 Blood Pressure 104/74 05/16/19 13:23 O2 Sat by Pulse Oximetry (%) 93 L 05/16/19 08:50 Constitutional: Yes: Calm, Thin Neck: Yes: Trachea Midline Cardiovascular: Yes: Regular Rate and Rhythm, S1, S2 Respiratory: Yes: Diminished Gastrointestinal: Yes: Soft Edema: Yes Neurological: Yes: Alert Labs: CBC, BMP 05/16/19 05:25 05/16/19 05:25 INR, PTT INR 1.84 (0.83-1.09) H 05/16/19 05:25 Problem List - Problems (1) Cachexia Assessment/Plan: clinimix patient chokes when he tries to have drink or lactulose MBS video seen as well Code(s): R64 - CACHEXIA (2) Cirrhosis Assessment/Plan: rifaximin lactulose Code(s): K74.60 - UNSPECIFIED CIRRHOSIS OF LIVER (3) Hepatic encephalopathy syndrome Assessment/Plan: midodrine lasix on hold Code(s): K72.90 - HEPATIC FAILURE, UNSPECIFIED WITHOUT COMA
--- NOTE | 2019-05-16 20:08 | PN ---
Progress Note (short form) - Note Progress Note: Pt awake, OOB in chair, weak,tremulous, desiring to go home. Able to swallow, was given ice cream by family members. Had been made NPO by another physician. Creatinine and BUN continue to climb. RLE now shows some edema again. INR no longer increasing. WBC normal. Hgb steady. Impression: Current most severe problem remains hepatorenal syndrome, now with BUN of 130. To increase IV rate to 50 cc/hr. Discussed with Dr Balbuena who agrees with plan. Allow limited oral intake. Check labs in a.m.
[2019-05-16] MEDS ORDERED: PT OWN MED DRAWER 7, Y5N ONE (22:13)
[2019-05-16] MEDS: MELATONIN 5 MG TABLETS PO PRN (22:42)
[2019-05-16] MEDS: ACETAMINOPHEN 325 MG TABLET (FP) PO PRN (23:52)
[2019-05-17] MEDS: INSULIN SLIDING SCALE (NOVOLOG) 1 VIAL SQ SCH ×4 (06:31→23:00)
[2019-05-17] MEDS: LACTULOSE 20 GM/30 ML UDC (FOR ORAL USE ONLY) PO SCH ×4 (06:31→21:39)
[2019-05-17] MEDS: oxyCODONE HCL 5 MG TABLET PO PRN ×3 (06:32→22:23)
[2019-05-17] MEDS: ACETAMINOPHEN 325 MG TABLET (FP) PO PRN ×2 (06:33→14:34)
[2019-05-17 07:16] LABS: BASO % 0.4 % (0-2.0); HEMOGLOBIN 8.6 GM/dL (11.7-16.9); LYMPH % 4.7 % (8-40); MCH 26.4 pg (25.7-33.7); MEAN CELL VOLUME 79.9 fl (80-96); MONO % 10.8 % (3.8-10.2); NEUT % 84.1 % (42.8-82.8); RBC 3.26 M/mm3 (4.00-5.60); RDW 18.5 % (11.9-15.9)
[2019-05-17 07:23] LABS: INR 1.77 (0.83-1.09)
[2019-05-17 07:40] LABS: ALBUMIN 3.1 g/dl (3.4-5.0); BILIRUBIN,TOTAL 1.7 mg/dL (0.2-1); CALCIUM 8.2 mg/dL (8.5-10.1); CREATININE 6.4 mg/dL (0.55-1.3); POTASSIUM 3.5 mmol/L (3.5-5.1); TOT PROT 5.9 g/dl (6.4-8.2)
[2019-05-17] MEDS ORDERED: PT OWN MED DRAWER 7, Y5N ONE (09:15)
[2019-05-17] MEDS: RANITIDINE HCL 150 MG TABLET (FP) PO SCH (09:21)
[2019-05-17] MEDS: MIDODRINE HCL 5 MG TABLET PO SCH ×3 (09:21→17:16)
[2019-05-17] MEDS: TAMSULOSIN HCL 0.4 MG CAP PO SCH ×2 (09:21→21:39)
[2019-05-17] MEDS: RIFAXIMIN 550 MG TABLET (UD) PO SCH ×2 (09:21→21:40)
--- NOTE | 2019-05-17 09:44 | PN ---
Progress Note (short form) - Note Progress Note: Coverage for Dr. Balbuena Renal follow up for TO on CKD Pt seen and examied at the bedside awake and alert denies any pain, sob, abd pain, N/V/D tolerating a little of his breakfast on IV Clinimix Vital Signs Temperature 97.6 F 05/17/19 09:20 Pulse Rate 111 H 05/17/19 09:20 Respiratory Rate 20 05/17/19 09:20 Blood Pressure 105/68 05/17/19 09:20 O2 Sat by Pulse Oximetry (%) 96 05/16/19 21:00 Intake & Output 05/14/19 05/15/19 05/16/19 05/17/19 23:59 23:59 23:59 23:59 Intake Total 592 258 4799 500 Output Total 1400 600 700 200 Balance -700 -240 305 300 Weight 65.941 kg 63.594 kg 66.735 kg NAD awake and alert + abd distension, ascities (not tight) + edema in sacrum and LE CBC, BMP 05/17/19 05:26 05/17/19 05:26 Current Medications Acetaminophen (Tylenol -) 650 mg PO Q6H PRN PRN Reason: PAIN OR FEVER Last Admin: 05/17/19 06:33 Dose: 650 mg Amino Acids (Clinimix -) 1,000 mls @ 50 mls/hr IV Q24H [facility] Last Admin: 05/16/19 22:42 Dose: 50 mls/hr Insulin Aspart (Novolog Vial Sliding Scale -) 1 vial SQ ACHS [facility]; Protocol Last Admin: 05/17/19 06:31 Dose: 2 units Lactulose (Cephulac (Oral Use)) 20 gm PO TID [facility] Last Admin: 05/17/19 06:31 Dose: Not Given Melatonin (Melatonin) 5 mg PO HS PRN PRN Reason: INSOMNIA Last Admin: 05/16/19 22:42 Dose: 5 mg Midodrine (Proamatine -) 7.5 mg PO TID-MID [facility] Last Admin: 05/17/19 09:21 Dose: 7.5 mg Mupirocin (Bactroban Ointment (For Decolonization) -) 1 applic NS BID [facility] Stop: 05/17/19 09:59 Last Admin: 05/16/19 22:42 Dose: Not Given Oxycodone HCl (Roxicodone -) 30 mg PO Q6H PRN PRN Reason: PAIN LEVEL 6-10 Last Admin: 05/17/19 06:32 Dose: 30 mg Ranitidine HCl (Zantac -) 150 mg PO DAILY [facility] Last Admin: 05/17/19 09:21 Dose: 150 mg Rifaximin (Xifaxan -) 550 mg PO BID [facility] Last Admin: 05/17/19 09:21 Dose: 550 mg Tamsulosin HCl (Flomax -) 0.4 mg PO BID@0830,2200 [facility] Last Admin: 05/17/19 09:21 Dose: 0.4 mg Impression 1. CKD 2. TO 3. change in mental status 4. liver cirrhosis 5. ascites 6. pain med dependence 7. bph 8. a-fib 9. failure to thrive 10. non-compliance 11. hypotension 12. seizure 13. DM Plan Clinically stable, no improvement in renal function noted currently off diuretics because of high BUN/Cr continue clinmiax pt does not wish to pursue renal replacement therapy continue supportive care prognosis is poor Amando Vasquez DO
--- NOTE | 2019-05-17 11:23 | PN ---
Progress Note (short form) - Note Progress Note: Dr Goel's note appreciated. Renal function continues to deteriorate. Pt somnolent, tremulous, with slurred speech. He continues to want to go home and says his and son can take care of him at home. Discussed with , clearly they are not able to manage him at present. I do not believe he is competent to make his own medical decisions now. Abdomen is filling up with ascites again but not tense. Unfortunately all measures to reverse hepatorenal syndrome (diuretics, albumin, midodrine, paracentesis, fluid resuscitation) have failed to have an impact. Pt' s aware that he is unlikely to survive this hospitalization and is willing to make him DNR if/when he becomes comatose.
[2019-05-17 13:11] LABS: PLATELET COUNT 89 K/MM3 (134-434)
[2019-05-17] MEDS ORDERED: LORazepam 2 MG/ML SDV VIAL IVPUSH ONE (18:45)
[2019-05-17] MEDS: MELATONIN 5 MG TABLETS PO PRN (22:28)
[2019-05-17] MEDS: AMINO ACIDS 4.25%/D5W 1,000 ML IV SCH (23:02)
[2019-05-18] MEDS: LACTULOSE 20 GM/30 ML UDC (FOR ORAL USE ONLY) PO SCH (06:50)
[2019-05-18 07:11] VITALS: TEMP 97.2
[2019-05-18] MEDS: oxyCODONE HCL 5 MG TABLET PO PRN (07:24)
[2019-05-18] MEDS: INSULIN SLIDING SCALE (NOVOLOG) 1 VIAL SQ SCH ×2 (07:25→12:10)
[2019-05-18 07:54] LABS: ALBUMIN 2.8 g/dl (3.4-5.0); BILIRUBIN,TOTAL 1.7 mg/dL (0.2-1); CALCIUM 7.8 mg/dL (8.5-10.1); CREATININE 6.4 mg/dL (0.55-1.3); MAGNESIUM 3.5 mg/dL (1.8-2.4); PHOSPHOROUS 8.2 mg/dL (2.5-4.9); POTASSIUM 3.4 mmol/L (3.5-5.1); TOT PROT 5.8 g/dl (6.4-8.2)
[2019-05-18 08:44] LABS: BLOOD UREA NITROGEN 149.8 mg/dL (7-18)
--- NOTE | 2019-05-18 09:42 | PN ---
Progress Note (short form) - Note Progress Note: Coverage for Dr. Balbuena Renal follow up for TO on CKD Pt seen and examined at the bedside awake and alert denies any pain or sob at the present time has poor oral intake but no N/V at the bedside Vital Signs Temperature 97.2 F L 05/18/19 06:00 Pulse Rate 88 05/18/19 06:00 Respiratory Rate 20 05/18/19 08:43 Blood Pressure 113/70 05/18/19 06:00 O2 Sat by Pulse Oximetry (%) 95 05/18/19 08:43 Intake & Output 05/15/19 05/16/19 05/17/19 05/18/19 23:59 23:59 23:59 23:59 Intake Total 360 1005 620 600 Output Total 600 700 700 350 Balance -240 305 -80 250 Weight 63.594 kg 66.735 kg NAD awake and alert + abd distension, ascities (not tight) + edema in sacrum and LE CBC, BMP 05/17/19 05:26 05/18/19 05:36 Current Medications Acetaminophen (Tylenol -) 650 mg PO Q6H PRN PRN Reason: PAIN OR FEVER Last Admin: 05/17/19 14:34 Dose: 650 mg Amino Acids (Clinimix -) 1,000 mls @ 50 mls/hr IV Q24H [facility] Last Admin: 05/17/19 23:02 Dose: 50 mls/hr Insulin Aspart (Novolog Vial Sliding Scale -) 1 vial SQ ACHS [facility]; Protocol Last Admin: 05/18/19 07:25 Dose: 4 units Lactulose (Cephulac (Oral Use)) 20 gm PO TID [facility] Last Admin: 05/18/19 06:50 Dose: Not Given Melatonin (Melatonin) 5 mg PO HS PRN PRN Reason: INSOMNIA Last Admin: 05/17/19 22:28 Dose: 5 mg Midodrine (Proamatine -) 7.5 mg PO TID-MID [facility] Last Admin: 05/17/19 17:16 Dose: 7.5 mg Oxycodone HCl (Roxicodone -) 30 mg PO Q6H PRN PRN Reason: PAIN LEVEL 6-10 Last Admin: 05/18/19 07:24 Dose: 30 mg Ranitidine HCl (Zantac -) 150 mg PO DAILY [facility] Last Admin: 05/17/19 09:21 Dose: 150 mg Rifaximin (Xifaxan -) 550 mg PO BID [facility] Last Admin: 05/17/19 21:40 Dose: Not Given Tamsulosin HCl (Flomax -) 0.4 mg PO BID@0830,2200 [facility] Last Admin: 05/17/19 21:39 Dose: Not Given Impression 1. CKD 2. TO 3. change in mental status 4. liver cirrhosis 5. ascites 6. pain med dependence 7. bph 8. a-fib 9. failure to thrive 10. non-compliance 11. hypotension 12. seizure 13. DM Plan Renal function without any improvement thus far and pt has failed medical management of hepato-renal syndrome. prognosis is grave at this time. Would hold IV clinmix as it is hypotnic and likely further contributing to hyponatremia. Also would maintain on 1L fluid restriction and encorge oral solute intake as tolerated Would benefit from hospice evaluation. Amando Vasquez DO
[2019-05-18 09:54] VITALS: BP 115/77; PULSE 118
[2019-05-18] MEDS: TAMSULOSIN HCL 0.4 MG CAP PO SCH (09:54)
[2019-05-18] MEDS: MIDODRINE HCL 5 MG TABLET PO SCH (09:54)
[2019-05-18] MEDS: RIFAXIMIN 550 MG TABLET (UD) PO SCH (09:54)
[2019-05-18] MEDS: RANITIDINE HCL 150 MG TABLET (FP) PO SCH (09:55)
--- NOTE | 2019-05-18 11:00 | DS ---
Physical Examination Vital Signs: Vital Signs Temperature 97.2 F L 05/18/19 06:00 Pulse Rate 118 H 05/18/19 09:53 Respiratory Rate 18 05/18/19 09:53 Blood Pressure 115/77 05/18/19 09:53 O2 Sat by Pulse Oximetry (%) 95 05/18/19 08:43 Constitutional: Yes: Cachectic Eyes: Yes: Sclera Icterus Cardiovascular: Yes: Pulse Irregular Respiratory: Yes: Regular Gastrointestinal: Yes: Ascites ...Rectal Exam: Yes: Deferred Renal/: Yes: Christian Present Musculoskeletal: Yes: Muscle Weakness Extremities: Yes: Other (Ulcer r. heel) Edema: LUE: 2+, RUE: 3+ Labs: CBC, BMP 05/17/19 05:26 05/18/19 05:36 Discharge Summary Reason For Visit: hepatorenal syndrome Current Active Problems Acute kidney failure (Acute) Acute kidney injury superimposed on chronic kidney disease (Acute) Cachexia (Acute) Chronic ulcer of right lower extremity (Acute) Cirrhosis (Acute) Hepatic encephalopathy syndrome (Acute) Hypoalbuminemia (Acute) Nonhealing ulcer of multiple sites of right lower extremity (Acute) Portal hypertension syndrome (Acute) Venous stasis dermatitis of both lower extremities (Acute) Volume overload (Acute) Hospital Course: 63 y.o. M with coronary artery disease (17 stents), paroxysmal atrial fibrillation, diabetes, nonalcoholic steatohepatitis with cirrhosis, chronic renal insufficency, intermittent hyponatremia, repeated bouts of hepatic encephalopathy, ascites, nonhealing leg ulcer, admitted with worsening renal function (hepatorenal syndrome). Was admitted to ICU, initial treatment consisting of midodrine, IV albumin, octreotide, diuretics, with no improvement. Underwent therapeutic paracentesis of 7 L of fluid, still no improvement in renal function. Diuretics were held, patient given IV Clinimix, continued rise in BUN to 149, dropping serum Na to 124. Patient is anxious to go home, his family understands that he is terminally ill. Note he has repeatedly refused hemodialysis. Condition: Poor - Instructions Referrals: Salazar Pritchett MD [Primary Care Provider] - Disposition: VNS/HOME HEALTH CARE - Home Medications Comprehensive Discharge Medication List: Ambulatory Orders Tamsulosin HCl [Flomax] 0.4 mg PO BID 05/16/18 Aspirin [ASA -] 81 mg PO DAILY 02/19/19 Rifaximin [Xifaxan] 550 mg PO BID 02/21/19 Cephalexin [Keflex] 500 mg PO DAILY 04/15/19 Insulin (Novolog 70/30) [Novolog Mix 70/30 Vial -] 10 units SQ AM 04/15/19 Insulin Glargine,Hum.rec.anlog [Lantus] 15 unit SQ HS 04/15/19 Lactulose 10 gm PO BID 04/15/19 Metoprolol Succinate [Toprol Xl] 50 mg PO DAILY 04/15/19 Mirtazapine 15 mg PO HS 04/15/19 Ranitidine [Zantac -] 150 mg PO DAILY 04/15/19
== END 2019-05-18 13:38 | disposition home health service (06) | DRG 441 ==
LOC: JER 17:35 → JERBED 21:17 → JICU 05-12 01:08 → J4W 05-14 18:30
PROVIDERS: ADMIT Internal Medicine Gastroenterology; ATTEND Internal Medicine Gastroenterology
PROC: 0W9G3ZX Drainage of Peritoneal Cavity, Percutaneous Approach, Diagnostic (ICD-10-PCS; principal; 2019-05-13)
DX: K76.7 Hepatorenal syndrome (principal); I50.23 Acute on chronic systolic (congestive) heart failure; N17.9 Acute kidney failure, unspecified; L97.818 Non-pressure chronic ulcer of other part of right lower leg with other specified severity; E87.1 Hypo-osmolality and hyponatremia; I24.8 Other forms of acute ischemic heart disease; I85.00 Esophageal varices without bleeding; R18.8 Other ascites; R64 Cachexia; I13.0 Hypertensive heart and chronic kidney disease with heart failure and stage 1 through stage 4 chronic kidney disease, or unspecified chronic kidney disease; D68.9 Coagulation defect, unspecified; I48.91 Unspecified atrial fibrillation; E11.51 Type 2 diabetes mellitus with diabetic peripheral angiopathy without gangrene; I25.10 Atherosclerotic heart disease of native coronary artery without angina pectoris; E78.5 Hyperlipidemia, unspecified; J44.9 Chronic obstructive pulmonary disease, unspecified; G89.29 Other chronic pain; K75.81 Nonalcoholic steatohepatitis (NASH); I25.2 Old myocardial infarction; K74.69 Other cirrhosis of liver; N40.0 Benign prostatic hyperplasia without lower urinary tract symptoms; K72.90 Hepatic failure, unspecified without coma; I48.0 Paroxysmal atrial fibrillation; R33.9 Retention of urine, unspecified; E87.70 Fluid overload, unspecified; K59.09 Other constipation; K21.9 Gastro-esophageal reflux disease without esophagitis; M25.552 Pain in left hip; M54.5 Low back pain; F11.90 Opioid use, unspecified, uncomplicated; R56.9 Unspecified convulsions; R62.7 Adult failure to thrive; Z68.25 Body mass index [BMI] 25.0-25.9, adult; E11.22 Type 2 diabetes mellitus with diabetic chronic kidney disease; N18.9 Chronic kidney disease, unspecified; Z95.5 Presence of coronary angioplasty implant and graft; Z91.14 Patient's other noncompliance with medication regimen
CPT/HCPCS: 36415; 71045-TC-FY; 72100-TC-FY; 74190-TC-FY; 74230-TC-FY; 76700-TC; 76775-TC; 76942-TC; 80048; 80053; 82140; 82550; 82553; 82962; 83605; 83690; 83735; 83880; 84100; 84484; 85025; 85027; 85610; 85730; 88108; 88305-TC; 92611-GN; 93005; 93010; 97116-GP; 97161-GP; 99283-25; J1644; P9047